=== PATIENT | female | born 1950 | race Caucasian/White ===

== ENCOUNTER 2021-03-16 01:05 | Emergency (ER) | payer MEDICARE, MEDICAID, SELFPAY ==
[2021-03-16 01:15] VITALS: BP 141/51; BP 148/48; PULSE 60; RESP 16; TEMP 36.7; O2SAT 96; O2SAT 97; BMI 38.2
--- NOTE | 2021-03-16 01:20 | PC.NURSE ---
PT TO ROOM VIA AMBULANCE FROM [facility] WITH EKG CHG, UNSURE WHAT CHANGES EXACTLY HAPPENED. PT ARRIVES ALERT, RESPIRATIONS N/L. SKIN W/D. PT DENIES ANY CP OR SOB AT THIS TIME. PT ON MONITOR WITH HR 60. WILL CONTINUE TO MONITOR PT.
--- NOTE | 2021-03-16 02:02 | ED.GENADULT ---
HPI - General Adult General Chief complaint: General Medical Stated complaint: ABN LABS,EKG CHANGES PER [facility] Time Seen by Provider: 03/16/21 02:02 Source: patient Mode of arrival: EMS History of Present Illness HPI narrative: 70-year-old female brought in via EMS from [facility] for concerns regarding potassium levels and reported EKG changes. Patient states she is unclear why she was brought in as she has no complaints. She currently denies any dizziness, shortness of breath, chest pain/palpitations, nausea/vomiting/abdominal pain, and denies any urinary pain/burning/frequency. Related Data Previous Rx's Medication Instructions Recorded sodium polystyrene sulf-sorbtl 60 ml PO DAILY PRN #473 ml 03/16/21 Allergies Allergy/AdvReac Type Severity Reaction Status Date / Time codeine [CODEINE] Allergy Unknown UNKNOWN Unverified 05/17/20 19:17 morphine [MORPHINE] Allergy Unknown UNKNOWN, Unverified 05/17/20 19:17 anaphylaxis Review of Systems Review of Systems: Pertinent positives and negatives as stated in HPI 10 point review of systems is otherwise negative. PMFSH Past Medical History Source: nursing notes reviewed Social History Social History Advance Directives: No Advance Directives Information Provided: No Physical Exam Vital Signs: Vital Signs: Last Vital Signs Temp 98.1 F 03/16/21 01:15 Pulse 62 03/16/21 06:00 Resp 16 03/16/21 06:00 BP 163/61 H 03/16/21 06:00 Pulse Ox 97 03/16/21 06:00 Body Mass Index 38.2 VITAL SIGNS: Reviewed. GENERAL: Well developed, well nourished, in no acute distress. HEAD: Normocephalic/atraumatic EYES: PERRLA, EOMI OROPHARYNX: no oral lesions noted, posterior pharynx clear LUNGS: Normal breath sounds. No adventitious sounds or accessory muscle use. SpO2<97> CARDIOVASCULAR: Regular rate and rhythm without noted murmurs, no JVD or lower extremity edema. ABDOMEN: Obese, Soft, non-tender, non-distended with bowel sounds. 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 NEUROLOGIC: Alert and oriented x 4. Strength and sensation to light touch were grossly intact x 4. Course Course Course Narrative: 70-year-old female with history and clinical presentation reported as EKG changes and elevated potassium levels, however patient is completely asymptomatic. On review of all investigations anemia is chronically stable, there is a mild hypochloremic states suggestive of poor p.o. intake with corresponding mild PEG and mildly elevated potassium. LFTs consistent with likely fatty liver as patient has no history or clinical findings suggestive of hepatobiliary etiology. Patient was provided with Kayexalate and will be discharged back to the [facility] with recommendations to repeat chemistry panel after patient has a bowel movement. No evidence at this time to suggest more aggressive intervention with calcium gluconate/insulin/D50. Medical Decision Making Lab Data Result diagrams: 03/16/21 02:11 03/16/21 02:11 Labs: Lab Results 03/16/21 03/16/21 03/16/21 Range/Units 02:11 02:11 02:11 WBC 5.6 (4.8-10.8) X10*3/uL RBC 2.96 L (4.20-5.50) X10*6/uL Hgb 9.0 L (12.0-16.0) g/dl Hct 27.5 L (37-47) % MCV 92.9 (80-98) fL MCH 30.4 (27.0-33.0) pg MCHC 32.7 (31.0-35.0) g/dl RDW 12.4 (11.0-16.0) % Plt Count 208 (160-400) X10*3/uL MPV 10.5 (9.4-12.3) fL Immature Gran % (Auto) 0.2 (0.0-0.4) % Neut % (Auto) 59.1 (45-73) % Lymph % (Auto) 30.6 (20-40) % [place] % (Auto) 6.9 (2-11) % Eos % (Auto) 2.8 (0-4) % Baso % (Auto) 0.4 (0-2) % Lymph # (Auto) 1.7 (1.2-4.9) X10*3/uL [place] # (Auto) 0.4 (0.1-1.2) X10*3/uL Eos # (Auto) 0.2 (0.0-0.4) X10*3/uL Baso # (Auto) 0.0 (0.0-0.2) X10*3/uL Abs Immat Gran (auto) 0.01 (0.00-0.03) X10*3/uL Absolute Neuts (auto) 3.3 (2.0-8.3) X10*3/uL Absolute Nucleated RBC 0.000 (0.0-0.012) X10*3/uL Nucleated RBC % (auto) 0.0 (0.0-0.2) /100WBC Sodium 132 L (135-145) mmol/L Potassium 5.9 H (3.3-5.1) mmol/L Chloride 106 (96-108) mmol/L Carbon Dioxide 20 L (22-29) mmol/L Anion Gap 12 (12-20) BUN 39 H (9-16) mg/dL Creatinine 2.88 H (0.5-1.4) mg/dL Estim Creat Clear Calc 20.8 Estimated GFR 16 Random Glucose 209 H (60-115) mg/dL Calcium 7.2 L (8.4-10.2) mg/dL Total Bilirubin 0.5 (0.0-1.0) mg/dL AST 44 H (5-31) U/L ALT 59 H (0-31) U/L Alkaline Phosphatase 540 H (39-117) U/L Troponin I High Sens 6.5 (<3.5-17.0) ng/L Total Protein 6.2 L (6.5-8.0) g/dL Albumin 2.7 L (3.5-5.0) g/dL Discharge Plan Discharge Clinical Impression: Hyperkalemia Patient Disposition: Xfer [facility] Instructions: Hyperkalemia (ED) Additional Instructions: 1. Recommend modifying any medications that would cause a rise in potassium such as ACEIs/ARBs. 2. Follow-up with primary care provider in the next 1-2 days for re-evaluation. 3. Repeat BMP after patient has bowel movement from receiving Kayexalate. Return to the ER for acute worsening of symptoms. Prescriptions: New sodium polystyrene sulf-sorbtl 15-20 gram/60 mL suspension 60 ml PO DAILY PRN (Reason: hyperkalemia) Qty: 473 RF: 0 Referrals: Physician,Unknown [Primary Care Provider] - 2 days
--- NOTE | 2021-03-16 02:03 | ECG_ITS ---
Test Reason : EKG changes Blood Pressure : / mmHG Vent. Rate : 060 BPM Atrial Rate : 060 BPM P-R Int : 228 ms QRS Dur : 122 ms QT Int : 468 ms P-R-T Axes : 074 -49 -22 degrees QTc Int : 468 ms Sinus rhythm with 1st degree A-V block Left anterior fascicular block Left ventricular hypertrophy with QRS widening Abnormal ECG When compared with ECG of 24-MAY-2019 12:36, Questionable change in QRS duration Referred By: Ree Manrique Electronically Signed By:Shawn Snyder
[2021-03-16 02:19] LABS: MANUAL DIFF FLAG NO
--- NOTE | 2021-03-16 02:30 | PC.NURSE ---
PT RESTING IN STRETCHER. PT DENIES ANY CP OR DENIES ANY COMPLAINTS AT THIS TIME. EKG OBTAINED TO MD. LABS DRAWN TO LAB. WILL CONTINUE TO MONITOR PT.
[2021-03-16 02:38] LABS: Basophils Percent Auto 0.4 % (0-2); Eosinophils Absolute Auto 0.2 X10*3/uL (0.0-0.4); Eosinophils Percent Auto 2.8 % (0-4); Hematocrit 27.5 % (37-47); Imm Gran Abs Auto 0.01 X10*3/uL (0.00-0.03); Imm Gran Pct Auto 0.2 % (0.0-0.4); Lymphocytes Absolute Auto 1.7 X10*3/uL (1.2-4.9); Lymphocytes Percent Auto 30.6 % (20-40); Mean Corpuscular HGB Conc 32.7 g/dl (31.0-35.0); Mean Corpuscular Hemoglobin 30.4 pg (27.0-33.0); Mean Corpuscular Volume 92.9 fL (80-98); Mean Platelet Volume 10.5 fL (9.4-12.3); Monocytes Absolute Auto 0.4 X10*3/uL (0.1-1.2); Monocytes Percent Auto 6.9 % (2-11); Neutrophils Absolute Auto 3.3 X10*3/uL (2.0-8.3); Neutrophils Percent Auto 59.1 % (45-73); Platelet Count 208 X10*3/uL (160-400); Red Blood Count 2.96 X10*6/uL (4.20-5.50); Red Cell Distribution Width 12.4 % (11.0-16.0); White Blood Count 5.6 X10*3/uL (4.8-10.8)
[2021-03-16 03:06] LABS: Alanine Aminotransferase 59 U/L (0-31); Albumin Level 2.7 g/dL (3.5-5.0); Alkaline Phosphatase 540 U/L (39-117); Anion Gap 12 (12-20); Aspartate Amino Transferase 44 U/L (5-31); Bilirubin Total 0.5 mg/dL (0.0-1.0); Blood Urea Nitrogen 39 mg/dL (9-16); Calcium 7.2 mg/dL (8.4-10.2); Carbon Dioxide 20 mmol/L (22-29); Chloride 106 mmol/L (96-108); Creatinine Clr Calc Pharmacy 20.8; Estimated Glomerular Filt Rate 16; Glucose Random 209 mg/dL (60-115); Potassium 5.9 mmol/L (3.3-5.1); Sodium 132 mmol/L (135-145); Total Protein 6.2 g/dL (6.5-8.0)
[2021-03-16 03:21] LABS: Troponin-I High Sensitivity 6.5 ng/L (<3.5-17.0)
[2021-03-16 04:00] VITALS: BP 169/58; PULSE 62; O2SAT 97
--- NOTE | 2021-03-16 04:10 | PC.NURSE ---
PT REQUESTING WATER TO DRINK AND CONCERNED WHEN PT CAN GO BACK TO [facility]. PT REMAINS ALERT, RESPIRATIONS EASY, N/L. SKIN W/D. PT AWAITING FOR DISPO. WILL CONTINUE TO MONITOR PT.
[2021-03-16 06:00] VITALS: BP 163/61; PULSE 62; RESP 16; O2SAT 97
[2021-03-16] MEDS: Sodium Polystyrene Sulfon/Sorb 15 GM/60 ML ORAL.SUSP 30 GM PO (06:08)
--- NOTE | 2021-03-16 06:10 | PC.NURSE ---
PT MEDICATED PER [facility]. PT AWAITING FOR DISPO.
[2021-03-16 08:57] VITALS: BP 168/61; PULSE 62; RESP 15; O2SAT 98
--- NOTE | 2021-03-16 09:18 | PC.NURSE ---
Pt returning to [facility] via ems. Multiple attempts made to give report, however no answer on unit. Yamile the legal receptionist states she will let the unit know she is returning to the facility.
== END 2021-03-16 09:21 | disposition skilled nursing facility (03) ==
PROVIDERS: Emergency Provider Student in an Organized Health Care Education/Training Program
DX: E87.5 Hyperkalemia (principal); D64.9 Anemia, unspecified
CPT/HCPCS: 36415; 80053; 84484; 85025; 93005; 99284

== ENCOUNTER 2021-09-07 18:27 | Emergency (ER) | payer MEDICARE, MEDICAID, SELFPAY ==
--- NOTE | ~2021-09-07 | CT_ITS ---
EXAMINATION: CT HEAD WITHOUT CONTRAST CLINICAL INFORMATION: Mental status change COMPARISON: Portions of a previous study 05/24/19 TECHNIQUE: Multidetector CT examination of the head is performed without contrast. This CT examination was performed using dose optimization techniques as appropriate, variously including the following: *Automated exposure control *Adjustment of mA and/or kV according to patient size (this includes techniques or standardized protocols for targeted exams where dose is matched to indication/reason for exam; i.e. extremities or head) *Use of iterative reconstruction technique DLP: 634 mGy-cm FINDINGS: There is no evidence of a recent intracranial hemorrhage or extra-axial collection. The midline structures are nondisplaced. The ventricles, cisterns, and sulci are within normal limits. There is no evidence of an intra-axial mass. There are no suspicious focal areas of abnormal brain attenuation. The camacho-white interface is within normal limits. There is no evidence of acute territorial infarct. There is moderately extensive nonspecific white matter low attenuation similar to the previous study. This can be seen with microangiopathy. The paranasal sinuses and mastoids are within normal limits. CT/CT head/brain wo IV con IMPRESSION: 1. There is no evidence of a recent intracranial hemorrhage. 2. No acute infarct. 3. Nonspecific white matter disease possibly microangiopathy. This appears similar to the previous study
--- NOTE | ~2021-09-07 | XR_ITS ---
EXAMINATION: XR chest 1V CLINICAL INFORMATION: Reason for Exam Mental status change COMPARISON: Chest radiograph 05/24/2019 TECHNIQUE: One view of the chest XR/XR chest 1V FINDINGS/IMPRESSION: Clear lungs. No pneumothorax. No pleural effusion. Borderline enlarged cardiac silhouette.
[2021-09-07 18:41] VITALS: BP 130/68; PULSE 64; O2SAT 98
[2021-09-07 18:42] VITALS: BP 184/70; PULSE 68; RESP 19; TEMP 37.1; O2SAT 96; BMI 51.3
--- NOTE | 2021-09-07 18:56 | ECG_ITS ---
Test Reason : [employer] Blood Pressure : / mmHG Vent. Rate : 064 BPM Atrial Rate : 064 BPM P-R Int : 202 ms QRS Dur : 110 ms QT Int : 438 ms P-R-T Axes : 079 -49 -20 degrees QTc Int : 451 ms Normal sinus rhythm Left anterior fascicular block Moderate voltage criteria for LVH, may be normal variant ( R in aVL , [place] product ) Nonspecific ST abnormality Abnormal ECG When compared with ECG of 16-MAR-2021 02:32, Minimal criteria for Septal infarct are no longer Present Referred By: Aman Fisher Electronically Signed By:DEVAUGHN EDEN MD
--- NOTE | 2021-09-07 18:59 | ED.GENADULT ---
HPI - General Adult General Chief complaint: General Medical Stated complaint: ams Time Seen by Provider: 09/07/21 18:48 Source: patient and EMS Mode of arrival: EMS Limitations: no limitations History of Present Illness HPI narrative: 70-year-old female came in by ambulance from [facility] for evaluation of mental status change. 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 Patient otherwise in the emergency department is awake and alert able to provide a valid history, declined any headache, blurry vision, neck pain, chest pain, shortness of breath, nausea, vomiting, diarrhea, or abdominal pain. Patient also declined any viral symptoms, no fever or chills. Patient is hungry and asking for food. Related Data Previous Rx's Medication Instructions Recorded sodium polystyrene sulfonate 15 60 ml PO DAILY PRN #473 ml 03/16/21 gram-sorbitol 20 gram/60 mL oral susp cefuroxime axetil 500 mg tablet 500 mg PO BID #14 tab 09/07/21 Allergies Allergy/AdvReac Type Severity Reaction Status Date / Time codeine [CODEINE] Allergy Unknown UNKNOWN Unverified 05/17/20 19:17 morphine [MORPHINE] Allergy Unknown UNKNOWN, Unverified 05/17/20 19:17 anaphylaxis Review of Systems Review of Systems: All other systems are reviewed and are negative Constitutional: Reports as per HPI and Reports no additional constitutional complaints Eyes: Reports as per HPI and Reports no additional eye complaints Reports system reviewed and no additional complaints, except as documented Cardiovascular: Reports as per HPI and Reports no additional cardiovascular complaints Respiratory: Reports as per HPI and Reports no additional respiratory complaints Gastrointestinal: Reports as per HPI and Reports no additional gastrointestinal complaints Genitourinary: Reports no additional female genitourinary complaints Musculoskeletal: Reports no additional musculoskeletal complaints Skin/Breast: Reports system reviewed and no additional complaints, except as docu Psychiatric: Reports no additional psychiatric complaints Endocrine: Reports no additional endocrine complaints Hematologic/Lymphatic: Reports no additional hematologic/lymphatic complaints Allergic/Immunologic: Reports no additional allergic/immunologic complaints Reports system reviewed and no additional complaints, except as documented and Reports Abnormal speech present [facility] Past Medical History Medical History Acute kidney failure Acute respiratory failure with hypoxia Diabetes Dysphagia Failure to thrive in adult GERD (gastroesophageal reflux disease) Hypothyroidism PVD (peripheral vascular disease) TIA (transient ischemic attack) Social History Social History Advance Directives: No Advance Directives Information Provided: No Physical Exam Vital Signs: Vital Signs: Last Vital Signs Temp 98.8 F 09/07/21 18:42 Pulse 68 09/07/21 18:42 Resp 19 09/07/21 18:42 BP 184/70 H 09/07/21 18:42 Pulse Ox 96 09/07/21 18:42 BMI result Body Mass Index 51.3 Vital signs have been reviewed as appeared to be correct. Blood pressure normal. Heart rate normal. Respiration rate normal. Temperature normal. Oxygen saturation normal. Appearance: Alert. Oriented X3. No acute distress. Head: Normal external exam. Normocephalic. Atraumatic. No Diaz signs noted. No raccoon eyes noted Eyes: PERRLA. EOMI. Conjunctiva and sclera normal. Eyelids normal. ENT: TM's Normal. Pharynx normal. Uvula midline. Moist mucous membranes. No trismus noted. No drooling noted. No muffled voice noted. Neck: Normal inspection. Neck supple. FROM. No adenopathy. Thyroid Normal. No meningeal signs. No neck mass noted. CVS: Normal heart rate and rhythm. Heart sound normal. No murmurs noted. Pulses normal throughout. Respiratory: No respiratory distress. Painless inspiration. Breath sounds normal. No wheezes/rales/rhonchi noted. Chest nontender. No accessory muscle usage noted or decreased air movement noted. Abdomen: Soft and nontender. Bowel sounds normal in all 4 quadrants. No distention noted. No organomegaly noted. No visible injury noted. Back: No CVA tenderness. Full range of motion noted. Skin: Skin warm and dry. Normal skin color. Normal skin turgor. No rashes/lesions/lacerations noted. Extremities: Status post left BKA Neuro: Oriented X 3. Cranial nerve exam: II-XII are grossly intact No motor deficit. No sensory deficit. Reflexes normal. Course Course Course Narrative: Assessment and plan. 70-year-old female came in from jail for evaluation of change mental status, patient is showing no change in the mental status, patient was in the emergency department for 5 hours patient remained awake and alert, patient keeping a decent conversation with staff, stable vital signs, unremarkable workup for change mental status including head CT. Labs are at baseline for the patient with chronic renal insufficiency and chronic LFTs elevation, and chronic anemia. COVID-19 is negative. mild UTI that will be treated with cefuroxime orally. Will send the patient back to the jail. Medical Decision Making Lab Data Lab results reviewed: Yes I reviewed the patient's lab results. Result diagrams: 09/07/21 21:48 09/07/21 21:48 Labs: Lab Results 09/07/21 09/07/21 09/07/21 Range/Units 19:55 19:55 21:48 WBC 9.7 (4.8-10.8) X10*3/uL RBC 3.33 L (4.20-5.50) X10*6/uL Hgb 10.2 L (12.0-16.0) g/dl Hct 30.2 L (37.0-47.0) % MCV 90.7 (80.0-98.0) fL MCH 30.6 (27.0-33.0) pg MCHC 33.8 (31.0-35.0) g/dl RDW 13.2 (11.0-16.0) % Plt Count 229 (160-400) X10*3/uL MPV 10.3 (9.4-12.3) fL Immature Gran % (Auto) 0.3 (0.0-0.4) % Neut % (Auto) 67.2 (45-73) % Lymph % (Auto) 23.6 (20-40) % [place] % (Auto) 7.0 (2-11) % Eos % (Auto) 1.6 (0-4) % Baso % (Auto) 0.3 (0-2) % Lymph # (Auto) 2.3 (1.2-4.9) X10*3/uL [place] # (Auto) 0.7 (0.1-1.2) X10*3/uL Eos # (Auto) 0.2 (0.0-0.4) X10*3/uL Baso # (Auto) 0.0 (0.0-0.2) X10*3/uL Abs Immat Gran (auto) 0.03 (0.00-0.03) X10*3/uL Absolute Neuts (auto) 6.5 (2.0-8.3) x10*3/uL Absolute Nucleated RBC 0.000 (0.0-0.012) X10*3/uL Nucleated RBC % (auto) 0.0 (0.0-0.2) /100WBC Sodium (135-145) mmol/L Potassium (3.3-5.1) mmol/L Chloride (96-108) mmol/L Carbon Dioxide (22-29) mmol/L Anion Gap (12-20) BUN (9-16) mg/dL Creatinine (0.5-1.4) mg/dL Estim Creat Clear Calc Estimated GFR Random Glucose (60-115) mg/dL Lactic Acid (0.5-2.0) mmol/L Calcium (8.4-10.2) mg/dL Total Bilirubin (0.0-1.0) mg/dL Direct Bilirubin (0.0-0.5) mg/dL AST (5-31) U/L ALT (0-31) U/L Alkaline Phosphatase (39-117) U/L Troponin I High Sens (<3.5-17.0) ng/L B-Natriuretic Peptide (<100) pg/mL Total Protein (6.5-8.0) g/dL Albumin (3.5-5.0) g/dL Lipase (8-78) U/L Urine Color YELLOW Urine Appearance CLOUDY Urine pH 5.5 (5.0-8.0) Ur Specific [place] 1.025 (1.005-1.025) Urine Protein 2+ H (NEG-TRACE) MG/DL Urine Glucose (UA) NEG (NEG) MG/DL Urine Ketones NEG (NEG) MG/DL Urine Blood 1+ H (NEG) Urine Nitrite NEG (NEG) Ur Leukocyte Esterase 2+ H (NEG) Urine RBC 1-4 (0) /HPF Urine WBC 15-29 H (0-4) /HPF Ur Squamous Epith Cells 3+ /LPF Urine Bacteria 4+ /LPF COVID-19 (LUCIO) Negative (Negative) COVID-19 Clin Com See Note 09/07/21 09/07/21 09/07/21 Range/Units 21:48 21:48 21:48 WBC (4.8-10.8) X10*3/uL RBC (4.20-5.50) X10*6/uL Hgb (12.0-16.0) g/dl Hct (37.0-47.0) % MCV (80.0-98.0) fL MCH (27.0-33.0) pg MCHC (31.0-35.0) g/dl RDW (11.0-16.0) % Plt Count (160-400) X10*3/uL MPV (9.4-12.3) fL Immature Gran % (Auto) (0.0-0.4) % Neut % (Auto) (45-73) % Lymph % (Auto) (20-40) % [place] % (Auto) (2-11) % Eos % (Auto) (0-4) % Baso % (Auto) (0-2) % Lymph # (Auto) (1.2-4.9) X10*3/uL [place] # (Auto) (0.1-1.2) X10*3/uL Eos # (Auto) (0.0-0.4) X10*3/uL Baso # (Auto) (0.0-0.2) X10*3/uL Abs Immat Gran (auto) (0.00-0.03) X10*3/uL Absolute Neuts (auto) (2.0-8.3) x10*3/uL Absolute Nucleated RBC (0.0-0.012) X10*3/uL Nucleated RBC % (auto) (0.0-0.2) /100WBC Sodium 138 (135-145) mmol/L Potassium 4.9 (3.3-5.1) mmol/L Chloride 112 H (96-108) mmol/L Carbon Dioxide 20 L (22-29) mmol/L Anion Gap 11 L (12-20) BUN 45 H (9-16) mg/dL Creatinine 2.42 H (0.5-1.4) mg/dL Estim Creat Clear Calc 29.5 Estimated GFR 20 Random Glucose 132 H (60-115) mg/dL Lactic Acid 0.8 (0.5-2.0) mmol/L Calcium 8.1 L D (8.4-10.2) mg/dL Total Bilirubin 0.3 (0.0-1.0) mg/dL Direct Bilirubin 0.2 (0.0-0.5) mg/dL AST 47 H (5-31) U/L ALT 64 H (0-31) U/L Alkaline Phosphatase 273 H D (39-117) U/L Troponin I High Sens 9.1 (<3.5-17.0) ng/L B-Natriuretic Peptide (<100) pg/mL Total Protein 6.9 (6.5-8.0) g/dL Albumin 2.7 L (3.5-5.0) g/dL Lipase 12 (8-78) U/L Urine Color Urine Appearance Urine pH (5.0-8.0) Ur Specific [place] (1.005-1.025) Urine Protein (NEG-TRACE) MG/DL Urine Glucose (UA) (NEG) MG/DL Urine Ketones (NEG) MG/DL Urine Blood (NEG) Urine Nitrite (NEG) Ur Leukocyte Esterase (NEG) Urine RBC (0) /HPF Urine WBC (0-4) /HPF Ur Squamous Epith Cells /LPF Urine Bacteria /LPF COVID-19 (LUCIO) (Negative) COVID-19 Clin Com 09/07/21 Range/Units 21:48 WBC (4.8-10.8) X10*3/uL RBC (4.20-5.50) X10*6/uL Hgb (12.0-16.0) g/dl Hct (37.0-47.0) % MCV (80.0-98.0) fL MCH (27.0-33.0) pg MCHC (31.0-35.0) g/dl RDW (11.0-16.0) % Plt Count (160-400) X10*3/uL MPV (9.4-12.3) fL Immature Gran % (Auto) (0.0-0.4) % Neut % (Auto) (45-73) % Lymph % (Auto) (20-40) % [place] % (Auto) (2-11) % Eos % (Auto) (0-4) % Baso % (Auto) (0-2) % Lymph # (Auto) (1.2-4.9) X10*3/uL [place] # (Auto) (0.1-1.2) X10*3/uL Eos # (Auto) (0.0-0.4) X10*3/uL Baso # (Auto) (0.0-0.2) X10*3/uL Abs Immat Gran (auto) (0.00-0.03) X10*3/uL Absolute Neuts (auto) (2.0-8.3) x10*3/uL Absolute Nucleated RBC (0.0-0.012) X10*3/uL Nucleated RBC % (auto) (0.0-0.2) /100WBC Sodium (135-145) mmol/L Potassium (3.3-5.1) mmol/L Chloride (96-108) mmol/L Carbon Dioxide (22-29) mmol/L Anion Gap (12-20) BUN (9-16) mg/dL Creatinine (0.5-1.4) mg/dL Estim Creat Clear Calc Estimated GFR Random Glucose (60-115) mg/dL Lactic Acid (0.5-2.0) mmol/L Calcium (8.4-10.2) mg/dL Total Bilirubin (0.0-1.0) mg/dL Direct Bilirubin (0.0-0.5) mg/dL AST (5-31) U/L ALT (0-31) U/L Alkaline Phosphatase (39-117) U/L Troponin I High Sens (<3.5-17.0) ng/L B-Natriuretic Peptide 186 H (<100) pg/mL Total Protein (6.5-8.0) g/dL Albumin (3.5-5.0) g/dL Lipase (8-78) U/L Urine Color Urine Appearance Urine pH (5.0-8.0) Ur Specific [place] (1.005-1.025) Urine Protein (NEG-TRACE) MG/DL Urine Glucose (UA) (NEG) MG/DL Urine Ketones (NEG) MG/DL Urine Blood (NEG) Urine Nitrite (NEG) Ur Leukocyte Esterase (NEG) Urine RBC (0) /HPF Urine WBC (0-4) /HPF Ur Squamous Epith Cells /LPF Urine Bacteria /LPF COVID-19 (LUCIO) (Negative) COVID-19 Clin Com Imaging Data CT scan - head: Attestation: I personally reviewed and interpreted this imaging study as follows: Radiologist's impression: 1. There is no evidence of a recent intracranial hemorrhage. ?2. No acute infarct. ?3. Nonspecific white matter disease possibly microangiopathy. This appears similar to the previous study Chest x-ray: Attestation: I personally reviewed and interpreted this imaging study as follows: Radiologist's impression: Clear lungs. ?No pneumothorax. No pleural effusion. ?Borderline enlarged cardiac silhouette. ? ? ECG Data Attestation: I personally reviewed and interpreted this ECG as follows: Interpretation: Normal sinus rhythm at 64 beats per minutes, prolongation of the LA, QRS and QT intervals, nonspecific T-wave changes. Discharge Plan Discharge Clinical Impression: Urinary tract infection Patient Disposition: [facility] Instructions: Urinary Tract Infection in Older Adults (ED) Prescriptions: New cefuroxime axetil 500 mg tablet 500 mg PO BID Qty: 14 RF: 0 No Action sodium polystyrene sulf-sorbtl 15-20 gram/60 mL suspension 60 ml PO DAILY PRN (Reason: hyperkalemia) Qty: 473 RF: 0 Referrals: Annette Joya MD [Primary Care Provider] - 2 days
--- NOTE | 2021-09-07 19:49 | PC.NURSE ---
ASKED TO ATTEMPT IV LINE FOR PRIMARY RN. PATIENT IS REFUSING IV ACCESS . PULLING ARM AWAY STATING NO NO NO NO . PROVIDER MADE AWARE.
[2021-09-07 20:06] LABS: Appearance Urine CLOUDY; Color Urine YELLOW; Glucose Urine UA NEG (NEG); Leukocyte Esterase Urine 2+ (NEG); Nitrite Urine NEG (NEG); PH 5.5 (5.0-8.0); Specific Gravity - Urine 1.025 (1.005-1.025); UACC Culture Trigger YES; Urine Blood 1+ (NEG); Urine Ketones NEG (NEG); Urine Protein 2+ MG/DL (NEG-TRACE)
[2021-09-07 20:18] LABS: Bacteria Urine 4+ /LPF; Squamous Epithelial Cell Urine 3+ /LPF
[2021-09-07 20:37] LABS: COVID-19 Test Negative (Negative)
--- NOTE | 2021-09-07 21:25 | PC.NURSE ---
This RN and Dr. Fisher will attempt to obtain IV access using US visualization. Multiple RNs have attempted to obtain IV access and draw blood with no success.
[2021-09-07 21:56] LABS: MANUAL DIFF FLAG NO
[2021-09-07 21:59] LABS: Basophils Percent Auto 0.3 % (0-2); Eosinophils Absolute Auto 0.2 X10*3/uL (0.0-0.4); Eosinophils Percent Auto 1.6 % (0-4); Hematocrit 30.2 % (37.0-47.0); Hemoglobin 10.2 g/dl (12.0-16.0); Imm Gran Abs Auto 0.03 X10*3/uL (0.00-0.03); Imm Gran Pct Auto 0.3 % (0.0-0.4); Lymphocytes Absolute Auto 2.3 X10*3/uL (1.2-4.9); Lymphocytes Percent Auto 23.6 % (20-40); Mean Corpuscular HGB Conc 33.8 g/dl (31.0-35.0); Mean Corpuscular Hemoglobin 30.6 pg (27.0-33.0); Mean Corpuscular Volume 90.7 fL (80.0-98.0); Mean Platelet Volume 10.3 fL (9.4-12.3); Monocytes Absolute Auto 0.7 X10*3/uL (0.1-1.2); Neutrophils Absolute Auto 6.5 x10*3/uL (2.0-8.3); Neutrophils Percent Auto 67.2 % (45-73); Platelet Count 229 X10*3/uL (160-400); Red Blood Count 3.33 X10*6/uL (4.20-5.50); Red Cell Distribution Width 13.2 % (11.0-16.0); White Blood Count 9.7 X10*3/uL (4.8-10.8)
[2021-09-07 22:09] LABS: Lactic Acid 0.8 mmol/L (0.5-2.0)
[2021-09-07 22:18] LABS: Alanine Aminotransferase 64 U/L (0-31); Albumin Level 2.7 g/dL (3.5-5.0); Alkaline Phosphatase 273 U/L (39-117); Anion Gap 11 (12-20); Aspartate Amino Transferase 47 U/L (5-31); Bilirubin Direct 0.2 mg/dL (0.0-0.5); Bilirubin Total 0.3 mg/dL (0.0-1.0); Blood Urea Nitrogen 45 mg/dL (9-16); Calcium 8.1 mg/dL (8.4-10.2); Carbon Dioxide 20 mmol/L (22-29); Chloride 112 mmol/L (96-108); Creatinine Clr Calc Pharmacy 29.5; Estimated Glomerular Filt Rate 20; Glucose Random 132 mg/dL (60-115); Lipase 12 U/L (8-78); Potassium 4.9 mmol/L (3.3-5.1); Sodium 138 mmol/L (135-145); Total Protein 6.9 g/dL (6.5-8.0)
[2021-09-07 22:19] LABS: B Type Natriuretic Peptide 186 pg/mL (<100)
[2021-09-07 22:20] LABS: Troponin-I High Sensitivity 9.1 ng/L (<3.5-17.0)
[2021-09-07 23:23] VITALS: BP 161/61; PULSE 69; RESP 17; TEMP 36.6; O2SAT 96
[2021-09-08] VITALS: BP 153/60; PULSE 69; RESP 16; TEMP 36.7; O2SAT 97
== END 2021-09-08 01:00 | disposition skilled nursing facility (03) ==
PROVIDERS: Emergency Provider Emergency Medicine; PCP Internal Medicine
DX: N39.0 Urinary tract infection, site not specified (principal); Z20.822 Contact with and (suspected) exposure to COVID-19; E11.9 Type 2 diabetes mellitus without complications; Z89.512 Acquired absence of left leg below knee
CPT/HCPCS: 36415; 51701; 70450; 71045; 80048; 80076; 81001; 83605; 83690; 83880; 84484; 85025; 87040; 87086; 87635; 93005; 99283; 99284

== ENCOUNTER 2022-02-24 11:42 | Inpatient (IN) | payer MEDICARE, MEDICAID, SELFPAY ==
--- NOTE | ~2022-02-24 | US_ITS ---
EXAMINATION: US RETROPERITONEAL LIMITED (RENAL ONLY) CLINICAL INFORMATION: Hypertension uncontrolled. COMPARISON: None TECHNIQUE: Real-time imaging of the kidneys. FINDINGS: RIGHT KIDNEY: 10.2 x 5.1 x 6.1 cm (SAG x AP x TRV). The kidney is normal in size, contour, and echogenicity. There is mild cortical thinning. No calculi or focal parenchymal lesions. No hydronephrosis. LEFT KIDNEY: 10.3 x 4.5 x 5.4 cm (SAG x AP x TRV). The kidney is normal in size, contour, and echogenicity. There is very mild cortical thinning. No renal calculi or hydronephrosis. At the lower pole, a 1.2 cm in maximal diameter anechoic, simple cyst is seen. US/US renal BI IMPRESSION: 1. A simple left renal cyst is seen. 2. There is mild right and very mild left renal cortical thinning.
--- NOTE | ~2022-02-24 | XR_ITS ---
EXAMINATION: XR CHEST CLINICAL INFORMATION: Acute on chronic renal failure COMPARISON: 09/07/2021 chest radiograph TECHNIQUE: Frontal view of the chest was obtained. FINDINGS: The lungs are hypoinflated. Otherwise, no significant abnormality is noted involving the heart, lungs, mediastinum, bony thorax or soft tissues. XR/XR chest 1V IMPRESSION: Hypoinflated lungs. No acute intrathoracic disease.
--- NOTE | ~2022-02-24 | US_ITS ---
EXAMINATION: Bilateral LOWER EXTREMITY DUPLEX CLINICAL INFORMATION: Leg pain. The patient has a history of a left [id number]-[id number] amputation. COMPARISON: None TECHNIQUE: Real-time ultrasound and Doppler techniques (integrating B-mode 2-D vascular images, Doppler spectral analysis and color flow Doppler imaging) were utilized to interrogate the lower extremities. FINDINGS: Proximal aorta measures 2.4 x 2.1 cm. Peak systolic velocity is 53.2 cm/s. Mid aorta measures 2 x 2.8 cm Distal aorta is not well visualized secondary to bowel gas. There is limited visualization of the iliac arteries and dimensions cannot be measured. Peak systolic velocity within the right common iliac is 66.6 cm/s and flow is monophasic. No Doppler signal of the left iliac identified. RIGHT LEG: Common femoral artery: 53.4 cm/s, monophasic Profunda femoris artery: 53.2 cm/s, monophasic Superficial femoral artery (proximal): Occluded Superficial femoral artery (mid): Occluded Superficial femoral artery (distal): 22.9 cm/s, monophasic Popliteal artery: 261 cm/s, monophasic Anterior tibial artery: Not visualized Peroneal artery: Not visualized Posterior tibial artery: 29.8 cm/s, monophasic LEFT LEG: Common femoral artery: Proximally peak systolic velocity is 171 cm/s, more distally the vessel appears occluded Profunda femoris artery: Occluded Superficial femoral artery (proximal): Occluded Superficial femoral artery (mid): 29.5 cm/s, monophasic Superficial femoral artery (distal): 33.8 cm/s, monophasic US/US arterial duplex LE BI IMPRESSION: On the right there is monophasic flow throughout suggesting more proximal inflow disease. There is occlusion of the proximal to mid superficial femoral artery with reformation of the distal aspect of the vessel. There is elevated velocity of the popliteal artery suggesting disease at this level and there is poor visualization of the runoff vessels other than the posterior tibial artery. On the left the distal aspect of the common femoral artery, the proximal superficial femoral artery, the profunda femoris appear occluded. Further evaluation with cross-sectional imaging could be helpful.
--- NOTE | ~2022-02-24 | US_ITS ---
EXAMINATION: US VENOUS ULTRASOUND WITH DOPPLER LOWER EXTREMITY, RIGHT CLINICAL INFORMATION: Right leg pain and swelling COMPARISON: None TECHNIQUE: Ultrasound of the deep veins is performed from the hip to the calf with compression sonography and color and pulse Doppler assessment. Spectral analysis with color-flow imaging is performed. FINDINGS: There is normal venous compression and respiratory variation and augmented flow. The visualized common femoral vein, superficial femoral vein, profunda femoral vein, popliteal vein, and the trifurcation region shows no evidence of deep venous thrombosis. The contralateral left common femoral vein appears normal. There is no significant popliteal fossa cyst. If the patient's symptoms persist, followup ultrasound in 5 days 7 days might be of value to exclude proximal propagation from a non-visualized calf vein. US/US venous duplex LE RT IMPRESSION: No DVT demonstrated in the right lower extremity.
[2022-02-24 12:01] VITALS: BP 130/70; BP 167/60; PULSE 60; PULSE 73; RESP 16; TEMP 36.7; O2SAT 94; O2SAT 97; BMI 38.5
--- NOTE | 2022-02-24 12:16 | ED.GENADULT ---
HPI - General Adult General Chief complaint: Extremity Injury, Lower Stated complaint: RIGHT LEG PAIN X 1 WEEK Time Seen by Provider: 02/24/22 12:14 Source: patient Mode of arrival: ambulatory Limitations: no limitations History of Present Illness HPI narrative: 71-year-old female came in from [facility] for evaluation of her right lower extremity swelling and pain. 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 Patient declined chest pain or difficulty breathing, patient has history of asthma and been having nonproductive cough and wheezing. Patient declined any recent fall or trauma to the right lower extremities. Related Data Previous Rx's Medication Instructions Recorded sodium polystyrene sulfonate 15 60 ml PO DAILY PRN hyperkalemia 03/16/21 gram-sorbitol 20 gram/60 mL oral #473 mL susp cefuroxime axetil 500 mg tablet 500 mg PO BID #14 tabs 09/07/21 Allergies Allergy/AdvReac Type Severity Reaction Status Date / Time codeine [CODEINE] Allergy Unknown UNKNOWN Unverified 05/17/20 19:17 morphine [MORPHINE] Allergy Unknown UNKNOWN, Unverified 05/17/20 19:17 anaphylaxis adhesive tape Allergy Unknown Verified 02/24/22 12:18 clarithromycin Allergy Unknown Verified 02/24/22 12:18 clonidine [From Catapres] Allergy Unknown Verified 02/24/22 12:18 lactose Allergy Unknown Verified 02/24/22 12:10 latex Allergy Unknown Verified 02/24/22 12:18 Review of Systems Review of Systems: All other systems are reviewed and are negative Constitutional: Reports as per HPI and Reports no additional constitutional complaints Eyes: Reports as per HPI and Reports no additional eye complaints Reports system reviewed and no additional complaints, except as documented Cardiovascular: Reports as per HPI and Reports no additional cardiovascular complaints Respiratory: Reports as per HPI and Reports no additional respiratory complaints Gastrointestinal: Reports as per HPI and Reports no additional gastrointestinal complaints Genitourinary: Reports no additional female genitourinary complaints Musculoskeletal: Reports no additional musculoskeletal complaints Skin/Breast: Reports system reviewed and no additional complaints, except as docu Psychiatric: Reports no additional psychiatric complaints Endocrine: Reports no additional endocrine complaints Hematologic/Lymphatic: Reports no additional hematologic/lymphatic complaints Allergic/Immunologic: Reports no additional allergic/immunologic complaints Reports system reviewed and no additional complaints, except as documented and Reports Abnormal speech present [facility] Past Medical History Medical History Acute kidney failure Acute respiratory failure with hypoxia Diabetes Dysphagia Failure to thrive in adult GERD (gastroesophageal reflux disease) Hypothyroidism PVD (peripheral vascular disease) TIA (transient ischemic attack) Social History Social History Alcohol intake: never Patient Tobacco Use Status: Never used Tobacco Use of substances other than those prescribed or required for medical reasons: No Advance Directives: No Advance Directives Information Provided: Yes Physical Exam ED Vital Signs: Vital Signs - 24 hr 02/24/22 12:01 02/24/22 12:30 02/24/22 14:29 Temperature 98.1 F 98.0 F Pulse Rate 60 63 62 Respiratory Rate 16 18 17 Blood Pressure 167/60 H 165/60 H Pulse Oximetry 94 93 Oxygen Delivery Method Room Air Room Air 02/24/22 14:56 Temperature Pulse Rate 61 Respiratory Rate Blood Pressure 163/58 H Pulse Oximetry 95 Oxygen Delivery Method BMI result Body Mass Index 38.5 Vital signs have been reviewed as appeared to be correct. Blood pressure normal. Heart rate normal. Respiration rate normal. Temperature normal. Oxygen saturation normal. Appearance: Alert. Oriented X3. No acute distress. Head: Normal external exam. Normocephalic. Atraumatic. No Diaz signs noted. No raccoon eyes noted Eyes: PERRLA. EOMI. Conjunctiva and sclera normal. Eyelids normal. ENT: TM's Normal. Pharynx normal. Uvula midline. Moist mucous membranes. No trismus noted. No drooling noted. No muffled voice noted. Neck: Normal inspection. Neck supple. FROM. No adenopathy. Thyroid Normal. No meningeal signs. No neck mass noted. CVS: Normal heart rate and rhythm. Heart sound normal. No murmurs noted. Pulses normal throughout. Respiratory: No respiratory distress. Painless inspiration. Breath sounds normal. Bilateral expiratory diffuse mild wheezing, prolonged expiration.. Chest nontender. No accessory muscle usage noted or decreased air movement noted. Abdomen: Soft and nontender. Bowel sounds normal in all 4 quadrants. No distention noted. No organomegaly noted. No visible injury noted. Back: No CVA tenderness. Full range of motion noted. Skin: Skin warm and dry. Normal skin color. Normal skin turgor. No rashes/lesions/lacerations noted. Extremities: Left BKA, right lower extremity swelling and tense with tender to touch, no redness, no hotness. Neuro: Oriented X 3. Cranial nerve exam: II-XII are grossly intact No motor deficit. No sensory deficit. Reflexes normal. Course Course Course Narrative: 71-year-old female from correction came in for evaluation of chronic right lower extremities pain, patient had negative venous ultrasound for DVT, random labs showed worsening of chronic renal failure with hyperkalemia with no EKG changes, patient was given calcium/insulin with D5W/Kayexalate, the case also discussed with Dr. Somers from Nephrology who will consult on the patient. Patient's exam is not showing volume overload at this point. Will admit for further evaluation. Medical Decision Making Medical Records Medical records reviewed: Yes I reviewed the patient's medical records. Lab Data Lab results reviewed: Yes I reviewed the patient's lab results. Result diagrams: 02/24/22 12:41 02/24/22 12:41 Labs: Lab Results 02/24/22 02/24/22 02/24/22 Range/Units 12:41 12:41 14:26 WBC 7.0 (4.8-10.8) X10*3/uL RBC 2.64 L D (4.20-5.50) X10*6/uL Hgb 8.5 L (12.0-16.0) g/dl Hct 25.6 L (37.0-47.0) % MCV 97.0 (80.0-98.0) fL MCH 32.2 (27.0-33.0) pg MCHC 33.2 (31.0-35.0) g/dl RDW 13.6 (11.0-16.0) % Plt Count 186 (160-400) X10*3/uL MPV 11.2 (9.4-12.3) fL Immature Gran % (Auto) 0.3 (0.0-0.4) % Neut % (Auto) 56.1 (45-73) % Lymph % (Auto) 32.6 (20-40) % [place] % (Auto) 6.7 (2-11) % Eos % (Auto) 3.7 (0-4) % Baso % (Auto) 0.6 (0-2) % Lymph # (Auto) 2.3 (1.2-4.9) X10*3/uL [place] # (Auto) 0.5 (0.1-1.2) X10*3/uL Eos # (Auto) 0.3 (0.0-0.4) X10*3/uL Baso # (Auto) 0.0 (0.0-0.2) X10*3/uL Abs Immat Gran (auto) 0.02 (0.00-0.03) X10*3/uL Absolute Neuts (auto) 3.9 (2.0-8.3) x10*3/uL Absolute Nucleated RBC 0.000 (0.0-0.012) X10*3/uL Nucleated RBC % (auto) 0.0 (0.0-0.2) /100WBC Sodium 134 L (135-145) mmol/L Potassium 6.4 H* D (3.3-5.1) mmol/L Chloride 107 (96-108) mmol/L Carbon Dioxide 21 L (22-29) mmol/L Anion Gap 12 (12-20) BUN 57 H (9-16) mg/dL Creatinine 3.04 H (0.5-1.4) mg/dL Estim Creat Clear Calc 19.7 Estimated GFR 15 POC Glucose 156 H (60-115) mg/dL Random Glucose 175 H (60-115) mg/dL Calcium 7.4 L D (8.4-10.2) mg/dL Total Bilirubin 0.3 (0.0-1.0) mg/dL Direct Bilirubin < 0.2 (0.0-0.5) mg/dL AST 138 H (5-31) U/L ALT 182 H (0-31) U/L Alkaline Phosphatase 363 H D (39-117) U/L Total Creatine Kinase 40 (26-140) U/L Total Protein 6.6 (6.5-8.0) g/dL Albumin 2.6 L (3.5-5.0) g/dL Lipase 30 (8-78) U/L Imaging Data Right lower extremity is a venous ultrasound: Attestation: I personally reviewed and interpreted this imaging study as follows: Radiologist's impression: No DVT. Chest x-ray: Attestation: I personally reviewed and interpreted this imaging study as follows: Radiologist's impression: No acute pathology ECG Data Attestation: I personally reviewed and interpreted this ECG as follows: Interpretation: Normal sinus rhythm at 61 beats per minute, left axis deviation, LVH, nonspecific ST-T changes. Critical Care Time Critical Care Time Critical Care Time: Yes Total Critical Care Time: 60 Attestation: I spent 60 minutes providing critical care service to the patient, this including time spent at the bedside to evaluate the patient, reassess the patient, monitoring vital signs, review labs, and radiographic studies, counseling the patient/family, discussing the case with consultants, disposition the patient. Discharge Plan Discharge Clinical Impression: Acute on chronic kidney failure, Acute hyperkalemia Patient Disposition: Admitted As Inpatient Prescriptions: No Action sodium polystyrene sulf-sorbtl 15-20 gram/60 mL suspension 60 ml PO DAILY PRN (Reason: hyperkalemia) Qty: 473 0RF cefuroxime axetil 500 mg tablet 500 mg PO BID Qty: 14 0RF
[2022-02-24] MEDS: Albuterol/Iprat 2.5/0.5MG 3 ML AMPUL.NEB INHALE (12:28)
[2022-02-24] MEDS: Albuterol Sulfate (0.083%) 2.5 MG/3 ML VIAL.NEB INHALE (12:28)
[2022-02-24 12:30] VITALS: PULSE 63; RESP 18; O2SAT 98
[2022-02-24 12:46] LABS: MANUAL DIFF FLAG NO
[2022-02-24 12:54] LABS: Basophils Percent Auto 0.6 % (0-2); Eosinophils Absolute Auto 0.3 X10*3/uL (0.0-0.4); Eosinophils Percent Auto 3.7 % (0-4); Hematocrit 25.6 % (37.0-47.0); Hemoglobin 8.5 g/dl (12.0-16.0); Imm Gran Abs Auto 0.02 X10*3/uL (0.00-0.03); Imm Gran Pct Auto 0.3 % (0.0-0.4); Lymphocytes Absolute Auto 2.3 X10*3/uL (1.2-4.9); Lymphocytes Percent Auto 32.6 % (20-40); Mean Corpuscular HGB Conc 33.2 g/dl (31.0-35.0); Mean Corpuscular Hemoglobin 32.2 pg (27.0-33.0); Mean Platelet Volume 11.2 fL (9.4-12.3); Monocytes Absolute Auto 0.5 X10*3/uL (0.1-1.2); Monocytes Percent Auto 6.7 % (2-11); Neutrophils Absolute Auto 3.9 x10*3/uL (2.0-8.3); Neutrophils Percent Auto 56.1 % (45-73); Platelet Count 186 X10*3/uL (160-400); Red Blood Count 2.64 X10*6/uL (4.20-5.50); Red Cell Distribution Width 13.6 % (11.0-16.0)
[2022-02-24 13:17] LABS: Alanine Aminotransferase 182 U/L (0-31); Albumin Level 2.6 g/dL (3.5-5.0); Alkaline Phosphatase 363 U/L (39-117); Anion Gap 12 (12-20); Aspartate Amino Transferase 138 U/L (5-31); Bilirubin Direct < 0.2 mg/dL (0.0-0.5); Bilirubin Total 0.3 mg/dL (0.0-1.0); Blood Urea Nitrogen 57 mg/dL (9-16); Calcium 7.4 mg/dL (8.4-10.2); Carbon Dioxide 21 mmol/L (22-29); Chloride 107 mmol/L (96-108); Creatinine Clr Calc Pharmacy 19.7; Estimated Glomerular Filt Rate 15; Glucose Random 175 mg/dL (60-115); Lipase 30 U/L (8-78); Potassium 6.4 mmol/L (3.3-5.1); Sodium 134 mmol/L (135-145); Total Protein 6.6 g/dL (6.5-8.0)
--- NOTE | 2022-02-24 13:23 | ECG_ITS ---
Test Reason : abn labs Blood Pressure : / mmHG Vent. Rate : 061 BPM Atrial Rate : 061 BPM P-R Int : 232 ms QRS Dur : 124 ms QT Int : 458 ms P-R-T Axes : 067 -46 -11 degrees QTc Int : 461 ms Sinus rhythm with 1st degree A-V block Left anterior fascicular block Left ventricular hypertrophy with QRS widening ( R in aVL , Farhat product ) Abnormal ECG When compared with ECG of 07-SEP-2021 19:32, CA interval has increased Referred By: Aman Fisher Electronically Signed By:VARSHA RANGEL
--- NOTE | 2022-02-24 13:28 | PC.NURSE ---
CRITICAL POTASSIUM 6.4 PRIMARY NURSE AWARE.
--- NOTE | 2022-02-24 13:30 | PC.NURSE ---
pt alert and oriented, skin pwd, respirations even and unlabored, but does have a intermittent junky cough but denies feeling sob, sating well. pt is having right leg pain that has been going on for about a couple of weeks, the entire leg appears to be very tender/taught almost like leather like/warm to touch/swollen. pt does have a left leg amputation below her knee. pt is bed bound. ns on the monitor, denies chest pain
[2022-02-24] MEDS: Sodium Polystyrene Sulfon/Sorb 15 GM/60 ML ORAL.SUSP 30 GM PO (13:32)
[2022-02-24] MEDS: Insulin Regular, Human 100 UNIT/ML 3 ML VIAL IVPUSH (13:33)
[2022-02-24] MEDS: Dextrose 5 % 1,000 ML 125 ML IVCONT (13:34)
[2022-02-24 14:29] VITALS: BP 165/60; PULSE 62; RESP 17; TEMP 36.7; O2SAT 93
[2022-02-24 14:35] LABS: Glucose, Whole Blood 156 mg/dL (60-115)
[2022-02-24] MEDS: Calcium Gluconate/NaCl,Iso-Osm 2 GM/100 ML PLAST..BAG IV (14:54)
[2022-02-24 14:56] VITALS: BP 163/58; PULSE 61; O2SAT 95
--- NOTE | 2022-02-24 15:59 | PM.IMHP ---
History of Present Illness Date of Service: 02/24/22 Chief Complaint: Left leg pain 71 year female with complicated past medical history including CKD, diabetes, GERD, hypothyroidism s/p left BKA and other problems as below. She has chronic pain in the left leg and send to the ED by SNF to be evaluated for swelling in the leg and more pain. She tells me she has had that pain for years but seem to be worsening. She's noted to have HypErkalemia K of 6.4, Creatinine of 3.04, has elevated LFTs that seem chronic. US of the leg show no DVT and is being admitted d/t hyperkalemia.. which has been treated with calcium gluconate, insulin, and Kayexalate Past medical History Review of Systems Review of Systems: Gen: no fever Resp: no sob, no cough CV: no chest, no MOYA, no leg edema GI: No n/v, no abd pain Neuro: No confusion Yes all other systems are reviewed and are negative [facility] Medical History (Updated 02/24/22 @ 17:05 by Guillermo Sierra MD) Acute kidney failure Acute respiratory failure with hypoxia Below-knee amputation of left lower extremity Diabetes Dysphagia Failure to thrive in adult GERD (gastroesophageal reflux disease) History of left below knee amputation Hypothyroidism PVD (peripheral vascular disease) TIA (transient ischemic attack) Social History Alcohol intake: never Patient Tobacco Use Status: Never used Tobacco Use of substances other than those prescribed or required for medical reasons: No Advance Directives: No Advance Directives Information Provided: Yes Meds Allergies Allergy/AdvReac Type Severity Reaction Status Date / Time codeine [CODEINE] Allergy Unknown UNKNOWN Unverified 05/17/20 19:17 morphine [MORPHINE] Allergy Unknown UNKNOWN, Unverified 05/17/20 19:17 anaphylaxis adhesive tape Allergy Unknown Verified 02/24/22 12:18 clarithromycin Allergy Unknown Verified 02/24/22 12:18 clonidine [From Catapres] Allergy Unknown Verified 02/24/22 12:18 lactose Allergy Unknown Verified 02/24/22 12:10 latex Allergy Unknown Verified 02/24/22 12:18 Active Medications: Current Medications Dextrose (D5w) 1,000 mls @ 125 mls/hr IVCONT .Q8H ONE Stop: 02/24/22 21:25 Last Admin: 02/24/22 13:34 Dose: 125 mls/hr Calcium Gluconate (Calcium Gluconate) 2 gm in 100 mls @ 50 mls/hr IV ONCE ONE Stop: 02/24/22 16:37 Last Admin: 02/24/22 14:54 Dose: 50 mls/hr Pharmacy Consult (Consult Rx Perform Med Rec) 1 each MISCELLANE ONCE PRN PRN Reason: Consult order Home Medications Medication Instructions Recorded Confirmed Last Taken Type Lactobac no.2-Bifidobac no.1-S. 1 cap PO DAILY 02/24/22 02/24/22 Unknown History thermo 112.5 billion cell capsule amitriptyline 25 mg tablet 1 tab PO BEDTIME 02/24/22 02/24/22 Unknown History amlodipine 10 mg tablet 1 tab PO DAILY 02/24/22 02/24/22 Unknown History apixaban 2.5 mg tablet (Eliquis) 1 tab PO BID 02/24/22 02/24/22 Unknown History aspirin 81 mg tablet,delayed 81 mg PO DAILY 02/24/22 02/24/22 Unknown History release atorvastatin 80 mg tablet 1 tab PO DAILY 02/24/22 02/24/22 Unknown History baclofen 10 mg tablet tab PO 02/24/22 Unknown History pyhwkvrfdn-gdohwnuwkwrrg-klwvdpdr 1 cap PO Q8H PRN Headache 02/24/22 Unknown History 50 mg-300 mg-40 mg capsule (Fioricet) calcium carbonate 600 mg calcium 600 mg PO BID 02/24/22 02/24/22 Unknown History (1,500 mg) tablet (Calcium) escitalopram oxalate 10 mg tablet 1 tab PO DAILY 02/24/22 02/24/22 Unknown History furosemide 40 mg tablet 1 tab PO DAILY 02/24/22 02/24/22 Unknown History hydralazine 25 mg tablet 1 tab PO DAILY PRN Blood Pressure 02/24/22 Unknown History insulin aspart U-100 100 unit/mL ml subcut 02/24/22 Unknown History subcutaneous solution (Novolog U-100 Insulin aspart) insulin degludec 100 unit/mL (3 ea subcut 02/24/22 Unknown History mL) subcutaneous pen (Tresiba FlexTouch U-100 insulin) lactase 3,000 unit tablet (Lactaid) 3,000 unit PO TIDWM 02/24/22 02/24/22 Unknown History levothyroxine 200 mcg tablet 1 tab PO DAILY 02/24/22 02/24/22 Unknown History losartan 25 mg tablet tab PO 02/24/22 Unknown History magnesium oxide 400 mg (241.3 mg 400 mg PO DAILY 02/24/22 02/24/22 Unknown History magnesium) tablet metoprolol tartrate 100 mg tablet 1 tab PO BID 02/24/22 02/24/22 Unknown History ondansetron HCl 4 mg tablet 1 tab PO Q8H PRN Nausea 02/24/22 Unknown History oxycodone 5 mg tablet 1 tab PO BEDTIME 02/24/22 02/24/22 Unknown History oxycodone 5 mg tablet tab PO 02/24/22 Unknown History pantoprazole 40 mg tablet,delayed 1 tab PO BID 02/24/22 02/24/22 Unknown History release polyvinyl alcohol 1.4 % eye drops 1 drp ophthalmic (eye) BID 02/24/22 02/24/22 Unknown History (Artificial Tears (polyvinyl alcohol)) Physical Exam Vital Signs and Narrative: Vital Signs: Last Vital Signs Temp 98.0 F 02/24/22 14:29 Pulse 61 02/24/22 14:56 Resp 17 02/24/22 14:29 BP 163/58 H 02/24/22 14:56 Pulse Ox 95 02/24/22 14:56 O2 Del Method 02/24/22 14:29 BMI result Body Mass Index 38.5 Const: Other: Constitutional: Alert, in no distress, overweight. Mental Status: Oriented to person, place and time. Eyes: Pupils are equal, round and reactive to light. Ear, Nose and Throat: Oropharynx clear, mucous membranes moist. Ears and nose without eformities. Trachea midline. Respiratory: Clear to auscultation. No wheezing, rales or rhonchi. Cardiovascular: S1 S2 regular. No murmurs, rubs or gallops. Gastrointestinal: Abdomen soft, non-tender, non-distended. Normal bowel sounds.? Neurologic: Cranial nerves II-XII grossly intact. No focal neurological deficits. Moves all extremities spontaneously.? Skin: No rashes or lesions.? Musculoskeletal: No cyanosis or clubbing. Psychiatric: Normal mood and affect? Results Labs CBC and Chem 7: 02/24/22 12:41 02/24/22 12:41 Labs: Laboratory Results - last 24 hr 02/24/22 02/24/22 02/24/22 12:41 12:41 14:26 MCV 97.0 MCH 32.2 MCHC 33.2 RDW 13.6 Plt Count 186 MPV 11.2 Immature Gran % (Auto) 0.3 Neut % (Auto) 56.1 Lymph % (Auto) 32.6 [place] % (Auto) 6.7 Eos % (Auto) 3.7 Baso % (Auto) 0.6 Lymph # (Auto) 2.3 [place] # (Auto) 0.5 Eos # (Auto) 0.3 Baso # (Auto) 0.0 Abs Immat Gran (auto) 0.02 Absolute Neuts (auto) 3.9 Absolute Nucleated RBC 0.000 Nucleated RBC % (auto) 0.0 Anion Gap 12 Estim Creat Clear Calc 19.7 Estimated GFR 15 POC Glucose 156 H Random Glucose 175 H Calcium 7.4 L D Total Bilirubin 0.3 Direct Bilirubin < 0.2 AST 138 H ALT 182 H Alkaline Phosphatase 363 H D Total Creatine Kinase 40 Total Protein 6.6 Albumin 2.6 L Lipase 30 Imaging Radiologist's Impressions: Impressions Venous Duplex 02/24/22 13:27 IMPRESSION: No DVT demonstrated in the right lower extremity. Assessment and Plan (1) Acute on chronic kidney failure: Status: Acute (2) Acute hyperkalemia: Status: Acute Plan 71 female with multiple chronic medical issues here with left leg pain and hyperkalemia Left leg pain, no DVT--appearance of the limb is that of chronic arterial insuficiency and her pain is likely from claudication -Pain control and Vascular consult PEG on CKD 3--Hydration and repeat in the morning Acute Hyperkalemia--treated with insulin, calcium gluconate, Kayexlate, no ecg change, repeat later Anemia of chronic disease--monitor Transaminitis--dates back years, Diabetes--Insulin Hypothyroidsim--levothyroxine, DVT prophylaxis; heparin admission to span 2 midnights for treatment of HypErKalemia DVT: Heparin Admission to span at least 2 midnights for management of PEG complicated by HypErkalemia Quality Stroke Does the patient have a stroke diagnosis?: No VTE Prior VTE?: No VTE Risk Level:: Medical - moderate - high VTE Device Contraindication: Treatment Not Indicated VTE Drug Contraindication: N/A - Med Ordered
--- NOTE | 2022-02-24 16:44 | PHA.MEDREC ---
Pharmacy Consult ? Medication Reconciliation Pharmacy has completed the medication reconciliation. PT FROM [facility]
[2022-02-24 17:25] LABS: Influenza A PCR NEGATIVE (Negative); Influenza B PCR NEGATIVE (Negative); Resp Syncy Virus RNA Qual PCR NEGATIVE (Negative); SARS COV2 PCR INHOUSE NEGATIVE (Negative)
[2022-02-24] MEDS: 0.9 % Sodium Chloride 1,000 ML 100 ML IVCONT (17:35)
[2022-02-24 17:52] LABS: Appearance Urine HAZY; Color Urine YELLOW; Glucose Urine UA 100 MG/DL (NEG); Leukocyte Esterase Urine NEG (NEG); Nitrite Urine NEG (NEG); PH 6.5 (5.0-8.0); Specific Gravity - Urine 1.015 (1.005-1.025); UACC Culture Trigger NO; Urine Blood 2+ (NEG); Urine Ketones NEG (NEG); Urine Protein 2+ MG/DL (NEG-TRACE)
[2022-02-24 18:43] LABS: Bacteria Urine 1+ /LPF; Squamous Epithelial Cell Urine 4+ /LPF
[2022-02-24 21:12] LABS: Glucose, Whole Blood 215 mg/dL (60-115)
[2022-02-24] MEDS: oxyCODONE HCl Immed Release 5 MG TABLET PO (21:23)
[2022-02-24] MEDS: Insulin Glargine,Hum.rec.anlog 100 UNIT/ML 10 ML VIAL 7 UNIT SUBCUT (21:23)
[2022-02-24] MEDS: Baclofen 10 MG TABLET 5 MG PO (21:23)
[2022-02-24] MEDS: Apixaban 2.5 MG TABLET PO (21:24)
[2022-02-24] MEDS: Amitriptyline HCl 25 MG TABLET PO (21:24)
[2022-02-24] MEDS: Metoprolol Tartrate 100 MG TABLET PO (21:24)
[2022-02-24] MEDS: Insulin Lispro 100 UNIT/ML 3 ML VIAL SUBCUT (21:25)
[2022-02-24 22:46] LABS: Anion Gap 14 (12-20); Blood Urea Nitrogen 54 mg/dL (9-16); Calcium 7.5 mg/dL (8.4-10.2); Carbon Dioxide 18 mmol/L (22-29); Chloride 108 mmol/L (96-108); Estimated Glomerular Filt Rate 15; Glucose Random 223 mg/dL (60-115); Potassium 5.7 mmol/L (3.3-5.1); Sodium 134 mmol/L (135-145)
[2022-02-25] VITALS (7 sets, daily range): BP systolic 157–185; BP diastolic 56–72; PULSE 56–62; RESP 10–16; TEMP 36.4–36.8; O2SAT 94–97
--- NOTE | 2022-02-25 06:39 | PC.NURSE ---
I assumed nursing care of Zari at 1900. Zari is admitted for hyperkalemia and kidney failure. The plan is for her to likely obtain HD during this hospital visit. She vebalizes an udnerstanding of this. I spoke to staff from her long term and informed them of this as well. Zari has had no complaints. No chest pain. Respirations non-labored.
[2022-02-25] MEDS: 0.9 % Sodium Chloride 1,000 ML 100 ML IVCONT ×2 (07:01→23:30)
[2022-02-25 07:51] LABS: Glucose, Whole Blood 75 mg/dL (60-115)
[2022-02-25 07:57] LABS: Anion Gap 13 (12-20); Blood Urea Nitrogen 52 mg/dL (9-16); Calcium 7.5 mg/dL (8.4-10.2); Carbon Dioxide 22 mmol/L (22-29); Chloride 108 mmol/L (96-108); Creatinine Clr Calc Pharmacy 20.7; Estimated Glomerular Filt Rate 16; Glucose Random 87 mg/dL (60-115); Potassium 5.6 mmol/L (3.3-5.1); Sodium 137 mmol/L (135-145)
--- NOTE | 2022-02-25 08:45 | PC.NURSE ---
dr. rodriguez at bedside pt aware of plan of care.
[2022-02-25] MEDS: Omeprazole 20 MG CAPSULE.DR PO ×2 (08:51→17:48)
[2022-02-25] MEDS: Magnesium Oxide 400 MG TABLET PO (09:14)
[2022-02-25] MEDS: Escitalopram Oxalate 10 MG TABLET PO (09:14)
[2022-02-25] MEDS: amLODIPine Besylate 10 MG TABLET PO (09:14)
[2022-02-25] MEDS: Apixaban 2.5 MG TABLET PO ×2 (09:14→22:17)
[2022-02-25] MEDS: Metoprolol Tartrate 100 MG TABLET PO ×2 (09:14→22:17)
[2022-02-25] MEDS: Atorvastatin Calcium 80 MG TABLET PO (09:14)
[2022-02-25] MEDS: Aspirin Enteric Coated 81 MG TABLET.DR PO (09:14)
[2022-02-25] MEDS: Levothyroxine Sodium 200 MCG TABLET PO (09:15)
[2022-02-25] MEDS: Artificial Tears 15 ML DROPS 1 DROP EYE-BOTH (09:15)
[2022-02-25] MEDS: 0.9 % Sodium Chloride Flush 3 ML SYRINGE IVFLUSH (09:15)
[2022-02-25] MEDS: Lactase TABLET 1 TAB PO ×2 (09:15→14:01)
--- NOTE | 2022-02-25 09:34 | PC.NURSE ---
pt is a/o x 3 no sob/timothy noted skin pink warm dry speaks in full sentences. r lower swollen warm and tender to touch. pillow to r leg. pt is aware of plan of care.
--- NOTE | 2022-02-25 09:36 | PC.NURSE ---
pt has a non-prod cough, lungs - cta, abd soft/nt and heart sounds regular.
--- NOTE | 2022-02-25 10:13 | PM.CNGS ---
History of Present Illness Consult details Consult date: 02/25/22 Narrative: Very pleasant 71-year-old female presents for evaluation regarding her right lower extremity. She complains of pain and swelling that brought her into the emergency room. Of note she has a prior left-sided amputation which was done at [facility] nearly 9-10 years ago. Unclear what the reason was for that. Of note she does have a longstanding history of diabetes. Also of note she has diminished renal function. She now presents to us for vascular evaluation. Of note she is nonambulatory and uses a wheelchair for the most part. She does use the right leg to pivot and stand Review of Systems Review of Systems: Yes all other systems are reviewed and are negative Constitutional: Constitutional: Reports no additional constitutional complaints ENT: Reports Normal hearing present Cardiovascular: Cardiovascular: Denies chest pain, Denies chest pain at rest, Denies chest pain with activity and Denies pedal edema Respiratory: Respiratory: Denies cough Gastrointestinal: Gastrointestinal: Denies abdominal pain Musculoskeletal: Musculoskeletal: Denies abnormal gait, Denies muscle cramps and Denies radiating pain into limb Integumentary/Breasts: Skin/Breast: Denies skin ulcer and Denies wounds Neurologic: Reports Normal hearing present and Denies abnormal gait Psychiatric: Psychiatric: Reports no additional psychiatric complaints PMF Past Medical History Medical History (Updated 02/25/22 @ 10:15 by Pieter Kaur MD) Acute kidney failure Acute respiratory failure with hypoxia Below-knee amputation of left lower extremity Diabetes Dysphagia Failure to thrive in adult GERD (gastroesophageal reflux disease) History of left below knee amputation Hypothyroidism PVD (peripheral vascular disease) TIA (transient ischemic attack) Social History Social History Alcohol intake: never Patient Tobacco Use Status: Never used Tobacco Use of substances other than those prescribed or required for medical reasons: No Advance Directives: Yes Advance Directives on File: Yes Advance Directives Date on File: 02/25/22 Meds Allergies Allergy/AdvReac Type Severity Reaction Status Date / Time codeine [CODEINE] Allergy Unknown UNKNOWN Unverified 05/17/20 19:17 morphine [MORPHINE] Allergy Unknown UNKNOWN, Unverified 05/17/20 19:17 anaphylaxis adhesive tape Allergy Unknown Verified 02/24/22 12:18 clarithromycin Allergy Unknown Verified 02/24/22 12:18 clonidine [From Catapres] Allergy Unknown Verified 02/24/22 12:18 lactose Allergy Unknown Verified 02/24/22 12:10 latex Allergy Unknown Verified 02/24/22 12:18 Active Medications: Current Medications Acetaminophen (Acetaminophen 325 Mg Tablet) 650 mg PO Q6H PRN PRN Reason: Pain, Mild (Pain Scale 1-3) Acetaminophen/Butalbital/Caffeine (Butalb/Acetamin/Caff 50/325/40 Tablet) 1 tab PO Q8H PRN PRN Reason: Headache Amitriptyline HCl (Amitriptyline Hcl 25 Mg Tablet) 25 mg PO BEDTIME [facility] Last Admin: 02/24/22 21:24 Dose: 25 mg Amlodipine Besylate (Amlodipine Besylate 10 Mg Tablet) 10 mg PO DAILY [facility]; Protocol Last Admin: 02/25/22 09:14 Dose: 10 mg Apixaban (Apixaban 2.5 Mg Tablet) 2.5 mg PO BID [facility] Last Admin: 02/25/22 09:14 Dose: 2.5 mg Artificial Tears (Artificial Tears 15 Ml Drops) 1 drop EYE-BOTH BID [facility] Last Admin: 02/25/22 09:15 Dose: 1 drop Aspirin (Aspirin Enteric Coated 81 Mg Tablet.Dr) 81 mg PO DAILY [facility] Last Admin: 02/25/22 09:14 Dose: 81 mg Atorvastatin Calcium (Atorvastatin Calcium 80 Mg Tablet) 80 mg PO DAILY [facility] Last Admin: 02/25/22 09:14 Dose: 80 mg Baclofen (Baclofen 10 Mg Tablet) 5 mg PO BEDTIME [facility] Last Admin: 02/24/22 21:23 Dose: 5 mg Calcium Carbonate (Calcium Carbonate 500 Mg Tablet) 500 mg PO BID [facility] Last Admin: 02/25/22 09:15 Dose: 500 mg Escitalopram Oxalate (Escitalopram Oxalate 10 Mg Tablet) 10 mg PO DAILY [facility] Last Admin: 02/25/22 09:14 Dose: 10 mg Hydralazine HCl (Hydralazine Hcl 50 Mg Tablet) 50 mg PO DAILY [facility]; Protocol Sodium Chloride (Ns) 1,000 mls @ 100 mls/hr IVCONT .Q10H [facility] Last Admin: 02/25/22 07:01 Dose: 100 mls/hr Insulin Glargine (Insulin Glargine,Hum.Rec.Anlog 100 Unit/Ml 10 Ml Vial) 7 unit SUBCUT BEDTIME [facility] Last Admin: 02/24/22 21:23 Dose: 7 unit Insulin Human Lispro (Insulin Lispro 100 Unit/Ml 3 Ml Vial) 0 unit SUBCUT QIDACHS [facility]; Protocol Last Admin: 02/25/22 08:50 Dose: Not Given Lactase (Lactase Tablet) 1 tab PO TIDWM [facility] Last Admin: 02/25/22 09:15 Dose: 1 tab Levothyroxine Sodium (Levothyroxine Sodium 200 Mcg Tablet) 200 mcg PO DAILY@0600 [facility] Last Admin: 02/25/22 09:15 Dose: 200 mcg Magnesium Oxide (Magnesium Oxide 400 Mg Tablet) 400 mg PO DAILY [facility] Last Admin: 02/25/22 09:14 Dose: 400 mg Metoprolol Tartrate (Metoprolol Tartrate 100 Mg Tablet) 100 mg PO BID [facility]; Protocol Last Admin: 02/25/22 09:14 Dose: 100 mg Omeprazole (Omeprazole 20 Mg Capsule.Dr) 20 mg PO BID@0630,1630 [facility] Last Admin: 02/25/22 08:51 Dose: 20 mg Ondansetron HCl (Ondansetron Odt 4 Mg Tab.Rapdis) 4 mg TRANSLINGU Q8H PRN PRN Reason: Nausea Oxycodone HCl (Oxycodone Hcl Immed Release 5 Mg Tablet) 5 mg PO BEDTIME [facility] Last Admin: 02/24/22 21:23 Dose: 5 mg Pharmacy Consult (Consult Rx Perform Med Rec) 1 each MISCELLANE ONCE PRN PRN Reason: Consult order Sodium Chloride (0.9 % Sodium Chloride Flush 3 Ml Syringe) 3 ml IVFLUSH QSHIFT [facility] Last Admin: 02/25/22 09:15 Dose: 3 ml Home Medications Medication Instructions Recorded Confirmed Last Taken Type Lactobac no.2-Bifidobac no.1-S. 1 cap PO DAILY 02/24/22 02/24/22 Unknown History thermo 112.5 billion cell capsule amitriptyline 25 mg tablet 1 tab PO BEDTIME 02/24/22 02/24/22 Unknown History amlodipine 10 mg tablet 1 tab PO DAILY 02/24/22 02/24/22 Unknown History apixaban 2.5 mg tablet (Eliquis) 1 tab PO BID 02/24/22 02/24/22 Unknown History aspirin 81 mg tablet,delayed 81 mg PO DAILY 02/24/22 02/24/22 Unknown History release atorvastatin 80 mg tablet 1 tab PO DAILY 02/24/22 02/24/22 Unknown History baclofen 10 mg tablet 5 mg PO BEDTIME 02/24/22 02/24/22 Unknown History rllnsouhqa-nkidryrbpbqaz-eeiphnip 1 cap PO Q8H PRN Headache 02/24/22 02/24/22 Unknown History 50 mg-300 mg-40 mg capsule (Fioricet) calcium carbonate 600 mg calcium 600 mg PO BID 02/24/22 02/24/22 Unknown History (1,500 mg) tablet (Calcium) escitalopram oxalate 10 mg tablet 1 tab PO DAILY 02/24/22 02/24/22 Unknown History furosemide 40 mg tablet 1 tab PO DAILY 02/24/22 02/24/22 Unknown History hydralazine 25 mg tablet 1 tab PO DAILY 02/24/22 02/24/22 Unknown History insulin aspart U-100 100 unit/mL See Rx Instructions .Route .COMPLEX 02/24/22 02/24/22 Unknown History subcutaneous solution (Novolog U-100 Insulin aspart) insulin degludec 100 unit/mL (3 10 unit subcut BEDTIME 02/24/22 02/24/22 Unknown History mL) subcutaneous pen (Tresiba FlexTouch U-100 insulin) lactase 3,000 unit tablet (Lactaid) 3,000 unit PO TIDWM 02/24/22 02/24/22 Unknown History levothyroxine 200 mcg tablet 1 tab PO DAILY 02/24/22 02/24/22 Unknown History losartan 25 mg tablet 3 tab PO DAILY 02/24/22 02/24/22 Unknown History magnesium oxide 400 mg (241.3 mg 400 mg PO DAILY 02/24/22 02/24/22 Unknown History magnesium) tablet metoprolol tartrate 100 mg tablet 1 tab PO BID 02/24/22 02/24/22 Unknown History ondansetron HCl 4 mg tablet 1 tab PO Q8H PRN Nausea 02/24/22 02/24/22 Unknown History oxycodone 5 mg tablet 1 tab PO BEDTIME 02/24/22 02/24/22 Unknown History oxycodone 5 mg tablet 1 tab PO TID PRN Pain 02/24/22 02/24/22 Unknown History pantoprazole 40 mg tablet,delayed 1 tab PO BID 02/24/22 02/24/22 Unknown History release polyvinyl alcohol 1.4 % eye drops 1 drp ophthalmic (eye) BID 02/24/22 02/24/22 Unknown History (Artificial Tears (polyvinyl alcohol)) Physical Exam Vital Signs: Vital Signs: Last Vital Signs Temp 98.2 F 02/25/22 09:34 Pulse 62 02/25/22 09:34 Resp 14 02/25/22 09:34 BP 176/62 H 02/25/22 09:34 Pulse Ox 95 02/25/22 09:34 O2 Del Method 02/25/22 09:34 BMI result Body Mass Index 38.5 Const: General: cooperative, healthy appearing and comfortable Orientation/consciousness: oriented to person, oriented to place and oriented to time HEENT: Head: Yes normal to inspection Neck: Neck: Yes normal visual inspection Carotids: no bruits Chest: Chest palpation & inspection: normal inspection of the chest Resp: Effort & Inspection: normal respiratory effort and able to speak in complete sentences Auscultation: clear to auscultation bilaterally, no crackles, no rales, no rhonchi and no wheezes Cardio: Rate: regular rate Rhythm: regular rhythm Heart sounds: S1 normal heart sound present and S2 normal heart sound present Bruits: no carotid bruits Peripheral pulses: Peripheral pulses 2+ throughout GI: Inspection: Yes normal to inspection Skin: Other: Right side +1-2 2 edema. Motor and sensation intact. Wounds: amputation site (Left well-healed) Hair: normal Neuro: General: oriented to person, oriented to place and oriented to time Cranial nerves: Yes CN's II-XII intact bilaterally and Yes Normal hearing present Cognition (Neuro): normal cognition Motor exam (neuro): 5/5 motor strength present throughout Extrem: Other: venous exam: No significant superficial varicosities or spider telangiectasias General: No clubbing, No cyanosis and Yes edema Psych: Appearance: grossly normal Mental Status: mental status grossly normal Speech and movement: Normal speech and movement present Results Labs Result diagrams: 02/24/22 12:41 02/25/22 07:29 Labs: Abnormal lab results 02/24/22 02/24/22 02/24/22 Range/Units 12:41 12:41 14:26 RBC 2.64 L D (4.20-5.50) X10*6/uL Hgb 8.5 L (12.0-16.0) g/dl Hct 25.6 L (37.0-47.0) % Sodium 134 L (135-145) mmol/L Potassium 6.4 H* D (3.3-5.1) mmol/L Carbon Dioxide 21 L (22-29) mmol/L BUN 57 H (9-16) mg/dL Creatinine 3.04 H (0.5-1.4) mg/dL POC Glucose 156 H (60-115) mg/dL Random Glucose 175 H (60-115) mg/dL Calcium 7.4 L D (8.4-10.2) mg/dL AST 138 H (5-31) U/L ALT 182 H (0-31) U/L Alkaline Phosphatase 363 H D (39-117) U/L Albumin 2.6 L (3.5-5.0) g/dL Urine Protein (NEG-TRACE) MG/DL Urine Glucose (UA) (NEG) MG/DL Urine Blood (NEG) Urine RBC (0) /HPF 02/24/22 02/24/22 02/24/22 Range/Units 17:37 21:09 22:17 RBC (4.20-5.50) X10*6/uL Hgb (12.0-16.0) g/dl Hct (37.0-47.0) % Sodium 134 L (135-145) mmol/L Potassium 5.7 H (3.3-5.1) mmol/L Carbon Dioxide 18 L (22-29) mmol/L BUN 54 H (9-16) mg/dL Creatinine 3.17 H (0.5-1.4) mg/dL POC Glucose 215 H (60-115) mg/dL Random Glucose 223 H (60-115) mg/dL Calcium 7.5 L (8.4-10.2) mg/dL AST (5-31) U/L ALT (0-31) U/L Alkaline Phosphatase (39-117) U/L Albumin (3.5-5.0) g/dL Urine Protein 2+ H (NEG-TRACE) MG/DL Urine Glucose (UA) 100 H (NEG) MG/DL Urine Blood 2+ H (NEG) Urine RBC 5-9 H (0) /HPF 02/25/22 Range/Units 07:29 RBC (4.20-5.50) X10*6/uL Hgb (12.0-16.0) g/dl Hct (37.0-47.0) % Sodium (135-145) mmol/L Potassium 5.6 H (3.3-5.1) mmol/L Carbon Dioxide (22-29) mmol/L BUN 52 H (9-16) mg/dL Creatinine 2.91 H (0.5-1.4) mg/dL POC Glucose (60-115) mg/dL Random Glucose (60-115) mg/dL Calcium 7.5 L (8.4-10.2) mg/dL AST (5-31) U/L ALT (0-31) U/L Alkaline Phosphatase (39-117) U/L Albumin (3.5-5.0) g/dL Urine Protein (NEG-TRACE) MG/DL Urine Glucose (UA) (NEG) MG/DL Urine Blood (NEG) Urine RBC (0) /HPF Short CBC 02/24/22 Range/Units 12:41 WBC 7.0 (4.8-10.8) X10*3/uL Hgb 8.5 L (12.0-16.0) g/dl Hct 25.6 L (37.0-47.0) % Plt Count 186 (160-400) X10*3/uL BMP 02/24/22 02/24/22 02/25/22 12:41 22:17 07:29 Sodium 134 L 134 L 137 Potassium 6.4 H* D 5.7 H 5.6 H Chloride 107 108 108 Carbon Dioxide 21 L 18 L 22 BUN 57 H 54 H 52 H Creatinine 3.04 H 3.17 H 2.91 H Calcium 7.4 L D 7.5 L 7.5 L Cardiac Enzymes 02/24/22 Range/Units 12:41 Total Creatine Kinase 40 (26-140) U/L Liver Function 02/24/22 Range/Units 12:41 Total Bilirubin 0.3 (0.0-1.0) mg/dL Direct Bilirubin < 0.2 (0.0-0.5) mg/dL AST 138 H (5-31) U/L ALT 182 H (0-31) U/L Alkaline Phosphatase 363 H D (39-117) U/L Albumin 2.6 L (3.5-5.0) g/dL Urine 02/24/22 Range/Units 17:37 Urine Color YELLOW Urine Appearance HAZY Urine pH 6.5 (5.0-8.0) Ur Specific [place] 1.015 (1.005-1.025) Urine Protein 2+ H (NEG-TRACE) MG/DL Urine Glucose (UA) 100 H (NEG) MG/DL All other labs normal. Assessment and Plan (1) PAD (peripheral artery disease): Status: Acute Plan In short patient has pain of the right lower extremity. I was unable to appreciate palpable pulses. I have taken the liberty of ordering noninvasive arterial testing. In addition the concern here is her renal function. She will require nephrology evaluation prior to any intervention. I would like her to stabilize from a renal standpoint prior to intervening on the right leg. The current time would recommend continued observation and pain control. We will follow with you. Thank you for allowing us to assist in her care. If there are any questions or concerns please do not hesitate to contact us. Procedures Date of Service Date of Service: 02/25/22
--- NOTE | 2022-02-25 10:42 | MHC.CM.PN ---
PT REPORTS SHE IS A LTC RESIDENT OF [facility] SHE REPORTS SHE IS BED BOUND AT [facility] PT REPORTS SHE DID NOT GET THE COVID-19 VACCINES AND DOES NOT WANT THEM PT SAYS HER PCP AT THE SNF IS BRUNO MAYO PT HAS A HCP ON FILE BUT ASKS THAT HE NOT BE CONTACTED THEY ARE NOT SPEAKING PT IS ALERT AND FULLY ORIENTED IMM DELIVERED, COPY SENT TO [facility] CURRENT DC PLAN IS RETURN TO [facility] VIA S
--- NOTE | 2022-02-25 11:20 | PC.NURSE ---
whitley jeffers from [employer] ) called [facility] [place] was updated on pt status.
[2022-02-25 11:47] LABS: Glucose, Whole Blood 177 mg/dL (60-115)
[2022-02-25] MEDS: Insulin Lispro 100 UNIT/ML 3 ML VIAL SUBCUT ×3 (13:59→22:20)
--- NOTE | 2022-02-25 15:47 | P.PNIM_ITS ---
Subjective Subjective Date of Service: 02/26/22 Interval History: peg,hyperkalemia Review of Systems seems some what better Physical Exam Vital Signs: Vital Signs: Last Vital Signs Temp 97.7 F 02/25/22 14:03 Pulse 59 02/25/22 14:03 Resp 16 02/25/22 14:03 BP 166/62 H 02/25/22 14:03 Pulse Ox 97 02/25/22 14:03 O2 Del Method 02/25/22 14:03 BMI result Body Mass Index 38.5 Appearance: Alert.? Oriented X3.? not in distress. cvs: rrr, [id number] . res: clear to auscultation ,no rhonchii or wheezing abd: no rebound or guarding ,nt, bs present. ext : similar as yesterday. neuro: axo3 , nonfocal. Objective Data Active Medications Acetaminophen (Acetaminophen 325 Mg Tablet) 650 mg PO Q6H PRN PRN Reason: Pain, Mild (Pain Scale 1-3) Acetaminophen/Butalbital/Caffeine (Butalb/Acetamin/Caff 50/325/40 Tablet) 1 tab PO Q8H PRN PRN Reason: Headache Amitriptyline HCl (Amitriptyline Hcl 25 Mg Tablet) 25 mg PO BEDTIME [facility] Last Admin: 02/24/22 21:24 Dose: 25 mg Documented By: ARIADNA Amlodipine Besylate (Amlodipine Besylate 10 Mg Tablet) 10 mg PO DAILY [facility]; Protocol Last Admin: 02/25/22 09:14 Dose: 10 mg Documented By: MIGDALIA Apixaban (Apixaban 2.5 Mg Tablet) 2.5 mg PO BID [facility] Last Admin: 02/25/22 09:14 Dose: 2.5 mg Documented By: MIGDALIA Artificial Tears (Artificial Tears 15 Ml Drops) 1 drop EYE-BOTH BID [facility] Last Admin: 02/25/22 09:15 Dose: 1 drop Documented By: MIGDALIA Aspirin (Aspirin Enteric Coated 81 Mg Tablet.) 81 mg PO DAILY [facility] Last Admin: 02/25/22 09:14 Dose: 81 mg Documented By: MIGDALIA Atorvastatin Calcium (Atorvastatin Calcium 80 Mg Tablet) 80 mg PO DAILY [facility] Last Admin: 02/25/22 09:14 Dose: 80 mg Documented By: MIGDALIA Baclofen (Baclofen 10 Mg Tablet) 5 mg PO BEDTIME [facility] Last Admin: 02/24/22 21:23 Dose: 5 mg Documented By: ARIADNA Calcium Carbonate (Calcium Carbonate 500 Mg Tablet) 500 mg PO BID [facility] Last Admin: 02/25/22 09:15 Dose: 500 mg Documented By: MIGDALIA Escitalopram Oxalate (Escitalopram Oxalate 10 Mg Tablet) 10 mg PO DAILY [facility] Last Admin: 02/25/22 09:14 Dose: 10 mg Documented By: MIGDALIA Hydralazine HCl (Hydralazine Hcl 50 Mg Tablet) 50 mg PO DAILY [facility]; Protocol Sodium Chloride (Ns) 1,000 mls @ 100 mls/hr IVCONT .Q10H [facility] Last Admin: 02/25/22 07:01 Dose: 100 mls/hr Documented By: ARIADNA Insulin Glargine (Insulin Glargine,Hum.Rec.Anlog 100 Unit/Ml 10 Ml Vial) 7 unit SUBCUT BEDTIME [facility] Last Admin: 02/24/22 21:23 Dose: 7 unit Documented By: ARIADNA Insulin Human Lispro (Insulin Lispro 100 Unit/Ml 3 Ml Vial) 0 unit SUBCUT QIDACHS [facility]; Protocol Last Admin: 02/25/22 13:59 Dose: 2 unit Documented By: FRANKIE Lactase (Lactase Tablet) 1 tab PO TIDWM [facility] Last Admin: 02/25/22 14:01 Dose: 1 tab Documented By: FRANKIE Levothyroxine Sodium (Levothyroxine Sodium 200 Mcg Tablet) 200 mcg PO DAILY@0600 [facility] Last Admin: 02/25/22 09:15 Dose: 200 mcg Documented By: MIGDALIA Magnesium Oxide (Magnesium Oxide 400 Mg Tablet) 400 mg PO DAILY [facility] Last Admin: 02/25/22 09:14 Dose: 400 mg Documented By: MIGDALIA Meclizine HCl (Meclizine Hcl 12.5 Mg Tablet) 12.5 mg PO Q6H PRN PRN Reason: dizziness/nausea Metoprolol Tartrate (Metoprolol Tartrate 100 Mg Tablet) 100 mg PO BID [facility]; Protocol Last Admin: 02/25/22 09:14 Dose: 100 mg Documented By: MIGDALIA Omeprazole (Omeprazole 20 Mg Capsule.) 20 mg PO BID@0630,1630 [facility] Last Admin: 02/25/22 08:51 Dose: 20 mg Documented By: MIGDALIA Ondansetron HCl (Ondansetron Odt 4 Mg Tab.Rapdis) 4 mg TRANSLINGU Q8H PRN PRN Reason: Nausea Oxycodone HCl (Oxycodone Hcl Immed Release 5 Mg Tablet) 5 mg PO BEDTIME [facility] Last Admin: 02/24/22 21:23 Dose: 5 mg Documented By: ARIADNA Pharmacy Consult (Consult Rx Perform Med Rec) 1 each MISCELLANE ONCE PRN PRN Reason: Consult order Sodium Chloride (0.9 % Sodium Chloride Flush 3 Ml Syringe) 3 ml IVFLUSH QSHIFT [facility] Last Admin: 02/25/22 09:15 Dose: 3 ml Documented By: MIGDALIA Labs CBC & Chem 7: 02/24/22 12:41 02/25/22 07:29 Labs: Laboratory Results - last 24 hr 02/24/22 02/24/22 02/24/22 16:40 17:37 21:09 Anion Gap Estim Creat Clear Calc Estimated GFR POC Glucose 215 H Random Glucose Calcium Urine Color YELLOW Urine Appearance HAZY Urine pH 6.5 Ur Specific [place] 1.015 Urine Protein 2+ H Urine Glucose (UA) 100 H Urine Ketones NEG Urine Blood 2+ H Urine Nitrite NEG Ur Leukocyte Esterase NEG Urine RBC 5-9 H Urine WBC 1-4 Ur Squamous Epith Cells 4+ Urine Bacteria 1+ Influenza Type A (PCR) NEGATIVE Influenza Type B (PCR) NEGATIVE RSV RNA Qual (PCR) NEGATIVE SARS-CoV-2 RNA (RT-PCR) NEGATIVE 02/24/22 02/25/22 02/25/22 22:17 07:29 07:47 Anion Gap 14 13 Estim Creat Clear Calc 19.0 20.7 Estimated GFR 15 16 POC Glucose 75 Random Glucose 223 H 87 Calcium 7.5 L 7.5 L Urine Color Urine Appearance Urine pH Ur Specific [place] Urine Protein Urine Glucose (UA) Urine Ketones Urine Blood Urine Nitrite Ur Leukocyte Esterase Urine RBC Urine WBC Ur Squamous Epith Cells Urine Bacteria Influenza Type A (PCR) Influenza Type B (PCR) RSV RNA Qual (PCR) SARS-CoV-2 RNA (RT-PCR) 02/25/22 11:44 Anion Gap Estim Creat Clear Calc Estimated GFR POC Glucose 177 H Random Glucose Calcium Urine Color Urine Appearance Urine pH Ur Specific [place] Urine Protein Urine Glucose (UA) Urine Ketones Urine Blood Urine Nitrite Ur Leukocyte Esterase Urine RBC Urine WBC Ur Squamous Epith Cells Urine Bacteria Influenza Type A (PCR) Influenza Type B (PCR) RSV RNA Qual (PCR) SARS-CoV-2 RNA (RT-PCR) Assessment and Plan (1) PAD (peripheral artery disease): Status: Acute (2) Acute hyperkalemia: Status: Acute (3) Acute on chronic kidney failure: Status: Acute Plan 71 female with multiple chronic medical issues here with left leg pain and hyperkalemia Left leg pain, no DVT--appearance of the limb is that of chronic arterial insuficiency and her pain is likely from claudication -Pain control and Vascular consult PEG on CKD 3--Hydration and repeat in the morning Acute Hyperkalemia--treated with insulin, calcium gluconate, Kayexlate, no ecg change, repeat later Anemia of chronic disease--monitor Transaminitis--dates back years, Diabetes--Insulin Hypothyroidsim--levothyroxine, DVT prophylaxis; heparin leg pain: dvt studies neg, arterial dupplex added ,vascular consult DVT: Heparin inpatient need: management of PEG complicated by HypErkalemia Quality Stroke Does the patient have a stroke diagnosis?: No VTE Prior VTE?: No VTE Risk Level:: Medical - moderate - high VTE Device Contraindication: Treatment Not Indicated VTE Drug Contraindication: N/A - Med Ordered
[2022-02-25 18:33] LABS: Glucose, Whole Blood 216 mg/dL (60-115)
--- NOTE | 2022-02-25 18:46 | PM.PNNEP ---
Subjective Subjective Date of Service: 02/27/22 Interval history: peg, hyperkalemia Physical Exam Vital Signs: Vital Signs: Last Vital Signs Temp 97.7 F 02/25/22 14:03 Pulse 59 02/25/22 14:03 Resp 16 02/25/22 14:03 BP 166/62 H 02/25/22 14:03 Pulse Ox 97 02/25/22 14:03 O2 Del Method 02/25/22 14:03 BMI result Body Mass Index 38.5 Const: General: no acute distress HEENT: Head: Yes normocephalic Neck: Neck: Yes no JVD Resp: Auscultation: clear to auscultation bilaterally Cardio: Jugular venous distension: no JVD Rate: regular rate Rhythm: regular rhythm GI: Auscultation: normal bowel sounds Skin: Rashes: no rashes Neuro: General: moves all extremities Extrem: General: Yes no clubbing, cyanosis or edema Objective Data Labs CBC & Chem 7: 02/27/22 08:34 02/27/22 08:34 Labs: Laboratory Results - last 24 hr 02/24/22 02/24/22 02/25/22 21:09 22:17 07:29 Sodium 134 L 137 Potassium 5.7 H 5.6 H Chloride 108 108 Carbon Dioxide 18 L 22 Anion Gap 14 13 BUN 54 H 52 H Creatinine 3.17 H 2.91 H Estim Creat Clear Calc 19.0 20.7 Estimated GFR 15 16 POC Glucose 215 H Random Glucose 223 H 87 Calcium 7.5 L 7.5 L 02/25/22 02/25/22 02/25/22 07:47 11:44 18:29 Sodium Potassium Chloride Carbon Dioxide Anion Gap BUN Creatinine Estim Creat Clear Calc Estimated GFR POC Glucose 75 177 H 216 H Random Glucose Calcium Procedures Date of Service Date of Service: 02/27/22 Assessment & Plan Assessment and plan (1) Acute hyperkalemia: Status: Acute (2) Acute on chronic kidney failure: Status: Acute Plan 71 year female with past medical history? of CKD (BL ~ 1.5 mg/dL), T2DM, GERD, hypothyroidism s/p left BKA who was sent to ED from SNF to be evaluated for swelling in the leg and more pain. Imaging studies were negative for DVT. Initial labs showed hyperkalemia with K of 6.4, Creatinine of 3.04, has elevated LFTs that seem chronic. She was treated with with calcium gluconate, insulin, and Kayexalate Problem List: Hypertension hyperkalemia PEG CKD #) PEG on CKD: Monitor I/O's avoidance of nsaids, IV contrast, renal dosing abx. renal panel daily. Cr back to BL range. HTN control as below #) Hyperkalemia Low K diet (< 2G/day) Schedule 10 Gm lokelma daily Hold acei/arb,aldosterone antagonists #) HTN: Up-titration of hydralazine to 50 mg hydralazine to tid ARR added for am along with TSH, cortisol #) CKD-Anemia/MBD: iron panel noted. RIOS added. Time Spent With Patient Time: Total time spent is greater than 50% in coordination of care (as documented) at patient's floor/unit and/or counseling patient: Progress Note: Quality Stroke Does the patient have a stroke diagnosis?: No
[2022-02-25] MEDS: Acetaminophen 325 MG TABLET 650 MG PO (19:49)
[2022-02-25 21:15] LABS: Glucose, Whole Blood 274 mg/dL (60-115)
[2022-02-25] MEDS: oxyCODONE HCl Immed Release 5 MG TABLET PO (22:16)
[2022-02-25] MEDS: Baclofen 10 MG TABLET 5 MG PO (22:18)
[2022-02-25] MEDS: Amitriptyline HCl 25 MG TABLET PO (22:19)
[2022-02-25] MEDS: Insulin Glargine,Hum.rec.anlog 100 UNIT/ML 10 ML VIAL 7 UNIT SUBCUT (22:20)
--- NOTE | 2022-02-25 22:24 | PC.NURSE ---
pt a&ox3, vss, medicated per provider order, medications crushed and given in apple sauce. pt declined artificial tears. pt reports reduction in pain in buttocks after repositioning. izquierdo catheter patent and draining. pt transported to ED overflow, report given to RN.
--- NOTE | 2022-02-25 22:52 | PC.NURSE ---
Addendum entered by Wendy Rogers 02/26/22 07:14: Report given to TOVA Matt Original Note: report received from TOVA Vasquez. pt alert and oriented. resting in bed. no signs of acute distress notice
[2022-02-26] MEDS: Omeprazole 20 MG CAPSULE.DR PO ×2 (06:34→16:42)
[2022-02-26 06:36] VITALS: BP 187/98; PULSE 62; RESP 16; O2SAT 97
[2022-02-26 07:52] LABS: Glucose, Whole Blood 107 mg/dL (60-115)
[2022-02-26] MEDS: Levothyroxine Sodium 200 MCG TABLET PO (09:17)
[2022-02-26] MEDS: Escitalopram Oxalate 10 MG TABLET PO (09:19)
[2022-02-26] MEDS: amLODIPine Besylate 10 MG TABLET PO (09:20)
[2022-02-26] MEDS: Apixaban 2.5 MG TABLET PO ×2 (09:20→21:30)
[2022-02-26] MEDS: hydrALAZINE HCl 50 MG TABLET PO ×2 (09:20→21:31)
[2022-02-26] MEDS: Metoprolol Tartrate 100 MG TABLET PO ×2 (09:20→21:30)
[2022-02-26] MEDS: Artificial Tears 15 ML DROPS 1 DROP EYE-BOTH (09:21)
[2022-02-26] MEDS: 0.9 % Sodium Chloride Flush 3 ML SYRINGE IVFLUSH (09:22)
[2022-02-26] MEDS: Aspirin Enteric Coated 81 MG TABLET.DR PO (09:23)
[2022-02-26] MEDS: Atorvastatin Calcium 80 MG TABLET PO (09:23)
[2022-02-26] MEDS: Lactase TABLET 1 TAB PO ×3 (09:23→16:42)
[2022-02-26] MEDS: Magnesium Oxide 400 MG TABLET PO (09:23)
[2022-02-26] MEDS: 0.9 % Sodium Chloride 1,000 ML 100 ML IVCONT (09:29)
--- NOTE | 2022-02-26 09:55 | HO.PM.IMPN ---
Subjective Subjective Date of Service: 02/26/22 Interval History: peg , leg pain, hyperkalemia, uncontrolled hypertension. Review of Systems PEG and hyperkalemia slowly improving, Denies any chest pain or shortness of breath or abdominal pain Physical Exam Vital Signs: Vital Signs: Last Vital Signs Temp 97.5 F 02/25/22 23:43 Pulse 62 02/26/22 06:36 Resp 16 02/26/22 06:36 BP 187/98 H 02/26/22 06:36 Pulse Ox 97 02/26/22 06:36 O2 Del Method 02/26/22 06:36 BMI result Body Mass Index 38.5 ?Appearance: Alert.? Oriented X3.? not in distress. cvs: rrr, [id number] . res: clear to auscultation ,no rhonchii or wheezing abd: no rebound or guarding ,nt, bs present. ext : similar ,could wiggle somewhat . neuro: axo3 , nonfocal. Objective Data Active Medications Acetaminophen (Acetaminophen 325 Mg Tablet) 650 mg PO Q6H PRN PRN Reason: Pain, Mild (Pain Scale 1-3) Last Admin: 02/25/22 19:49 Dose: 650 mg Documented By: VIKTORIYA Acetaminophen/Butalbital/Caffeine (Butalb/Acetamin/Caff 50/325/40 Tablet) 1 tab PO Q8H PRN PRN Reason: Headache Amitriptyline HCl (Amitriptyline Hcl 25 Mg Tablet) 25 mg PO BEDTIME [facility] Last Admin: 02/25/22 22:19 Dose: 25 mg Documented By: VIKTORIYA Amlodipine Besylate (Amlodipine Besylate 10 Mg Tablet) 10 mg PO DAILY [facility]; Protocol Last Admin: 02/26/22 09:20 Dose: 10 mg Documented By: SUMMER Apixaban (Apixaban 2.5 Mg Tablet) 2.5 mg PO BID [facility] Last Admin: 02/26/22 09:20 Dose: 2.5 mg Documented By: SUMMER Artificial Tears (Artificial Tears 15 Ml Drops) 1 drop EYE-BOTH BID [facility] Last Admin: 02/26/22 09:21 Dose: 1 drop Documented By: SUMMER Aspirin (Aspirin Enteric Coated 81 Mg Tablet.) 81 mg PO DAILY [facility] Last Admin: 02/26/22 09:23 Dose: 81 mg Documented By: SUMMER Atorvastatin Calcium (Atorvastatin Calcium 80 Mg Tablet) 80 mg PO DAILY [facility] Last Admin: 02/26/22 09:23 Dose: 80 mg Documented By: SUMMER Baclofen (Baclofen 10 Mg Tablet) 5 mg PO BEDTIME [facility] Last Admin: 02/25/22 22:18 Dose: 5 mg Documented By: VIKTORIYA Calcium Carbonate (Calcium Carbonate 500 Mg Tablet) 500 mg PO BID [facility] Last Admin: 02/26/22 09:20 Dose: 500 mg Documented By: SUMMER Escitalopram Oxalate (Escitalopram Oxalate 10 Mg Tablet) 10 mg PO DAILY [facility] Last Admin: 02/26/22 09:19 Dose: 10 mg Documented By: SUMMER Hydralazine HCl (Hydralazine Hcl 50 Mg Tablet) 50 mg PO DAILY [facility]; Protocol Last Admin: 02/26/22 09:20 Dose: 50 mg Documented By: SUMMER Sodium Chloride (Ns) 1,000 mls @ 100 mls/hr IVCONT .Q10H [facility] Last Admin: 02/26/22 09:29 Dose: 100 mls/hr Documented By: SUMMER Insulin Glargine (Insulin Glargine,Hum.Rec.Anlog 100 Unit/Ml 10 Ml Vial) 7 unit SUBCUT BEDTIME [facility] Last Admin: 02/25/22 22:20 Dose: 7 unit Documented By: VIKTORIYA Insulin Human Lispro (Insulin Lispro 100 Unit/Ml 3 Ml Vial) 0 unit SUBCUT QIDACHS [facility]; Protocol Last Admin: 02/26/22 09:22 Dose: Not Given Documented By: SUMMER Non-Admin Reason: See Note Comments: per protocol Lactase (Lactase Tablet) 1 tab PO TIDWM [facility] Last Admin: 02/26/22 09:23 Dose: 1 tab Documented By: SUMMER Levothyroxine Sodium (Levothyroxine Sodium 200 Mcg Tablet) 200 mcg PO DAILY@0600 [facility] Last Admin: 02/26/22 09:17 Dose: 200 mcg Documented By: SUMMER Comments: Medication delayed due to delay from pharmacy Magnesium Oxide (Magnesium Oxide 400 Mg Tablet) 400 mg PO DAILY [facility] Last Admin: 02/26/22 09:23 Dose: 400 mg Documented By: SUMMER Meclizine HCl (Meclizine Hcl 12.5 Mg Tablet) 12.5 mg PO Q6H PRN PRN Reason: dizziness/nausea Metoprolol Tartrate (Metoprolol Tartrate 100 Mg Tablet) 100 mg PO BID [facility]; Protocol Last Admin: 02/26/22 09:20 Dose: 100 mg Documented By: SUMMER Omeprazole (Omeprazole 20 Mg Capsule.Dr) 20 mg PO BID@0630,1630 [facility] Last Admin: 02/26/22 06:34 Dose: 20 mg Documented By: N-ANICL Ondansetron HCl (Ondansetron Odt 4 Mg Tab.Rapdis) 4 mg TRANSLINGU Q8H PRN PRN Reason: Nausea Oxycodone HCl (Oxycodone Hcl Immed Release 5 Mg Tablet) 5 mg PO BEDTIME [facility] Last Admin: 02/25/22 22:16 Dose: 5 mg Documented By: VIKTORIYA Pharmacy Consult (Consult Rx Perform Med Rec) 1 each MISCELLANE ONCE PRN PRN Reason: Consult order Sodium Chloride (0.9 % Sodium Chloride Flush 3 Ml Syringe) 3 ml IVFLUSH QSHIFT [facility] Last Admin: 02/26/22 09:22 Dose: 3 ml Documented By: SUMMER Sodium Zirconium Cyclosilicate (Sodium Zirconium Cyclosilicate 10 Gm Powd.Pack) 10 gm PO ONCE ONE Stop: 02/26/22 19:01 Labs CBC & Chem 7: 02/24/22 12:41 02/26/22 10:32 Labs: Laboratory Results - last 24 hr 02/25/22 02/25/22 02/25/22 11:44 18:29 21:10 POC Glucose 177 H 216 H 274 H Total Creatine Kinase 02/26/22 02/26/22 06:14 07:48 POC Glucose 107 Total Creatine Kinase 56 D Assessment and Plan (1) PAD (peripheral artery disease): Status: Acute (2) Acute hyperkalemia: Status: Acute (3) Acute on chronic kidney failure: Status: Acute (4) Uncontrolled hypertension: Status: Acute Plan 71 female with multiple chronic medical issues here with left leg pain and hyperkalemia Left leg pain, no DVT--appearance of the limb is that of chronic arterial insuficiency and her pain is likely from claudication -Pain control and Vascular consult PEG on CKD 3--Hydration and repeat in the morning Nephro evaluation noted-labs added and renal ultrasound also added. Acute Hyperkalemia--treated with insulin, calcium gluconate, Kayexlate, no ecg change, repeat later Anemia of chronic disease--monitor Transaminitis--dates back years, Diabetes--Insulin Hypothyroidsim--levothyroxine, uncontrolled htn: continue amlodipine, hydralazine adjusted to 50 t.i.d. continue metoprolol. DVT prophylaxis; heparin leg pain: dvt studies neg, arterial dupplex- peripheral vascular disease.,vascular consult noted-need renal optimisation before vascular intervention. DVT: Heparin inpatient need: management of PEG complicated by HypErkalemia, uncontrolled htn , pad. Quality Stroke Does the patient have a stroke diagnosis?: No VTE Prior VTE?: No VTE Risk Level:: Medical - moderate - high VTE Device Contraindication: Treatment Not Indicated VTE Drug Contraindication: N/A - Med Ordered
--- NOTE | 2022-02-26 10:50 | P.PNVS_ITS ---
Subjective Subjective Date of Service: 02/26/22 Patient reports: no new complaints and feels better Interval history: complex 71-year-old female with a longstanding history of diabetes presents for follow-up evaluation regarding peripheral vascular disease. She has had a prior left-sided amputation. Right side continues to be a source of pain and discomfort for her. She is unable to move it significantly. She now presents for routine follow-up of note she has had noninvasive testing. Physical Exam Vital Signs: Vital Signs: Last Vital Signs Temp 97.5 F 02/25/22 23:43 Pulse 62 02/26/22 06:36 Resp 16 02/26/22 06:36 BP 187/98 H 02/26/22 06:36 Pulse Ox 97 02/26/22 06:36 O2 Del Method 02/26/22 06:36 BMI result Body Mass Index 38.5 Const: General: cooperative, healthy appearing and no acute distress Orientation/consciousness: oriented to person, oriented to place and oriented to time HEENT: Head: Yes normal to inspection Neck: Carotids: no bruits Chest: Chest palpation & inspection: normal inspection of the chest Resp: Effort & Inspection: normal respiratory effort and able to speak in complete sentences Auscultation: clear to auscultation bilaterally Cardio: Rate: regular rate Heart sounds: S1 normal heart sound present and S2 normal heart sound present GI: Inspection: Yes normal to inspection Skin: General skin exam: no rashes or lesions noted Wounds: amputation site ( Well-healed) Neuro: General: oriented to person, oriented to place, oriented to time and CN's II-XI intact bilaterally Extrem: Other: right leg diminished motor which has been chronic General: Yes normal to inspection, Yes full ROM and Yes no clubbing, cyanosis or edema Psych: Appearance: grossly normal and well kempt Speech and movement: Normal speech and movement present Affect: normal affect Progress Note: A&P Assessment and plan (1) PAD (peripheral artery disease): Status: Acute Assessment and Plan: in short patient has peripheral vascular disease. Noninvasive testing was reviewed and does demonstrate inflow disease along with SFA disease. She will need a peripheral angiogram. Of concern is her acute on chronic renal insufficiency. She has not been seen by Nephrology as of yet. I have pe rsonally put in the consult myself. She will need to be optimized prior to endovascular intervention as contrast will be used. Thank you for allowing us to assist in this patients care. If there are any questions or Time Spent With Patient Time: Total time spent is greater than 50% in coordination of care (as documented) at patient's floor/unit and/or counseling patient: Procedures Date of Service Date of Service: 02/26/22 Quality Stroke Does the patient have a stroke diagnosis?: No VTE Prior VTE?: No VTE Risk Level:: Medical - moderate - high VTE Device Contraindication: Treatment Not Indicated VTE Drug Contraindication: N/A - Med Ordered
[2022-02-26 11:15] LABS: Anion Gap 13 (12-20); Blood Urea Nitrogen 48 mg/dL (9-16); Calcium 7.1 mg/dL (8.4-10.2); Carbon Dioxide 20 mmol/L (22-29); Chloride 110 mmol/L (96-108); Creatinine Clr Calc Pharmacy 21.8; Estimated Glomerular Filt Rate 17; Glucose Random 169 mg/dL (60-115); Potassium 5.6 mmol/L (3.3-5.1); Sodium 137 mmol/L (135-145)
[2022-02-26 12:27] LABS: Glucose, Whole Blood 147 mg/dL (60-115)
--- NOTE | 2022-02-26 14:03 | PC.NURSE ---
Mane not in ED overflow pyxis. Pharmacy notified, awaiting them to being it.
[2022-02-26] MEDS: Sodium Zirconium Cyclosilicate 10 GM POWD.PACK PO (14:16)
--- NOTE | 2022-02-26 14:16 | PC.NURSE ---
AUDREY would not allow me to scan [facility] under 1346 dose. Spoke to pharmacy who instructed to give it now and chart unscheduled.
--- NOTE | 2022-02-26 14:20 | PM.CNNEP ---
History of Present Illness Reason for Consult Consult date: 02/26/22 Reason for consult: PEG, Hyperkalemia, HTN Chief Complaint Chief complaint: PEG, hyperkalemia History of Present Illness Narrative: 71 year female with past medical history of CKD (BL ~ 1.5 mg/dL), T2DM, GERD, hypothyroidism s/p left BKA who was sent to ED from SNF to be evaluated for swelling in the leg and more pain. Imaging studies were negative for DVT. Initial labs showed hyperkalemia with K of 6.4, Creatinine of 3.04, has elevated LFTs that seem chronic. She was treated with with calcium gluconate, insulin, and Kayexalate ROS otherwise negative. Review of Systems Constitutional: Reports as per [facility] Past Medical History Medical History (Updated 02/25/22 @ 10:15 by Pieter Kaur MD) Acute kidney failure Acute respiratory failure with hypoxia Below-knee amputation of left lower extremity Diabetes Dysphagia Failure to thrive in adult GERD (gastroesophageal reflux disease) History of left below knee amputation Hypothyroidism PVD (peripheral vascular disease) TIA (transient ischemic attack) Social History Social History Alcohol intake: never Patient Tobacco Use Status: Never used Tobacco Use of substances other than those prescribed or required for medical reasons: No Advance Directives: Yes Advance Directives on File: Yes Advance Directives Date on File: 02/25/22 service: No Current occupational status: disabled Meds Allergies Allergy/AdvReac Type Severity Reaction Status Date / Time codeine [CODEINE] Allergy Unknown UNKNOWN Verified 02/26/22 09:29 morphine [MORPHINE] Allergy Unknown UNKNOWN, Verified 02/26/22 09:29 anaphylaxis adhesive tape Allergy Unknown Verified 02/24/22 12:18 clarithromycin Allergy Unknown Verified 02/24/22 12:18 clonidine [From Catapres] Allergy Unknown Verified 02/24/22 12:18 lactose Allergy Unknown Verified 02/24/22 12:10 latex Allergy Unknown Verified 02/24/22 12:18 Active Medications: Current Medications Acetaminophen (Acetaminophen 325 Mg Tablet) 650 mg PO Q6H PRN PRN Reason: Pain, Mild (Pain Scale 1-3) Last Admin: 02/25/22 19:49 Dose: 650 mg Acetaminophen/Butalbital/Caffeine (Butalb/Acetamin/Caff 50/325/40 Tablet) 1 tab PO Q8H PRN PRN Reason: Headache Amitriptyline HCl (Amitriptyline Hcl 25 Mg Tablet) 25 mg PO BEDTIME [facility] Last Admin: 02/25/22 22:19 Dose: 25 mg Amlodipine Besylate (Amlodipine Besylate 10 Mg Tablet) 10 mg PO DAILY [facility]; Protocol Last Admin: 02/26/22 09:20 Dose: 10 mg Apixaban (Apixaban 2.5 Mg Tablet) 2.5 mg PO BID [facility] Last Admin: 02/26/22 09:20 Dose: 2.5 mg Artificial Tears (Artificial Tears 15 Ml Drops) 1 drop EYE-BOTH BID [facility] Last Admin: 02/26/22 09:21 Dose: 1 drop Aspirin (Aspirin Enteric Coated 81 Mg Tablet.Dr) 81 mg PO DAILY [facility] Last Admin: 02/26/22 09:23 Dose: 81 mg Atorvastatin Calcium (Atorvastatin Calcium 80 Mg Tablet) 80 mg PO DAILY [facility] Last Admin: 02/26/22 09:23 Dose: 80 mg Baclofen (Baclofen 10 Mg Tablet) 5 mg PO BEDTIME [facility] Last Admin: 02/25/22 22:18 Dose: 5 mg Calcium Carbonate (Calcium Carbonate 500 Mg Tablet) 500 mg PO BID [facility] Last Admin: 02/26/22 09:20 Dose: 500 mg Escitalopram Oxalate (Escitalopram Oxalate 10 Mg Tablet) 10 mg PO DAILY [facility] Last Admin: 02/26/22 09:19 Dose: 10 mg Hydralazine HCl (Hydralazine Hcl 50 Mg Tablet) 50 mg PO DAILY [facility]; Protocol Last Admin: 02/26/22 09:20 Dose: 50 mg Sodium Chloride (Ns) 1,000 mls @ 100 mls/hr IVCONT .Q10H [facility] Last Admin: 02/26/22 09:29 Dose: 100 mls/hr Insulin Glargine (Insulin Glargine,Hum.Rec.Anlog 100 Unit/Ml 10 Ml Vial) 7 unit SUBCUT BEDTIME [facility] Last Admin: 02/25/22 22:20 Dose: 7 unit Insulin Human Lispro (Insulin Lispro 100 Unit/Ml 3 Ml Vial) 0 unit SUBCUT QIDACHS [facility]; Protocol Last Admin: 02/26/22 12:30 Dose: Not Given Lactase (Lactase Tablet) 1 tab PO TIDWM [facility] Last Admin: 02/26/22 12:34 Dose: 1 tab Levothyroxine Sodium (Levothyroxine Sodium 200 Mcg Tablet) 200 mcg PO DAILY@0600 [facility] Last Admin: 02/26/22 09:17 Dose: 200 mcg Magnesium Oxide (Magnesium Oxide 400 Mg Tablet) 400 mg PO DAILY [facility] Last Admin: 02/26/22 09:23 Dose: 400 mg Meclizine HCl (Meclizine Hcl 12.5 Mg Tablet) 12.5 mg PO Q6H PRN PRN Reason: dizziness/nausea Metoprolol Tartrate (Metoprolol Tartrate 100 Mg Tablet) 100 mg PO BID [facility]; Protocol Last Admin: 02/26/22 09:20 Dose: 100 mg Omeprazole (Omeprazole 20 Mg Capsule.Dr) 20 mg PO BID@0630,1630 [facility] Last Admin: 02/26/22 06:34 Dose: 20 mg Ondansetron HCl (Ondansetron Odt 4 Mg Tab.Rapdis) 4 mg TRANSLINGU Q8H PRN PRN Reason: Nausea Oxycodone HCl (Oxycodone Hcl Immed Release 5 Mg Tablet) 5 mg PO BEDTIME [facility] Last Admin: 02/25/22 22:16 Dose: 5 mg Pharmacy Consult (Consult Rx Perform Med Rec) 1 each MISCELLANE ONCE PRN PRN Reason: Consult order Sodium Chloride (0.9 % Sodium Chloride Flush 3 Ml Syringe) 3 ml IVFLUSH QSHIFT [facility] Last Admin: 02/26/22 09:22 Dose: 3 ml Sodium Zirconium Cyclosilicate (Sodium Zirconium Cyclosilicate 10 Gm Powd.Pack) 10 gm PO ONCE ONE Stop: 02/26/22 19:01 Last Admin: 02/26/22 14:16 Dose: 10 gm Home Medications Medication Instructions Recorded Confirmed Last Taken Type Lactobac no.2-Bifidobac no.1-S. 1 cap PO DAILY 02/24/22 02/24/22 Unknown History thermo 112.5 billion cell capsule amitriptyline 25 mg tablet 1 tab PO BEDTIME 02/24/22 02/24/22 Unknown History amlodipine 10 mg tablet 1 tab PO DAILY 02/24/22 02/24/22 Unknown History apixaban 2.5 mg tablet (Eliquis) 1 tab PO BID 02/24/22 02/24/22 Unknown History aspirin 81 mg tablet,delayed 81 mg PO DAILY 02/24/22 02/24/22 Unknown History release atorvastatin 80 mg tablet 1 tab PO DAILY 02/24/22 02/24/22 Unknown History baclofen 10 mg tablet 5 mg PO BEDTIME 02/24/22 02/24/22 Unknown History glguewgheb-prrpxversavsa-owrpfsqq 1 cap PO Q8H PRN Headache 02/24/22 02/24/22 Unknown History 50 mg-300 mg-40 mg capsule (Fioricet) calcium carbonate 600 mg calcium 600 mg PO BID 02/24/22 02/24/22 Unknown History (1,500 mg) tablet (Calcium) escitalopram oxalate 10 mg tablet 1 tab PO DAILY 02/24/22 02/24/22 Unknown History furosemide 40 mg tablet 1 tab PO DAILY 02/24/22 02/24/22 Unknown History hydralazine 25 mg tablet 1 tab PO DAILY 02/24/22 02/24/22 Unknown History insulin aspart U-100 100 unit/mL See Rx Instructions .Route .COMPLEX 02/24/22 02/24/22 Unknown History subcutaneous solution (Novolog U-100 Insulin aspart) insulin degludec 100 unit/mL (3 10 unit subcut BEDTIME 02/24/22 02/24/22 Unknown History mL) subcutaneous pen (Tresiba FlexTouch U-100 insulin) lactase 3,000 unit tablet (Lactaid) 3,000 unit PO TIDWM 02/24/22 02/24/22 Unknown History levothyroxine 200 mcg tablet 1 tab PO DAILY 02/24/22 02/24/22 Unknown History losartan 25 mg tablet 3 tab PO DAILY 02/24/22 02/24/22 Unknown History magnesium oxide 400 mg (241.3 mg 400 mg PO DAILY 02/24/22 02/24/22 Unknown History magnesium) tablet metoprolol tartrate 100 mg tablet 1 tab PO BID 02/24/22 02/24/22 Unknown History ondansetron HCl 4 mg tablet 1 tab PO Q8H PRN Nausea 02/24/22 02/24/22 Unknown History oxycodone 5 mg tablet 1 tab PO BEDTIME 02/24/22 02/24/22 Unknown History oxycodone 5 mg tablet 1 tab PO TID PRN Pain 02/24/22 02/24/22 Unknown History pantoprazole 40 mg tablet,delayed 1 tab PO BID 02/24/22 02/24/22 Unknown History release polyvinyl alcohol 1.4 % eye drops 1 drp ophthalmic (eye) BID 02/24/22 02/24/22 Unknown History (Artificial Tears (polyvinyl alcohol)) Physical Exam Vital Signs: Last Vital Signs Temp 97.5 F 02/25/22 23:43 Pulse 62 02/26/22 06:36 Resp 16 02/26/22 06:36 BP 187/98 H 02/26/22 06:36 Pulse Ox 97 02/26/22 06:36 O2 Del Method 02/26/22 06:36 BMI result Body Mass Index 38.5 Const General: comfortable and no acute distress HEENT Head: Yes normocephalic and Yes atraumatic Neck Neck: Yes no JVD Resp Auscultation: clear to auscultation bilaterally Cardio Jugular venous distension: no JVD Rate: regular rate Rhythm: regular rhythm Heart sounds: S1 normal heart sound present and S2 normal heart sound present GI Auscultation: normal bowel sounds Neuro General: no focal motor deficits Extrem General: Yes no clubbing, cyanosis or edema Results Lab Results Result Diagrams: 02/24/22 12:41 02/26/22 10:32 Lab results: Chemistry 02/24/22 02/24/22 02/25/22 12:41 22:17 07:29 Sodium 134 L 134 L 137 Potassium 6.4 H* D 5.7 H 5.6 H Carbon Dioxide 21 L 18 L 22 BUN 57 H 54 H 52 H Creatinine 3.04 H 3.17 H 2.91 H Calcium 7.4 L D 7.5 L 7.5 L 02/26/22 10:32 Sodium 137 Potassium 5.6 H Carbon Dioxide 20 L BUN 48 H Creatinine 2.75 H Calcium 7.1 L Hematology 02/24/22 12:41 WBC 7.0 Hgb 8.5 L Plt Count 186 Urinalysis 02/24/22 17:37 Urine Color YELLOW Urine Appearance HAZY Urine pH 6.5 Ur Specific [place] 1.015 Urine Protein 2+ H Urine Glucose (UA) 100 H Urine Ketones NEG Urine Blood 2+ H Urine Nitrite NEG Ur Leukocyte Esterase NEG Urine RBC 5-9 H Urine WBC 1-4 Ur Squamous Epith Cells 4+ Assessment and Plan (1) Acute on chronic kidney failure: Status: Acute 71 year female with past medical history of CKD (BL ~ 1.5 mg/dL), T2DM, GERD, hypothyroidism s/p left BKA who was sent to ED from SNF to be evaluated for swelling in the leg and more pain. Imaging studies were negative for DVT. Initial labs showed hyperkalemia with K of 6.4, Creatinine of 3.04, has elevated LFTs that seem chronic. She was treated with with calcium gluconate, insulin, and Kayexalate Problem List: Hypertension hyperkalemia PEG CKD #)PEG on CKD: Monitor I/O's avoidance of nsaids, IV contrast, renal dosing abx. renal panel daily. HTN control as below please order renal US with adrenals #)Hyperkalemia Low K diet (< 2G/day) Schedule 10 Gm lokelma daily Hold acei/arb,aldosterone antagonists #)HTN: Incresase 50 mg hydralazine to tid ARR added for am along with TSH, cortisol #)CKD-Anemia/MBD: Iron panel for am. Add iron panel, phos, vitD for am. (2) Acute hyperkalemia: Status: Acute Procedures Date of Service Date of Service: 02/26/22
--- NOTE | 2022-02-26 14:51 | PC.NURSE ---
Patient repositioned to side for comfort.
[2022-02-26] MEDS: 0.9 % Sodium Chloride 1,000 ML 80 ML IVCONT (17:05)
[2022-02-26 18:23] LABS: Glucose, Whole Blood 197 mg/dL (60-115)
[2022-02-26] MEDS: Insulin Lispro 100 UNIT/ML 3 ML VIAL SUBCUT ×2 (18:30→21:32)
[2022-02-26 19:36] VITALS: BP 170/58; PULSE 68; RESP 14; TEMP 36.7; O2SAT 92
[2022-02-26 21:05] LABS: Glucose, Whole Blood 191 mg/dL (60-115)
[2022-02-26 21:29] VITALS: BP 153/66; PULSE 73; RESP 18; O2SAT 95
[2022-02-26] MEDS: Amitriptyline HCl 25 MG TABLET PO (21:30)
[2022-02-26] MEDS: Baclofen 10 MG TABLET 5 MG PO (21:30)
[2022-02-26] MEDS: oxyCODONE HCl Immed Release 5 MG TABLET PO (21:32)
[2022-02-26] MEDS: Insulin Glargine,Hum.rec.anlog 100 UNIT/ML 10 ML VIAL 7 UNIT SUBCUT (21:33)
[2022-02-27] VITALS (8 sets, daily range): BP systolic 141–180; BP diastolic 55–87; PULSE 60–84; RESP 12–18; TEMP 36.4–37.3; O2SAT 94–98
--- NOTE | 2022-02-27 00:41 | PC.NURSE ---
SMALL TRASH BAG AND TISSUE GIVEN TO PATIENT .
--- NOTE | 2022-02-27 04:18 | PC.NURSE ---
patient awake watching television ,vitals sign taken ,give patient kimmie care ,fresh bed pad given and reposition patient on side with pillows under heel and back .
[2022-02-27] MEDS: Levothyroxine Sodium 200 MCG TABLET PO (05:43)
[2022-02-27] MEDS: Omeprazole 20 MG CAPSULE.DR PO ×2 (05:43→16:52)
[2022-02-27 07:20] LABS: Glucose, Whole Blood 113 mg/dL (60-115)
[2022-02-27 09:03] LABS: Hematocrit 24.6 % (37.0-47.0); Hemoglobin 8.1 g/dl (12.0-16.0)
[2022-02-27] MEDS: Apixaban 2.5 MG TABLET PO ×2 (09:05→20:03)
[2022-02-27] MEDS: Escitalopram Oxalate 10 MG TABLET PO (09:05)
[2022-02-27] MEDS: Magnesium Oxide 400 MG TABLET PO (09:05)
[2022-02-27] MEDS: Atorvastatin Calcium 80 MG TABLET PO (09:05)
[2022-02-27] MEDS: Lactase TABLET 1 TAB PO ×3 (09:05→16:52)
[2022-02-27] MEDS: Metoprolol Tartrate 100 MG TABLET PO ×2 (09:05→20:03)
[2022-02-27] MEDS: Aspirin Enteric Coated 81 MG TABLET.DR PO (09:06)
[2022-02-27] MEDS: 0.9 % Sodium Chloride Flush 3 ML SYRINGE IVFLUSH ×3 (09:06→20:06)
[2022-02-27] MEDS: amLODIPine Besylate 10 MG TABLET PO (09:06)
[2022-02-27] MEDS: Artificial Tears 15 ML DROPS 1 DROP EYE-BOTH ×2 (09:07→20:11)
[2022-02-27 09:19] LABS: Anion Gap 10 (12-20); Blood Urea Nitrogen 46 mg/dL (9-16); Carbon Dioxide 21 mmol/L (22-29); Chloride 110 mmol/L (96-108); Estimated Glomerular Filt Rate 17; Glucose Random 128 mg/dL (60-115); Iron 54 mcg/dL (30-160); Percent Iron Saturation 45 % (15-50); Phosphorus 5.1 mg/dL (2.7-4.5); Sodium 136 mmol/L (135-145); Total Iron Binding Capacity 121 mcg/dL (228-428); Unsaturated Iron Binding 67 ug/dL
[2022-02-27] MEDS: hydrALAZINE HCl 50 MG TABLET PO ×3 (09:27→16:53)
[2022-02-27 09:39] LABS: TSH reflex Free T4 5.22 uIU/mL (0.32-4.0)
[2022-02-27 10:24] LABS: Free T4 (Free Thyroxine) 1.19 ng/dL (0.71-1.85)
[2022-02-27 11:12] LABS: Cortisol Random 8.4 ug/dL
--- NOTE | 2022-02-27 11:15 | MHC.CDI.CONC ---
CDI Concurrent Query Documentation Clarification: PHYSICIAN'S DOCUMENTATION REQUEST Date of Query: 02/27/22 1116 Patient Name: Zari Rg Admit Date: 02/24/22 Dear Doctor, A review of the medical record indicates additional documentation may be needed. Please review below and update the documentation accordingly. Clinical Indicators: Risk Factors/Clinical Indicators/Treatments Diabetes mellitus Poc glucose 02/25 - 274 H Insulin Please clarify the following regarding Diabetes Mellitus (DM): Complications of DM Hypoglycemia Hyperglycemia Uncontrolled, poorly controlled No complications of DM Other complication ? please specify Unable to determine Use of terms such as suspected, likely, concern for, or probable (associated with a specific diagnosis that is being evaluated, monitored, or treated as if it exists) are acceptable and can be coded in the inpatient setting, when documented at the time of discharge. Thank you, Shanique Bee [facility], CDIS Extension: [phone] Please use your independent medical judgment in providing your response. THIS QUERY IS PART OF THE PERMANENT MEDICAL RECORD Provider Response: Other Other Diagnosis: dm -mostly controlled
[2022-02-27 12:47] LABS: Glucose, Whole Blood 153 mg/dL (60-115)
--- NOTE | 2022-02-27 13:18 | HO.PM.IMPN ---
Subjective Subjective Date of Service: 02/27/22 Interval History: peg , leg pain, hyperkalemia, uncontrolled hypertension. Review of Systems patient says leg pain somewhat improivng peg -near baseline Denies any chest pain or shortness of breath or abdominal pain or fever chills. Physical Exam Vital Signs: Vital Signs: Last Vital Signs Temp 99.2 F 02/27/22 11:21 Pulse 62 02/27/22 11:21 Resp 12 02/27/22 11:21 BP 174/76 H 02/27/22 11:21 Pulse Ox 97 02/27/22 11:21 O2 Del Method 02/27/22 11:21 BMI result Body Mass Index 38.5 ?Appearance: Alert.? Oriented X3.? not in distress. cvs: rrr, o7s4titmr . res: clear to auscultation ,no rhonchii or wheezing abd: no rebound or guarding ,nt, bs present. ext : similar ,could wiggle somewhat . neuro: axo3 , nonfocal. Objective Data Active Medications Acetaminophen (Acetaminophen 325 Mg Tablet) 650 mg PO Q6H PRN PRN Reason: Pain, Mild (Pain Scale 1-3) Last Admin: 02/25/22 19:49 Dose: 650 mg Documented By: VIKTORIYA Acetaminophen/Butalbital/Caffeine (Butalb/Acetamin/Caff 50/325/40 Tablet) 1 tab PO Q8H PRN PRN Reason: Headache Amitriptyline HCl (Amitriptyline Hcl 25 Mg Tablet) 25 mg PO BEDTIME [facility] Last Admin: 02/26/22 21:30 Dose: 25 mg Documented By: DONNY Amlodipine Besylate (Amlodipine Besylate 10 Mg Tablet) 10 mg PO DAILY [facility]; Protocol Last Admin: 02/27/22 09:06 Dose: 10 mg Documented By: KATIE Apixaban (Apixaban 2.5 Mg Tablet) 2.5 mg PO BID [facility] Last Admin: 02/27/22 09:05 Dose: 2.5 mg Documented By: KATIE Artificial Tears (Artificial Tears 15 Ml Drops) 1 drop EYE-BOTH BID [facility] Last Admin: 02/27/22 09:07 Dose: 1 drop Documented By: KATIE Aspirin (Aspirin Enteric Coated 81 Mg Tablet.) 81 mg PO DAILY [facility] Last Admin: 02/27/22 09:06 Dose: 81 mg Documented By: KATIE Atorvastatin Calcium (Atorvastatin Calcium 80 Mg Tablet) 80 mg PO DAILY [facility] Last Admin: 02/27/22 09:05 Dose: 80 mg Documented By: KATIE Baclofen (Baclofen 10 Mg Tablet) 5 mg PO BEDTIME [facility] Last Admin: 02/26/22 21:30 Dose: 5 mg Documented By: DONNY Calcium Carbonate (Calcium Carbonate 500 Mg Tablet) 500 mg PO BID [facility] Last Admin: 02/27/22 09:05 Dose: 500 mg Documented By: KATIE Escitalopram Oxalate (Escitalopram Oxalate 10 Mg Tablet) 10 mg PO DAILY [facility] Last Admin: 02/27/22 09:05 Dose: 10 mg Documented By: KATIE Hydralazine HCl (Hydralazine Hcl 50 Mg Tablet) 50 mg PO TID [facility]; Protocol Last Admin: 02/27/22 09:27 Dose: 50 mg Documented By: KATIE Insulin Glargine (Insulin Glargine,Hum.Rec.Anlog 100 Unit/Ml 10 Ml Vial) 7 unit SUBCUT BEDTIME [facility] Last Admin: 02/26/22 21:33 Dose: 7 unit Documented By: DONNY Insulin Human Lispro (Insulin Lispro 100 Unit/Ml 3 Ml Vial) 0 unit SUBCUT QIDACHS [facility]; Protocol Last Admin: 02/27/22 13:04 Dose: Not Given Documented By: KATIE Non-Admin Reason: No Insulin Coverage Lactase (Lactase Tablet) 1 tab PO TIDWM [facility] Last Admin: 02/27/22 09:05 Dose: 1 tab Documented By: KATIE Levothyroxine Sodium (Levothyroxine Sodium 200 Mcg Tablet) 200 mcg PO DAILY@0600 [facility] Last Admin: 02/27/22 05:43 Dose: 200 mcg Documented By: SEGUNDO Magnesium Oxide (Magnesium Oxide 400 Mg Tablet) 400 mg PO DAILY [facility] Last Admin: 02/27/22 09:05 Dose: 400 mg Documented By: KATIE Meclizine HCl (Meclizine Hcl 12.5 Mg Tablet) 12.5 mg PO Q6H PRN PRN Reason: dizziness/nausea Metoprolol Tartrate (Metoprolol Tartrate 100 Mg Tablet) 100 mg PO BID [facility]; Protocol Last Admin: 02/27/22 09:05 Dose: 100 mg Documented By: KATIE Omeprazole (Omeprazole 20 Mg Capsule.) 20 mg PO BID@0630,1630 [facility] Last Admin: 02/27/22 05:43 Dose: 20 mg Documented By: SEGUNDO Ondansetron HCl (Ondansetron Odt 4 Mg Tab.Rapdis) 4 mg TRANSLINGU Q8H PRN PRN Reason: Nausea Oxycodone HCl (Oxycodone Hcl Immed Release 5 Mg Tablet) 5 mg PO BEDTIME [facility] Last Admin: 02/26/22 21:32 Dose: 5 mg Documented By: DONNY Pharmacy Consult (Consult Rx Perform Med Rec) 1 each MISCELLANE ONCE PRN PRN Reason: Consult order Sodium Chloride (0.9 % Sodium Chloride Flush 3 Ml Syringe) 3 ml IVFLUSH QSHIFT [facility] Last Admin: 02/27/22 09:06 Dose: 3 ml Documented By: KATIE Labs CBC & Chem 7: 02/27/22 08:34 02/27/22 08:34 Labs: Laboratory Results - last 24 hr 02/26/22 02/26/22 02/27/22 18:17 20:58 07:15 Anion Gap Estim Creat Clear Calc Estimated GFR POC Glucose 197 H 191 H 113 Random Glucose Calcium Phosphorus Iron TIBC % Saturation Unsat Iron Binding TSH Free T4 Random Cortisol 02/27/22 02/27/22 02/27/22 08:34 08:34 12:43 Anion Gap 10 L Estim Creat Clear Calc 22.0 Estimated GFR 17 POC Glucose 153 H Random Glucose 128 H Calcium 7.0 L Phosphorus 5.1 H Iron 54 TIBC 121 L % Saturation 45 Unsat Iron Binding 67 TSH 5.22 H Free T4 1.19 Random Cortisol 8.4 Assessment and Plan (1) PAD (peripheral artery disease): Status: Acute (2) Acute hyperkalemia: Status: Acute (3) Acute on chronic kidney failure: Status: Acute (4) Uncontrolled hypertension: Status: Acute Plan 71 female with multiple chronic medical issues here with left leg pain and hyperkalemia Left leg pain, no DVT--appearance of the limb is that of chronic arterial insuficiency and her pain is likely from claudication -Pain control and Vascular consult PEG on CKD 3--Hydration and repeat in the morning Nephro evaluation noted-labs added and renal ultrasound also added. Acute Hyperkalemia--treated with insulin, calcium gluconate, Kayexlate, no ecg change, repeat later Anemia of chronic disease--monitor Transaminitis--dates back years, will recheck Diabetes--Insulin Hypothyroidsim--levothyroxine, uncontrolled htn: continue amlodipine, hydralazine adjusted to 50 t.i.d. continue metoprolol. DVT prophylaxis; heparin leg pain: dvt studies neg, arterial dupplex- peripheral vascular disease.,vascular consult noted-need renal optimisation before vascular intervention.spoke to nephro/vascular -they will follow up and make further plan. DVT: Heparin inpatient need: management of PEG complicated by HypErkalemia, uncontrolled htn , pad. Quality Stroke Does the patient have a stroke diagnosis?: No VTE Prior VTE?: No VTE Risk Level:: Medical - moderate - high VTE Device Contraindication: Treatment Not Indicated VTE Drug Contraindication: N/A - Med Ordered
--- NOTE | 2022-02-27 14:51 | PC.NURSE ---
pt chaned and repositioned x2, tolerating po. needs being met waiting on vascular consult.
[2022-02-27 15:31] LABS: Alanine Aminotransferase 113 U/L (0-31); Albumin Level 2.4 g/dL (3.5-5.0); Alkaline Phosphatase 395 U/L (39-117); Aspartate Amino Transferase 80 U/L (5-31); Bilirubin Direct < 0.2 mg/dL (0.0-0.5); Bilirubin Total 0.3 mg/dL (0.0-1.0); Total Protein 5.9 g/dL (6.5-8.0)
--- NOTE | 2022-02-27 16:16 | HO.VASCPN ---
Subjective Subjective Date of Service: 02/27/22 Patient reports: no new complaints and feels better Interval history: Patient seen and examined. No significant events. Leg still uncomfortable for her. She continues to be held in emergency room overflow. She has been seen by Nephrology. Physical Exam Vital Signs: Vital Signs: Last Vital Signs Temp 99.2 F 02/27/22 11:21 Pulse 62 02/27/22 11:21 Resp 12 02/27/22 11:21 BP 174/76 H 02/27/22 11:21 Pulse Ox 97 02/27/22 11:21 O2 Del Method 02/27/22 11:21 BMI result Body Mass Index 38.5 Const: General: cooperative, healthy appearing and no acute distress Orientation/consciousness: oriented to person, oriented to place and oriented to time HEENT: Head: Yes normal to inspection Neck: Carotids: no bruits Chest: Chest palpation & inspection: normal inspection of the chest Resp: Effort & Inspection: normal respiratory effort and able to speak in complete sentences Auscultation: clear to auscultation bilaterally Cardio: Rate: regular rate Heart sounds: S1 normal heart sound present and S2 normal heart sound present Peripheral pulses: dorsalis pedis present (Right side DP signal) GI: Inspection: Yes normal to inspection Skin: General skin exam: no rashes or lesions noted Wounds: amputation site (Left amp well-healed) Neuro: General: oriented to person, oriented to place, oriented to time and CN's II-XI intact bilaterally Extrem: General: Yes normal to inspection, Yes full ROM and Yes no clubbing, cyanosis or edema Psych: Appearance: grossly normal and well kempt Speech and movement: Normal speech and movement present Affect: normal affect Progress Note: A&P Assessment and plan (1) PAD (peripheral artery disease): Status: Acute Assessment and Plan: In short patient has PA D. She is in need endovascular intervention at some point. She appears to be improving in terms of her renal function as her potassium is down and GFR is up to 17. Would like that optimized as much as possible. In addition she appears to be anemic now on top of everything else. We will await clearance from Nephrology prior to any intervention. Thank you for allowing us to assist in her care. Time Spent With Patient Time: Total time spent is greater than 50% in coordination of care (as documented) at patient's floor/unit and/or counseling patient: Procedures Date of Service Date of Service: 02/27/22 Quality Stroke Does the patient have a stroke diagnosis?: No VTE Prior VTE?: No VTE Risk Level:: Medical - moderate - high VTE Device Contraindication: Treatment Not Indicated VTE Drug Contraindication: N/A - Med Ordered
[2022-02-27] MEDS: Acetaminophen 325 MG TABLET 650 MG PO (16:59)
[2022-02-27 17:15] LABS: Folate 14.1 ng/mL (> or = 4.0); Vitamin B12 524 pg/mL (200-900)
--- NOTE | 2022-02-27 17:40 | PC.NURSE ---
Patient alert and oriented x 3. Patient repositioned and pulled up in bed. Patient c/o 02/07 pain medicated with tylenol. Patient assigned a room called report to [facility]. Will transport shortly.
[2022-02-27 17:47] LABS: Glucose, Whole Blood 165 mg/dL (60-115)
--- NOTE | 2022-02-27 19:08 | PM.PNNEP ---
Subjective Subjective Date of Service: 02/27/22 Interval history: peg, hyperkalemia Physical Exam Vital Signs: Vital Signs: Last Vital Signs Temp 98.4 F 02/27/22 18:09 Pulse 64 02/27/22 18:09 Resp 18 02/27/22 18:09 BP 180/77 H 02/27/22 18:09 Pulse Ox 95 02/27/22 18:09 O2 Del Method 02/27/22 18:09 BMI result Body Mass Index 38.5 HEENT: Head: Yes normocephalic Neck: Neck: Yes no JVD Resp: Auscultation: clear to auscultation bilaterally Cardio: Jugular venous distension: no JVD Rate: regular rate Rhythm: regular rhythm Heart sounds: S1 normal heart sound present and S2 normal heart sound present GI: Auscultation: normal bowel sounds Extrem: General: Yes no clubbing, cyanosis or edema Objective Data Labs CBC & Chem 7: 02/27/22 08:34 02/27/22 08:34 Labs: Laboratory Results - last 24 hr 02/26/22 02/27/22 02/27/22 20:58 07:15 08:34 Hgb Hct Sodium Potassium Chloride Carbon Dioxide Anion Gap BUN Creatinine Estim Creat Clear Calc Estimated GFR POC Glucose 191 H 113 Random Glucose Calcium Phosphorus Iron TIBC % Saturation Unsat Iron Binding Total Bilirubin Direct Bilirubin AST ALT Alkaline Phosphatase Total Protein Albumin Vitamin B12 Folate TSH Free T4 Random Cortisol 8.4 02/27/22 02/27/22 02/27/22 08:34 08:34 08:34 Hgb 8.1 L Hct 24.6 L Sodium 136 Potassium 5.0 Chloride 110 H Carbon Dioxide 21 L Anion Gap 10 L BUN 46 H Creatinine 2.73 H Estim Creat Clear Calc 22.0 Estimated GFR 17 POC Glucose Random Glucose 128 H Calcium 7.0 L Phosphorus 5.1 H Iron 54 TIBC 121 L % Saturation 45 Unsat Iron Binding 67 Total Bilirubin 0.3 Direct Bilirubin < 0.2 AST 80 H ALT 113 H Alkaline Phosphatase 395 H Total Protein 5.9 L Albumin 2.4 L Vitamin B12 524 Folate 14.1 TSH 5.22 H Free T4 1.19 Random Cortisol 02/27/22 02/27/22 12:43 17:44 Hgb Hct Sodium Potassium Chloride Carbon Dioxide Anion Gap BUN Creatinine Estim Creat Clear Calc Estimated GFR POC Glucose 153 H 165 H Random Glucose Calcium Phosphorus Iron TIBC % Saturation Unsat Iron Binding Total Bilirubin Direct Bilirubin AST ALT Alkaline Phosphatase Total Protein Albumin Vitamin B12 Folate TSH Free T4 Random Cortisol Procedures Date of Service Date of Service: 02/27/22 Assessment & Plan Assessment and plan (1) Acute hyperkalemia: Status: Acute (2) Acute on chronic kidney failure: Status: Acute Assessment and Plan: 71 year female with past medical history of CKD (BL ~ 2.4 - 2.5 mg/dL), T2DM, GERD, hypothyroidism s/p left BKA who was sent to ED from SNF to be evaluated for swelling in the leg and more pain. Imaging studies were negative for DVT. Initial labs showed hyperkalemia with K of 6.4, Creatinine of 3.04, has elevated LFTs that seem chronic. She was treated with with calcium gluconate, insulin, and Kayexalate Problem List: Hypertension hyperkalemia PEG CKD #)PEG on CKD: Monitor I/O's avoidance of nsaids, IV contrast, renal dosing abx. renal panel daily. HTN control as below Patient is being medically optimized however given CKD at BL is at elevated risk for PEG if exposed to IV contrast. Risk of contrast induced nephropathy = 26.1% Risk of need for dialysis = 1.09% If iv contrast necessary, consider gentle hypotonic IVF?s at 125 ml/hr x 4 hours prior to procedure to minimize risk of injury. #)Hyperkalemia Low K diet (< 2G/day) Schedule 10 Gm lokelma daily Hold acei/arb,aldosterone antagonists #)HTN: Incresase 50 mg hydralazine to tid ARR added for am along with TSH, cortisol #)CKD-Anemia/MBD: Iron panel for am. Add iron panel, phos, vitD for am. Time Spent With Patient Time: Total time spent is greater than 50% in coordination of care (as documented) at patient's floor/unit and/or counseling patient: Progress Note: Quality Stroke Does the patient have a stroke diagnosis?: No
[2022-02-27] MEDS: oxyCODONE HCl Immed Release 5 MG TABLET PO (20:02)
[2022-02-27] MEDS: Baclofen 10 MG TABLET 5 MG PO (20:03)
[2022-02-27] MEDS: Amitriptyline HCl 25 MG TABLET PO (20:03)
[2022-02-27] MEDS: Lactated Ringers 1,000 ML 80 ML IVCONT (20:12)
[2022-02-27 20:15] LABS: Glucose, Whole Blood 177 mg/dL (60-115)
[2022-02-27] MEDS: Insulin Glargine,Hum.rec.anlog 100 UNIT/ML 10 ML VIAL 7 UNIT SUBCUT (20:22)
[2022-02-27] MEDS: Insulin Lispro 100 UNIT/ML 3 ML VIAL SUBCUT (20:22)
[2022-02-28] VITALS (7 sets, daily range): BP systolic 131–189; BP diastolic 57–79; PULSE 55–65; RESP 17–20; TEMP 36.2–36.7; O2SAT 94–97
[2022-02-28] MEDS: Levothyroxine Sodium 200 MCG TABLET PO (05:52)
[2022-02-28] MEDS: Omeprazole 20 MG CAPSULE.DR PO ×2 (05:53→16:36)
[2022-02-28 06:18] LABS: Hematocrit 24.1 % (37.0-47.0); Hemoglobin 7.8 g/dl (12.0-16.0)
[2022-02-28 06:48] LABS: Anion Gap 9 (12-20); Blood Urea Nitrogen 44 mg/dL (9-16); Calcium 7.1 mg/dL (8.4-10.2); Carbon Dioxide 21 mmol/L (22-29); Chloride 110 mmol/L (96-108); Creatinine Clr Calc Pharmacy 22.6; Estimated Glomerular Filt Rate 18; Glucose Random 144 mg/dL (60-115); Potassium 5.1 mmol/L (3.3-5.1); Sodium 135 mmol/L (135-145)
[2022-02-28 07:54] LABS: Glucose, Whole Blood 109 mg/dL (60-115)
[2022-02-28] MEDS: Artificial Tears 15 ML DROPS 1 DROP EYE-BOTH ×2 (08:52→21:15)
[2022-02-28] MEDS: Apixaban 2.5 MG TABLET PO ×2 (08:52→21:13)
[2022-02-28] MEDS: Magnesium Oxide 400 MG TABLET PO (08:52)
[2022-02-28] MEDS: Atorvastatin Calcium 80 MG TABLET PO (08:52)
[2022-02-28] MEDS: amLODIPine Besylate 10 MG TABLET PO (08:52)
[2022-02-28] MEDS: Metoprolol Tartrate 100 MG TABLET PO ×2 (08:52→21:14)
[2022-02-28] MEDS: Escitalopram Oxalate 10 MG TABLET PO (08:52)
[2022-02-28] MEDS: hydrALAZINE HCl 50 MG TABLET PO ×3 (08:52→21:14)
[2022-02-28] MEDS: Lactase TABLET 1 TAB PO ×3 (08:52→16:36)
[2022-02-28 08:55] LABS: Hemoglobin 8.4 g/dl (12.0-16.0)
--- NOTE | 2022-02-28 10:33 | P.PNNP_ITS ---
Subjective Subjective Date of Service: 02/28/22 Interval history: Pt anxious to be discharged Feeling ok Physical Exam Vital Signs: Vital Signs: Last Vital Signs Temp 97.3 F 02/28/22 07:40 Pulse 65 02/28/22 07:40 Resp 17 02/28/22 07:40 BP 189/79 H 02/28/22 07:40 Pulse Ox 97 02/28/22 07:40 O2 Del Method 02/28/22 07:40 BMI result Body Mass Index 38.5 Const: Other: Obese, in no distress General: cooperative, healthy appearing, comfortable and no acute distress Orientation/consciousness: oriented to person, oriented to place and oriented to time HEENT: Head: Yes normal to inspection, Yes normocephalic and Yes atraumatic Neck: Neck: Yes normal visual inspection and Yes no JVD Carotids: no bruits Chest: Chest palpation & inspection: normal inspection of the chest Resp: Effort & Inspection: normal respiratory effort and able to speak in complete sentences Auscultation: clear to auscultation bilaterally, no crackles, no rales, no rhonchi and no wheezes Cardio: Jugular venous distension: no JVD Rate: regular rate Rhythm: regular rhythm Heart sounds: S1 normal heart sound present and S2 normal heart sound present Bruits: no carotid bruits Peripheral pulses: Peripheral pulses 2+ throughout and dorsalis pedis present (Right side DP signal) GI: Inspection: Yes normal to inspection Auscultation: normal bowel sounds Skin: General skin exam: no rashes or lesions noted Rashes: no rashes Wounds: amputation site (Left amp well-healed) Hair: normal Neuro: General: oriented to person, oriented to place, oriented to time, moves all extremities, no focal motor deficits and CN's II-XI intact bilaterally C ranial nerves: Yes CN's II-XII intact bilaterally and Yes Normal hearing present Cognition (Neuro): normal cognition Motor exam (neuro): 5/5 motor strength present throughout Extrem: Other: Unilateral lefft BKA General: Yes normal to inspection, Yes full ROM, Yes no clubbing, cyanosis or edema, No clubbing, No cyanosis and Yes edema Psych: Appearance: grossly normal and well kempt Mental Status: mental status grossly normal Speech and movement: Normal speech and movement present Affect: normal affect Objective Data Labs CBC & Chem 7: 02/28/22 08:39 02/28/22 05:26 Labs: Laboratory Results - last 24 hr 02/27/22 02/27/22 02/27/22 08:34 08:34 08:34 Hgb Hct Sodium Potassium Chloride Carbon Dioxide Anion Gap BUN Creatinine Estim Creat Clear Calc Estimated GFR POC Glucose Random Glucose Calcium Total Bilirubin 0.3 Direct Bilirubin < 0.2 AST 80 H ALT 113 H Alkaline Phosphatase 395 H Total Protein 5.9 L Albumin 2.4 L Vitamin B12 524 Folate 14.1 Random Cortisol 8.4 Blood Type Antibody Screen 02/27/22 02/27/22 02/27/22 12:43 17:44 20:10 Hgb Hct Sodium Potassium Chloride Carbon Dioxide Anion Gap BUN Creatinine Estim Creat Clear Calc Estimated GFR POC Glucose 153 H 165 H 177 H Random Glucose Calcium Total Bilirubin Direct Bilirubin AST ALT Alkaline Phosphatase Total Protein Albumin Vitamin B12 Folate Random Cortisol Blood Type Antibody Screen 02/28/22 02/28/22 02/28/22 05:26 05:26 07:49 Hgb 7.8 L Hct 24.1 L Sodium 135 Potassium 5.1 Chloride 110 H Carbon Dioxide 21 L Anion Gap 9 L BUN 44 H Creatinine 2.65 H Estim Creat Clear Calc 22.6 Estimated GFR 18 POC Glucose 109 Random Glucose 144 H Calcium 7.1 L Total Bilirubin Direct Bilirubin AST ALT Alkaline Phosphatase Total Protein Albumin Vitamin B12 Folate Random Cortisol Blood Type Antibody Screen 02/28/22 02/28/22 08:39 08:39 Hgb 8.4 L Hct 25.0 L Sodium Potassium Chloride Carbon Dioxide Anion Gap BUN Creatinine Estim Creat Clear Calc Estimated GFR POC Glucose Random Glucose Calcium Total Bilirubin Direct Bilirubin AST ALT Alkaline Phosphatase Total Protein Albumin Vitamin B12 Folate Random Cortisol Blood Type A Positive Antibody Screen NEGATIVE Procedures Date of Service Date of Service: 02/28/22 Assessment & Plan Assessment and plan (1) Acute on chronic kidney failure: Status: Acute Assessment and Plan: 71 year female with past medical history of CKD (BL ~ 2.4 - 2.5 mg/dL), T2DM, GERD, hypothyroidism s/p left BKA who was sent to ED from SNF to be evaluated for swelling in the leg and more pain. Imaging studies were negative for DVT. Initial labs showed hyperkalemia with K of 6.4, Creatinine of 3.04, has elevated LFTs that seem chronic. She was treated with with calcium gluconate, insulin, and Kayexalate Potassium has normalized now. BP elevated PEG has resolved CKD is due to DKD and goals will be control of BP and resumption of RAAS blockade (2) Uncontrolled hypertension: Status: Acute Assessment and Plan: Compelling indication for RAAS blockade but will need regular dosing of K binder with it (3) Anemia in CKD (chronic kidney disease): Status: Acute Assessment and Plan: Check iron and b12 and folate; if iron replete, would benefit from initiation of Retacrit/Procrit Plan Start back on Losartan 50 mg daily Add chlorthalidone 50 mg daily MOnitor K on above and use kayexalate three times weekly if rises Iron, TIBC, ferritin, B12, folate -if replete start procrit when BP better Time Spent With Patient Time: Total time spent is greater than 50% in coordination of care (as documented) at patient's floor/unit and/or counseling patient: Progress Note: Quality Stroke Does the patient have a stroke diagnosis?: No
--- NOTE | 2022-02-28 10:38 | HO.VASCPN ---
Subjective Subjective Date of Service: 02/28/22 Patient reports: no new complaints and feels better Interval history: Patient seen and examined. No significant events overnight. Reports that she is doing significantly better in terms of her right leg. The pain and numbness seem to have improved. In general she appears to be doing much better. Physical Exam Vital Signs: Vital Signs: Last Vital Signs Temp 97.3 F 02/28/22 07:40 Pulse 65 02/28/22 07:40 Resp 17 02/28/22 07:40 BP 189/79 H 02/28/22 07:40 Pulse Ox 97 02/28/22 07:40 O2 Del Method 02/28/22 07:40 BMI result Body Mass Index 38.5 Const: General: cooperative, healthy appearing and no acute distress Orientation/consciousness: oriented to person, oriented to place and oriented to time HEENT: Head: Yes normal to inspection Neck: Carotids: no bruits Chest: Chest palpation & inspection: normal inspection of the chest Resp: Effort & Inspection: normal respiratory effort and able to speak in complete sentences Auscultation: clear to auscultation bilaterally Cardio: Rate: regular rate Heart sounds: S1 normal heart sound present and S2 normal heart sound present Peripheral pulses: dorsalis pedis present (Right leg DP signal, motor and sensation intact) GI: Inspection: Yes normal to inspection Skin: General skin exam: no rashes or lesions noted Wounds: amputation site (Left heel well) Neuro: General: oriented to person, oriented to place, oriented to time and CN's II-XI intact bilaterally Extrem: General: Yes normal to inspection, Yes full ROM and Yes no clubbing, cyanosis or edema Psych: Appearance: grossly normal and well kempt Speech and movement: Normal speech and movement present Affect: normal affect Progress Note: A&P Assessment and plan (1) PAD (peripheral artery disease): Status: Acute Assessment and Plan: In short patient is doing well with her right leg. At the current time would like to manage this conservatively as her kidney function continues to improve. Would be fearful injecting her with dye due to her overall renal function. In addition her anemia seems to be improving somewhat. Would plan for discharge she can see me as an outpatient. We can schedule her more electively. Thank you for allowing us to assist in her care. If there are questions or concerns please do not hesitate to contact us.. Time Spent With Patient Time: Total time spent is greater than 50% in coordination of care (as documented) at patient's floor/unit and/or counseling patient: Procedures Date of Service Date of Service: 02/28/22 Quality Stroke Does the patient have a stroke diagnosis?: No VTE Prior VTE?: No VTE Risk Level:: Medical - moderate - high VTE Device Contraindication: Treatment Not Indicated VTE Drug Contraindication: N/A - Med Ordered
[2022-02-28 11:33] LABS: Glucose, Whole Blood 162 mg/dL (60-115)
[2022-02-28] MEDS: Insulin Lispro 100 UNIT/ML 3 ML VIAL SUBCUT ×3 (11:44→21:20)
--- NOTE | 2022-02-28 13:56 | HO.PM.IMPN ---
Subjective Subjective Date of Service: 02/28/22 Interval History: htn uncontrolled , hyperkalemia,pad Review of Systems Patient denies any chest pain or shortness of breath or abdominal pain or fever chills or cough or phlegm. Physical Exam Vital Signs: Vital Signs: Last Vital Signs Temp 97.5 F 02/28/22 11:41 Pulse 64 02/28/22 11:41 Resp 18 02/28/22 11:41 BP 171/72 H 02/28/22 11:41 Pulse Ox 95 02/28/22 11:41 O2 Del Method 02/28/22 11:41 BMI result Body Mass Index 38.5 Appearance: Alert.? Oriented X3.? not in distress. cvs: rrr, [id number] . res: clear to auscultation ,no rhonchii or wheezing abd: no rebound or guarding ,nt, bs present. ext : similar ,could wiggle somewhat she says it is better than before . neuro: axo3 , nonfocal. Objective Data Active Medications Acetaminophen (Acetaminophen 325 Mg Tablet) 650 mg PO Q6H PRN PRN Reason: Pain, Mild (Pain Scale 1-3) Last Admin: 02/27/22 16:59 Dose: 650 mg Documented By: PAULA Acetaminophen/Butalbital/Caffeine (Butalb/Acetamin/Caff 50/325/40 Tablet) 1 tab PO Q8H PRN PRN Reason: Headache Amitriptyline HCl (Amitriptyline Hcl 25 Mg Tablet) 25 mg PO BEDTIME [facility] Last Admin: 02/27/22 20:03 Dose: 25 mg Documented By: TOBY Amlodipine Besylate (Amlodipine Besylate 10 Mg Tablet) 10 mg PO DAILY [facility]; Protocol Last Admin: 02/28/22 08:52 Dose: 10 mg Documented By: SAUNDRA Apixaban (Apixaban 2.5 Mg Tablet) 2.5 mg PO BID [facility] Last Admin: 02/28/22 08:52 Dose: 2.5 mg Documented By: SAUNDRA Artificial Tears (Artificial Tears 15 Ml Drops) 1 drop EYE-BOTH BID [facility] Last Admin: 02/28/22 08:52 Dose: 1 drop Documented By: SAUNDRA Aspirin (Aspirin Enteric Coated 81 Mg Tablet.) 81 mg PO DAILY [facility] Last Admin: 02/27/22 09:06 Dose: 81 mg Documented By: KATIE Atorvastatin Calcium (Atorvastatin Calcium 80 Mg Tablet) 80 mg PO DAILY [facility] Last Admin: 02/28/22 08:52 Dose: 80 mg Documented By: SAUNDRA Baclofen (Baclofen 10 Mg Tablet) 5 mg PO BEDTIME [facility] Last Admin: 02/27/22 20:03 Dose: 5 mg Documented By: TOBY Calcium Carbonate (Calcium Carbonate 500 Mg Tablet) 500 mg PO BID [facility] Last Admin: 02/28/22 08:52 Dose: 500 mg Documented By: SAUNDRA Escitalopram Oxalate (Escitalopram Oxalate 10 Mg Tablet) 10 mg PO DAILY [facility] Last Admin: 02/28/22 08:52 Dose: 10 mg Documented By: SAUNDRA Hydralazine HCl (Hydralazine Hcl 50 Mg Tablet) 50 mg PO TID [facility]; Protocol Last Admin: 02/28/22 08:52 Dose: 50 mg Documented By: SAUNDRA Hydrochlorothiazide (Hydrochlorothiazide 25 Mg Tablet) 25 mg PO DAILY [facility] Insulin Glargine (Insulin Glargine,Hum.Rec.Anlog 100 Unit/Ml 10 Ml Vial) 7 unit SUBCUT BEDTIME [facility] Last Admin: 02/27/22 20:22 Dose: 7 unit Documented By: TOBY Insulin Human Lispro (Insulin Lispro 100 Unit/Ml 3 Ml Vial) 0 unit SUBCUT QIDACHS [facility]; Protocol Last Admin: 02/28/22 11:44 Dose: 2 unit Documented By: SAUNDRA Lactase (Lactase Tablet) 1 tab PO TIDWM [facility] Last Admin: 02/28/22 11:44 Dose: 1 tab Documented By: SAUNDRA Levothyroxine Sodium (Levothyroxine Sodium 200 Mcg Tablet) 200 mcg PO DAILY@0600 [facility] Last Admin: 02/28/22 05:52 Dose: 200 mcg Documented By: TOBY Magnesium Oxide (Magnesium Oxide 400 Mg Tablet) 400 mg PO DAILY [facility] Last Admin: 02/28/22 08:52 Dose: 400 mg Documented By: SAUNDRA Meclizine HCl (Meclizine Hcl 12.5 Mg Tablet) 12.5 mg PO Q6H PRN PRN Reason: dizziness/nausea Metoprolol Tartrate (Metoprolol Tartrate 100 Mg Tablet) 100 mg PO BID [facility]; Protocol Last Admin: 02/28/22 08:52 Dose: 100 mg Documented By: SAUNDRA Omeprazole (Omeprazole 20 Mg Capsule.Dr) 20 mg PO BID@0630,1630 [facility] Last Admin: 02/28/22 05:53 Dose: 20 mg Documented By: TOBY Ondansetron HCl (Ondansetron Odt 4 Mg Tab.Rapdis) 4 mg TRANSLINGU Q8H PRN PRN Reason: Nausea Oxycodone HCl (Oxycodone Hcl Immed Release 5 Mg Tablet) 5 mg PO BEDTIME [facility] Last Admin: 02/27/22 20:02 Dose: 5 mg Documented By: TOBY Pharmacy Consult (Consult Rx Perform Med Rec) 1 each MISCELLANE ONCE PRN PRN Reason: Consult order Sodium Chloride (0.9 % Sodium Chloride Flush 3 Ml Syringe) 3 ml IVFLUSH QSHIFT [facility] Last Admin: 02/28/22 07:44 Dose: Not Given Documented By: SAUNDRA Non-Admin Reason: IV Running Labs CBC & Chem 7: 02/28/22 08:39 02/28/22 05:26 Labs: Laboratory Results - last 24 hr 02/27/22 02/27/22 02/27/22 08:34 08:34 17:44 Anion Gap Estim Creat Clear Calc Estimated GFR POC Glucose 165 H Random Glucose Calcium Total Bilirubin 0.3 Direct Bilirubin < 0.2 AST 80 H ALT 113 H Alkaline Phosphatase 395 H Total Protein 5.9 L Albumin 2.4 L Vitamin B12 524 Folate 14.1 Blood Type Antibody Screen 02/27/22 02/28/22 02/28/22 20:10 05:26 07:49 Anion Gap 9 L Estim Creat Clear Calc 22.6 Estimated GFR 18 POC Glucose 177 H 109 Random Glucose 144 H Calcium 7.1 L Total Bilirubin Direct Bilirubin AST ALT Alkaline Phosphatase Total Protein Albumin Vitamin B12 Folate Blood Type Antibody Screen 02/28/22 02/28/22 08:39 11:25 Anion Gap Estim Creat Clear Calc Estimated GFR POC Glucose 162 H Random Glucose Calcium Total Bilirubin Direct Bilirubin AST ALT Alkaline Phosphatase Total Protein Albumin Vitamin B12 Folate Blood Type A Positive Antibody Screen NEGATIVE Assessment and Plan (1) Acute on chronic kidney failure: Status: Acute (2) Uncontrolled hypertension: Status: Acute (3) Anemia in CKD (chronic kidney disease): Status: Acute Plan 71 female with multiple chronic medical issues here with left leg pain and hyperkalemia. Left leg pain, no DVT--appearance of the limb is that of chronic arterial insuficiency and her pain is likely from claudication arterial dupplex reviewed by vascular. Currently defer vascular procedure for PAD, need outpatient management. -Pain control and Vascular consult noted PEG on CKD 3--Hydration and repeat in the morning Nephro evaluation noted-labs added and renal ultrasound also added. Acute Hyperkalemia--treated with insulin, calcium gluconate, Kayexlate, no ecg change, repeat later Anemia of chronic disease--h/h slightly trending down -likely hemodilution sec to fluids iron panel folate and b12 seems fine monitor added procrit. Transaminitis--dates back years, improving Diabetes--Insulin Hypothyroidsim--levothyroxine. uncontrolled htn: continue amlodipine, hydralazine adjusted to 50 t.i.d. continue metoprolol. added losartan/hctz as per nephro- recomended to moniter a day for hyperkalemia DVT prophylaxis; heparin leg pain: dvt studies neg, arterial dupplex- peripheral vascular disease.,vascular consult noted-need renal optimisation before vascular intervention.spoke to nephro/vascular -they will follow up and make further plan. DVT: Heparin inpatient need: management uncontrolled htn , pad. Quality Stroke Does the patient have a stroke diagnosis?: No VTE Prior VTE?: No VTE Risk Level:: Medical - moderate - high VTE Device Contraindication: Treatment Not Indicated VTE Drug Contraindication: N/A - Med Ordered
[2022-02-28] MEDS: Losartan Potassium 50 MG TABLET PO (14:58)
[2022-02-28] MEDS: hydroCHLOROthiazide 25 MG TABLET PO (14:58)
[2022-02-28] MEDS: Ondansetron ODT 4 MG TAB.RAPDIS TRANSLINGU (15:01)
[2022-02-28] MEDS: 0.9 % Sodium Chloride Flush 3 ML SYRINGE IVFLUSH ×2 (15:05→21:20)
[2022-02-28 16:06] LABS: Glucose, Whole Blood 177 mg/dL (60-115)
[2022-02-28 20:29] LABS: Glucose, Whole Blood 175 mg/dL (60-115)
[2022-02-28] MEDS: Baclofen 10 MG TABLET 5 MG PO (21:13)
[2022-02-28] MEDS: Amitriptyline HCl 25 MG TABLET PO (21:13)
[2022-02-28] MEDS: oxyCODONE HCl Immed Release 5 MG TABLET PO (21:14)
[2022-02-28] MEDS: Insulin Glargine,Hum.rec.anlog 100 UNIT/ML 10 ML VIAL 7 UNIT SUBCUT (21:15)
[2022-03-01 03:50] VITALS: BP 140/53; PULSE 58; RESP 17; TEMP 36.4; O2SAT 95
[2022-03-01] MEDS: Omeprazole 20 MG CAPSULE.DR PO ×2 (06:16→16:31)
[2022-03-01] MEDS: Levothyroxine Sodium 200 MCG TABLET PO (06:16)
[2022-03-01 07:03] LABS: Anion Gap 10 (12-20); Blood Urea Nitrogen 43 mg/dL (9-16); Calcium 7.1 mg/dL (8.4-10.2); Carbon Dioxide 20 mmol/L (22-29); Chloride 108 mmol/L (96-108); Creatinine Clr Calc Pharmacy 23.4; Estimated Glomerular Filt Rate 18; Glucose Random 94 mg/dL (60-115); Potassium 5.2 mmol/L (3.3-5.1); Sodium 133 mmol/L (135-145)
[2022-03-01 07:30] LABS: Glucose, Whole Blood 85 mg/dL (60-115)
[2022-03-01 08:00] VITALS: BP 162/72; PULSE 56; RESP 18; TEMP 36.5; O2SAT 92
[2022-03-01] MEDS: Sodium Zirconium Cyclosilicate 10 GM POWD.PACK PO ×2 (08:21→20:47)
[2022-03-01] MEDS: hydrALAZINE HCl 50 MG TABLET PO ×3 (08:21→20:42)
[2022-03-01] MEDS: Escitalopram Oxalate 10 MG TABLET PO (08:22)
[2022-03-01] MEDS: Atorvastatin Calcium 80 MG TABLET PO (08:22)
[2022-03-01] MEDS: Magnesium Oxide 400 MG TABLET PO (08:22)
[2022-03-01] MEDS: hydroCHLOROthiazide 25 MG TABLET PO (08:22)
[2022-03-01] MEDS: Lactase TABLET 1 TAB PO ×3 (08:22→16:31)
[2022-03-01] MEDS: Apixaban 2.5 MG TABLET PO ×2 (08:22→20:42)
[2022-03-01] MEDS: Aspirin Enteric Coated 81 MG TABLET.DR PO (08:22)
[2022-03-01] MEDS: amLODIPine Besylate 10 MG TABLET PO (08:22)
[2022-03-01] MEDS: Artificial Tears 15 ML DROPS 1 DROP EYE-BOTH ×2 (08:35→20:48)
[2022-03-01] MEDS: 0.9 % Sodium Chloride Flush 3 ML SYRINGE IVFLUSH ×3 (08:35→20:49)
[2022-03-01 11:10] LABS: Glucose, Whole Blood 130 mg/dL (60-115)
[2022-03-01 11:38] VITALS: BP 170/72; RESP 18; TEMP 36.4; O2SAT 95
[2022-03-01] MEDS: Metoprolol Tartrate 100 MG TABLET PO ×2 (11:44→20:42)
[2022-03-01] MEDS: Losartan Potassium 25 MG TABLET PO (14:37)
--- NOTE | 2022-03-01 14:54 | PM.DS ---
DS: Providers Provider Date of Service: 03/02/22 Date of admission: 02/24/22 17:24 Primary care physician: Annette Joya MD Consults: 02/24/22 17:28 Consult to Vascular Surgery Routine Consulting Provider: Pieter Kaur Reason for consultation: severe claudication Has provider been notified: No 02/25/22 09:15 Consult to Nephrology Routine Consulting Provider: Cj Campbell Reason for consultation: jesica on ckd /hyperkalemia Has provider been notified: No 02/26/22 10:49 Consult to Nephrology Routine Consulting Provider: Francis Gaytan Reason for consultation: CRI - hyperkalemia Has provider been notified: No DS: Diagnosis Discharge Diagnosis (1) Acute on chronic kidney failure: Status: Acute (2) Uncontrolled hypertension: Status: Acute (3) Anemia in CKD (chronic kidney disease): Status: Acute DS: Summary Hospital Course Hospital Course: dateod service and diacharge: 03/02/22 71 year female with complicated past medical history including CKD, diabetes, GERD, hypothyroidism s/p left BKA and other problems as below. She has chronic pain in the left leg and send to the ED by SNF to be evaluated for swelling in the leg and more pain. She tells me she has had that pain for years but seem to be worsening. She's noted to have HypErkalemia K of 6.4, Creatinine of 3.04, has elevated LFTs that seem chronic. US of the leg show no DVT and is being admitted d/t hyperkalemia.. which has been treated with calcium gluconate, insulin, and Kayexalate. Hopsital course: 71 female with multiple chronic medical issues here with left leg pain and hyperkalemia-came to the hospital because of left leg pain-workup including venous dupplex -negative, arterial doppler reviewed has PAD(please see arterial duplex results in the imaging section for detailed information): d/w vascular recomended to continue eliquis and asa , plan for outpatient vascular intervention. anemia workup(seems anemia of chronic disease ), received procrit as per nephro. Monitor CBC. hyperkalemia sec to jesica on ckd , will hold off losartan until seen by nephrology outpatient. follow up cbc and bmp outpatiently in 1 week. further management outpatient with pcp and vascular. plan: Monitor BMP in 2 days for hyperkalemia, adjust Lokelma as per hyperkalemia, will hold losartan since patient still fluctuating hyperkalemia [place], further use of losartan outpatient as per Nephro. Monitor CBC closely for anemia of chronic disease and patient might need Procrit out patiently with Nephrology. CORINNA Owens(please see arterial duplex results in the imaging section for detailed information): Patient need outpatient vascular workup and intervention. Follow-up with vascular outpatient . Above management discussed with the patient in detail length she understand and in agreement with the above plan, time spent 50 minutes and 50% time spent on counseling. Significant findings: As above. Procedures performed: None. Treatment and response: As above. Complications: None. Time Spent with Patient Time attestation: Total time spent providing and/or coordinating discharge services: Discharge coordination time: Greater than 30 minutes Quality: Safe Use of Opioids Does Pt have an Active Cancer Diagnosis on the Problem List?: No Quality: Stroke Does the patient have a stroke diagnosis?: No Physical Exam Vital Signs: Vital Signs: Last Vital Signs Temp 97.5 F 03/01/22 11:38 Pulse 56 03/01/22 08:00 Resp 18 03/01/22 11:38 BP 170/72 H 03/01/22 11:38 Pulse Ox 95 03/01/22 11:38 O2 Del Method 03/01/22 11:38 BMI result Body Mass Index 38.5 ? Appearance: Alert.? Oriented X3.? not in distress. cvs: rrr, [id number] . res: clear to auscultation ,no rhonchii or wheezing abd: no rebound or guarding ,nt, bs present. ext : similar ,could wiggle somewhat she says it is better than before . neuro: axo3 , nonfocal. DS: Data Data Completed and Pending Labs on day of discharge: Laboratory Results - last 24 hr 02/28/22 02/28/22 03/01/22 15:30 19:35 06:28 Sodium 133 L Potassium 5.2 H Chloride 108 Carbon Dioxide 20 L Anion Gap 10 L BUN 43 H Creatinine 2.57 H Estim Creat Clear Calc 23.4 Estimated GFR 18 POC Glucose 177 H 175 H Random Glucose 94 Calcium 7.1 L 03/01/22 03/01/22 07:10 11:02 Sodium Potassium Chloride Carbon Dioxide Anion Gap BUN Creatinine Estim Creat Clear Calc Estimated GFR POC Glucose 85 130 H Random Glucose Calcium Additional Comments Additional comments: US/US arterial duplex LE BI IMPRESSION: On the right there is monophasic flow throughout suggesting more proximal inflow disease. There is occlusion of the proximal to mid superficial femoral artery with reformation of the distal aspect of the vessel. There is elevated velocity of the popliteal artery suggesting disease at this level and there is poor visualization of the runoff vessels other than the posterior tibial artery. ? On the left the distal aspect of the common femoral artery, the proximal superficial femoral artery, the profunda femoris appear occluded. ? Further evaluation with cross-sectional imaging could be helpful. Discharge Plan Discharge Patient Disposition: er SNF Discharge Diagnosis: htn,jesica. Referrals: Annette Joya MD [Primary Care Provider] - 1 Week Pieter Kaur MD [Physician] - 1 Week (follow up outpatiently.) Discharge Medications: New hydrochlorothiazide 25 mg Tablet 25 mg PO DAILY Qty: 30 0RF Lokelma 10 gram powder in packet 10 g PO Q OTHER DAY Qty: 11 0RF hydralazine 25 mg Tablet 75 mg PO TID Qty: 90 0RF Protocol: Hold for SBP< HOLD for SBP < : 90 Continued atorvastatin 80 mg tablet 1 tab PO DAILY metoprolol tartrate 100 mg tablet 1 tab PO BID ondansetron HCl 4 mg tablet 1 tab PO Q8H PRN (Reason: Nausea) amitriptyline 25 mg tablet 1 tab PO BEDTIME baclofen 10 mg tablet 5 mg PO BEDTIME amlodipine 10 mg tablet 1 tab PO DAILY Rx Instructions: HOLD SBP <100 insulin aspart U-100 [Novolog U-100 Insulin aspart] 100 unit/mL solution See Rx Instructions .ROUTE .COMPLEX Rx Instructions: INJECT TID WM PER SLIDING SCALE: 150-199: 9U 200-249:12 U 250-299: 15U 300-349:18U 350-399:21U CALL MD/SAMPLING EXPERT >400 pantoprazole 40 mg tablet,delayed release (DR/EC) 1 tab PO BID levothyroxine 200 mcg tablet 1 tab PO DAILY oxycodone 5 mg tablet 1 tab PO TID PRN (Reason: Pain) escitalopram oxalate 10 mg tablet 1 tab PO DAILY [id number] [Fioricet] 50-300-40 mg capsule 1 cap PO Q8H PRN (Reason: Headache) Eliquis 2.5 mg tablet 1 tab PO BID Tresiba FlexTouch U-100 100 unit/mL (3 mL) insulin pen 10 unit subcut BEDTIME polyvinyl alcohol [Artificial Tears (polyvin alc)] 1.4 % Drops 1 drp OPHTHALMIC (EYE) BID aspirin 81 mg Tablet,Delayed Release (Dr/Ec) 81 mg PO DAILY calcium carbonate [Calcium 600] 600 mg calcium (1,500 mg) Tablet 600 mg PO BID magnesium oxide 400 mg (241.3 mg magnesium) Tablet 400 mg PO DAILY lactase [Lactaid] 3,000 unit Tablet 3,000 unit PO TIDWM Rx Instructions: administer with meals and/or snacks oxycodone 5 mg tablet 1 tab PO BEDTIME Lactobac 2-Bifido 1-S. therm 112.5 billion cell Capsule 1 cap PO DAILY Held furosemide 40 mg tablet 1 tab PO DAILY Hold Instructions: Resume on 03/10/22. hold until seen by nephrology losartan 25 mg tablet 3 tab PO DAILY Hold Instructions: Resume on 03/17/22. hold until seen by nephro( patient has hyperkalemia) Discontinued hydralazine 25 mg tablet 1 tab PO DAILY Discharge Orders: Discharge Order (Routine); Ordered 03/02/22 Ordered By: Yomi Flanagan Diet: Advance to usual diet Activity on Discharge: As tolerated Stand Alone Forms: Patient Portal Discharge page Other Ambulatory Orders: Basic Metabolic Panel (Routine) Timeframe: 2 Days Facility: [facility] - Location: Laboratory Ordered By: Yomi Flanagan Complete Blood Count no Diff (Routine) Timeframe: 2 Days Facility: [facility] - Location: Laboratory Ordered By: Yomi Flanagan Care Plan Goals: 71 female with multiple chronic medical issues here with left leg pain and hyperkalemia-came to the hospital because of left leg pain-workup including venous dupplex -negative, arterial doppler reviewed has PAD : d/w vascular recomended to continue eliquis and asa , plan for outpatient vascular intervention. anemia workup(christal kirk ), received procrit as per nephro. hyperkalemia sec to jesica on ckd , will hold off losartan until seen by nephrology outpatient. follow up cbc and bmp outpatiently in 1 week. further management outpatient with pcp and vascular. Health Concerns: as above. Plan of Treatment: as above. Assessment: as above.
--- NOTE | 2022-03-01 15:09 | P.PNIM_ITS ---
Subjective Subjective Date of Service: 03/01/22 Interval History: htn uncontrolled , hyperkalemia,pad Review of Systems Patient denies any chest pain or shortness of breath or abdominal pain or fever chills or cough or phlegm. Physical Exam Vital Signs: Vital Signs: Last Vital Signs Temp 97.5 F 03/01/22 11:38 Pulse 56 03/01/22 08:00 Resp 18 03/01/22 11:38 BP 170/72 H 03/01/22 11:38 Pulse Ox 95 03/01/22 11:38 O2 Del Method 03/01/22 11:38 BMI result Body Mass Index 38.5 Appearance: Alert.? Oriented X3.? not in distress. cvs: rrr, [id number] . res: clear to auscultation ,no rhonchii or wheezing abd: no rebound or guarding ,nt, bs present. ext : similar ,could wiggle somewhat she says it is better than before . neuro: axo3 , nonfocal. Objective Data Active Medications Acetaminophen (Acetaminophen 325 Mg Tablet) 650 mg PO Q6H PRN PRN Reason: Pain, Mild (Pain Scale 1-3) Last Admin: 02/27/22 16:59 Dose: 650 mg Documented By: PAULA Acetaminophen/Butalbital/Caffeine (Butalb/Acetamin/Caff 50/325/40 Tablet) 1 tab PO Q8H PRN PRN Reason: Headache Amitriptyline HCl (Amitriptyline Hcl 25 Mg Tablet) 25 mg PO BEDTIME [facility] Last Admin: 02/28/22 21:13 Dose: 25 mg Documented By: ABILIO Amlodipine Besylate (Amlodipine Besylate 10 Mg Tablet) 10 mg PO DAILY [facility]; Protocol Last Admin: 03/01/22 08:22 Dose: 10 mg Documented By: SAUNDRA Apixaban (Apixaban 2.5 Mg Tablet) 2.5 mg PO BID [facility] Last Admin: 03/01/22 08:22 Dose: 2.5 mg Documented By: SAUNDRA Artificial Tears (Artificial Tears 15 Ml Drops) 1 drop EYE-BOTH BID [facility] Last Admin: 03/01/22 08:35 Dose: 1 drop Documented By: SAUNDRA Aspirin (Aspirin Enteric Coated 81 Mg Tablet.) 81 mg PO DAILY [facility] Last Admin: 03/01/22 08:22 Dose: 81 mg Documented By: SAUNDRA Atorvastatin Calcium (Atorvastatin Calcium 80 Mg Tablet) 80 mg PO DAILY [facility] Last Admin: 03/01/22 08:22 Dose: 80 mg Documented By: SAUNDRA Baclofen (Baclofen 10 Mg Tablet) 5 mg PO BEDTIME [facility] Last Admin: 02/28/22 21:13 Dose: 5 mg Documented By: ABILIO Calcium Carbonate (Calcium Carbonate 500 Mg Tablet) 500 mg PO BID [facility] Last Admin: 03/01/22 08:22 Dose: 500 mg Documented By: SAUNDRA Escitalopram Oxalate (Escitalopram Oxalate 10 Mg Tablet) 10 mg PO DAILY [facility] Last Admin: 03/01/22 08:22 Dose: 10 mg Documented By: SAUNDRA Hydralazine HCl (Hydralazine Hcl 50 Mg Tablet) 50 mg PO TID [facility]; Protocol Last Admin: 03/01/22 14:37 Dose: 50 mg Documented By: SAUNDRA Hydrochlorothiazide (Hydrochlorothiazide 25 Mg Tablet) 25 mg PO DAILY [facility] Last Admin: 03/01/22 08:22 Dose: 25 mg Documented By: SAUNDRA Insulin Glargine (Insulin Glargine,Hum.Rec.Anlog 100 Unit/Ml 10 Ml Vial) 7 unit SUBCUT BEDTIME [facility] Last Admin: 02/28/22 21:15 Dose: 7 unit Documented By: ABILIO Insulin Human Lispro (Insulin Lispro 100 Unit/Ml 3 Ml Vial) 0 unit SUBCUT QIDACHS [facility]; Protocol Last Admin: 03/01/22 11:15 Dose: Not Given Documented By: SAUNDRA Non-Admin Reason: No Insulin Coverage Lactase (Lactase Tablet) 1 tab PO TIDWM [facility] Last Admin: 03/01/22 11:45 Dose: 1 tab Documented By: SAUNDRA Levothyroxine Sodium (Levothyroxine Sodium 200 Mcg Tablet) 200 mcg PO DAILY@0600 [facility] Last Admin: 03/01/22 06:16 Dose: 200 mcg Documented By: NASRIN Magnesium Oxide (Magnesium Oxide 400 Mg Tablet) 400 mg PO DAILY [facility] Last Admin: 03/01/22 08:22 Dose: 400 mg Documented By: SAUNDRA Meclizine HCl (Meclizine Hcl 12.5 Mg Tablet) 12.5 mg PO Q6H PRN PRN Reason: dizziness/nausea Metoprolol Tartrate (Metoprolol Tartrate 100 Mg Tablet) 100 mg PO BID [facility]; Protocol Last Admin: 03/01/22 11:44 Dose: 100 mg Documented By: SAUNDRA Omeprazole (Omeprazole 20 Mg Capsule.Dr) 20 mg PO BID@0630,1630 [facility] Last Admin: 03/01/22 06:16 Dose: 20 mg Documented By: NASRIN Ondansetron HCl (Ondansetron Odt 4 Mg Tab.Rapdis) 4 mg TRANSLINGU Q8H PRN PRN Reason: Nausea Last Admin: 02/28/22 15:01 Dose: 4 mg Documented By: SAUNDRA Oxycodone HCl (Oxycodone Hcl Immed Release 5 Mg Tablet) 5 mg PO BEDTIME [facility] Last Admin: 02/28/22 21:14 Dose: 5 mg Documented By: ABILIO Pharmacy Consult (Consult Rx Perform Med Rec) 1 each MISCELLANE ONCE PRN PRN Reason: Consult order Sodium Chloride (0.9 % Sodium Chloride Flush 3 Ml Syringe) 3 ml IVFLUSH QSHIFT [facility] Last Admin: 03/01/22 08:35 Dose: 3 ml Documented By: SAUNDRA Labs CBC & Chem 7: 02/28/22 08:39 03/01/22 06:28 Labs: Laboratory Results - last 24 hr 02/28/22 02/28/22 03/01/22 15:30 19:35 06:28 Anion Gap 10 L Estim Creat Clear Calc 23.4 Estimated GFR 18 POC Glucose 177 H 175 H Random Glucose 94 Calcium 7.1 L 03/01/22 03/01/22 07:10 11:02 Anion Gap Estim Creat Clear Calc Estimated GFR POC Glucose 85 130 H Random Glucose Calcium Assessment and Plan (1) Acute on chronic kidney failure: Status: Acute (2) Anemia in CKD (chronic kidney disease): Status: Acute Plan 71 female with multiple chronic medical issues here with left leg pain and hyperkalemia. Left leg pain, no DVT--appearance of the limb is that of chronic arterial insuficiency and her pain is likely from claudication arterial dupplex reviewed by vascular. Currently defer vascular procedure for PAD, need outpatient management. -Pain control and Vascular consult noted PEG on CKD 3--Hydration and repeat in the morning Nephro evaluation noted-labs added and renal ultrasound also added. Acute Hyperkalemia--treated with insulin, calcium gluconate, Kayexlate, no ecg change, repeat later Anemia of chronic disease--h/h slightly trending down -likely hemodilution sec to fluids iron panel folate and b12 seems fine monitor added procrit. Transaminitis--dates back years, improving Diabetes--Insulin Hypothyroidsim--levothyroxine. uncontrolled htn: continue amlodipine, hydralazine adjusted to 50 t.i.d. continue metoprolol. added losartan/hctz as per nephro- recomended to moniter a day for hyperkalemia DVT prophylaxis; heparin leg pain: dvt studies neg, arterial dupplex- peripheral vascular disease.,vascular consult noted-need renal optimisation before vascular interven tion.spoke to nephro/vascular -they will follow up and make further plan. DVT: Heparin inpatient need: management? uncontrolled htn , pad. Quality Stroke Does the patient have a stroke diagnosis?: No VTE Prior VTE?: No VTE Risk Level:: Medical - moderate - high VTE Device Contraindication: Treatment Not Indicated VTE Drug Contraindication: N/A - Med Ordered
[2022-03-01 15:13] LABS: COVID-19 Test Negative (Negative); IDNOW Serial# 16C4AD1C
--- NOTE | 2022-03-01 15:16 | MHC.CM.PN ---
IMM 03/01/22, PT TO BE CLEARED PENDING STAT POTASSIUM LEVEL, ANTIC'D PT WOULD D/C BACK TO [facility] IF K DECREASED HOWEVER CM UNABLE TO OBTAIN AMBULANCE PRIOR TO 10PM TONIGHT IF THEY ARE RUNNING ON TIME, CM DISCUSSED W/HOSPITALIST AND PT WILL BE HELD UNTIL TOMORROW 03/02 AT 11AM, TRANSPORT VERIFIED FOR 11AM 03/02/22.
[2022-03-01 15:47] LABS: Potassium 5.4 mmol/L (3.3-5.1)
[2022-03-01 15:47] LABS: Glucose, Whole Blood 164 mg/dL (60-115)
[2022-03-01] MEDS: Insulin Lispro 100 UNIT/ML 3 ML VIAL SUBCUT (16:34)
[2022-03-01 20:03] VITALS: BP 160/69; PULSE 70; RESP 16; TEMP 36.5; O2SAT 96
[2022-03-01 20:33] LABS: Glucose, Whole Blood 87 mg/dL (60-115)
[2022-03-01] MEDS: Amitriptyline HCl 25 MG TABLET PO (20:42)
[2022-03-01] MEDS: Baclofen 10 MG TABLET 5 MG PO (20:42)
[2022-03-01] MEDS: oxyCODONE HCl Immed Release 5 MG TABLET PO (20:42)
[2022-03-02] VITALS: BP 162/70; PULSE 60; RESP 18; TEMP 36.1; O2SAT 94
[2022-03-02 04:00] VITALS: BP 170/71; PULSE 61; RESP 18; TEMP 36.4; O2SAT 94
[2022-03-02 05:00] LABS: Glucose, Whole Blood 122 mg/dL (60-115)
[2022-03-02] MEDS: Omeprazole 20 MG CAPSULE.DR PO (06:37)
[2022-03-02] MEDS: Levothyroxine Sodium 200 MCG TABLET PO (06:37)
[2022-03-02 07:29] LABS: Glucose, Whole Blood 110 mg/dL (60-115)
[2022-03-02 07:32] LABS: Anion Gap 11 (12-20); Blood Urea Nitrogen 43 mg/dL (9-16); Calcium 7.3 mg/dL (8.4-10.2); Carbon Dioxide 21 mmol/L (22-29); Chloride 108 mmol/L (96-108); Creatinine Clr Calc Pharmacy 22.8; Estimated Glomerular Filt Rate 18; Glucose Random 131 mg/dL (60-115); Potassium 5.3 mmol/L (3.3-5.1); Sodium 135 mmol/L (135-145)
[2022-03-02 07:56] VITALS: BP 168/58; PULSE 65; RESP 18; TEMP 36.3; O2SAT 97
[2022-03-02] MEDS: Metoprolol Tartrate 100 MG TABLET PO (08:06)
[2022-03-02] MEDS: hydroCHLOROthiazide 25 MG TABLET PO (08:06)
[2022-03-02] MEDS: hydrALAZINE HCl 25 MG TABLET 75 MG PO (08:06)
[2022-03-02] MEDS: Apixaban 2.5 MG TABLET PO (08:06)
[2022-03-02] MEDS: amLODIPine Besylate 10 MG TABLET PO (08:06)
[2022-03-02] MEDS: Lactase TABLET 1 TAB PO (08:06)
[2022-03-02] MEDS: Escitalopram Oxalate 10 MG TABLET PO (08:06)
[2022-03-02] MEDS: Aspirin Enteric Coated 81 MG TABLET.DR PO (08:06)
[2022-03-02] MEDS: Atorvastatin Calcium 80 MG TABLET PO (08:06)
[2022-03-02] MEDS: Magnesium Oxide 400 MG TABLET PO (08:06)
[2022-03-02] MEDS: Artificial Tears 15 ML DROPS 1 DROP EYE-BOTH (08:07)
[2022-03-02] MEDS: Sodium Zirconium Cyclosilicate 10 GM POWD.PACK PO (09:51)
--- NOTE | 2022-03-02 09:52 | MHC.CM.PN ---
PT DISCHARGING BACK TO [facility] TRANSPORT.
[2022-03-02 11:29] LABS: Glucose, Whole Blood 263 mg/dL (60-115)
[2022-03-04 12:46] LABS: Renin 0.69 ng/mL/h (0.25-5.82)
[2022-03-05 20:57] LABS: VITAMIN D (1,25 OH) D3 13 pg/mL; Vit D (1,25-Dihydroxy) Total 13 pg/mL (18-72); Vitamin D (1,25 OH) D2 <8 pg/mL
== END 2022-03-02 12:48 | disposition skilled nursing facility (03) | DRG 300 ==
LOC: HO.ED 15:44 → HO.EDOVER 17:30 → HO.S3 02-26 14:58 → HO.EDOVER 02-26 16:36 → HO.S3 02-27 17:16
PROVIDERS: Internal Medicine Nephrology; Admitting Provider Internal Medicine; Emergency Provider Emergency Medicine; PCP Internal Medicine; Responsible Provider Internal Medicine; Visit Provider Internal Medicine
DX: E11.51 Type 2 diabetes mellitus with diabetic peripheral angiopathy without gangrene (principal); N17.9 Acute kidney failure, unspecified; I87.322 Chronic venous hypertension (idiopathic) with inflammation of left lower extremity; I12.9 Hypertensive chronic kidney disease with stage 1 through stage 4 chronic kidney disease, or unspecified chronic kidney disease; E03.9 Hypothyroidism, unspecified; N25.0 Renal osteodystrophy; D63.1 Anemia in chronic kidney disease; K21.9 Gastro-esophageal reflux disease without esophagitis; E87.5 Hyperkalemia; N18.30 Chronic kidney disease, stage 3 unspecified; E11.22 Type 2 diabetes mellitus with diabetic chronic kidney disease; Z20.822 Contact with and (suspected) exposure to COVID-19; Z89.512 Acquired absence of left leg below knee; Z86.73 Personal history of transient ischemic attack (TIA), and cerebral infarction without residual deficits; Z91.040 Latex allergy status; Z88.5 Allergy status to narcotic agent; Z88.8 Allergy status to other drugs, medicaments and biological substances; Z79.4 Long term (current) use of insulin; Z79.890 Hormone replacement therapy; Z79.899 Other long term (current) drug therapy
CPT/HCPCS: 0241U; 36415; 71045; 76775; 80048; 80076; 81001; 82088; 82533; 82550; 82607; 82652; 82746; 82947; 83540; 83690; 84100; 84132; 84244; 84439; 84443; 85014; 85018; 85025; 86850; 86900; 86901; 87635; 93005; 93925; 93971; 94640; 96365; 96366; 96375; 99285; C1758; J0610; J0885

== ENCOUNTER → 2022-04-01 13:40 | Outpatient (BNVA) | payer MEDICARE, MEDICAID, SELFPAY | PROVIDERS: PCP Internal Medicine; Visit Provider Surgery Vascular Surgery | DX: I73.9 Peripheral vascular disease, unspecified (principal); I12.9 Hypertensive chronic kidney disease with stage 1 through stage 4 chronic kidney disease, or unspecified chronic kidney disease; N18.9 Chronic kidney disease, unspecified; Z89.512 Acquired absence of left leg below knee | CPT/HCPCS: 99212 ==

== ENCOUNTER 2022-04-10 09:27 | Inpatient (IN) | payer MEDICARE, MEDICAID, SELFPAY ==
[2022-04-10] VITALS (9 sets, daily range): BP systolic 113–164; BP diastolic 48–74; PULSE 69–83; RESP 12–18; TEMP 36.5–37.1; O2SAT 93–99; BMI 42.9
--- NOTE | ~2022-04-10 | FL_ITS ---
EXAMINATION: XR FLUOROSCOPY WITH IMAGES CLINICAL INFORMATION: ERCP. COMPARISON: MRI 04/14/2022 TECHNIQUE: Fluoroscopy performed by Dr. Warren Chambers Fluoroscopy time: 10.3 minutes Cumulative Dose: 319 mGy DAP: 87 Gy-cm2 Images: 7 FINDINGS: Intraoperative C-arm imaging of ERCP performed. There is noted be a filling defect within the common bile duct at the junction of the hepatic duct and cystic duct. Imaging demonstrates extraction of the calculus with no definite common bile duct filling defect seen on the last image. FL/FL guidance in OR IMPRESSION: Fluoroscopic imaging for intraoperative ERCP.
--- NOTE | ~2022-04-10 | MR_ITS ---
MRI OF THE BRAIN WITHOUT IV CONTRAST INDICATION: Question infarct. COMPARISON: Head CT 04/10/2022. TECHNIQUE: Multiplanar multisequence MR imaging of the brain was obtained without IV contrast. FINDINGS: There is no hydrocephalus, extra-axial surface collection, or herniation. No axial FLAIR imaging was obtained. There is global cerebral volume loss with a temporal lobe predominance and there is probable advanced chronic microangiopathy as well as chronic lacunar infarcts within the deep [place] nuclei and cierra. The major flow voids at the skull base are preserved. There is no acute infarct on diffusion-weighted imaging. There is no intracranial hemorrhage on the gradient recalled echo acquisition. The midline structures are normal. The cerebellar tonsils are normally positioned. The cerebellum and brainstem are normal. The craniocervical junction is normal. Osseous marrow signal intensity is homogenous. The visualized soft tissues are unremarkable. MR/MR head/brain wo con IMPRESSION: Incomplete study. No axial FLAIR imaging was obtained. The acquired series are motion degraded. There are no acute infarcts. There is global cerebral volume loss with a temporal lobe predominance and there is probable advanced chronic microangiopathy as well as chronic lacunar infarcts within the deep [place] nuclei and cierra.
--- NOTE | ~2022-04-10 | MR_ITS ---
EXAMINATION: MR ABDOMEN WITHOUT CONTRAST CLINICAL INFORMATION: Elevated liver function tests. COMPARISON: Previous CT of the abdomen and pelvis 04/10/2022 and renal ultrasound January 2022 TECHNIQUE: MR abdomen is performed without gadolinium contrast. MRCP sequences were also performed. Exam is limited due to respiratory motion artifact. FINDINGS: LUNG BASES: The visualized lung bases are unremarkable. LIVER, GALLBLADDER, AND BILIARY TREE: The liver is normal in size, shape and signal. No focal liver lesion is seen. There is low signal in the gallbladder. It is uncertain whether this represents gallbladder wall calcification or large gallstone. There is no intrahepatic biliary duct dilatation. The common bile duct is minimally dilated measuring 1 cm. There is a 4 x 7 mm common bile duct stone. PANCREAS: Unremarkable. SPLEEN: Unremarkable. ADRENAL GLANDS: There are bilateral adrenal lesions. Right adrenal lesion measures 2.6 x 3.3 cm. This is heterogeneous in signal but demonstrates predominant fatty component suggestive of a myelolipoma. There is a 1.8 x 2 cm homogeneous in signal left adrenal lesion. This demonstrates decreased signal on out of phase sequences suggestive of a benign adenoma. KIDNEYS AND URETERS: There are bilateral renal simple cysts. There is a 1.6 cm lesion in the upper pole of the left kidney. This is high signal on T1-weighted sequences, low signal on T2-weighted sequences. When compared with previous CT this probably represents a hemorrhagic cyst. The kidneys are otherwise unremarkable. GASTROINTESTINAL TRACT: Mild diverticulosis of the colon. No bowel obstruction. No ascites or fluid collection. ABDOMINAL WALL: No significant hernia is appreciated. There may be subcutaneous edema. LYMPH NODES: No lymphadenopathy. VASCULAR: Unremarkable. OSSEOUS STRUCTURES: Marrow signal normal. There is multilevel degenerative disc disease. MR/MR MRCP IMPRESSION: Limited exam due to motion artifact. Mild common bile duct dilatation and 4 x 7 mm common bile duct stone. Low signal in the gallbladder. It is uncertain whether this represents gallbladder wall calcification versus large gallstone. Bilateral renal simple cysts and 1.6 cm probable hemorrhagic cyst in the upper pole of the left kidney. Bilateral benign adrenal lesions, probable myelolipoma on the right and lipid rich adenoma on the left.
--- NOTE | ~2022-04-10 | CT_ITS ---
EXAMINATION: CT ABDOMEN AND PELVIS WITHOUT CONTRAST CLINICAL INFORMATION: Acute kidney injury. Evaluate for kidney stone. COMPARISON: Renal ultrasound from 02/26/2022 TECHNIQUE: Multidetector volumetric imaging was performed from the superior aspect of the liver through the pubic symphysis. Sagittal and coronal reformatted images were obtained on the technologist's workstation. This CT examination was performed using dose optimization techniques as appropriate, variously including the following: *Automated exposure control *Adjustment of mA and/or kV according to patient size (this includes techniques or standardized protocols for targeted exams where dose is matched to indication/reason for exam; i.e. extremities or head) *Use of iterative reconstruction technique DLP: 1001 mGy-cm FINDINGS: LUNG BASES: The visualized lung bases have mosaic attenuation. This could reflect presence of air trapping phenomenon from small airways inflammation. No focal consolidation or pleural effusion. Linear opacity of mild subsegmental atelectasis in the lateral left lower lobe. Atherosclerotic calcifications of coronary arteries and descending thoracic aorta. Mitral valve annulus is calcified. HEPATOBILIARY: Liver has normal size and contour. 1.5 cm focus of clustered calcification is present in hepatic segment 7. This is of no appreciable clinical significance. No overt liver mass. A focus of curvilinear capsular calcification projects over the lateral surface of the right hepatic lobe. Gallbladder is underdistended and has partial wall calcification. This could represent mild porcelain gallbladder, although there might also be some calcifications from peripherally calcified gallstones. No evidence of edema of the gallbladder wall or pericholecystic fluid. Interestingly, there is a punctate focus of gas along the gallbladder wall or adjacent to the wall at its interface with the liver. No pneumobilia within the liver. A calcified stone measuring up to 0.7 cm present in the distal CBD. The CBD measures 0.7 cm diameter. PANCREAS: Mild diffuse atrophy. No pancreatic edema or peripancreatic fluid. SPLEEN: Normal. ADRENAL GLANDS: A mass of the right adrenal gland of predominantly fat attenuation, consistent with myelolipoma, measures up to 3.3 cm in maximum dimension. A homogeneous, smoothly marginated mass of the left adrenal gland has attenuation of approximately - 40 HU, consistent with lipid rich adenoma. No adrenal imaging follow-up is recommended for this finding. KIDNEYS AND URETERS: The renal arteries are calcified. Again noted is mild renal cortical atrophy without focal renal lesion. No nephrolithiasis or hydronephrosis. The ureters are unremarkable. BLADDER: Normal. No calculi or wall thickening. BOWEL AND PERITONEUM: No dilated bowel loops. The appendix is normal. No evidence of inflammatory change or obstruction along the gastrointestinal tract. No abdominal free fluid or free air. ABDOMINAL WALL: Obese body habitus. Edema of subcutaneous tissues of the flanks, back and thighs. There appears to be a lipoma in subcutaneous tissues of the left lateral flank (image 36, series 2). VASCULATURE: The atherosclerotic abdominal aorta is normal in size. There is extensive calcification of the visualized iliac and femoral arteries. Celiac artery and branches, SMA and renal arteries are extensively calcified. LYMPH NODES: No pathologic sized lymph nodes in the abdomen or pelvis. No inguinal lymphadenopathy. PELVIC VISCERA: The uterus is unremarkable. A 3.1 cm cyst of the medial left ovary has a simple appearance. This is almost certainly benign. If deemed clinically appropriate, this could be followed with pelvic ultrasound (if visible on either transabdominal or transvaginal ultrasound) to ensure long-term stability. No pelvic free fluid. SKELETAL: Bones are diffusely osteopenic. Multilevel degenerative arthropathy of the visualized thoracic and lumbar spine. Severe degenerative disc space loss at the L5-S1 level. CT/CT abdomen pelvis wo IV con IMPRESSION: * No acute findings along the urinary tracts. No nephrolithiasis or hydronephrosis. * Gallbladder is suboptimally evaluated. 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 Also noted is choledocholithiasis and a punctate focus of gas within the gallbladder or along its wall at its interface with the liver. * Severe atherosclerotic disease of aorta and branch vessels. * Myelolipoma of the right adrenal gland and lipid rich adenoma of the left adrenal gland.
--- NOTE | ~2022-04-10 | CT_ITS ---
EXAMINATION: CT HEAD WITHOUT CONTRAST CLINICAL INFORMATION: Involuntary movements, question mass, question blood COMPARISON: 09/07/2021 TECHNIQUE: Contiguous axial imaging was performed from the skull base to vertex without intravenous administration of contrast. This CT examination was performed using dose optimization techniques as appropriate, variously including the following: *Automated exposure control *Adjustment of mA and/or kV according to patient size (this includes techniques or standardized protocols for targeted exams where dose is matched to indication/reason for exam; i.e. extremities or head) *Use of iterative reconstruction technique DLP: 580 mGy-cm FINDINGS: There is no midline shift. There is no mass effect. There is no hemorrhage. The basilar cisterns appear patent. The posterior fossa risk grossly within normal limits. There is no extra-axial collection. There are scattered areas of white matter ischemic change. There is also an area of decreased attenuation in the midbrain at the level of the cerebral peduncles. Could be artifactual but infarct or other abnormality would be a consideration here. There is no mass effect associated with this. Review of the bone windows demonstrates grossly clear sinuses. CT/CT head/brain wo IV con IMPRESSION: There is no acute midline shift mass effect or hemorrhage. There is evidence of white matter ischemic change here and as described decreased attenuation in the central brain at the level of cerebral peduncles of uncertain etiology. This could represent an infarct. Underlying lesion cannot be excluded. Recommend MR for full evaluation.
--- NOTE | 2022-04-10 10:09 | ED.NEUROSD ---
HPI - Neuro Symptoms/Deficit General Chief Complaint: Neuro Symptoms/Deficit Stated Complaint: POSSIBLE DYSTONIA Time Seen by Provider: 04/10/22 09:53 Source: patient Mode of arrival: ambulatory Limitations: no limitations History of Present Illness HPI Narrative: 71-year-old female with past medical history of diabetes, CKD, peripheral artery disease, below-knee amputation, and presently with shingles presents to the ED for episodes of involuntary movement of upper extremities that last for couple seconds. As per patient, EMS, nursing staff patient never lost consciousness during episodes. As per nursing staff from facility patient is at her baseline mentally. Negative for any neuro deficits. Patient baseline is alert oriented x3. Presently patient complained of left back pain when she has the shingles. Related Data Home Medications Medication Instructions Recorded Confirmed amitriptyline 25 mg tablet 1 tab PO BEDTIME 02/24/22 04/10/22 amlodipine 10 mg tablet 1 tab PO DAILY 02/24/22 04/10/22 apixaban 2.5 mg tablet (Eliquis) 1 tab PO BID 02/24/22 04/10/22 aspirin 81 mg tablet,delayed 81 mg PO DAILY 02/24/22 04/10/22 release atorvastatin 80 mg tablet 1 tab PO DAILY 02/24/22 04/10/22 [id number] 1 cap PO Q8H PRN Headache 02/24/22 04/10/22 50 mg-300 mg-40 mg capsule (Fioricet) calcium carbonate 600 mg calcium 600 mg PO BID 02/24/22 04/10/22 (1,500 mg) tablet (Calcium) escitalopram oxalate 10 mg tablet 1 tab PO DAILY 02/24/22 04/10/22 furosemide 40 mg tablet 1 tab PO BID 02/24/22 04/10/22 insulin aspart U-100 100 unit/mL See Rx Instructions .Route .COMPLEX 02/24/22 04/10/22 subcutaneous solution (Novolog U-100 Insulin aspart) insulin degludec 100 unit/mL (3 10 unit subcut BEDTIME 02/24/22 04/10/22 mL) subcutaneous pen (Tresiba FlexTouch U-100 insulin) lactase 3,000 unit tablet (Lactaid) 3,000 unit PO TIDWM 02/24/22 04/10/22 levothyroxine 200 mcg tablet 1 tab PO BEDTIME 02/24/22 04/10/22 losartan 25 mg tablet 3 tab PO DAILY 02/24/22 04/10/22 metoprolol tartrate 100 mg tablet 1 tab PO BID 02/24/22 04/10/22 ondansetron HCl 4 mg tablet 1 tab PO Q8H PRN Nausea 02/24/22 04/10/22 oxycodone 5 mg tablet 1 tab PO BEDTIME 02/24/22 04/10/22 oxycodone 5 mg tablet 2 tab PO Q6H PRN Pain 02/24/22 04/10/22 pantoprazole 40 mg tablet,delayed 1 tab PO BID 02/24/22 04/10/22 release polyvinyl alcohol 1.4 % eye drops 1 drp ophthalmic (eye) BID 02/24/22 04/10/22 (Artificial Tears (polyvinyl alcohol)) acetaminophen 325 mg tablet 650 mg PO Q8H PRN Pain 04/10/22 04/10/22 (Tylenol) baclofen 5 mg tablet 5 mg PO BEDTIME 04/10/22 04/10/22 docusate sodium 100 mg tablet 100 mg PO BEDTIME PRN Constipation 04/10/22 04/10/22 hydralazine 25 mg tablet 75 mg PO TID 04/10/22 04/10/22 valacyclovir 500 mg tablet 1 tab PO DAILY 04/10/22 04/10/22 Previous Rx's Medication Instructions Recorded hydrochlorothiazide 25 mg tablet 25 mg PO DAILY #30 tabs 03/01/22 sodium zirconium cyclosilicate 10 10 g PO Q OTHER DAY #11 ea 03/01/22 gram oral powder packet (Lokelma) Allergies Allergy/AdvReac Type Severity Reaction Status Date / Time codeine [CODEINE] Allergy Unknown UNKNOWN Verified 04/10/22 09:48 morphine [MORPHINE] Allergy Unknown UNKNOWN, Verified 04/10/22 09:48 anaphylaxis adhesive tape Allergy Unknown Verified 04/10/22 09:48 clarithromycin Allergy Unknown Verified 04/10/22 09:48 clonidine [From Catapres] Allergy Unknown Verified 04/10/22 09:48 lactose Allergy Unknown Verified 04/10/22 09:48 latex Allergy Unknown Verified 04/10/22 09:48 Review of Systems Review of Systems: dystonia, extrapyrmidial symptoms presenting as upper extremities shaking for couple seconds. Yes all other systems are reviewed and are negative PMFSH Past Medical History Medical History (Updated 04/10/22 @ 16:32 by CORINNA Cota) Acute kidney failure Acute respiratory failure with hypoxia Atherosclerosis Basal cell carcinoma of right upper arm Below-knee amputation of left lower extremity Diabetes Diabetic retinopathy Dysphagia Failure to thrive in adult GERD (gastroesophageal reflux disease) History of venous thromboembolism Hypothyroidism PVD (peripheral vascular disease) Squamous cell carcinoma of left upper extremity TIA (transient ischemic attack) Surgical History (Updated 04/10/22 @ 14:38 by CORINNA Keyes) S/P below knee amputation Social History Social History Household Members: Other Housing: Group Home Do you presently have visiting nurse or other home services: No Alcohol intake: never Patient Tobacco Use Status: Never used Tobacco Advance Directives: Yes Advance Directives on File: Yes Advance Directives Date on File: 02/25/22 service: No Current occupational status: disabled Physical Exam Vital Signs: Vital Signs: Last Vital Signs Temp 98.2 F 04/10/22 16:09 Pulse 74 04/10/22 16:09 Resp 15 04/10/22 16:09 BP 153/63 H 04/10/22 16:09 Pulse Ox 97 04/10/22 16:09 O2 Del Method 04/10/22 16:09 BMI result Body Mass Index 42.9 Const: General: cooperative, healthy appearing, comfortable, no acute distress, well developed, alert, awake and Physically active Orientation/consciousness: oriented to time HEENT: Head: Yes normal to inspection, Yes No palpable skull fracture present, Yes normocephalic, Yes atraumatic and No abrasion Eyes: General: appearance normal, both eyes and all related structures Neck: Neck: Yes normal visual inspection, Yes full ROM, Yes no lymphadenopathy, Yes no meningeal signs, Yes trachea midline, Yes supple, No anterior neck swelling and No tender Chest: Chest palpation & inspection: normal inspection of the chest and normal palpation of entire chest wall Resp: Effort & Inspection: normal respiratory effort and able to speak in complete sentences Auscultation: clear to auscultation bilaterally Cardio: Jugular venous distension: no JVD Heart sounds: S1 normal heart sound present and S2 normal heart sound present GI: Inspection: Yes normal to inspection and No abdominal wall ecchymosis Palpation (GI): Soft to palpation, not firm, nontender, no guarding and not rigid : General: No CVA tenderness and Yes no CVA tenderness Back/Spine/Pelvis: Back: no CVA tenderness, No CVA tenderness and No back tenderness Back/spine/pelvis image: 1. Positive for shingles Skin: Other: Left back shingles Neuro: Other: I witnessed patient have and episode of random movement of upper extremities while alert A0x3. NO neuro deficitis. General: oriented to time, no meningeal signs, no focal motor deficits and CN's II-XI intact bilaterally Extrem: Other: LEft BKA: healthy Psych: Appearance: grossly normal, well kempt and not disheveled Course Course Course Narrative: I reviewed patient meds which shows patient is on amitriptyline which cause of symptoms per will give cogentin. Labs ordered. Head CT scan ordered. UA ordered including magnesium. Vital signs stable Reevaluation(s) Reevaluation #1: Patient H&H came back at baseline. Patient chemistry shows hyperkalemia with acute on chronic kidney disease. Spoke to patient's nurse at facility and patient has not had chemistry check since August. In August of this year BUN was 30 and creatinine 2.04. Hyperkalemia protocol started such as calcium gluconate, Lasix, Lokelma, albuterol inhaler, insulin, and D50. Patient is a DNI DNR no dialysis no artificial nutrition. This was confirmed at nursing facility. Spoke with brother Brian vickers is the the health proxy and health proxy is inacted as per nurse at [facility]. Brother states if sister the patient required dialysis by industrial eng she may have it. Case discussed with Dr. Valle supervising attending who agreed with plan. She also agrees patient presently is not having aseptic meningitis. Time: 11:20 Reevaluation #2: Still not able to reach Nephrology, CORINNA Kay of Internal Medicine/hospitalist informed me Attendant tendon contacted Nephrology. CT scan showed infarct upon a etiology patient sent for MRI by hospitalist. Abdominal CT scan does not show any kidney stones but shows choledolethiasis. Patient admitted Time: 14:40 MDM - Neuro Symptoms/Deficit MDM Narrative Medical decision making narrative: Hyperkalemia. Acute on chronic kidney diasease Medical Records Medical records narrative: Hyperkalemia. Acute on chronic kidney disease Lab Data Result diagrams: 04/10/22 10:53 04/10/22 10:53 Labs: Lab Results 04/10/22 04/10/22 04/10/22 Range/Units 10:48 10:53 10:53 WBC 4.0 L (4.8-10.8) X10*3/uL RBC 2.64 L (4.20-5.50) X10*6/uL Hgb 8.2 L (12.0-16.0) g/dl Hct 25.7 L (37.0-47.0) % MCV 97.3 (80.0-98.0) fL MCH 31.1 (27.0-33.0) pg MCHC 31.9 (31.0-35.0) g/dl RDW 13.3 (11.0-16.0) % Plt Count 162 (160-400) X10*3/uL MPV 10.7 (9.4-12.3) fL Immature Gran % (Auto) 0.3 (0.0-0.4) % Neut % (Auto) 69.5 (45-73) % Lymph % (Auto) 21.2 (20-40) % Mcdonough % (Auto) 6.5 (2-11) % Eos % (Auto) 1.5 (0-4) % Baso % (Auto) 1.0 (0-2) % Lymph # (Auto) 0.8 L (1.2-4.9) X10*3/uL Mcdonough # (Auto) 0.3 (0.1-1.2) X10*3/uL Eos # (Auto) 0.1 (0.0-0.4) X10*3/uL Baso # (Auto) 0.0 (0.0-0.2) X10*3/uL Abs Immat Gran (auto) 0.01 (0.00-0.03) X10*3/uL Absolute Neuts (auto) 2.8 (2.0-8.3) x10*3/uL Absolute Nucleated RBC 0.000 (0.0-0.012) X10*3/uL Nucleated RBC % (auto) 0.0 (0.0-0.2) /100WBC PT (10.0-13.1) SEC INR (0.9-1.1) APTT (26.0-36.4) SEC Sodium 132 L (135-145) mmol/L Potassium 6.4 H* D (3.3-5.1) mmol/L Chloride 102 (96-108) mmol/L Carbon Dioxide 19 L (22-29) mmol/L Anion Gap 17 (12-20) BUN 70 H D (9-16) mg/dL Creatinine 4.53 H* (0.5-1.4) mg/dL Estim Creat Clear Calc 14.5 Estimated GFR 10 Random Glucose 183 H (60-115) mg/dL Calcium 8.2 L D (8.4-10.2) mg/dL Magnesium 1.9 (1.6-2.6) mg/dL Total Bilirubin 0.4 (0.0-1.0) mg/dL AST 90 H (5-31) U/L ALT 92 H (0-31) U/L Alkaline Phosphatase 449 H (39-117) U/L Total Protein 7.3 D (6.5-8.0) g/dL Albumin 3.0 L D (3.5-5.0) g/dL COVID-19 (LUCIO) Negative (Negative) COVID-19 Clin Com See Note 04/10/22 Range/Units 10:53 WBC (4.8-10.8) X10*3/uL RBC (4.20-5.50) X10*6/uL Hgb (12.0-16.0) g/dl Hct (37.0-47.0) % MCV (80.0-98.0) fL MCH (27.0-33.0) pg MCHC (31.0-35.0) g/dl RDW (11.0-16.0) % Plt Count (160-400) X10*3/uL MPV (9.4-12.3) fL Immature Gran % (Auto) (0.0-0.4) % Neut % (Auto) (45-73) % Lymph % (Auto) (20-40) % Mcdonough % (Auto) (2-11) % Eos % (Auto) (0-4) % Baso % (Auto) (0-2) % Lymph # (Auto) (1.2-4.9) X10*3/uL Mcdonough # (Auto) (0.1-1.2) X10*3/uL Eos # (Auto) (0.0-0.4) X10*3/uL Baso # (Auto) (0.0-0.2) X10*3/uL Abs Immat Gran (auto) (0.00-0.03) X10*3/uL Absolute Neuts (auto) (2.0-8.3) x10*3/uL Absolute Nucleated RBC (0.0-0.012) X10*3/uL Nucleated RBC % (auto) (0.0-0.2) /100WBC PT 15.9 H (10.0-13.1) SEC INR 1.4 H (0.9-1.1) APTT 40.1 H (26.0-36.4) SEC Sodium (135-145) mmol/L Potassium (3.3-5.1) mmol/L Chloride (96-108) mmol/L Carbon Dioxide (22-29) mmol/L Anion Gap (12-20) BUN (9-16) mg/dL Creatinine (0.5-1.4) mg/dL Estim Creat Clear Calc Estimated GFR Random Glucose (60-115) mg/dL Calcium (8.4-10.2) mg/dL Magnesium (1.6-2.6) mg/dL Total Bilirubin (0.0-1.0) mg/dL AST (5-31) U/L ALT (0-31) U/L Alkaline Phosphatase (39-117) U/L Total Protein (6.5-8.0) g/dL Albumin (3.5-5.0) g/dL COVID-19 (LUCIO) (Negative) COVID-19 Clin Com ECG Data Interpretation: Normal sinus rhythm. Ventricular rate 71. Pr interval 192. QTC 475. QRS 118. Negative STEMI Discharge Plan Discharge Clinical Impression: Acute on chronic kidney failure, Acute hyperkalemia Patient Disposition: Admitted As Inpatient
[2022-04-10 11:04] LABS: MANUAL DIFF FLAG NO
[2022-04-10 11:07] LABS: Eosinophils Absolute Auto 0.1 X10*3/uL (0.0-0.4); Eosinophils Percent Auto 1.5 % (0-4); Hematocrit 25.7 % (37.0-47.0); Hemoglobin 8.2 g/dl (12.0-16.0); Imm Gran Abs Auto 0.01 X10*3/uL (0.00-0.03); Imm Gran Pct Auto 0.3 % (0.0-0.4); Lymphocytes Absolute Auto 0.8 X10*3/uL (1.2-4.9); Lymphocytes Percent Auto 21.2 % (20-40); Mean Corpuscular HGB Conc 31.9 g/dl (31.0-35.0); Mean Corpuscular Hemoglobin 31.1 pg (27.0-33.0); Mean Corpuscular Volume 97.3 fL (80.0-98.0); Mean Platelet Volume 10.7 fL (9.4-12.3); Monocytes Absolute Auto 0.3 X10*3/uL (0.1-1.2); Monocytes Percent Auto 6.5 % (2-11); Neutrophils Absolute Auto 2.8 x10*3/uL (2.0-8.3); Neutrophils Percent Auto 69.5 % (45-73); Platelet Count 162 X10*3/uL (160-400); Red Blood Count 2.64 X10*6/uL (4.20-5.50); Red Cell Distribution Width 13.3 % (11.0-16.0)
[2022-04-10] MEDS: Benztropine Mesylate 2 MG/2 ML VIAL 1 MG IM (11:12)
[2022-04-10] MEDS: 0.9 % Sodium Chloride 1,000 ML 999 ML IV (11:12)
[2022-04-10 11:15] LABS: INTERNATIONAL NORM RATIO 1.4 (0.9-1.1); Prothrombin Time 15.9 SEC (10.0-13.1)
[2022-04-10 11:18] LABS: Partial Thromboplastin Time 40.1 SEC (26.0-36.4)
[2022-04-10 11:29] LABS: Anion Gap 17 (12-20); Aspartate Amino Transferase 90 U/L (5-31); Bilirubin Total 0.4 mg/dL (0.0-1.0); Blood Urea Nitrogen 70 mg/dL (9-16); Calcium 8.2 mg/dL (8.4-10.2); Carbon Dioxide 19 mmol/L (22-29); Chloride 102 mmol/L (96-108); Creatinine Clr Calc Pharmacy 14.5; Estimated Glomerular Filt Rate 10; Glucose Random 183 mg/dL (60-115); Magnesium 1.9 mg/dL (1.6-2.6); Potassium 6.4 mmol/L (3.3-5.1); Sodium 132 mmol/L (135-145)
[2022-04-10 11:30] LABS: COVID-19 Test Negative (Negative)
[2022-04-10 11:30] LABS: Alanine Aminotransferase 92 U/L (0-31); Alkaline Phosphatase 449 U/L (39-117); Total Protein 7.3 g/dL (6.5-8.0)
--- NOTE | 2022-04-10 11:34 | ECG_ITS ---
Test Reason : HYPERCALEMIA Blood Pressure : / mmHG Vent. Rate : 071 BPM Atrial Rate : 071 BPM P-R Int : 192 ms QRS Dur : 118 ms QT Int : 438 ms P-R-T Axes : 022 -58 059 degrees QTc Int : 475 ms Normal sinus rhythm Incomplete right bundle branch block Left anterior fascicular block Minimal voltage criteria for LVH, may be normal variant ( Farhat product ) Abnormal ECG When compared with ECG of 24-FEB-2022 14:43, OR interval has decreased Incomplete right bundle branch block is now Present Referred By: Dominick Hernandez Electronically Signed By:VARSHA RANGEL
--- NOTE | 2022-04-10 12:05 | PC.NURSE ---
EKG ordered for Hyperkalemia & PEG. Ordered by RADHA Hernandez
[2022-04-10] MEDS: Albuterol/Iprat 2.5/0.5MG 3 ML AMPUL.NEB INHALE (12:20)
[2022-04-10] MEDS: Dextrose 50 % 25 GM/50 ML SYRINGE IVPUSH (13:18)
[2022-04-10] MEDS: Insulin Regular, Human 100 UNIT/ML 3 ML VIAL IVPUSH (13:21)
[2022-04-10] MEDS: Calcium Gluconate/NaCl,Iso-Osm 2 GM/100 ML PLAST..BAG IV (13:22)
[2022-04-10] MEDS: Sodium Zirconium Cyclosilicate 10 GM POWD.PACK PO (13:22)
--- NOTE | 2022-04-10 13:27 | PC.NURSE ---
Pt has been increasingly difficuly to arouse and has sluggish responses and slow speech. just now with medical interventions, po meds, iv, bed change, she is closer to the mentation she arrived with. c/o pain in back.
--- NOTE | 2022-04-10 14:02 | PM.IMHP ---
History of Present Illness Date of Service: 04/10/22 Attending physician on admission: Mario Amaya Chief Complaint: Hyperkalemia/PEG 71 year old female with past history significant for CKD stage 3, insulin dependent type 2 diabetes s/p left BKA, GERD, hypothyroidism, history TIA, and history VTE brought to ED this morning by ambulance from [facility] in [place] after exhibiting dystonic spasms in the bilateral upper extremities. Unable to obtain much history from patient as she is quite obtunded and baseline mental status is somewhat unclear. Per ED provider, patient was a&o x3 on arrival but slow to respond to questions. Initially dystonic movements thought to be secondary to amitriptyline use, which pt has been taking for some time, so dose of cogentin was given which could be cause of patient's lethargy. Chemistries show PEG with creatinine 4.53 (baseline 2.63 from 7/3) and BUN 70 (baseline 43 from 7/3). K was 6.4, NA 132, glucose 183. In ED, patient treated for hyperkalemia with calcium gluconate, lokelma, insuling, D5, and NS. LFTs slightly above baseline with AST 90, ALT, 92, Alk phos 449. EKG with mildly peaked t waves in avl and V4, no other ST-T wave abnormalities. Head CT with no acute midline shift or hemorrhage but with evidence of white matter ischemic change and with decreased attenuation in central brain at the level of cerebral peduncles of uncertain etiology, but could be claim representative of infarct. Patient is obtunded but complaining of pain all over while awake. She is also currently being treated with valtrex for shingles on the left low back. Review of Systems Review of Systems: General: +pain all over Skin: +rash Yes Unobtainable due to mental status [facility] Medical History (Updated 04/10/22 @ 15:09 by CORINNA Keyes) Acute kidney failure Acute respiratory failure with hypoxia Atherosclerosis Basal cell carcinoma of right upper arm Below-knee amputation of left lower extremity Diabetes Diabetic retinopathy Dysphagia Failure to thrive in adult GERD (gastroesophageal reflux disease) History of venous thromboembolism Hypothyroidism PVD (peripheral vascular disease) Squamous cell carcinoma of left upper extremity TIA (transient ischemic attack) Surgical History (Updated 04/10/22 @ 14:38 by CORINNA Keyes) S/P below knee amputation Social History Household Members: Other Housing: Senior Living Do you presently have visiting nurse or other home services: No Alcohol intake: never Patient Tobacco Use Status: Never used Tobacco Advance Directives: Yes Advance Directives on File: Yes Advance Directives Date on File: 02/25/22 service: No Current occupational status: disabled Meds Allergies Allergy/AdvReac Type Severity Reaction Status Date / Time codeine [CODEINE] Allergy Unknown UNKNOWN Verified 04/10/22 09:48 morphine [MORPHINE] Allergy Unknown UNKNOWN, Verified 04/10/22 09:48 anaphylaxis adhesive tape Allergy Unknown Verified 04/10/22 09:48 clarithromycin Allergy Unknown Verified 04/10/22 09:48 clonidine [From Catapres] Allergy Unknown Verified 04/10/22 09:48 lactose Allergy Unknown Verified 04/10/22 09:48 latex Allergy Unknown Verified 04/10/22 09:48 Active Medications: Current Medications Lactated Ringer's (Lr) 1,000 mls @ 125 mls/hr IVCONT .Q8H [facility], [facility]–1983 Piperacillin Sod/Tazobactam (Sod 2.25 gm/ Sodium Chloride) 50 mls @ 100 mls/hr IV Q8H [facility], [facility]1983 Pharmacy Consult (Consult Rx Perform Med Rec) 1 each MISCELLANE ONCE PRN PRN Reason: Consult order Sodium Chloride (0.9 % Sodium Chloride Flush 3 Ml Syringe) 3 ml IVFLUSH QSHIFT [facility]1983 Home Medications Medication Instructions Recorded Confirmed Last Taken Type amitriptyline 25 mg tablet 1 tab PO BEDTIME 02/24/22 04/10/22 Unknown History amlodipine 10 mg tablet 1 tab PO DAILY 02/24/22 04/10/22 Unknown History apixaban 2.5 mg tablet (Eliquis) 1 tab PO BID 02/24/22 04/10/22 Unknown History aspirin 81 mg tablet,delayed 81 mg PO DAILY 02/24/22 04/10/22 Unknown History release atorvastatin 80 mg tablet 1 tab PO DAILY 02/24/22 04/10/22 Unknown History rwrtokscnm-nwvdvovwebdaj-kltxcmvg 1 cap PO Q8H PRN Headache 02/24/22 04/10/22 Unknown History 50 mg-300 mg-40 mg capsule (Fioricet) calcium carbonate 600 mg calcium 600 mg PO BID 02/24/22 04/10/22 Unknown History (1,500 mg) tablet (Calcium) escitalopram oxalate 10 mg tablet 1 tab PO DAILY 02/24/22 04/10/22 Unknown History furosemide 40 mg tablet 1 tab PO BID 02/24/22 04/10/22 Unknown History insulin aspart U-100 100 unit/mL See Rx Instructions .Route .COMPLEX 02/24/22 04/10/22 Unknown History subcutaneous solution (Novolog U-100 Insulin aspart) insulin degludec 100 unit/mL (3 10 unit subcut BEDTIME 02/24/22 04/10/22 Unknown History mL) subcutaneous pen (Tresiba FlexTouch U-100 insulin) lactase 3,000 unit tablet (Lactaid) 3,000 unit PO TIDWM 02/24/22 04/10/22 Unknown History levothyroxine 200 mcg tablet 1 tab PO BEDTIME 02/24/22 04/10/22 Unknown History losartan 25 mg tablet 3 tab PO DAILY 02/24/22 04/10/22 Unknown History metoprolol tartrate 100 mg tablet 1 tab PO BID 02/24/22 04/10/22 Unknown History ondansetron HCl 4 mg tablet 1 tab PO Q8H PRN Nausea 02/24/22 04/10/22 Unknown History oxycodone 5 mg tablet 1 tab PO BEDTIME 02/24/22 04/10/22 Unknown History oxycodone 5 mg tablet 2 tab PO Q6H PRN Pain 02/24/22 04/10/22 Unknown History pantoprazole 40 mg tablet,delayed 1 tab PO BID 02/24/22 04/10/22 Unknown History release polyvinyl alcohol 1.4 % eye drops 1 drp ophthalmic (eye) BID 02/24/22 04/10/22 Unknown History (Artificial Tears (polyvinyl alcohol)) acetaminophen 325 mg tablet 650 mg PO Q8H PRN Pain 04/10/22 04/10/22 Unknown History (Tylenol) baclofen 5 mg tablet 5 mg PO BEDTIME 04/10/22 04/10/22 Unknown History docusate sodium 100 mg tablet 100 mg PO BEDTIME PRN Constipation 04/10/22 04/10/22 Unknown History hydralazine 25 mg tablet 75 mg PO TID 04/10/22 04/10/22 Unknown History valacyclovir 500 mg tablet 1 tab PO DAILY 04/10/22 04/10/22 04/10/22 History Physical Exam Vital Signs and Narrative: Vital Signs: Last Vital Signs Temp 98.2 F 04/10/22 09:53 Pulse 81 04/10/22 13:23 Resp 18 04/10/22 13:23 BP 144/63 H 04/10/22 13:23 Pulse Ox 96 04/10/22 13:23 O2 Del Method 04/10/22 13:23 BMI result Body Mass Index 42.9 Constitutional - Obtunded and rarely responsive to questions and in mild distress from pain Eyes - PERRLA, EOMI Mouth- lips/tongue dry Cardiovascular - S1S2, RRR, No edema Respiratory - Scatted crackles bilaterally, Normal lung expansion, Normal respiratory effort, No respiratory distress Gastrointestinal - Mildly distended with diffuse ttp and voluntary guarding. +BS - No CVA tenderness Extremities - no calf tenderness, no swelling. Musculoskeletal - Normal inspection, normal ROM . Left BKA Skin - Warm/Dry. Grouped vesicular lesion on erythematous base along left T12/L1 dermatome Neurological - Obtunded but oriented to self and place, CN II-XII in tact, 5/5 strength BUE and BLE Results Labs CBC and Chem 7: 04/10/22 10:53 04/10/22 10:53 Labs: Laboratory Results - last 24 hr 04/10/22 04/10/22 04/10/22 10:48 10:53 10:53 MCV 97.3 MCH 31.1 MCHC 31.9 RDW 13.3 Plt Count 162 MPV 10.7 Immature Gran % (Auto) 0.3 Neut % (Auto) 69.5 Lymph % (Auto) 21.2 [place] % (Auto) 6.5 Eos % (Auto) 1.5 Baso % (Auto) 1.0 Lymph # (Auto) 0.8 L [place] # (Auto) 0.3 Eos # (Auto) 0.1 Baso # (Auto) 0.0 Abs Immat Gran (auto) 0.01 Absolute Neuts (auto) 2.8 Absolute Nucleated RBC 0.000 Nucleated RBC % (auto) 0.0 PT INR APTT Anion Gap 17 Estim Creat Clear Calc 14.5 Estimated GFR 10 Random Glucose 183 H Calcium 8.2 L D Magnesium 1.9 Total Bilirubin 0.4 AST 90 H ALT 92 H Alkaline Phosphatase 449 H Total Protein 7.3 D Albumin 3.0 L D COVID-19 (LUCIO) Negative COVID-19 Clin Com See Note 04/10/22 10:53 MCV MCH MCHC RDW Plt Count MPV Immature Gran % (Auto) Neut % (Auto) Lymph % (Auto) [place] % (Auto) Eos % (Auto) Baso % (Auto) Lymph # (Auto) [place] # (Auto) Eos # (Auto) Baso # (Auto) Abs Immat Gran (auto) Absolute Neuts (auto) Absolute Nucleated RBC Nucleated RBC % (auto) PT 15.9 H INR 1.4 H APTT 40.1 H Anion Gap Estim Creat Clear Calc Estimated GFR Random Glucose Calcium Magnesium Total Bilirubin AST ALT Alkaline Phosphatase Total Protein Albumin COVID-19 (LUCIO) COVID-19 Clin Com ECG Attestation: I personally reviewed and interpreted this ECG as follows: ECG interpretation date: 04/10/22 ECG interpretation time: 14:53 Interpretation: Normal sinus rhythm, rate 71. Mildly peaked T waves avl and V4 Imaging Radiologist's Impressions: Impressions Head CT 04/10/22 10:27 IMPRESSION: There is no acute midline shift mass effect or hemorrhage. There is evidence of white matter ischemic change here and as described decreased attenuation in the central brain at the level of cerebral peduncles of uncertain etiology. This could represent an infarct. Underlying lesion cannot be excluded. Recommend MR for full evaluation. Abdomen/Pelvis CT 04/10/22 12:42 IMPRESSION: * No acute findings along the urinary tracts. No nephrolithiasis or hydronephrosis. * Gallbladder is suboptimally evaluated. 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 Also noted is choledocholithiasis and a punctate focus of gas within the gallbladder or along its wall at its interface with the liver. * Severe atherosclerotic disease of aorta and branch vessels. * Myelolipoma of the right adrenal gland and lipid rich adenoma of the left adrenal gland. Assessment and Plan (1) Acute hyperkalemia: Status: Acute (2) Acute on chronic kidney failure: Status: Acute (3) Metabolic encephalopathy: Status: Acute (4) Choledocholithiasis: Status: Acute Plan 71 year old female with past history significant for CKD stage 3, insulin dependent type 2 diabetes s/p left BKA, GERD, hypothyroidism, history TIA, and history VTE brought to ED this morning by ambulance from [facility] in [place] after exhibiting dystonic spasms in the bilateral upper extremities. Unable to obtain much history from patient as she is quite obtunded and baseline mental status is somewhat unclear. 1- PEG/acute hyperkalemia -Baseline CKD stage 3 with recent admission for PEG. Unclear if patient followed with nephrology outpatient as advised -Patient is dry appearing and is on multiple diuretics. Possibly pre-renal azotemia progressed to ATN. Renal consult placed -Hydration with LR @125ml/hr -Ct abd/pelvis did not show any obstruction -Thakkar catheter placed. Urien frothy yellow. UA with culture ordered. Empiric zosyn ordered to cover UTI. Urine Microalbumin/Creat and sodium ordered -Patient treated for hyperkalemia in ED. EKG witih mildly peaked T-waves in ED. Continue cardiac monitoring -Repeat BMP in several hours -NPO diet -Pt is DNR/DNI but patient's brother (healthcare proxy) states dialysis ok if indicated 2-Encephalopathy -Most likely metabolic from PEG. However, urine also frothy and abdomen distended and tender, possibly secondary to infection. CT abd/pelvis ordered. UC and BC x2 ordered. Empiric therapy with zosyn started 3- Choledocolithiasis -Noted on CT with punctate focus of gas within the gallbladder or along its wall at interface with liver. Mild abdominal distension and ttp on exam -AST/ALT and alk phos minimally elevated above baseline. Elevation from baseline probably secondary to valtrex use -General surgery and GI consults placed 4- Abnormal head CT- decreased attenuation in central brain at the level of cerebral peduncles of uncertain etiology, but could be claim representative of infarct - Patient obtunded without any other focal neuro deficits on exam. Mri brain ordered 5- Herpes zoster -Hold valtrex at this time 6-Insulin dependent type 2 diabetes -POC glucose -Hold insulin for now as patient is NPO 7-Hypertension- stable -Hold BP meds at this time 8-Anemia of chronic disease- stable -secondary to CKD DVT prophylaxis- heparin DNR/DNI- per healthcare proxy, dialysis ok if needed Patient will require inpatient stay of at least 2 midnights as she has hyperkalemia with peg requiring IV hydration and close monitoring of electrolytes levels and renal function. Patient also with suspected metabolic encephalopathy requiring further investigation inpatient as to cause of acute change in mental status. Quality Stroke Does the patient have a stroke diagnosis?: No VTE Prior VTE?: Yes VTE Risk Level:: Medical - moderate - high VTE Device Contraindication: Treatment Not Indicated VTE Drug Contraindication: N/A - Med Ordered
--- NOTE | 2022-04-10 14:09 | PM.GICN ---
History of Present Illness Data of Consult Service Date: 04/10/22 Requesting physician: Eliza Guzman Primary Care Provider: Annette Joya MD [facility] Reason for consult: choledocolithiasis, porcelin gallbladder 71 YF with diabetes, CKD, peripheral artery disease, below-knee amputation, and presently with shingles presents to the ED for episodes of involuntary movement of upper extremities that last for couple seconds.? As per patient, EMS, nursing staff patient never lost consciousness during episodes.? As per nursing staff from facility patient is at her baseline mentally.? Negative for any neuro deficits.? Presently patient complained of left back pain when she has the shingles. Pt is lethargic, arousable and responds appropriately to questions and goes back to sleep. Difficult to obtain a meaningful history from the patient. She denied abdominal pain. Labs showed PEG with creatinine 4.53 (baseline 2.63 from 7/3) and BUN 70 (baseline 43 from 7/3). K was 6.4, NA 132, glucose 183. In the ED, patient treated for hyperkalemia with calcium gluconate, lokelma, insuling, D5, and NS. LFTs showed AST 90, ALT, 92, Alk phos 449. EKG with mildly peaked t waves in avl and V4, no other ST-T wave abnormalities. Head CT with no acute midline shift or hemorrhage but with evidence of white matter ischemic change and with decreased attenuation in central brain at the level of cerebral peduncles of uncertain etiology, but could be tour sales representative of infarct. ABD CT SCAN SHOWED: *? No acute findings along the urinary tracts. No nephrolithiasis or hydronephrosis. *? Gallbladder is suboptimally evaluated. 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 Also noted is choledocholithiasis and a punctate focus of gas within the gallbladder or along its wall at its interface with the liver. *? Severe atherosclerotic disease of aorta and branch vessels. *? Myelolipoma of the right adrenal gland and lipid rich adenoma of the left adrenal gland. ? [facility] Past Medical History Medical History (Updated 04/10/22 @ 16:32 by CORINNA Cota) Acute kidney failure Acute respiratory failure with hypoxia Atherosclerosis Basal cell carcinoma of right upper arm Below-knee amputation of left lower extremity Diabetes Diabetic retinopathy Dysphagia Failure to thrive in adult GERD (gastroesophageal reflux disease) History of venous thromboembolism Hypothyroidism PVD (peripheral vascular disease) Squamous cell carcinoma of left upper extremity TIA (transient ischemic attack) Surgical History Surgical History (Updated 04/10/22 @ 14:38 by CORINNA Keyes) S/P below knee amputation Social History Social History Household Members: Other Housing: Alf Do you presently have visiting nurse or other home services: No Alcohol intake: never Patient Tobacco Use Status: Never used Tobacco Advance Directives: Yes Advance Directives on File: Yes Advance Directives Date on File: 02/25/22 service: No Current occupational status: disabled Meds Allergies Allergy/AdvReac Type Severity Reaction Status Date / Time codeine [CODEINE] Allergy Unknown UNKNOWN Verified 04/10/22 09:48 morphine [MORPHINE] Allergy Unknown UNKNOWN, Verified 04/10/22 09:48 anaphylaxis adhesive tape Allergy Unknown Verified 04/10/22 09:48 clarithromycin Allergy Unknown Verified 04/10/22 09:48 clonidine [From Catapres] Allergy Unknown Verified 04/10/22 09:48 lactose Allergy Unknown Verified 04/10/22 09:48 latex Allergy Unknown Verified 04/10/22 09:48 Active Medications: Current Medications Lactated Ringer's (Lr) 1,000 mls @ 125 mls/hr IVCONT .Q8H [facility] Piperacillin Sod/Tazobactam (Sod 2.25 gm/ Sodium Chloride) 50 mls @ 100 mls/hr IV Q8H [facility] Pharmacy Consult (Consult Rx Perform Med Rec) 1 each MISCELLANE ONCE PRN PRN Reason: Consult order Sodium Chloride (0.9 % Sodium Chloride Flush 3 Ml Syringe) 3 ml IVFLUSH QSHIFT [facility] Home Medications Medication Instructions Recorded Confirmed Last Taken Type amitriptyline 25 mg tablet 1 tab PO BEDTIME 02/24/22 04/10/22 Unknown History amlodipine 10 mg tablet 1 tab PO DAILY 02/24/22 04/10/22 Unknown History apixaban 2.5 mg tablet (Eliquis) 1 tab PO BID 02/24/22 04/10/22 Unknown History aspirin 81 mg tablet,delayed 81 mg PO DAILY 02/24/22 04/10/22 Unknown History release atorvastatin 80 mg tablet 1 tab PO DAILY 02/24/22 04/10/22 Unknown History huqfstnjcd-xdlfbcdflrpwj-jbsqbwnm 1 cap PO Q8H PRN Headache 02/24/22 04/10/22 Unknown History 50 mg-300 mg-40 mg capsule (Fioricet) calcium carbonate 600 mg calcium 600 mg PO BID 02/24/22 04/10/22 Unknown History (1,500 mg) tablet (Calcium) escitalopram oxalate 10 mg tablet 1 tab PO DAILY 02/24/22 04/10/22 Unknown History furosemide 40 mg tablet 1 tab PO BID 02/24/22 04/10/22 Unknown History insulin aspart U-100 100 unit/mL See Rx Instructions .Route .COMPLEX 02/24/22 04/10/22 Unknown History subcutaneous solution (Novolog U-100 Insulin aspart) insulin degludec 100 unit/mL (3 10 unit subcut BEDTIME 02/24/22 04/10/22 Unknown History mL) subcutaneous pen (Tresiba FlexTouch U-100 insulin) lactase 3,000 unit tablet (Lactaid) 3,000 unit PO TIDWM 02/24/22 04/10/22 Unknown History levothyroxine 200 mcg tablet 1 tab PO BEDTIME 02/24/22 04/10/22 Unknown History losartan 25 mg tablet 3 tab PO DAILY 02/24/22 04/10/22 Unknown History metoprolol tartrate 100 mg tablet 1 tab PO BID 02/24/22 04/10/22 Unknown History ondansetron HCl 4 mg tablet 1 tab PO Q8H PRN Nausea 02/24/22 04/10/22 Unknown History oxycodone 5 mg tablet 1 tab PO BEDTIME 02/24/22 04/10/22 Unknown History oxycodone 5 mg tablet 2 tab PO Q6H PRN Pain 02/24/22 04/10/22 Unknown History pantoprazole 40 mg tablet,delayed 1 tab PO BID 02/24/22 04/10/22 Unknown History release polyvinyl alcohol 1.4 % eye drops 1 drp ophthalmic (eye) BID 02/24/22 04/10/22 Unknown History (Artificial Tears (polyvinyl alcohol)) acetaminophen 325 mg tablet 650 mg PO Q8H PRN Pain 04/10/22 04/10/22 Unknown History (Tylenol) baclofen 5 mg tablet 5 mg PO BEDTIME 04/10/22 04/10/22 Unknown History docusate sodium 100 mg tablet 100 mg PO BEDTIME PRN Constipation 04/10/22 04/10/22 Unknown History hydralazine 25 mg tablet 75 mg PO TID 04/10/22 04/10/22 Unknown History valacyclovir 500 mg tablet 1 tab PO DAILY 04/10/22 04/10/22 04/10/22 History Physical Exam Vital Signs: Vital Signs: Last Vital Signs Temp 97.7 F 04/10/22 13:52 Pulse 83 04/10/22 13:52 Resp 14 04/10/22 13:52 BP 113/63 04/10/22 13:52 Pulse Ox 97 04/10/22 13:52 O2 Del Method 04/10/22 13:52 BMI result Body Mass Index 42.9 Const: General: no acute distress, lethargic and other (arousable) Nutritional Appearance: obese (morbidly obese) Orientation/consciousness: lethargic Limitations: no limitations and physical limitations HEENT: Head: Yes normal to inspection Ears: hearing grossly normal bilaterally Eyes: Sclerae: sclerae normal Pupils: Equal, round and reactive pupils present Neck: Neck: Yes normal visual inspection Chest: Chest palpation & inspection: normal inspection of the chest Resp: Effort & Inspection: normal respiratory effort Auscultation: clear to auscultation bilaterally Cardio: Palpation: normal PMI Rate: regular rate Rhythm: regular rhythm Heart sounds: S1 normal heart sound present, S2 normal heart sound present and no murmurs GI: Inspection: Yes obesity Palpation (GI): Soft to palpation, nontender and Other GI palpation findings present (difficult to palpate due to morbid obesity) Auscultation: normal bowel sounds Rectal Exam - Female: deferred Skin: General skin exam: no rashes or lesions noted Neuro: General: gait normal and moves all extremities Cranial nerves: Yes Equal, round and reactive pupils present Extrem: General: Yes amputation noted (Status post left BKA) and Yes other (Changes of stasis dermatitis in the right lower extremity) Psych: Appearance: grossly normal Mental Status: mental status grossly normal Results Labs CBC & Chem 7: 04/10/22 10:53 04/10/22 10:53 Labs: Short CBC 04/10/22 Range/Units 10:53 WBC 4.0 L (4.8-10.8) X10*3/uL Hgb 8.2 L (12.0-16.0) g/dl Hct 25.7 L (37.0-47.0) % Plt Count 162 (160-400) X10*3/uL BMP 04/10/22 10:53 Sodium 132 L Potassium 6.4 H* D Chloride 102 Carbon Dioxide 19 L BUN 70 H D Creatinine 4.53 H* Calcium 8.2 L D Liver Function 04/10/22 Range/Units 10:53 Total Bilirubin 0.4 (0.0-1.0) mg/dL AST 90 H (5-31) U/L ALT 92 H (0-31) U/L Alkaline Phosphatase 449 H (39-117) U/L Albumin 3.0 L D (3.5-5.0) g/dL Assessment and Plan (1) Choledocholithiasis: Status: Acute Plan 71 YF with diabetes, CKD, peripheral artery disease, below-knee amputation, and presently with shingles presents to the ED for episodes of involuntary movement of upper extremities that last for couple seconds.? Pt is on Eliquis ? for PVD and a hx of TIA which has been held since arrival to the ED Pt is lethargic, arousable and responds appropriately to questions and goes back to sleep. Difficult to obtain a meaningful history from the patient. She denied abdominal pain. Labs showed PEG with creatinine 4.53 (baseline 2.63 from 7/3) and BUN 70 (baseline 43 from 7/3). K was 6.4, NA 132, glucose 183. In the ED, patient treated for hyperkalemia with calcium gluconate, lokelma, insuling, D5, and NS. LFTs showed AST 90, ALT, 92, Alk phos 449. Head CT with no acute midline shift or hemorrhage but with evidence of white matter ischemic change and with decreased attenuation in central brain at the level of cerebral peduncles of uncertain etiology, but could be tour sales representative of infarct. ABD CT SCAN SHOWED: Gallbladder is suboptimally evaluated. 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 Choledocholithiasis and a punctate focus of gas within the gallbladder or along its wall at its interface with the liver. RECOMMENDATIONS: 1. Agree with IVF and Iv antibiotics. 2. Hold Eliquis 3. Repeat LFTs in the am, if LFTs remain elevated, she will need an ERCP to clear her bile duct. 4. Lap Janet once pt is medically stable to have surgery Procedures Date of Service Date of Service: 04/10/22
[2022-04-10] MEDS: Lactated Ringers 1,000 ML 125 ML IVCONT ×2 (15:02→21:39)
[2022-04-10] MEDS: Piperacillin Sodium/Tazobactam 2.25 GM in 0.9 % Sodium Chloride 50 ML IV ×2 (15:03→23:00)
[2022-04-10 15:39] LABS: Appearance Urine CLOUDY; Color Urine YELLOW; Glucose Urine UA NEG (NEG); Nitrite Urine NEG (NEG); Specific Gravity - Urine 1.025 (1.005-1.025); Urine Blood TRACE (NEG); Urine Ketones NEG (NEG); Urine Protein 2+ MG/DL (NEG-TRACE)
[2022-04-10 15:46] LABS: Leukocyte Esterase Urine 3+ (NEG); UACC Culture Trigger YES
[2022-04-10 15:48] LABS: Bacteria Urine 3+ /LPF; Squamous Epithelial Cell Urine 1+ /LPF; WBC Urine TNTC /HPF (0-4)
--- NOTE | 2022-04-10 16:06 | PM.NEUROCN ---
History of Present Illness Data of Consult Service Date: 04/10/22 Primary Care Provider: Annette Joya MD [facility] Reason for consult: Abnormal head CT 71 years old woman with underlying renal failure who came to hospital with change in mental status and abnormal posturing. She was noted to have dystonic or abnormal posturing of upper extremities. Initially she was not responsive to interview. A head CT was done and then this consultation was requested because of abnormal findings. Review of Systems Review of Systems: Could not be done with [facility] Past Medical History Medical History (Updated 04/10/22 @ 16:09 by Sandra Vital MD) Acute kidney failure Acute respiratory failure with hypoxia Atherosclerosis Basal cell carcinoma of right upper arm Below-knee amputation of left lower extremity Diabetes Diabetic retinopathy Dysphagia Failure to thrive in adult GERD (gastroesophageal reflux disease) History of venous thromboembolism Hypothyroidism PVD (peripheral vascular disease) Squamous cell carcinoma of left upper extremity TIA (transient ischemic attack) Surgical History Surgical History (Updated 04/10/22 @ 14:38 by CORINNA Keyes) S/P below knee amputation Social History Social History Household Members: Other Housing: Shelter Do you presently have visiting nurse or other home services: No Alcohol intake: never Patient Tobacco Use Status: Never used Tobacco Advance Directives: Yes Advance Directives on File: Yes Advance Directives Date on File: 02/25/22 service: No Current occupational status: disabled Meds Allergies Allergy/AdvReac Type Severity Reaction Status Date / Time codeine [CODEINE] Allergy Unknown UNKNOWN Verified 04/10/22 09:48 morphine [MORPHINE] Allergy Unknown UNKNOWN, Verified 04/10/22 09:48 anaphylaxis adhesive tape Allergy Unknown Verified 04/10/22 09:48 clarithromycin Allergy Unknown Verified 04/10/22 09:48 clonidine [From Catapres] Allergy Unknown Verified 04/10/22 09:48 lactose Allergy Unknown Verified 04/10/22 09:48 latex Allergy Unknown Verified 04/10/22 09:48 Active Medications: Current Medications Heparin Sodium (Porcine) (Heparin Sodium,Porcine 5,000 Unit/Ml Vial) 5,000 unit SUBCUT Q12H [facility] Lactated Ringer's (Lr) 1,000 mls @ 125 mls/hr IVCONT .Q8H [facility] Last Admin: 04/10/22 15:02 Dose: 125 mls/hr Piperacillin Sod/Tazobactam (Sod 2.25 gm/ Sodium Chloride) 50 mls @ 100 mls/hr IV Q8H [facility] Last Admin: 04/10/22 15:03 Dose: 100 mls/hr Pharmacy Consult (Consult Rx Perform Med Rec) 1 each MISCELLANE ONCE PRN PRN Reason: Consult order Sodium Chloride (0.9 % Sodium Chloride Flush 3 Ml Syringe) 3 ml IVFLUSH QSHIFT [facility] Last Admin: 04/10/22 15:03 Dose: Not Given Home Medications Medication Instructions Recorded Confirmed Last Taken Type amitriptyline 25 mg tablet 1 tab PO BEDTIME 02/24/22 04/10/22 Unknown History amlodipine 10 mg tablet 1 tab PO DAILY 02/24/22 04/10/22 Unknown History apixaban 2.5 mg tablet (Eliquis) 1 tab PO BID 02/24/22 04/10/22 Unknown History aspirin 81 mg tablet,delayed 81 mg PO DAILY 02/24/22 04/10/22 Unknown History release atorvastatin 80 mg tablet 1 tab PO DAILY 02/24/22 04/10/22 Unknown History bibfmcznuf-putxkkwdhnhdx-wogdudzc 1 cap PO Q8H PRN Headache 02/24/22 04/10/22 Unknown History 50 mg-300 mg-40 mg capsule (Fioricet) calcium carbonate 600 mg calcium 600 mg PO BID 02/24/22 04/10/22 Unknown History (1,500 mg) tablet (Calcium) escitalopram oxalate 10 mg tablet 1 tab PO DAILY 02/24/22 04/10/22 Unknown History furosemide 40 mg tablet 1 tab PO BID 02/24/22 04/10/22 Unknown History insulin aspart U-100 100 unit/mL See Rx Instructions .Route .COMPLEX 02/24/22 04/10/22 Unknown History subcutaneous solution (Novolog U-100 Insulin aspart) insulin degludec 100 unit/mL (3 10 unit subcut BEDTIME 02/24/22 04/10/22 Unknown History mL) subcutaneous pen (Tresiba FlexTouch U-100 insulin) lactase 3,000 unit tablet (Lactaid) 3,000 unit PO TIDWM 02/24/22 04/10/22 Unknown History levothyroxine 200 mcg tablet 1 tab PO BEDTIME 02/24/22 04/10/22 Unknown History losartan 25 mg tablet 3 tab PO DAILY 02/24/22 04/10/22 Unknown History metoprolol tartrate 100 mg tablet 1 tab PO BID 02/24/22 04/10/22 Unknown History ondansetron HCl 4 mg tablet 1 tab PO Q8H PRN Nausea 02/24/22 04/10/22 Unknown History oxycodone 5 mg tablet 1 tab PO BEDTIME 02/24/22 04/10/22 Unknown History oxycodone 5 mg tablet 2 tab PO Q6H PRN Pain 02/24/22 04/10/22 Unknown History pantoprazole 40 mg tablet,delayed 1 tab PO BID 02/24/22 04/10/22 Unknown History release polyvinyl alcohol 1.4 % eye drops 1 drp ophthalmic (eye) BID 02/24/22 04/10/22 Unknown History (Artificial Tears (polyvinyl alcohol)) acetaminophen 325 mg tablet 650 mg PO Q8H PRN Pain 04/10/22 04/10/22 Unknown History (Tylenol) baclofen 5 mg tablet 5 mg PO BEDTIME 04/10/22 04/10/22 Unknown History docusate sodium 100 mg tablet 100 mg PO BEDTIME PRN Constipation 04/10/22 04/10/22 Unknown History hydralazine 25 mg tablet 75 mg PO TID 04/10/22 04/10/22 Unknown History valacyclovir 500 mg tablet 1 tab PO DAILY 04/10/22 04/10/22 04/10/22 History Physical Exam Vital Signs: Vital Signs: Last Vital Signs Temp 98.4 F 04/10/22 15:06 Pulse 75 04/10/22 15:06 Resp 18 04/10/22 15:06 BP 133/55 L 04/10/22 15:06 Pulse Ox 93 04/10/22 15:06 O2 Del Method 04/10/22 15:06 BMI result Body Mass Index 42.9 Neuro: Other: She was quite drowsy in mostly sleeping. I was able to wake her up. Intermittently she would open her eyes and sometime followed a command. She did not consistently followed a command. She denied that she was in pain. She could not tell me where she was. There was no eye jerking or deviation. There was no obvious facial asymmetry. I did not notice any abnormal movement or posturing of upper extremities. Significant a trophic changes were noted and hand muscles. Left leg was amputated and right foot and leg had limited movement deep tendon reflexes were absent. Results Labs CBC & Chem 7: 04/10/22 10:53 04/10/22 10:53 Labs: Short CBC 04/10/22 Range/Units 10:53 WBC 4.0 L (4.8-10.8) X10*3/uL Hgb 8.2 L (12.0-16.0) g/dl Hct 25.7 L (37.0-47.0) % Plt Count 162 (160-400) X10*3/uL BMP 04/10/22 10:53 Sodium 132 L Potassium 6.4 H* D Chloride 102 Carbon Dioxide 19 L BUN 70 H D Creatinine 4.53 H* Calcium 8.2 L D Liver Function 04/10/22 Range/Units 10:53 Total Bilirubin 0.4 (0.0-1.0) mg/dL AST 90 H (5-31) U/L ALT 92 H (0-31) U/L Alkaline Phosphatase 449 H (39-117) U/L Albumin 3.0 L D (3.5-5.0) g/dL Urine 04/10/22 Range/Units 15:12 Urine Color YELLOW Urine Appearance CLOUDY Urine pH 6.0 (5.0-8.0) Ur Specific [place] 1.025 (1.005-1.025) Urine Protein 2+ H (NEG-TRACE) MG/DL Urine Glucose (UA) NEG (NEG) MG/DL Head CT revealed moderate microvascular ischemic changes. Assessment and Plan (1) Metabolic encephalopathy: Status: Acute (2) Cerebral microvascular disease: Status: Acute Head CT findings are not significant and probably not acute. She probably suffering from metabolic toxic encephalopathy. I would recommend correction of electrolyte parameters. If that would not improve her mental status, 1 could consider further testing such as an MRI or EEG. Procedures Date of Service Date of Service: 04/10/22
--- NOTE | 2022-04-10 16:31 | PM.CNGS ---
History of Present Illness Consult details Consult date: 04/10/22 Narrative: 71-year-old female patient with multiple medical problems presenting from the SNF with dystonic spasms in the bilateral lower extremities. Initial evaluation revealed some tenderness in the abdomen with elevated liver function tests with an alkaline phosphatase of 449. 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 A punctate focus of gas was noted within the gallbladder or along its wall at its interface with the liver. Her past history is significant for chronic kidney disease stage 3, insulin-dependent diabetes type 2, status post left BKA, GERD, hypothyroidism, TIA, history of VTE, now with mental status changes. Patient is unable to answer any questions. Review of Systems Review of Systems: Yes Unobtainable due to mental status PMFSH Past Medical History Medical History (Updated 04/10/22 @ 16:32 by CORINNA Cota) Acute kidney failure Acute respiratory failure with hypoxia Atherosclerosis Basal cell carcinoma of right upper arm Below-knee amputation of left lower extremity Diabetes Diabetic retinopathy Dysphagia Failure to thrive in adult GERD (gastroesophageal reflux disease) History of venous thromboembolism Hypothyroidism PVD (peripheral vascular disease) Squamous cell carcinoma of left upper extremity TIA (transient ischemic attack) Surgical History Surgical History (Updated 04/10/22 @ 14:38 by CORINNA Keyes) S/P below knee amputation Social History Social History Household Members: Other Housing: Half-Way Do you presently have visiting nurse or other home services: No Alcohol intake: never Patient Tobacco Use Status: Never used Tobacco Advance Directives: Yes Advance Directives on File: Yes Advance Directives Date on File: 02/25/22 service: No Current occupational status: disabled Meds Allergies Allergy/AdvReac Type Severity Reaction Status Date / Time codeine [CODEINE] Allergy Unknown UNKNOWN Verified 04/10/22 09:48 morphine [MORPHINE] Allergy Unknown UNKNOWN, Verified 04/10/22 09:48 anaphylaxis adhesive tape Allergy Unknown Verified 04/10/22 09:48 clarithromycin Allergy Unknown Verified 04/10/22 09:48 clonidine [From Catapres] Allergy Unknown Verified 04/10/22 09:48 lactose Allergy Unknown Verified 04/10/22 09:48 latex Allergy Unknown Verified 04/10/22 09:48 Active Medications: Current Medications Heparin Sodium (Porcine) (Heparin Sodium,Porcine 5,000 Unit/Ml Vial) 5,000 unit SUBCUT Q12H [facility] Lactated Ringer's (Lr) 1,000 mls @ 125 mls/hr IVCONT .Q8H [facility] Last Admin: 04/10/22 15:02 Dose: 125 mls/hr Piperacillin Sod/Tazobactam (Sod 2.25 gm/ Sodium Chloride) 50 mls @ 100 mls/hr IV Q8H [facility] Last Admin: 04/10/22 15:03 Dose: 100 mls/hr Pharmacy Consult (Consult Rx Perform Med Rec) 1 each MISCELLANE ONCE PRN PRN Reason: Consult order Sodium Chloride (0.9 % Sodium Chloride Flush 3 Ml Syringe) 3 ml IVFLUSH QSHIFT [facility] Last Admin: 04/10/22 15:03 Dose: Not Given Home Medications Medication Instructions Recorded Confirmed Last Taken Type amitriptyline 25 mg tablet 1 tab PO BEDTIME 02/24/22 04/10/22 Unknown History amlodipine 10 mg tablet 1 tab PO DAILY 02/24/22 04/10/22 Unknown History apixaban 2.5 mg tablet (Eliquis) 1 tab PO BID 02/24/22 04/10/22 Unknown History aspirin 81 mg tablet,delayed 81 mg PO DAILY 02/24/22 04/10/22 Unknown History release atorvastatin 80 mg tablet 1 tab PO DAILY 02/24/22 04/10/22 Unknown History grgzeopouj-xcoyblqfemwtn-fgnwfksd 1 cap PO Q8H PRN Headache 02/24/22 04/10/22 Unknown History 50 mg-300 mg-40 mg capsule (Fioricet) calcium carbonate 600 mg calcium 600 mg PO BID 02/24/22 04/10/22 Unknown History (1,500 mg) tablet (Calcium) escitalopram oxalate 10 mg tablet 1 tab PO DAILY 02/24/22 04/10/22 Unknown History furosemide 40 mg tablet 1 tab PO BID 02/24/22 04/10/22 Unknown History insulin aspart U-100 100 unit/mL See Rx Instructions .Route .COMPLEX 02/24/22 04/10/22 Unknown History subcutaneous solution (Novolog U-100 Insulin aspart) insulin degludec 100 unit/mL (3 10 unit subcut BEDTIME 02/24/22 04/10/22 Unknown History mL) subcutaneous pen (Tresiba FlexTouch U-100 insulin) lactase 3,000 unit tablet (Lactaid) 3,000 unit PO TIDWM 02/24/22 04/10/22 Unknown History levothyroxine 200 mcg tablet 1 tab PO BEDTIME 02/24/22 04/10/22 Unknown History losartan 25 mg tablet 3 tab PO DAILY 02/24/22 04/10/22 Unknown History metoprolol tartrate 100 mg tablet 1 tab PO BID 02/24/22 04/10/22 Unknown History ondansetron HCl 4 mg tablet 1 tab PO Q8H PRN Nausea 02/24/22 04/10/22 Unknown History oxycodone 5 mg tablet 1 tab PO BEDTIME 02/24/22 04/10/22 Unknown History oxycodone 5 mg tablet 2 tab PO Q6H PRN Pain 02/24/22 04/10/22 Unknown History pantoprazole 40 mg tablet,delayed 1 tab PO BID 02/24/22 04/10/22 Unknown History release polyvinyl alcohol 1.4 % eye drops 1 drp ophthalmic (eye) BID 02/24/22 04/10/22 Unknown History (Artificial Tears (polyvinyl alcohol)) acetaminophen 325 mg tablet 650 mg PO Q8H PRN Pain 04/10/22 04/10/22 Unknown History (Tylenol) baclofen 5 mg tablet 5 mg PO BEDTIME 04/10/22 04/10/22 Unknown History docusate sodium 100 mg tablet 100 mg PO BEDTIME PRN Constipation 04/10/22 04/10/22 Unknown History hydralazine 25 mg tablet 75 mg PO TID 04/10/22 04/10/22 Unknown History valacyclovir 500 mg tablet 1 tab PO DAILY 04/10/22 04/10/22 04/10/22 History Physical Exam Vital Signs: Vital Signs: Last Vital Signs Temp 98.2 F 04/10/22 16:09 Pulse 74 04/10/22 16:09 Resp 15 04/10/22 16:09 BP 153/63 H 04/10/22 16:09 Pulse Ox 97 04/10/22 16:09 O2 Del Method 04/10/22 16:09 BMI result Body Mass Index 42.9 Const: General: patient obtunded Nutritional Appearance: obese Orientation/consciousness: patient obtunded Limitations: altered mental status HEENT: Head: Yes normocephalic and Yes atraumatic Resp: Effort & Inspection: normal respiratory effort, no audible wheezes, no cough and no respiratory distress Auscultation: clear to auscultation bilaterally GI: Inspection: Yes normal to inspection and Yes obesity Palpation (GI): Soft to palpation, nontender, no guarding, not rigid and hepatosplenomegaly present Percussion: Yes dullness to percussion Rectal Exam - Female: deferred Skin: Other: Warm, dry, no rash, no jaundice Neuro: General: patient obtunded Extrem: General: Yes normal to inspection Results Labs Result diagrams: 04/10/22 10:53 04/10/22 10:53 Labs: Abnormal lab results 04/10/22 04/10/22 04/10/22 Range/Units 10:53 10:53 10:53 WBC 4.0 L (4.8-10.8) X10*3/uL RBC 2.64 L (4.20-5.50) X10*6/uL Hgb 8.2 L (12.0-16.0) g/dl Hct 25.7 L (37.0-47.0) % Lymph # (Auto) 0.8 L (1.2-4.9) X10*3/uL PT 15.9 H (10.0-13.1) SEC INR 1.4 H (0.9-1.1) APTT 40.1 H (26.0-36.4) SEC Sodium 132 L (135-145) mmol/L Potassium 6.4 H* D (3.3-5.1) mmol/L Carbon Dioxide 19 L (22-29) mmol/L BUN 70 H D (9-16) mg/dL Creatinine 4.53 H* (0.5-1.4) mg/dL Random Glucose 183 H (60-115) mg/dL Calcium 8.2 L D (8.4-10.2) mg/dL AST 90 H (5-31) U/L ALT 92 H (0-31) U/L Alkaline Phosphatase 449 H (39-117) U/L Albumin 3.0 L D (3.5-5.0) g/dL Urine Protein (NEG-TRACE) MG/DL Ur Leukocyte Esterase (NEG) Urine RBC (0) /HPF Urine WBC (0-4) /HPF 04/10/22 Range/Units 15:12 WBC (4.8-10.8) X10*3/uL RBC (4.20-5.50) X10*6/uL Hgb (12.0-16.0) g/dl Hct (37.0-47.0) % Lymph # (Auto) (1.2-4.9) X10*3/uL PT (10.0-13.1) SEC INR (0.9-1.1) APTT (26.0-36.4) SEC Sodium (135-145) mmol/L Potassium (3.3-5.1) mmol/L Carbon Dioxide (22-29) mmol/L BUN (9-16) mg/dL Creatinine (0.5-1.4) mg/dL Random Glucose (60-115) mg/dL Calcium (8.4-10.2) mg/dL AST (5-31) U/L ALT (0-31) U/L Alkaline Phosphatase (39-117) U/L Albumin (3.5-5.0) g/dL Urine Protein 2+ H (NEG-TRACE) MG/DL Ur Leukocyte Esterase 3+ H (NEG) Urine RBC 5-9 H (0) /HPF Urine WBC TNTC H (0-4) /HPF Short CBC 04/10/22 Range/Units 10:53 WBC 4.0 L (4.8-10.8) X10*3/uL Hgb 8.2 L (12.0-16.0) g/dl Hct 25.7 L (37.0-47.0) % Plt Count 162 (160-400) X10*3/uL BMP 04/10/22 10:53 Sodium 132 L Potassium 6.4 H* D Chloride 102 Carbon Dioxide 19 L BUN 70 H D Creatinine 4.53 H* Calcium 8.2 L D Liver Function 04/10/22 Range/Units 10:53 Total Bilirubin 0.4 (0.0-1.0) mg/dL AST 90 H (5-31) U/L ALT 92 H (0-31) U/L Alkaline Phosphatase 449 H (39-117) U/L Albumin 3.0 L D (3.5-5.0) g/dL Urine 04/10/22 Range/Units 15:12 Urine Color YELLOW Urine Appearance CLOUDY Urine pH 6.0 (5.0-8.0) Ur Specific [place] 1.025 (1.005-1.025) Urine Protein 2+ H (NEG-TRACE) MG/DL Urine Glucose (UA) NEG (NEG) MG/DL All other labs normal. Assessment and Plan (1) Choledocholithiasis: Status: Acute Plan 71-year-old female patient with multiple medical problems including chronic kidney disease stage 3 and diabetes mellitus now with mental obtundation. Patient was found to have mildly elevated LFTs with an elevated alkaline phosphatase. 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 In addition a common duct stone is identified. Agree with GI consultation for evaluation for possible ERCP to remove the calcified common bile duct stone. Ideally patient would have cholecystectomy during this admission with medically stable for surgery. Patient previously on Eliquis which would need to be held prior to surgery. Will monitor her progress during this admission. Procedures Date of Service Date of Service: 04/10/22
[2022-04-10 17:00] LABS: Anion Gap 15 (12-20); Blood Urea Nitrogen 71 mg/dL (9-16); Calcium 8.1 mg/dL (8.4-10.2); Carbon Dioxide 19 mmol/L (22-29); Chloride 105 mmol/L (96-108); Creatinine Clr Calc Pharmacy 15.1; Estimated Glomerular Filt Rate 10; Glucose Random 160 mg/dL (60-115); Potassium 5.7 mmol/L (3.3-5.1); Sodium 133 mmol/L (135-145)
[2022-04-10] MEDS: Heparin Sodium,Porcine 5,000 UNIT/ML VIAL 5000 UNIT SUBCUT (18:12)
[2022-04-10] MEDS: HYDROmorphone HCl 0.5 MG/0.5 ML SYRINGE 0.25 MG IVPUSH (20:10)
[2022-04-10 21:22] LABS: Glucose, Whole Blood 136 mg/dL (60-115)
[2022-04-10 22:53] LABS: Appearance Urine CLOUDY; Color Urine YELLOW; Glucose Urine UA NEG (NEG); Leukocyte Esterase Urine 2+ (NEG); Nitrite Urine POS (NEG); UACC Culture Trigger YES; Urine Blood TRACE (NEG); Urine Ketones NEG (NEG); Urine Protein 2+ MG/DL (NEG-TRACE)
[2022-04-10 22:58] LABS: Creatinine Urine 54.73 mg/dL
[2022-04-10 23:01] LABS: Squamous Epithelial Cell Urine 1+ /LPF; UACC CULT YES; WBC Urine TNTC /HPF (0-4)
[2022-04-10 23:02] LABS: Bacteria Urine 3+ /LPF
[2022-04-11] VITALS (7 sets, daily range): BP systolic 146–184; BP diastolic 64–84; PULSE 85–110; RESP 13–19; TEMP 36.2–37.1; O2SAT 94–98
[2022-04-11] MEDS: oxyCODONE HCl Immed Release 5 MG TABLET PO (03:35)
[2022-04-11] MEDS: Lactated Ringers 1,000 ML 125 ML IVCONT ×2 (06:03→10:51)
[2022-04-11] MEDS: Piperacillin Sodium/Tazobactam 2.25 GM in 0.9 % Sodium Chloride 50 ML IV ×3 (06:03→23:25)
[2022-04-11] MEDS: Heparin Sodium,Porcine 5,000 UNIT/ML VIAL 5000 UNIT SUBCUT ×2 (06:05→17:47)
--- NOTE | 2022-04-11 06:40 | PHA.MEDREC ---
Pharmacy Consult ? Medication Reconciliation Pharmacy has completed the medication reconciliation.
[2022-04-11 06:49] LABS: MANUAL DIFF FLAG NO
[2022-04-11 07:03] LABS: Basophils Percent Auto 1.1 % (0-2); Eosinophils Absolute Auto 0.1 X10*3/uL (0.0-0.4); Eosinophils Percent Auto 2.1 % (0-4); Hematocrit 23.3 % (37.0-47.0); Hemoglobin 7.6 g/dl (12.0-16.0); Imm Gran Abs Auto 0.01 X10*3/uL (0.00-0.03); Imm Gran Pct Auto 0.3 % (0.0-0.4); Lymphocytes Absolute Auto 1.2 X10*3/uL (1.2-4.9); Lymphocytes Percent Auto 31.2 % (20-40); Mean Corpuscular HGB Conc 32.6 g/dl (31.0-35.0); Mean Corpuscular Hemoglobin 31.8 pg (27.0-33.0); Mean Corpuscular Volume 97.5 fL (80.0-98.0); Mean Platelet Volume 10.6 fL (9.4-12.3); Monocytes Absolute Auto 0.3 X10*3/uL (0.1-1.2); Monocytes Percent Auto 8.7 % (2-11); Neutrophils Absolute Auto 2.1 x10*3/uL (2.0-8.3); Neutrophils Percent Auto 56.6 % (45-73); Platelet Count 137 X10*3/uL (160-400); Red Blood Count 2.39 X10*6/uL (4.20-5.50); Red Cell Distribution Width 13.1 % (11.0-16.0); White Blood Count 3.8 X10*3/uL (4.8-10.8)
[2022-04-11 07:08] LABS: Glucose, Whole Blood 138 mg/dL (60-115)
[2022-04-11 07:35] LABS: Alanine Aminotransferase 71 U/L (0-31); Albumin Level 2.7 g/dL (3.5-5.0); Alkaline Phosphatase 368 U/L (39-117); Anion Gap 17 (12-20); Aspartate Amino Transferase 65 U/L (5-31); Bilirubin Total 0.3 mg/dL (0.0-1.0); Blood Urea Nitrogen 64 mg/dL (9-16); Calcium 7.6 mg/dL (8.4-10.2); Carbon Dioxide 15 mmol/L (22-29); Chloride 106 mmol/L (96-108); Creatinine Clr Calc Pharmacy 15.9; Estimated Glomerular Filt Rate 11; Glucose Random 154 mg/dL (60-115); Potassium 5.3 mmol/L (3.3-5.1); Sodium 133 mmol/L (135-145); Total Protein 6.7 g/dL (6.5-8.0)
--- NOTE | 2022-04-11 08:51 | HO.PM.IMPN ---
Subjective Subjective Date of Service: 04/11/22 Interval History: Patient seen for follow up on hyperkalemia/PEG. Patient is more awake today though still slightly obtunded. Able to localize pain to the back where her shingles is located. According to nursing notes she was in significant pain last night and received dose of dilaudid and oxycodone. Review of Systems General: No fevers, malaise, unintentional weight loss Cardiovascular: No chest pain, palpitations, or leg edema Respiratory: No shortness of breath, wheezing, cough GI: No abdominal pain, nausea, vomiting, diarrhea, constipation, melena, hematochezia MSK: +back pain Neuro: No headaches, weakness, paresthesias Skin: +rash Physical Exam Vital Signs: Vital Signs: Last Vital Signs Temp 98.8 F 04/11/22 03:37 Pulse 98 04/11/22 07:09 Resp 15 04/11/22 07:09 BP 146/64 H 04/11/22 07:09 Pulse Ox 96 04/11/22 07:09 O2 Del Method 04/11/22 07:09 BMI result Body Mass Index 42.9 Constitutional - Obtunded and rarely responsive to questions and in mild distress from pain Eyes - PERRLA, EOMI Mouth- lips/tongue dry Cardiovascular - S1S2, RRR, No edema Respiratory - Scatted crackles bilaterally, Normal lung expansion, Normal respiratory effort, No respiratory distress Gastrointestinal -+BS, nontender, nondistended, no guarding or rebound - No CVA tenderness Extremities - no calf tenderness, no swelling. Left BKA Skin - Warm/Dry. Grouped vesicular lesion on erythematous base along left T12/L1 dermatome Neurological - A&Ox3 Objective Data Active Medications Heparin Sodium (Porcine) (Heparin Sodium,Porcine 5,000 Unit/Ml Vial) 5,000 unit SUBCUT Q12H [facility] Last Admin: 04/11/22 06:05 Dose: 5,000 unit Documented By: LUISITO Lactated Ringer's (Lr) 1,000 mls @ 125 mls/hr IVCONT .Q8H [facility] Last Admin: 04/11/22 06:03 Dose: 125 mls/hr Documented By: LUISITO Piperacillin Sod/Tazobactam (Sod 2.25 gm/ Sodium Chloride) 50 mls @ 100 mls/hr IV Q8H [facility] Last Infusion: 04/11/22 08:00 Dose: 0 mls/hr Documented By: GABRIELLA Pharmacy Consult (Consult Rx Perform Med Rec) 1 each MISCELLANE ONCE PRN PRN Reason: Consult order Sodium Chloride (0.9 % Sodium Chloride Flush 3 Ml Syringe) 3 ml IVFLUSH QSHIFT [facility] Last Admin: 04/11/22 00:14 Dose: Not Given Documented By: LUISITO Non-Admin Reason: Previously Administered Labs CBC & Chem 7: 04/11/22 06:40 04/11/22 06:40 Labs: Laboratory Results - last 24 hr 04/10/22 04/10/22 04/10/22 10:48 10:53 10:53 MCV 97.3 MCH 31.1 MCHC 31.9 RDW 13.3 Plt Count 162 MPV 10.7 Immature Gran % (Auto) 0.3 Neut % (Auto) 69.5 Lymph % (Auto) 21.2 [place] % (Auto) 6.5 Eos % (Auto) 1.5 Baso % (Auto) 1.0 Lymph # (Auto) 0.8 L [place] # (Auto) 0.3 Eos # (Auto) 0.1 Baso # (Auto) 0.0 Abs Immat Gran (auto) 0.01 Absolute Neuts (auto) 2.8 Absolute Nucleated RBC 0.000 Nucleated RBC % (auto) 0.0 PT INR APTT Anion Gap 17 Estim Creat Clear Calc 14.5 Estimated GFR 10 POC Glucose Random Glucose 183 H Calcium 8.2 L D Magnesium 1.9 Total Bilirubin 0.4 AST 90 H ALT 92 H Alkaline Phosphatase 449 H Total Protein 7.3 D Albumin 3.0 L D Urine Color Urine Appearance Urine pH Ur Specific [place] Urine Protein Urine Glucose (UA) Urine Ketones Urine Blood Urine Nitrite Ur Leukocyte Esterase Urine RBC Urine WBC Ur Squamous Epith Cells Urine Bacteria Ur Random Sodium Urine Creatinine Urine Microalbumin Microalb/Creat Ratio COVID-19 (LUCIO) Negative COVID-19 Clin Com See Note 04/10/22 04/10/22 04/10/22 10:53 15:12 16:19 MCV MCH MCHC RDW Plt Count MPV Immature Gran % (Auto) Neut % (Auto) Lymph % (Auto) [place] % (Auto) Eos % (Auto) Baso % (Auto) Lymph # (Auto) [place] # (Auto) Eos # (Auto) Baso # (Auto) Abs Immat Gran (auto) Absolute Neuts (auto) Absolute Nucleated RBC Nucleated RBC % (auto) PT 15.9 H INR 1.4 H APTT 40.1 H Anion Gap 15 Estim Creat Clear Calc 15.1 Estimated GFR 10 POC Glucose Random Glucose 160 H Calcium 8.1 L Magnesium Total Bilirubin AST ALT Alkaline Phosphatase Total Protein Albumin Urine Color YELLOW Urine Appearance CLOUDY Urine pH 6.0 Ur Specific [place] 1.025 Urine Protein 2+ H Urine Glucose (UA) NEG Urine Ketones NEG Urine Blood TRACE Urine Nitrite NEG Ur Leukocyte Esterase 3+ H Urine RBC 5-9 H Urine WBC TNTC H Ur Squamous Epith Cells 1+ Urine Bacteria 3+ Ur Random Sodium Urine Creatinine Urine Microalbumin Microalb/Creat Ratio COVID-19 (LUCIO) COVID-19 [employer] 04/10/22 04/10/22 04/10/22 21:18 22:34 22:35 MCV MCH MCHC RDW Plt Count MPV Immature Gran % (Auto) Neut % (Auto) Lymph % (Auto) [place] % (Auto) Eos % (Auto) Baso % (Auto) Lymph # (Auto) [place] # (Auto) Eos # (Auto) Baso # (Auto) Abs Immat Gran (auto) Absolute Neuts (auto) Absolute Nucleated RBC Nucleated RBC % (auto) PT INR APTT Anion Gap Estim Creat Clear Calc Estimated GFR POC Glucose 136 H Random Glucose Calcium Magnesium Total Bilirubin AST ALT Alkaline Phosphatase Total Protein Albumin Urine Color YELLOW Urine Appearance CLOUDY Urine pH 6.0 Ur Specific [place] 1.020 Urine Protein 2+ H Urine Glucose (UA) NEG Urine Ketones NEG Urine Blood TRACE Urine Nitrite POS H Ur Leukocyte Esterase 2+ H Urine RBC 1-4 Urine WBC TNTC H Ur Squamous Epith Cells 1+ Urine Bacteria 3+ Ur Random Sodium 46.0 Urine Creatinine 54.73 Urine Microalbumin 775.0 Microalb/Creat Ratio 1416.0 COVID-19 (LUCIO) COVID-19 Clin Com 04/11/22 04/11/22 04/11/22 06:40 06:40 07:02 MCV 97.5 MCH 31.8 MCHC 32.6 RDW 13.1 Plt Count 137 L MPV 10.6 Immature Gran % (Auto) 0.3 Neut % (Auto) 56.6 Lymph % (Auto) 31.2 [place] % (Auto) 8.7 Eos % (Auto) 2.1 Baso % (Auto) 1.1 Lymph # (Auto) 1.2 [place] # (Auto) 0.3 Eos # (Auto) 0.1 Baso # (Auto) 0.0 Abs Immat Gran (auto) 0.01 Absolute Neuts (auto) 2.1 Absolute Nucleated RBC 0.000 Nucleated RBC % (auto) 0.0 PT INR APTT Anion Gap 17 Estim Creat Clear Calc 15.9 Estimated GFR 11 POC Glucose 138 H Random Glucose 154 H Calcium 7.6 L D Magnesium Total Bilirubin 0.3 AST 65 H ALT 71 H Alkaline Phosphatase 368 H Total Protein 6.7 Albumin 2.7 L Urine Color Urine Appearance Urine pH Ur Specific [place] Urine Protein Urine Glucose (UA) Urine Ketones Urine Blood Urine Nitrite Ur Leukocyte Esterase Urine RBC Urine WBC Ur Squamous Epith Cells Urine Bacteria Ur Random Sodium Urine Creatinine Urine Microalbumin Microalb/Creat Ratio COVID-19 (LUCIO) COVID-19 Clin Com Assessment and Plan (1) Acute on chronic kidney failure: Status: Acute (2) Anemia in CKD (chronic kidney disease): Status: Acute Plan 71 year old female with past history significant for CKD stage 3, 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 1- PEG/acute hyperkalemia -Seen by renal. Change LR to 1/2NS with 2 amp NaHCO3 at 100cc/hr -Potassium improved to 5.3. Slight improvement in renal function with Cr 4.11 and BUN 64. Repeat chemistries tomorrow -No obstruction on CT. Continue izquierdo catheter -Urine culture pending. Continue zosyn -Advance to clear liquids -Pt is DNR/DNI but patient's brother (healthcare proxy) states dialysis ok if indicated 2-Blviplvrpofqfg-[id number] -Most likely metabolic from PEG. However, urine also frothy and abdomen distended and tender, possibly secondary to infection. UC and BC x2 pending. Empiric therapy with zosyn started 3- Choledocolithiasis -Seen by GI and gen surg. Will undergo ERCP and cholecystectomy once medically stable -No abdominal pain -Improvement in AST/ALT and alk phos. Repeat liver enzymes tomorrow 4- Abnormal head CT- decreased attenuation in central brain at the level of cerebral peduncles of uncertain etiology, but could be direct sales representative of infarct - Patient mental status improved. Mri brain pending 5- Herpes zoster -Valtrex renal dose resume -Contact precautions 6-Insulin dependent type 2 diabetes- stable -POC glucose -Initiate SSI 7-Hypertension- stable -Hold BP meds at this time 8-Anemia of chronic disease- stable -secondary to CKD -H/H slight decrease- likely dilutional. Repeat cbc tomorrow DVT prophylaxis- heparin DNR/DNI Pt requires ongoing inpatient stay for aggressive IV hydration and management of PEG and hyperkalemia. Quality Stroke Does the patient have a stroke diagnosis?: No VTE Prior VTE?: Yes VTE Risk Level:: Medical - moderate - high VTE Device Contraindication: Treatment Not Indicated VTE Drug Contraindication: N/A - Med Ordered
--- NOTE | 2022-04-11 09:17 | MHC.CM.PN ---
pt from [facility] where brother hcp agrees she will return to when dcd pt is vax
[2022-04-11] MEDS: HYDROmorphone HCl 0.5 MG/0.5 ML SYRINGE 0.25 MG IVPUSH ×3 (10:54→23:25)
[2022-04-11 11:32] LABS: Glucose, Whole Blood 138 mg/dL (60-115)
--- NOTE | 2022-04-11 12:40 | PM.CNNEP ---
History of Present Illness Reason for Consult Consult date: 04/11/22 Chief Complaint Chief complaint: Hyperkalemia/PEG [facility] Past Medical History Medical History (Updated 04/10/22 @ 16:32 by CORINNA Cota) Acute kidney failure Acute respiratory failure with hypoxia Atherosclerosis Basal cell carcinoma of right upper arm Below-knee amputation of left lower extremity Diabetes Diabetic retinopathy Dysphagia Failure to thrive in adult GERD (gastroesophageal reflux disease) History of venous thromboembolism Hypothyroidism PVD (peripheral vascular disease) Squamous cell carcinoma of left upper extremity TIA (transient ischemic attack) Surgical History Surgical History (Updated 04/10/22 @ 14:38 by CORINNA Keyes) S/P below knee amputation Social History Social History Household Members: Other Housing: Prison Do you presently have visiting nurse or other home services: No Alcohol intake: never Patient Tobacco Use Status: Never used Tobacco Advance Directives Date on File: 02/25/22 service: No Current occupational status: disabled Meds Allergies Allergy/AdvReac Type Severity Reaction Status Date / Time codeine [CODEINE] Allergy Unknown UNKNOWN Verified 04/10/22 09:48 morphine [MORPHINE] Allergy Unknown UNKNOWN, Verified 04/10/22 09:48 anaphylaxis adhesive tape Allergy Unknown Verified 04/10/22 09:48 clarithromycin Allergy Unknown Verified 04/10/22 09:48 clonidine [From Catapres] Allergy Unknown Verified 04/10/22 09:48 lactose Allergy Unknown Verified 04/10/22 09:48 latex Allergy Unknown Verified 04/10/22 09:48 Active Medications: Current Medications Heparin Sodium (Porcine) (Heparin Sodium,Porcine 5,000 Unit/Ml Vial) 5,000 unit SUBCUT Q12H [facility] Last Admin: 04/11/22 06:05 Dose: 5,000 unit Hydromorphone HCl (Hydromorphone Hcl 0.5 Mg/0.5 Ml Syringe) 0.25 mg IVPUSH Q4H PRN; Protocol PRN Reason: Pain, Severe (Pain Scale 7-10) Last Admin: 04/11/22 10:54 Dose: 0.25 mg Lactated Ringer's (Lr) 1,000 mls @ 125 mls/hr IVCONT .Q8H [facility] Last Admin: 04/11/22 10:51 Dose: 125 mls/hr Piperacillin Sod/Tazobactam (Sod 2.25 gm/ Sodium Chloride) 50 mls @ 100 mls/hr IV Q8H [facility] Last Infusion: 04/11/22 08:00 Dose: Infused Pharmacy Consult (Consult Rx Perform Med Rec) 1 each MISCELLANE ONCE PRN PRN Reason: Consult order Sodium Chloride (0.9 % Sodium Chloride Flush 3 Ml Syringe) 3 ml IVFLUSH QSHIFT [facility] Last Admin: 04/11/22 10:18 Dose: Not Given Home Medications Medication Instructions Recorded Confirmed Last Taken Type amitriptyline 25 mg tablet 1 tab PO BEDTIME 02/24/22 04/10/22 Unknown History amlodipine 10 mg tablet 1 tab PO DAILY 02/24/22 04/10/22 Unknown History apixaban 2.5 mg tablet (Eliquis) 1 tab PO BID 02/24/22 04/10/22 Unknown History aspirin 81 mg tablet,delayed 81 mg PO DAILY 02/24/22 04/10/22 Unknown History release atorvastatin 80 mg tablet 1 tab PO DAILY 02/24/22 04/10/22 Unknown History yizvidyvkq-ospoykoklocuy-cgchoxyt 1 cap PO Q8H PRN Headache 02/24/22 04/10/22 Unknown History 50 mg-300 mg-40 mg capsule (Fioricet) calcium carbonate 600 mg calcium 600 mg PO BID 02/24/22 04/10/22 Unknown History (1,500 mg) tablet (Calcium) escitalopram oxalate 10 mg tablet 1 tab PO DAILY 02/24/22 04/10/22 Unknown History furosemide 40 mg tablet 1 tab PO BID 02/24/22 04/10/22 Unknown History insulin aspart U-100 100 unit/mL See Rx Instructions .Route .COMPLEX 02/24/22 04/10/22 Unknown History subcutaneous solution (Novolog U-100 Insulin aspart) insulin degludec 100 unit/mL (3 10 unit subcut BEDTIME 02/24/22 04/10/22 Unknown History mL) subcutaneous pen (Tresiba FlexTouch U-100 insulin) lactase 3,000 unit tablet (Lactaid) 3,000 unit PO TIDWM 02/24/22 04/10/22 Unknown History levothyroxine 200 mcg tablet 1 tab PO BEDTIME 02/24/22 04/10/22 Unknown History losartan 25 mg tablet 3 tab PO DAILY 02/24/22 04/10/22 Unknown History metoprolol tartrate 100 mg tablet 1 tab PO BID 02/24/22 04/10/22 Unknown History ondansetron HCl 4 mg tablet 1 tab PO Q8H PRN Nausea 02/24/22 04/10/22 Unknown History oxycodone 5 mg tablet 1 tab PO BEDTIME 02/24/22 04/10/22 Unknown History oxycodone 5 mg tablet 2 tab PO Q6H PRN Pain 02/24/22 04/10/22 Unknown History pantoprazole 40 mg tablet,delayed 1 tab PO BID 02/24/22 04/10/22 Unknown History release polyvinyl alcohol 1.4 % eye drops 1 drp ophthalmic (eye) BID 02/24/22 04/10/22 Unknown History (Artificial Tears (polyvinyl alcohol)) acetaminophen 325 mg tablet 650 mg PO Q8H PRN Pain 04/10/22 04/10/22 Unknown History (Tylenol) baclofen 5 mg tablet 5 mg PO BEDTIME 04/10/22 04/10/22 Unknown History docusate sodium 100 mg tablet 100 mg PO BEDTIME PRN Constipation 04/10/22 04/10/22 Unknown History hydralazine 25 mg tablet 75 mg PO TID 04/10/22 04/10/22 Unknown History valacyclovir 500 mg tablet 1 tab PO DAILY 04/10/22 04/10/22 04/10/22 History Physical Exam Vital Signs: Last Vital Signs Temp 98.3 F 04/11/22 08:00 Pulse 91 04/11/22 08:00 Resp 19 04/11/22 08:00 BP 160/84 H 04/11/22 08:00 Pulse Ox 96 04/11/22 08:00 O2 Del Method 04/11/22 08:00 BMI result Body Mass Index 42.9 Results Lab Results Result Diagrams: 04/11/22 06:40 04/11/22 06:40 Lab results: Chemistry 04/10/22 04/10/22 04/11/22 10:53 16:19 06:40 Sodium 132 L 133 L 133 L Potassium 6.4 H* D 5.7 H 5.3 H Carbon Dioxide 19 L 19 L 15 L BUN 70 H D 71 H 64 H Creatinine 4.53 H* 4.33 H* 4.11 H* Calcium 8.2 L D 8.1 L 7.6 L D Hematology 04/10/22 04/11/22 10:53 06:40 WBC 4.0 L 3.8 L Hgb 8.2 L 7.6 L Plt Count 162 137 L Urinalysis 04/10/22 04/10/22 15:12 22:35 Urine Color YELLOW YELLOW Urine Appearance CLOUDY CLOUDY Urine pH 6.0 6.0 Ur Specific [place] 1.025 1.020 Urine Protein 2+ H 2+ H Urine Glucose (UA) NEG NEG Urine Ketones NEG NEG Urine Blood TRACE TRACE Urine Nitrite NEG POS H Ur Leukocyte Esterase 3+ H 2+ H Urine RBC 5-9 H 1-4 Urine WBC TNTC H TNTC H Ur Squamous Epith Cells 1+ 1+ Urine Studies 04/10/22 22:34 Urine Creatinine 54.73 Assessment and Plan (1) Acute on chronic kidney failure: Status: Acute Plan Pt seen and examined Change IVF from LR to 1/2 NS with 2 amp NaHCO3 at 100 cc/hr Agree with rest of the management Consult dictated Thanks Procedures Date of Service Date of Service: 04/11/22
[2022-04-11] MEDS: SODIUM BICARBONATE IVCONT (15:34)
[2022-04-11] MEDS: SODIUM CHLORIDE 0.45% IVCONT (15:34)
[2022-04-11 15:54] LABS: Glucose, Whole Blood 133 mg/dL (60-115)
[2022-04-11 16:16] LABS: Estimated Average Glucose 114 mg/dL; Hemoglobin A1c % 5.6 %
--- NOTE | 2022-04-11 16:57 | PC.NURSE ---
report taken from ED RN. pt arrived to unit, admission assessment completed. MRI scheduled for noon, was rescheduled to 1400, completed with no complications. PA at bedside assessing pt. pt placed on contact precautions due to shingles dx per clin sup. poc's obtained. pt c/o lower back pain and LUE pain, prn pain med administered w/ + effect and pt was repo'ed Q2. pt tolerating clear liq diet, requires freq encouragement to eat/drink. safety and fall precautions maintained. call perez within reach. 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
[2022-04-11 20:49] LABS: Glucose, Whole Blood 133 mg/dL (60-115)
[2022-04-11] MEDS: 0.9 % Sodium Chloride Flush 3 ML SYRINGE IVFLUSH (23:26)
[2022-04-12] VITALS (7 sets, daily range): BP systolic 138–187; BP diastolic 63–89; PULSE 77–97; RESP 16–20; TEMP 36.2–36.9; O2SAT 93–98
[2022-04-12 07:00] LABS: Alanine Aminotransferase 61 U/L (0-31); Albumin Level 2.7 g/dL (3.5-5.0); Alkaline Phosphatase 337 U/L (39-117); Anion Gap 18 (12-20); Aspartate Amino Transferase 55 U/L (5-31); Bilirubin Total 0.4 mg/dL (0.0-1.0); Blood Urea Nitrogen 55 mg/dL (9-16); Calcium 7.6 mg/dL (8.4-10.2); Carbon Dioxide 19 mmol/L (22-29); Chloride 107 mmol/L (96-108); Creatinine Clr Calc Pharmacy 17.7; Estimated Glomerular Filt Rate 12; Glucose Random 142 mg/dL (60-115); Sodium 139 mmol/L (135-145); Total Protein 6.6 g/dL (6.5-8.0)
[2022-04-12] MEDS: Heparin Sodium,Porcine 5,000 UNIT/ML VIAL 5000 UNIT SUBCUT ×2 (07:32→17:56)
[2022-04-12] MEDS: Piperacillin Sodium/Tazobactam 2.25 GM in 0.9 % Sodium Chloride 50 ML IV ×3 (07:32→22:13)
[2022-04-12] MEDS: HYDROmorphone HCl 0.5 MG/0.5 ML SYRINGE 0.25 MG IVPUSH ×3 (07:32→22:13)
[2022-04-12 07:59] LABS: Glucose, Whole Blood 139 mg/dL (60-115)
[2022-04-12] MEDS: 0.9 % Sodium Chloride Flush 3 ML SYRINGE IVFLUSH ×3 (08:39→22:14)
[2022-04-12 11:21] LABS: Glucose, Whole Blood 142 mg/dL (60-115)
[2022-04-12 11:40] LABS: Basophils Percent Auto 0.5 % (0-2); Eosinophils Absolute Auto 0.1 X10*3/uL (0.0-0.4); Eosinophils Percent Auto 3.3 % (0-4); Hematocrit 23.6 % (37.0-47.0); Hemoglobin 7.5 g/dl (12.0-16.0); Imm Gran Abs Auto 0.02 X10*3/uL (0.00-0.03); Imm Gran Pct Auto 0.5 % (0.0-0.4); Lymphocytes Absolute Auto 1.5 X10*3/uL (1.2-4.9); MANUAL DIFF FLAG SCAN; Mean Corpuscular HGB Conc 31.8 g/dl (31.0-35.0); Mean Corpuscular Hemoglobin 31.3 pg (27.0-33.0); Mean Corpuscular Volume 98.3 fL (80.0-98.0); Monocytes Absolute Auto 0.3 X10*3/uL (0.1-1.2); Monocytes Percent Auto 7.3 % (2-11); Neutrophils Percent Auto 49.4 % (45-73); Platelet Count 150 X10*3/uL (160-400); Red Cell Distribution Width 13.1 % (11.0-16.0); SCAN SMEAR FLAG 1
--- NOTE | 2022-04-12 11:48 | HO.PM.IMPN ---
Subjective Subjective Date of Service: 04/12/22 Interval History: the patient was seen and evaluated this morning Laying in bed, feels comfortable, complaining of back pain Kidney function improving Denies any fever, chills or shortness of breath No reported other overnight events. Systemic review: No fever, chills or weakness No chest pain, palpitation No shortness of breath or coughing No abdominal pain, nausea or vomiting No urinary symptoms Back rash and pain Physical Exam Vital Signs: Vital Signs: Last Vital Signs Temp 97.1 F 04/12/22 11:22 Pulse 93 04/12/22 11:22 Resp 20 04/12/22 11:22 BP 187/68 H 04/12/22 11:22 Pulse Ox 95 04/12/22 11:22 O2 Del Method 04/12/22 11:22 BMI result Body Mass Index 42.9 Const: Other: Constitutional : Alert, interactive, not in distress, morbidly obese Neck : Normal inspection, Supple Cardiovascular : RRR, no JVP, no lower extremity edema Respiratory : fair bilateral air entry, no crackles, wheezes or rhonchi Gastrointestinal: soft, lax, Normal bowel sounds, Non tender Musculoskeletal, left BKA Skin : Warm, Dry, rash in the back representing shingles along L1 dermatome left-sided Neurological : Alert & oriented to self but overall confused, CN 2-12 within normal Objective Data Active Medications Dextrose (Dextrose 50 % 25 Gm/50 Ml Syringe) 25 gm IVPUSH Q15M PRN; Protocol PRN Reason: per Hypoglycemia Standing Ord. Glucose (Glucose Gel 15 Gm Gel..Gram.) 15 gm PO Q15M PRN; Protocol PRN Reason: per Hypoglycemia Standing Ord. Heparin Sodium (Porcine) (Heparin Sodium,Porcine 5,000 Unit/Ml Vial) 5,000 unit SUBCUT Q12H [facility] Last Admin: 04/12/22 07:32 Dose: 5,000 unit Documented By: HEIDI Hydromorphone HCl (Hydromorphone Hcl 0.5 Mg/0.5 Ml Syringe) 0.25 mg IVPUSH Q4H PRN; Protocol PRN Reason: Pain, Severe (Pain Scale 7-10) Last Admin: 04/12/22 07:32 Dose: 0.25 mg Documented By: HEIDI Piperacillin Sod/Tazobactam (Sod 2.25 gm/ Sodium Chloride) 50 mls @ 100 mls/hr IV Q8H [facility] Last Infusion: 04/12/22 08:02 Dose: 0 mls/hr Documented By: SAUNDRA Insulin Human Lispro (Insulin Lispro 100 Unit/Ml 3 Ml Vial) 0 unit SUBCUT QIDACHS [facility]; Protocol Stop: 04/12/22 14:51 Last Admin: 04/12/22 08:04 Dose: Not Given Documented By: SAUNDRA Non-Admin Reason: No Insulin Coverage Pharmacy Consult (Consult Rx Perform Med Rec) 1 each MISCELLANE ONCE PRN PRN Reason: Consult order Sodium Chloride (0.9 % Sodium Chloride Flush 3 Ml Syringe) 3 ml IVFLUSH QSHIFT [facility] Last Admin: 04/12/22 08:39 Dose: 3 ml Documented By: SAUNDRA Labs CBC & Chem 7: 04/12/22 05:58 04/12/22 05:58 Labs: Laboratory Results - last 24 hr 04/11/22 04/11/22 04/11/22 15:48 15:53 20:45 MCV MCH MCHC RDW Plt Count MPV Anion Gap Estim Creat Clear Calc Estimated GFR POC Glucose 133 H 133 H Random Glucose Estimat Average Glucose 114 Hemoglobin A1c % 5.6 Calcium Total Bilirubin AST ALT Alkaline Phosphatase Total Protein Albumin 04/12/22 04/12/22 04/12/22 05:58 05:58 07:55 MCV 98.3 H MCH 31.3 MCHC 31.8 RDW 13.1 Plt Count 150 L MPV 12.0 Anion Gap 18 Estim Creat Clear Calc 17.7 Estimated GFR 12 POC Glucose 139 H Random Glucose 142 H Estimat Average Glucose Hemoglobin A1c % Calcium 7.6 L Total Bilirubin 0.4 AST 55 H ALT 61 H Alkaline Phosphatase 337 H Total Protein 6.6 Albumin 2.7 L 04/12/22 11:09 MCV MCH MCHC RDW Plt Count MPV Anion Gap Estim Creat Clear Calc Estimated GFR POC Glucose 142 H Random Glucose Estimat Average Glucose Hemoglobin A1c % Calcium Total Bilirubin AST ALT Alkaline Phosphatase Total Protein Albumin Microbiology Microbiology Results: Microbiology 04/10/22 14:19 Blood Culture - Preliminary Blood - Venous No growth after 24 hours. 04/10/22 14:19 Blood Culture - Preliminary Blood - Venous No growth after 24 hours. 08/11/22 Unknown Urine Culture - Preliminary Urine clean catch - Urine camacho top Culture in progress. 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 1- PEG/acute hyperkalemia No obstruction on CT Continue 1/2NS with 2 amp NaHCO3 at 100cc/hr Potassium improved to 5 improvement in renal function with Cr 3.7 Advanced diet Nephrology input appreciated 2-toxic metabolic Encephalopathy Improving Likely secondary to PEG. 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 Follow liver function 4- Abnormal head CT Reporting involuntary movements and tremors that started recently CT reported decreased attenuation in central brain at the level of cerebral peduncles of uncertain etiology, but could be inbound call center representative of infarct Patient mental status improved MRI done, incomplete study, no acute infarct seen but chronic lacunar infarcts noted Neurology input appreciated 5- Herpes zoster Valtrex renal dose resume Contact precautions 6-Insulin dependent type 2 diabetes- stable POC glucose SSI 7-Hypertension Elevated Restart her home medications 8-Anemia of chronic disease secondary to CKD Check iron stores Follow CBC Morbid obesity BMI of 42 Advised weight reduction DVT prophylaxis- heparin DNR/DNI Pt requires ongoing inpatient stay for aggressive IV hydration and management of PEG and encephalopathy to prevent possible decompensation Quality Stroke Does the patient have a stroke diagnosis?: No VTE Prior VTE?: Yes VTE Risk Level:: Medical - moderate - high VTE Device Contraindication: Treatment Not Indicated VTE Drug Contraindication: N/A - Med Ordered
[2022-04-12 12:03] LABS: SLIDE REVIEW VERIFIED
[2022-04-12 12:13] LABS: Iron 38 mcg/dL (30-160); Percent Iron Saturation 28 % (15-50); Total Iron Binding Capacity 134 mcg/dL (228-428); Unsaturated Iron Binding 96 ug/dL
--- NOTE | 2022-04-12 12:21 | PM.PNNEP ---
Subjective Subjective Date of Service: 04/13/22 Interval history: More awake Non oliguric Physical Exam Vital Signs: Vital Signs: Last Vital Signs Temp 97.1 F 04/12/22 11:22 Pulse 93 04/12/22 11:22 Resp 20 04/12/22 11:22 BP 187/68 H 04/12/22 11:22 Pulse Ox 95 04/12/22 11:22 O2 Del Method 04/12/22 11:22 BMI result Body Mass Index 42.9 Const: Other: Constitutional : Alert, interactive, not in distress, morbidly obese Neck : Normal inspection, Supple Cardiovascular : RRR, no JVP, no lower extremity edema Respiratory : fair bilateral air entry, no crackles, wheezes or rhonchi Gastrointestinal: soft, lax, Normal bowel sounds, Non tender Musculoskeletal, left BKA Skin : Warm, Dry, rash in the back representing shingles along L1 dermatome left-sided Neurological : Alert & oriented to self but overall confused, CN 2-12 within normal Objective Data Labs CBC & Chem 7: 04/13/22 06:06 04/13/22 06:06 Labs: Laboratory Results - last 24 hr 04/11/22 04/11/22 04/11/22 15:48 15:53 20:45 WBC RBC Hgb Hct MCV MCH MCHC RDW Plt Count MPV Immature Gran % (Auto) Neut % (Auto) Lymph % (Auto) Whitman % (Auto) Eos % (Auto) Baso % (Auto) Lymph # (Auto) Whitman # (Auto) Eos # (Auto) Baso # (Auto) Abs Immat Gran (auto) Absolute Neuts (auto) Absolute Nucleated RBC Nucleated RBC % (auto) Smear Tech's Comments Sodium Potassium Chloride Carbon Dioxide Anion Gap BUN Creatinine Estim Creat Clear Calc Estimated GFR POC Glucose 133 H 133 H Random Glucose Estimat Average Glucose 114 Hemoglobin A1c % 5.6 Calcium Iron TIBC % Saturation Unsat Iron Binding Total Bilirubin AST ALT Alkaline Phosphatase Total Protein Albumin 04/12/22 04/12/22 04/12/22 05:58 05:58 07:55 WBC 4.0 L RBC 2.40 L Hgb 7.5 L Hct 23.6 L MCV 98.3 H MCH 31.3 MCHC 31.8 RDW 13.1 Plt Count 150 L MPV 12.0 Immature Gran % (Auto) 0.5 H Neut % (Auto) 49.4 Lymph % (Auto) 39.0 Whitman % (Auto) 7.3 Eos % (Auto) 3.3 Baso % (Auto) 0.5 Lymph # (Auto) 1.5 Whitman # (Auto) 0.3 Eos # (Auto) 0.1 Baso # (Auto) 0.0 Abs Immat Gran (auto) 0.02 Absolute Neuts (auto) 2.0 Absolute Nucleated RBC 0.000 Nucleated RBC % (auto) 0.0 Smear Tech's Comments VERIFIED Sodium 139 Potassium 5.0 Chloride 107 Carbon Dioxide 19 L Anion Gap 18 BUN 55 H Creatinine 3.70 H Estim Creat Clear Calc 17.7 Estimated GFR 12 POC Glucose 139 H Random Glucose 142 H Estimat Average Glucose Hemoglobin A1c % Calcium 7.6 L Iron 38 TIBC 134 L % Saturation 28 Unsat Iron Binding 96 Total Bilirubin 0.4 AST 55 H ALT 61 H Alkaline Phosphatase 337 H Total Protein 6.6 Albumin 2.7 L 04/12/22 11:09 WBC RBC Hgb Hct MCV MCH MCHC RDW Plt Count MPV Immature Gran % (Auto) Neut % (Auto) Lymph % (Auto) Whitman % (Auto) Eos % (Auto) Baso % (Auto) Lymph # (Auto) Whitman # (Auto) Eos # (Auto) Baso # (Auto) Abs Immat Gran (auto) Absolute Neuts (auto) Absolute Nucleated RBC Nucleated RBC % (auto) Smear Tech's Comments Sodium Potassium Chloride Carbon Dioxide Anion Gap BUN Creatinine Estim Creat Clear Calc Estimated GFR POC Glucose 142 H Random Glucose Estimat Average Glucose Hemoglobin A1c % Calcium Iron TIBC % Saturation Unsat Iron Binding Total Bilirubin AST ALT Alkaline Phosphatase Total Protein Albumin Microbiology Microbiology Results: Microbiology 04/10/22 Unknown Urine clean catch - Urine camacho top Urine Culture - Preliminary Gram negative digna 04/10/22 14:19 Blood - Venous Blood Culture - Preliminary No growth after 24 hours. 04/10/22 14:19 Blood - Venous Blood Culture - Preliminary No growth after 24 hours. Procedures Date of Service Date of Service: 04/12/22 Assessment & Plan Assessment and plan (1) Choledocholithiasis: Status: Acute (2) Metabolic encephalopathy: Status: Acute (3) Acute on chronic kidney failure: Status: Acute (4) Uncontrolled hypertension: Status: Acute Plan PEG Met Acidosis Hyperkalemia Renal function is improving Keep I >O No indication for dialysis Watch K Time Spent With Patient Time: Total time spent is greater than 50% in coordination of care (as documented) at patient's floor/unit and/or counseling patient: Progress Note: Quality Stroke Does the patient have a stroke diagnosis?: No
[2022-04-12] MEDS: hydrALAZINE HCl 50 MG TABLET PO ×3 (12:40→22:12)
[2022-04-12] MEDS: amLODIPine Besylate 10 MG TABLET PO (12:40)
[2022-04-12] MEDS: SODIUM CHLORIDE 0.45% IVCONT (14:21)
[2022-04-12] MEDS: SODIUM BICARBONATE IVCONT (14:21)
[2022-04-12 15:55] LABS: Glucose, Whole Blood 148 mg/dL (60-115)
[2022-04-12 20:20] LABS: Glucose, Whole Blood 162 mg/dL (60-115)
[2022-04-12] MEDS: Metoprolol Tartrate 100 MG TABLET PO (22:12)
[2022-04-13] MEDS: HYDROmorphone HCl 0.5 MG/0.5 ML SYRINGE 0.25 MG IVPUSH ×3 (02:33→11:28)
[2022-04-13 03:11] VITALS: BP 165/70; PULSE 66; RESP 16; TEMP 36.5; O2SAT 95
[2022-04-13] MEDS: Piperacillin Sodium/Tazobactam 2.25 GM in 0.9 % Sodium Chloride 50 ML IV ×3 (06:26→23:05)
[2022-04-13] MEDS: Heparin Sodium,Porcine 5,000 UNIT/ML VIAL 5000 UNIT SUBCUT ×2 (06:28→17:39)
[2022-04-13 06:42] LABS: Hematocrit 24.9 % (37.0-47.0); Hemoglobin 8.1 g/dl (12.0-16.0); Mean Corpuscular HGB Conc 32.5 g/dl (31.0-35.0); Mean Corpuscular Volume 95.4 fL (80.0-98.0); Mean Platelet Volume 10.8 fL (9.4-12.3); Platelet Count 169 X10*3/uL (160-400); Red Blood Count 2.61 X10*6/uL (4.20-5.50); White Blood Count 4.7 X10*3/uL (4.8-10.8)
[2022-04-13 07:28] VITALS: BP 164/68; PULSE 79; RESP 20; O2SAT 97
[2022-04-13 07:29] LABS: Glucose, Whole Blood 150 mg/dL (60-115)
[2022-04-13 07:53] LABS: Alanine Aminotransferase 57 U/L (0-31); Albumin Level 2.8 g/dL (3.5-5.0); Alkaline Phosphatase 340 U/L (39-117); Aspartate Amino Transferase 54 U/L (5-31); Bilirubin Direct 0.2 mg/dL (0.0-0.5); Bilirubin Total 0.4 mg/dL (0.0-1.0); Total Protein 6.8 g/dL (6.5-8.0)
[2022-04-13 07:58] LABS: Anion Gap 17 (12-20); Blood Urea Nitrogen 47 mg/dL (9-16); Calcium 7.6 mg/dL (8.4-10.2); Carbon Dioxide 22 mmol/L (22-29); Chloride 107 mmol/L (96-108); Creatinine Clr Calc Pharmacy 19.7; Estimated Glomerular Filt Rate 14; Glucose Random 153 mg/dL (60-115); Potassium 4.7 mmol/L (3.3-5.1); Sodium 141 mmol/L (135-145)
[2022-04-13] MEDS: 0.9 % Sodium Chloride Flush 3 ML SYRINGE IVFLUSH ×3 (08:43→21:01)
[2022-04-13] MEDS: hydrALAZINE HCl 50 MG TABLET PO ×3 (08:45→20:58)
[2022-04-13] MEDS: Metoprolol Tartrate 100 MG TABLET PO ×2 (08:45→20:58)
[2022-04-13] MEDS: amLODIPine Besylate 10 MG TABLET PO (08:45)
[2022-04-13 11:51] VITALS: BP 161/59; PULSE 76; RESP 20; O2SAT 96
--- NOTE | 2022-04-13 12:39 | PM.PNNEP ---
Subjective Subjective Date of Service: 04/14/22 Interval history: More awake Non oliguric Physical Exam Vital Signs: Vital Signs: Last Vital Signs Temp 97.7 F 04/13/22 03:11 Pulse 76 04/13/22 11:51 Resp 20 04/13/22 11:51 BP 161/59 H 04/13/22 11:51 Pulse Ox 96 04/13/22 11:51 O2 Del Method 04/13/22 11:51 BMI result Body Mass Index 42.9 Const: Other: Constitutional : Alert, interactive, not in distress, morbidly obese Neck : Normal inspection, Supple Cardiovascular : RRR, no JVP, no lower extremity edema Respiratory : fair bilateral air entry, no crackles, wheezes or rhonchi Gastrointestinal: soft, lax, Normal bowel sounds, Non tender Musculoskeletal, left BKA Skin : Warm, Dry, rash in the back representing shingles along L1 dermatome left-sided Neurological : Alert & oriented to self but overall confused, CN 2-12 within normal Objective Data Labs CBC & Chem 7: 04/13/22 06:06 04/14/22 06:00 Labs: Laboratory Results - last 24 hr 04/12/22 04/12/22 04/13/22 15:46 20:13 06:06 WBC 4.7 L RBC 2.61 L Hgb 8.1 L Hct 24.9 L MCV 95.4 MCH 31.0 MCHC 32.5 RDW 13.0 Plt Count 169 MPV 10.8 Absolute Nucleated RBC 0.000 Nucleated RBC % (auto) 0.0 Sodium Potassium Chloride Carbon Dioxide Anion Gap BUN Creatinine Estim Creat Clear Calc Estimated GFR POC Glucose 148 H 162 H Random Glucose Calcium Total Bilirubin Direct Bilirubin AST ALT Alkaline Phosphatase Total Protein Albumin 04/13/22 04/13/22 04/13/22 06:06 06:06 07:19 WBC RBC Hgb Hct MCV MCH MCHC RDW Plt Count MPV Absolute Nucleated RBC Nucleated RBC % (auto) Sodium 141 Potassium 4.7 Chloride 107 Carbon Dioxide 22 Anion Gap 17 BUN 47 H Creatinine 3.32 H Estim Creat Clear Calc 19.7 Estimated GFR 14 POC Glucose 150 H Random Glucose 153 H Calcium 7.6 L Total Bilirubin 0.4 Direct Bilirubin 0.2 AST 54 H ALT 57 H Alkaline Phosphatase 340 H Total Protein 6.8 Albumin 2.8 L Microbiology Microbiology Results: Microbiology 04/10/22 Unknown Urine clean catch - Urine camacho top Urine Culture - Final Pseudomonas aeruginosa 04/10/22 14:19 Blood - Venous Blood Culture - Preliminary No growth after 48 hours. 04/10/22 14:19 Blood - Venous Blood Culture - Preliminary No growth after 48 hours. Procedures Date of Service Date of Service: 04/13/22 Assessment & Plan Assessment and plan (1) Choledocholithiasis: Status: Acute (2) Metabolic encephalopathy: Status: Acute (3) Acute on chronic kidney failure: Status: Acute (4) Uncontrolled hypertension: Status: Acute Plan PEG Met Acidosis Hyperkalemia Renal function is improving Acidosis is better- no need for Bicarb now K normalized Keep I >O No indication for dialysis Watch K Time Spent With Patient Time: Total time spent is greater than 50% in coordination of care (as documented) at patient's floor/unit and/or counseling patient: Progress Note: Quality Stroke Does the patient have a stroke diagnosis?: No
[2022-04-13 13:47] LABS: Glucose, Whole Blood 187 mg/dL (60-115)
--- NOTE | 2022-04-13 13:47 | HO.PM.IMPN ---
Subjective Subjective Date of Service: 04/13/22 Interval History: the patient was seen and evaluated this morning Laying in bed, complaining of constipation Kidney function improving , LFT stable Denies any fever, chills or shortness of breath No reported other overnight events. Systemic review: No fever, chills or weakness No chest pain, palpitation No shortness of breath or coughing No abdominal pain, nausea or vomiting No urinary symptoms Back rash and pain Physical Exam Vital Signs: Vital Signs: Last Vital Signs Temp 97.7 F 04/13/22 03:11 Pulse 76 04/13/22 11:51 Resp 20 04/13/22 11:51 BP 161/59 H 04/13/22 11:51 Pulse Ox 96 04/13/22 11:51 O2 Del Method 04/13/22 11:51 BMI result Body Mass Index 42.9 Const: Other: Constitutional : Alert, interactive, not in distress, morbidly obese Neck : Normal inspection, Supple Cardiovascular : RRR, no JVP, no lower extremity edema Respiratory : fair bilateral air entry, no crackles, wheezes or rhonchi Gastrointestinal: soft, lax, Normal bowel sounds, Non tender Musculoskeletal, left BKA Skin : Warm, Dry, rash in the back representing shingles along L1 dermatome left-sided Neurological : Alert & oriented to self but overall confused, CN 2-12 within normal Objective Data Active Medications Amlodipine Besylate (Amlodipine Besylate 10 Mg Tablet) 10 mg PO DAILY [facility]; Protocol Last Admin: 04/13/22 08:45 Dose: 10 mg Documented By: SAM Bisacodyl (Bisacodyl 10 Mg Supp.Rect) 10 mg AK ONCE ONE Stop: 04/13/22 13:47 Dextrose (Dextrose 50 % 25 Gm/50 Ml Syringe) 25 gm IVPUSH Q15M PRN; Protocol PRN Reason: per Hypoglycemia Standing Ord. Glucose (Glucose Gel 15 Gm Gel..Gram.) 15 gm PO Q15M PRN; Protocol PRN Reason: per Hypoglycemia Standing Ord. Heparin Sodium (Porcine) (Heparin Sodium,Porcine 5,000 Unit/Ml Vial) 5,000 unit SUBCUT Q12H [facility] Last Admin: 04/13/22 06:28 Dose: 5,000 unit Documented By: YOEL Hydralazine HCl (Hydralazine Hcl 50 Mg Tablet) 50 mg PO TID [facility]; Protocol Last Admin: 04/13/22 08:45 Dose: 50 mg Documented By: SAM Hydromorphone HCl (Hydromorphone Hcl 0.5 Mg/0.5 Ml Syringe) 0.25 mg IVPUSH Q4H PRN; Protocol PRN Reason: Pain, Severe (Pain Scale 7-10) Last Admin: 04/13/22 11:28 Dose: 0.25 mg Documented By: SAM Piperacillin Sod/Tazobactam (Sod 2.25 gm/ Sodium Chloride) 50 mls @ 100 mls/hr IV Q8H [facility] Last Infusion: 04/13/22 07:19 Dose: 100 mls/hr Documented By: YOEL Metoprolol Tartrate (Metoprolol Tartrate 100 Mg Tablet) 100 mg PO BID [facility]; Protocol Last Admin: 04/13/22 08:45 Dose: 100 mg Documented By: SAM Pharmacy Consult (Consult Rx Perform Med Rec) 1 each MISCELLANE ONCE PRN PRN Reason: Consult order Polyethylene Glycol (Polyethylene Glycol 3350 17 Gm Powd.Pack) 17 gm PO DAILY [facility] Sodium Chloride (0.9 % Sodium Chloride Flush 3 Ml Syringe) 3 ml IVFLUSH QSHIFT [facility] Last Admin: 04/13/22 08:43 Dose: 3 ml Documented By: SAM Labs CBC & Chem 7: 04/13/22 06:06 04/13/22 06:06 Labs: Laboratory Results - last 24 hr 04/12/22 04/12/22 04/13/22 15:46 20:13 06:06 MCV 95.4 MCH 31.0 MCHC 32.5 RDW 13.0 Plt Count 169 MPV 10.8 Absolute Nucleated RBC 0.000 Nucleated RBC % (auto) 0.0 Anion Gap Estim Creat Clear Calc Estimated GFR POC Glucose 148 H 162 H Random Glucose Calcium Total Bilirubin Direct Bilirubin AST ALT Alkaline Phosphatase Total Protein Albumin 04/13/22 04/13/22 04/13/22 06:06 06:06 07:19 MCV MCH MCHC RDW Plt Count MPV Absolute Nucleated RBC Nucleated RBC % (auto) Anion Gap 17 Estim Creat Clear Calc 19.7 Estimated GFR 14 POC Glucose 150 H Random Glucose 153 H Calcium 7.6 L Total Bilirubin 0.4 Direct Bilirubin 0.2 AST 54 H ALT 57 H Alkaline Phosphatase 340 H Total Protein 6.8 Albumin 2.8 L 04/13/22 12:01 MCV MCH MCHC RDW Plt Count MPV Absolute Nucleated RBC Nucleated RBC % (auto) Anion Gap Estim Creat Clear Calc Estimated GFR POC Glucose 187 H Random Glucose Calcium Total Bilirubin Direct Bilirubin AST ALT Alkaline Phosphatase Total Protein Albumin Microbiology Microbiology Results: Microbiology 04/10/22 Unknown Urine Culture - Final Urine clean catch - Urine camacho top Pseudomonas aeruginosa 04/10/22 14:19 Blood Culture - Preliminary Blood - Venous No growth after 48 hours. 04/10/22 14:19 Blood Culture - Preliminary Blood - Venous No growth after 48 hours. Assessment and Plan (1) Choledocholithiasis: Status: Acute (2) Metabolic encephalopathy: Status: Acute (3) Acute on chronic kidney failure: Status: Acute (4) UTI (urinary tract infection): Status: Acute Plan 71 year old female with past history significant for CKD stage 3, 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 1- PEG/acute hyperkalemia No obstruction on CT DC IVF Potassium improved improvement in renal function with Cr 3.3 Nephrology input appreciated 2-toxic metabolic Encephalopathy 2/2 UTI Improving Likely secondary to PEG. 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 Follow liver function 4- Abnormal head CT Reporting involuntary movements and tremors that started recently CT reported decreased attenuation in central brain at the level of cerebral peduncles of uncertain etiology, but could be passenger service representative of infarct Patient mental status improved MRI done, incomplete study, no acute infarct seen but chronic lacunar infarcts noted Neurology input appreciated 5- Herpes zoster Valtrex renal dose resume Contact precautions 6-Insulin dependent type 2 diabetes- stable POC glucose SSI 7-Hypertension Elevated Restart her home medications 8-Anemia of chronic disease secondary to CKD Check iron stores Follow CBC Morbid obesity BMI of 42 Advised weight reduction DVT prophylaxis- heparin DNR/DNI Pt requires ongoing inpatient stay for Pseudomonas UTI and management of PEG pending MRCP and to prevent possible decompensation to sepsis Quality Stroke Does the patient have a stroke diagnosis?: No VTE Prior VTE?: Yes VTE Risk Level:: Medical - moderate - high VTE Device Contraindication: Treatment Not Indicated VTE Drug Contraindication: N/A - Med Ordered
[2022-04-13] MEDS: polyethylene glycoL 3350 17 GM POWD.PACK PO (14:34)
[2022-04-13] MEDS: bisacodyL 10 MG SUPP.RECT PR (14:34)
[2022-04-13 16:00] VITALS: BP 138/86; PULSE 78; RESP 18; TEMP 36.6; O2SAT 98
[2022-04-13 16:23] LABS: Glucose, Whole Blood 213 mg/dL (60-115)
--- NOTE | 2022-04-13 17:18 | PM.GIPN ---
Subjective Subjective Date of Service: 04/13/22 Interval History: more alert c/o diarrhea minimal abdominal pain mild nausea no vomiting no fever Critical Care Time (minutes): 0 Physical Exam Vital Signs: Vital Signs: Last Vital Signs Temp 97.8 F 04/13/22 16:00 Pulse 78 04/13/22 16:00 Resp 18 04/13/22 16:00 BP 138/86 04/13/22 16:00 Pulse Ox 98 04/13/22 16:00 O2 Del Method 04/13/22 16:00 BMI result Body Mass Index 42.9 EXAM: GENERAL: The patient is obese, dishevelled VITAL SIGNS:see workflow HEENT: Nonicteric sclerae, PERRLA, EOMI. Oropharynx clear. Moist mucous membranes. Conjunctivae appear well perfused. No thyroid mass. CHEST: Chest wall is nontender. HEART: Regular rate and rhythm without murmurs. LUNGS: Clear to auscultation bilaterally. ABDOMEN: Soft, positive bowel sounds, tender RUQ with mild guarding, no organomegaly.no flank tenderness SKIN: No rash, no excessive bruising, petechiae, or purpura. NEUROLOGIC: Cranial nerves II-XII intact without motor/sensory deficit. Objective Data Labs CBC & Chem 7: 04/13/22 06:06 04/13/22 06:06 Labs: Laboratory Results - last 24 hr 04/12/22 04/13/22 04/13/22 20:13 06:06 06:06 WBC 4.7 L RBC 2.61 L Hgb 8.1 L Hct 24.9 L MCV 95.4 MCH 31.0 MCHC 32.5 RDW 13.0 Plt Count 169 MPV 10.8 Absolute Nucleated RBC 0.000 Nucleated RBC % (auto) 0.0 Sodium 141 Potassium 4.7 Chloride 107 Carbon Dioxide 22 Anion Gap 17 BUN 47 H Creatinine 3.32 H Estim Creat Clear Calc 19.7 Estimated GFR 14 POC Glucose 162 H Random Glucose 153 H Calcium 7.6 L Total Bilirubin Direct Bilirubin AST ALT Alkaline Phosphatase Total Protein Albumin 04/13/22 04/13/22 04/13/22 06:06 07:19 12:01 WBC RBC Hgb Hct MCV MCH MCHC RDW Plt Count MPV Absolute Nucleated RBC Nucleated RBC % (auto) Sodium Potassium Chloride Carbon Dioxide Anion Gap BUN Creatinine Estim Creat Clear Calc Estimated GFR POC Glucose 150 H 187 H Random Glucose Calcium Total Bilirubin 0.4 Direct Bilirubin 0.2 AST 54 H ALT 57 H Alkaline Phosphatase 340 H Total Protein 6.8 Albumin 2.8 L 04/13/22 16:13 WBC RBC Hgb Hct MCV MCH MCHC RDW Plt Count MPV Absolute Nucleated RBC Nucleated RBC % (auto) Sodium Potassium Chloride Carbon Dioxide Anion Gap BUN Creatinine Estim Creat Clear Calc Estimated GFR POC Glucose 213 H Random Glucose Calcium Total Bilirubin Direct Bilirubin AST ALT Alkaline Phosphatase Total Protein Albumin Microbiology Microbiology Results: Microbiology 04/10/22 Unknown Urine clean catch - Urine camacho top Urine Culture - Final Pseudomonas aeruginosa 04/10/22 14:19 Blood - Venous Blood Culture - Preliminary No growth after 48 hours. 04/10/22 14:19 Blood - Venous Blood Culture - Preliminary No growth after 48 hours. Procedures Date of Service Date of Service: 04/13/22 Progress Note: A&P Assessment and plan (1) Choledocholithiasis: Status: Acute (2) Anemia in chronic kidney disease: Status: Acute (3) Acute on chronic kidney failure: Status: Acute Plan 1/ 71 yr old f with AMS, noted to have gas in GB wall and possible stone in CBD. LFT have been improving but tender RUQ. 2/ Anemia, prob 2/2 acute on chronic kidney failure Plan; 1/ stool studies 2/ MRCP, if choledocholithiasis present then ERCP 3/ if any overt GI bleeding then will need further work up incl egd and colonoscopy, b12, folate, iron levels Time Spent With Patient Time: Total time spent is greater than 50% in coordination of care (as documented) at patient's floor/unit and/or counseling patient: Quality Stroke Does the patient have a stroke diagnosis?: No VTE Prior VTE?: Yes VTE Risk Level:: Medical - moderate - high VTE Device Contraindication: Treatment Not Indicated VTE Drug Contraindication: N/A - Med Ordered
[2022-04-13 19:19] VITALS: BP 166/69; PULSE 75; RESP 18; TEMP 37; O2SAT 98
[2022-04-13 20:46] LABS: Glucose, Whole Blood 199 mg/dL (60-115)
[2022-04-13] MEDS: Insulin Lispro 100 UNIT/ML 3 ML VIAL SUBCUT (21:01)
[2022-04-13 23:34] VITALS: BP 187/77; PULSE 70; RESP 20; TEMP 36.7; O2SAT 94
[2022-04-14] VITALS (7 sets, daily range): BP systolic 162–189; BP diastolic 69–78; PULSE 56–78; RESP 17–18; TEMP 36.3–37.1; O2SAT 95–98
[2022-04-14] MEDS: Heparin Sodium,Porcine 5,000 UNIT/ML VIAL 5000 UNIT SUBCUT ×2 (06:13→17:03)
[2022-04-14] MEDS: Piperacillin Sodium/Tazobactam 2.25 GM in 0.9 % Sodium Chloride 50 ML IV (06:15)
[2022-04-14 06:55] LABS: Anion Gap 13 (12-20); Blood Urea Nitrogen 41 mg/dL (9-16); Calcium 7.4 mg/dL (8.4-10.2); Carbon Dioxide 23 mmol/L (22-29); Chloride 108 mmol/L (96-108); Creatinine Clr Calc Pharmacy 21.6; Estimated Glomerular Filt Rate 15; Glucose Random 116 mg/dL (60-115); Potassium 3.8 mmol/L (3.3-5.1); Sodium 140 mmol/L (135-145)
[2022-04-14 07:40] LABS: Glucose, Whole Blood 108 mg/dL (60-115)
[2022-04-14] MEDS: hydrALAZINE HCl 50 MG TABLET PO ×3 (08:06→21:04)
[2022-04-14] MEDS: amLODIPine Besylate 10 MG TABLET PO (08:07)
[2022-04-14] MEDS: Metoprolol Tartrate 100 MG TABLET PO ×2 (08:07→21:04)
[2022-04-14] MEDS: 0.9 % Sodium Chloride Flush 3 ML SYRINGE IVFLUSH ×2 (08:08→17:02)
[2022-04-14 08:57] LABS: Alanine Aminotransferase 44 U/L (0-31); Albumin Level 2.5 g/dL (3.5-5.0); Alkaline Phosphatase 283 U/L (39-117); Aspartate Amino Transferase 41 U/L (5-31); Bilirubin Direct 0.2 mg/dL (0.0-0.5); Bilirubin Total 0.3 mg/dL (0.0-1.0); Total Protein 6.1 g/dL (6.5-8.0)
[2022-04-14] MEDS: cefEPime HCl 0.5 GM in 0.9 % Sodium Chloride 50 ML IV (10:43)
--- NOTE | 2022-04-14 11:10 | PM.PNNEP ---
Subjective Subjective Date of Service: 04/14/22 Interval history: Events noted Non oliguric Physical Exam Vital Signs: Vital Signs: Last Vital Signs Temp 97.8 F 04/14/22 07:44 Pulse 66 04/14/22 07:44 Resp 17 04/14/22 07:44 BP 183/78 H 04/14/22 07:44 Pulse Ox 95 04/14/22 07:44 O2 Del Method 04/14/22 07:44 BMI result Body Mass Index 42.9 Const: Other: Constitutional : Alert, interactive, not in distress, morbidly obese Neck : Normal inspection, Supple Cardiovascular : RRR, no JVP, no lower extremity edema Respiratory : fair bilateral air entry, no crackles, wheezes or rhonchi Gastrointestinal: soft, lax, Normal bowel sounds, Non tender Musculoskeletal, left BKA Skin : Warm, Dry, rash in the back representing shingles along L1 dermatome left-sided Neurological : Alert & oriented to self but overall confused, CN 2-12 within normal Objective Data Labs CBC & Chem 7: 04/13/22 06:06 04/14/22 06:00 Labs: Laboratory Results - last 24 hr 04/13/22 04/13/22 04/13/22 12:01 16:13 20:42 Sodium Potassium Chloride Carbon Dioxide Anion Gap BUN Creatinine Estim Creat Clear Calc Estimated GFR POC Glucose 187 H 213 H 199 H Random Glucose Calcium Total Bilirubin Direct Bilirubin AST ALT Alkaline Phosphatase Total Protein Albumin 04/14/22 04/14/22 06:00 07:24 Sodium 140 Potassium 3.8 Chloride 108 Carbon Dioxide 23 Anion Gap 13 BUN 41 H Creatinine 3.03 H Estim Creat Clear Calc 21.6 Estimated GFR 15 POC Glucose 108 Random Glucose 116 H Calcium 7.4 L Total Bilirubin 0.3 Direct Bilirubin 0.2 AST 41 H ALT 44 H Alkaline Phosphatase 283 H Total Protein 6.1 L Albumin 2.5 L Microbiology Microbiology Results: Microbiology 04/10/22 Unknown Urine clean catch - Urine camacho top Urine Culture - Final Pseudomonas aeruginosa 04/10/22 14:19 Blood - Venous Blood Culture - Preliminary No growth after 48 hours. 04/10/22 14:19 Blood - Venous Blood Culture - Preliminary No growth after 48 hours. Procedures Date of Service Date of Service: 04/14/22 Assessment & Plan Assessment and plan (1) Choledocholithiasis: Status: Acute (2) Metabolic encephalopathy: Status: Acute (3) Acute on chronic kidney failure: Status: Acute (4) Uncontrolled hypertension: Status: Acute Plan PEG Met Acidosis Hyperkalemia Renal function is improving Acidosis is better- no need for Bicarb now K normalized Keep I >O No indication for dialysis Watch K Monitor BP Can increase Hydralazine if needed Time Spent With Patient Time: Total time spent is greater than 50% in coordination of care (as documented) at patient's floor/unit and/or counseling patient: Progress Note: Quality Stroke Does the patient have a stroke diagnosis?: No
[2022-04-14 11:28] LABS: Glucose, Whole Blood 129 mg/dL (60-115)
--- NOTE | 2022-04-14 12:15 | CONS_ITS ---
DATE OF SERVICE: 04/11/2022 REASON FOR CONSULTATION: I was called to see this patient to assist in the management of acute kidney injury and hyperkalemia. HISTORY OF PRESENT ILLNESS: To summarize, Zari is well known to us. She is a 71-year-old woman with history of stage 3 chronic kidney disease. Baseline creatinine around 2.6 mg/dL and diabetes mellitus complicated by peripheral artery disease and BKA. She is a resident of a residential and was brought in because of acute kidney injury. The patient is a poor historian. All the information obtained from the chart. At the time of admission, she had severe hyperkalemia, potassium 6.4, and had acute kidney injury with a creatinine of 4.53. She was on losartan and chlorthalidone at the time of admission. Since admission, these have been discontinued and she received medical treatment for hyperkalemia. This consultation has been requested for management of the above abnormalities . 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 PAST SURGICAL HISTORY: Includes a below-knee amputation to the left. SOCIAL HISTORY: Resident of residential. No history of smoking, alcohol abuse. ALLERGIES: SHE IS ALLERGIC TO CODEINE, MORPHINE, , CLONIDINE, LACTOSE, . CURRENT MEDICATIONS: All the current medications were reviewed. She is receiving Ringer's lactate. She was on losartan 75 mg a day along with other medications. REVIEW OF SYSTEMS: Not obtained from the patient due to her mentation. All the information was obtained from the chart. PHYSICAL EXAMINATION: GENERAL: Zari is not in distress. NECK: Supple. No JVD. LUNGS: Bilateral scattered rhonchi. HEART: S1, S2 heard. No gallop. ABDOMEN: Soft, nontender. EXTREMITIES: With some edema. No rash. No clubbing. No myoclonus. Pain with movements. GENITOURINARY: She is nonoliguric. LABORATORY DATA: Sodium 130, potassium 5.2, CO2 of 15, BUN 64, creatinine 4.11, calcium 7.6. AST and ALT were elevated, but they are improving. Serum albumin 2.7. Hemoglobin 7.3, WBC 3.8, platelets 137. Urinalysis showed 2+ protein by dipstick with nitrites, leukocyte esterase, plenty of wbc's, only 1-4 rbc's. Urine sodium was 46. PROBLEMS: 1. Acute kidney injury superimposed on chronic kidney disease. Acute kidney injury is mostly due to hypoperfusion. indicate ischemic acute tubular necrosis. No evidence of obstructive uropathy at this time. 2. Hyponatremia due to the combination of decreased free water excretion in the setting of acute kidney injury and the use of selective serotonin reuptake inhibitors. 3. Hyperkalemia. This is due to the combination of acute kidney injury and continued use of ARBs in the setting of acute kidney injury. She probably has type 4 as well. 4. Hyperchloremic metabolic acidosis. 5. Hypocalcemia. RECOMMENDATIONS: Would include hold losartan and ARBs. Hold diuretics for now. I agreed with IV hydration. I would switch ringers lactate to half-normal saline with 2 amps of sodium bicarbonate at 100 cc/hour. Keep intake more than the output. Once we correct the acidosis, serum potassium should improve. I agree with Lokelma. Use Lokelma 10 g p.o. p.r.n. Use potassium more than 5.2 millimoles. Watch intake and output closely. There is no absolute indication for dialysis yet. We will follow her closely along with the team. Cj Campbell MD BPA/MODL / [id number]
--- NOTE | 2022-04-14 12:35 | P.PNIM_ITS ---
Subjective Subjective Date of Service: 04/14/22 Interval History: the patient was seen and evaluated this morning Kidney function improving , LFT stable Plan for MRCP Denies any fever, chills or shortness of breath No reported other overnight events. Systemic review: No fever, chills or weakness No chest pain, palpitation No shortness of breath or coughing No abdominal pain, nausea or vomiting No urinary symptoms Back rash and pain Physical Exam Vital Signs: Vital Signs: Last Vital Signs Temp 97.8 F 04/14/22 11:26 Pulse 56 04/14/22 11:26 Resp 18 04/14/22 11:26 BP 176/69 H 04/14/22 11:26 Pulse Ox 95 04/14/22 11:26 O2 Del Method 04/14/22 11:26 BMI result Body Mass Index 42.9 Const: Other: Constitutional : Alert, interactive, not in distress, morbidly obese Neck : Normal inspection, Supple Cardiovascular : RRR, no JVP, no lower extremity edema Respiratory : fair bilateral air entry, no crackles, wheezes or rhonchi Gastrointestinal: soft, lax, Normal bowel sounds, Non tender Musculoskeletal, left BKA Skin : Warm, Dry, rash in the back representing shingles along L1 dermatome left-sided Neurological : Alert & oriented to self but overall confused, CN 2-12 within normal Objective Data Active Medications Amlodipine Besylate (Amlodipine Besylate 10 Mg Tablet) 10 mg PO DAILY [facility]; Protocol Last Admin: 04/14/22 08:07 Dose: 10 mg Documented By: MERI Dextrose (Dextrose 50 % 25 Gm/50 Ml Syringe) 25 gm IVPUSH Q15M PRN; Protocol PRN Reason: per Hypoglycemia Standing Ord. Glucose (Glucose Gel 15 Gm Gel..Gram.) 15 gm PO Q15M PRN; Protocol PRN Reason: per Hypoglycemia Standing Ord. Heparin Sodium (Porcine) (Heparin Sodium,Porcine 5,000 Unit/Ml Vial) 5,000 unit SUBCUT Q12H [facility] Last Admin: 04/14/22 06:13 Dose: 5,000 unit Documented By: MICH Hydralazine HCl (Hydralazine Hcl 50 Mg Tablet) 50 mg PO TID [facility]; Protocol Last Admin: 04/14/22 08:06 Dose: 50 mg Documented By: MERI Hydromorphone HCl (Hydromorphone Hcl 0.5 Mg/0.5 Ml Syringe) 0.25 mg IVPUSH Q4H PRN; Protocol PRN Reason: Pain, Severe (Pain Scale 7-10) Last Admin: 04/13/22 11:28 Dose: 0.25 mg Documented By: SAM Cefepime HCl 0.5 gm/ Sodium (Chloride) 50 mls @ 100 mls/hr IV Q24H [facility] Last Infusion: 04/14/22 11:36 Dose: 0 mls/hr Documented By: CHRISSY Insulin Human Lispro (Insulin Lispro 100 Unit/Ml 3 Ml Vial) 0 unit SUBCUT QIDACHS [facility]; Protocol Last Admin: 04/14/22 11:35 Dose: Not Given Documented By: CHRISSY Non-Admin Reason: No Insulin Coverage Metoprolol Tartrate (Metoprolol Tartrate 100 Mg Tablet) 100 mg PO BID [facility]; Protocol Last Admin: 04/14/22 08:07 Dose: 100 mg Documented By: MERI Pharmacy Consult (Consult Rx Perform Med Rec) 1 each MISCELLANE ONCE PRN PRN Reason: Consult order Polyethylene Glycol (Polyethylene Glycol 3350 17 Gm Powd.Pack) 17 gm PO DAILY [facility] Last Admin: 04/14/22 08:09 Dose: Not Given Documented By: MERI Non-Admin Reason: NPO Sodium Chloride (0.9 % Sodium Chloride Flush 3 Ml Syringe) 3 ml IVFLUSH QSHIFT [facility] Last Admin: 04/14/22 08:08 Dose: 3 ml Documented By: MERI Labs CBC & Chem 7: 04/13/22 06:06 04/14/22 06:00 Labs: Laboratory Results - last 24 hr 04/13/22 04/13/22 04/13/22 12:01 16:13 20:42 Anion Gap Estim Creat Clear Calc Estimated GFR POC Glucose 187 H 213 H 199 H Random Glucose Calcium Total Bilirubin Direct Bilirubin AST ALT Alkaline Phosphatase Total Protein Albumin 04/14/22 04/14/22 04/14/22 06:00 07:24 11:24 Anion Gap 13 Estim Creat Clear Calc 21.6 Estimated GFR 15 POC Glucose 108 129 H Random Glucose 116 H Calcium 7.4 L Total Bilirubin 0.3 Direct Bilirubin 0.2 AST 41 H ALT 44 H Alkaline Phosphatase 283 H Total Protein 6.1 L Albumin 2.5 L Assessment and Plan (1) UTI (urinary tract infection): Status: Acute (2) Choledocholithiasis: Status: Acute (3) Metabolic encephalopathy: Status: Acute Plan 71 year old female with past history significant for CKD stage 3, 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 1- PEG on CKD stage 4 ,acute hyperkalemia No obstruction on CT DC IVF Potassium improved improvement in renal function with Cr 3 Nephrology input appreciated 2-toxic metabolic Encephalopathy 2/2 UTI Improving Likely secondary to PEG. 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 Follow liver function 4- Abnormal head CT Reporting involuntary movements and tremors that started recently CT reported decreased attenuation in central brain at the level of cerebral peduncles of uncertain etiology, but could be abrasives sales representative of infarct Patient mental status improved MRI done, incomplete study, no acute infarct seen but chronic lacunar infarcts noted Neurology input appreciated 5- Herpes zoster Valtrex renal dose resume Contact precautions 6-Insulin dependent type 2 diabetes- stable POC glucose SSI 7-Hypertension Elevated Restart her home medications 8-Anemia of chronic disease secondary to CKD Check iron stores Follow CBC Morbid obesity BMI of 42 Advised weight reduction DVT prophylaxis- heparin DNR/DNI Pt requires ongoing inpatient stay for Pseudomonas UTI and management of PEG pending MRCP and to prevent possible decompensation to sepsis Quality Stroke Does the patient have a stroke diagnosis?: No VTE Prior VTE?: Yes VTE Risk Level:: Medical - moderate - high VTE Device Contraindication: Treatment Not Indicated VTE Drug Contraindication: N/A - Med Ordered
--- NOTE | 2022-04-14 15:26 | MHC.CM.PN ---
per rounds pt to have an mrcp no dc date at this time
[2022-04-14 15:52] LABS: Glucose, Whole Blood 161 mg/dL (60-115)
[2022-04-14] MEDS: Insulin Lispro 100 UNIT/ML 3 ML VIAL SUBCUT (17:02)
[2022-04-14 20:10] LABS: Glucose, Whole Blood 136 mg/dL (60-115)
[2022-04-14] MEDS: Acetaminophen 325 MG TABLET 650 MG PO (21:43)
[2022-04-15] MEDS: 0.9 % Sodium Chloride Flush 3 ML SYRINGE IVFLUSH ×3 (01:17→17:20)
[2022-04-15] MEDS: HYDROmorphone HCl 0.5 MG/0.5 ML SYRINGE 0.25 MG IVPUSH (02:57)
[2022-04-15 03:04] VITALS: BP 159/69; PULSE 62; RESP 18; TEMP 36.7; O2SAT 95
[2022-04-15 06:37] LABS: Anion Gap 14 (12-20); Blood Urea Nitrogen 38 mg/dL (9-16); Calcium 7.4 mg/dL (8.4-10.2); Carbon Dioxide 22 mmol/L (22-29); Chloride 107 mmol/L (96-108); Creatinine Clr Calc Pharmacy 21.8; Estimated Glomerular Filt Rate 16; Glucose Random 115 mg/dL (60-115); Potassium 3.9 mmol/L (3.3-5.1); Sodium 139 mmol/L (135-145)
[2022-04-15 06:38] LABS: Alanine Aminotransferase 40 U/L (0-31); Albumin Level 2.6 g/dL (3.5-5.0); Alkaline Phosphatase 290 U/L (39-117); Aspartate Amino Transferase 41 U/L (5-31); Bilirubin Direct 0.2 mg/dL (0.0-0.5); Bilirubin Total 0.3 mg/dL (0.0-1.0); Total Protein 6.5 g/dL (6.5-8.0)
[2022-04-15] MEDS: Heparin Sodium,Porcine 5,000 UNIT/ML VIAL 5000 UNIT SUBCUT ×2 (06:38→18:50)
[2022-04-15 07:13] VITALS: BP 175/73; PULSE 67; RESP 17; TEMP 36.4; O2SAT 96
[2022-04-15 08:38] LABS: Glucose, Whole Blood 120 mg/dL (60-115)
--- NOTE | 2022-04-15 09:22 | PM.PNNEP ---
Subjective Subjective Date of Service: 04/15/22 Interval history: Eventsnoted More awake Non oliguric Physical Exam Vital Signs: Vital Signs: Last Vital Signs Temp 97.5 F 04/15/22 07:13 Pulse 67 04/15/22 07:13 Resp 17 04/15/22 07:13 BP 175/73 H 04/15/22 07:13 Pulse Ox 96 04/15/22 07:13 O2 Del Method 04/15/22 07:13 BMI result Body Mass Index 42.9 Const: Other: Constitutional : Alert, interactive, not in distress, morbidly obese Neck : Normal inspection, Supple Cardiovascular : RRR, no JVP, no lower extremity edema Respiratory : fair bilateral air entry, no crackles, wheezes or rhonchi Gastrointestinal: soft, lax, Normal bowel sounds, Non tender Musculoskeletal, left BKA Skin : Warm, Dry, rash in the back representing shingles along L1 dermatome left-sided Neurological : Alert & oriented to self but overall confused, CN 2-12 within normal Objective Data Labs CBC & Chem 7: 04/13/22 06:06 04/15/22 05:54 Labs: Laboratory Results - last 24 hr 04/14/22 04/14/22 04/14/22 11:24 15:47 19:45 Sodium Potassium Chloride Carbon Dioxide Anion Gap BUN Creatinine Estim Creat Clear Calc Estimated GFR POC Glucose 129 H 161 H 136 H Random Glucose Calcium Total Bilirubin Direct Bilirubin AST ALT Alkaline Phosphatase Total Protein Albumin 04/15/22 04/15/22 04/15/22 05:54 05:54 07:16 Sodium 139 Potassium 3.9 Chloride 107 Carbon Dioxide 22 Anion Gap 14 BUN 38 H Creatinine 2.99 H Estim Creat Clear Calc 21.8 Estimated GFR 16 POC Glucose 120 H Random Glucose 115 Calcium 7.4 L Total Bilirubin 0.3 Direct Bilirubin 0.2 AST 41 H ALT 40 H Alkaline Phosphatase 290 H Total Protein 6.5 Albumin 2.6 L Microbiology Microbiology Results: Microbiology 04/10/22 Unknown Urine clean catch - Urine camacho top Urine Culture - Final Pseudomonas aeruginosa 04/10/22 14:19 Blood - Venous Blood Culture - Preliminary No growth after 48 hours. 04/10/22 14:19 Blood - Venous Blood Culture - Preliminary No growth after 48 hours. Procedures Date of Service Date of Service: 04/15/22 Assessment & Plan Assessment and plan (1) Acute on chronic kidney failure: Status: Acute Plan PEG Met Acidosis Hyperkalemia Renal function is improving Acidosis is better- no need for Bicarb now K normalized Keep I >O No indication for dialysis Watch K Monitor BP Time Spent With Patient Time: Total time spent is greater than 50% in coordination of care (as documented) at patient's floor/unit and/or counseling patient: Progress Note: Quality Stroke Does the patient have a stroke diagnosis?: No
[2022-04-15] MEDS: hydrALAZINE HCl 50 MG TABLET PO ×3 (09:43→20:37)
[2022-04-15] MEDS: Metoprolol Tartrate 100 MG TABLET PO ×2 (09:43→20:37)
[2022-04-15] MEDS: cefEPime HCl 0.5 GM in 0.9 % Sodium Chloride 50 ML IV (09:43)
[2022-04-15] MEDS: amLODIPine Besylate 10 MG TABLET PO (09:43)
[2022-04-15 11:23] LABS: Glucose, Whole Blood 137 mg/dL (60-115)
[2022-04-15 12:00] VITALS: BP 175/70; PULSE 70; RESP 18; TEMP 37.1; O2SAT 96
--- NOTE | 2022-04-15 12:21 | P.PNIM_ITS ---
Subjective Subjective Date of Service: 04/15/22 Interval History: the patient was seen and evaluated this morning Feels better overall , LFT stable Plan for ERCP why tomorrow Denies any fever, chills or shortness of breath No reported other overnight events. Systemic review: No fever, chills or weakness No chest pain, palpitation No shortness of breath or coughing No abdominal pain, nausea or vomiting No urinary symptoms Back rash and pain improving Physical Exam Vital Signs: Vital Signs: Last Vital Signs Temp 98.7 F 04/15/22 12:00 Pulse 70 04/15/22 12:00 Resp 18 04/15/22 12:00 BP 175/70 H 04/15/22 12:00 Pulse Ox 96 04/15/22 12:00 O2 Del Method 04/15/22 12:00 BMI result Body Mass Index 42.9 Const: Other: Constitutional : Alert, interactive, not in distress, morbidly obese Neck : Normal inspection, Supple Cardiovascular : RRR, no JVP, no lower extremity edema Respiratory : fair bilateral air entry, no crackles, wheezes or rhonchi Gastrointestinal: soft, lax, Normal bowel sounds, Non tender Musculoskeletal, left BKA Skin : Warm, Dry, rash in the back representing shingles along L1 dermatome left -sided Neurological : Alert & oriented to self but overall confused, CN 2-12 within normal Objective Data Active Medications Amlodipine Besylate (Amlodipine Besylate 10 Mg Tablet) 10 mg PO DAILY [facility]; Protocol Last Admin: 04/15/22 09:43 Dose: 10 mg Documented By: CLEM Dextrose (Dextrose 50 % 25 Gm/50 Ml Syringe) 25 gm IVPUSH Q15M PRN; Protocol PRN Reason: per Hypoglycemia Standing Ord. Glucose (Glucose Gel 15 Gm Gel..Gram.) 15 gm PO Q15M PRN; Protocol PRN Reason: per Hypoglycemia Standing Ord. Heparin Sodium (Porcine) (Heparin Sodium,Porcine 5,000 Unit/Ml Vial) 5,000 unit SUBCUT Q12H [facility] Last Admin: 04/15/22 06:38 Dose: 5,000 unit Documented By: TALYA Hydralazine HCl (Hydralazine Hcl 50 Mg Tablet) 50 mg PO TID [facility]; Protocol Last Admin: 04/15/22 09:43 Dose: 50 mg Documented By: CLEM Hydromorphone HCl (Hydromorphone Hcl 0.5 Mg/0.5 Ml Syringe) 0.25 mg IVPUSH Q4H PRN; Protocol PRN Reason: Pain, Severe (Pain Scale 7-10) Last Admin: 04/15/22 02:57 Dose: 0.25 mg Documented By: TALYA Cefepime HCl 0.5 gm/ Sodium (Chloride) 50 mls @ 100 mls/hr IV Q24H [facility] Last Infusion: 04/15/22 10:32 Dose: 0 mls/hr Documented By: CLEM Insulin Human Lispro (Insulin Lispro 100 Unit/Ml 3 Ml Vial) 0 unit SUBCUT [facility]; Protocol Last Admin: 04/15/22 11:49 Dose: Not Given Documented By: CLEM Non-Admin Reason: No Insulin Coverage Metoprolol Tartrate (Metoprolol Tartrate 100 Mg Tablet) 100 mg PO BID [facility]; Protocol Last Admin: 04/15/22 09:43 Dose: 100 mg Documented By: CLEM Pharmacy Consult (Consult Rx Perform Med Rec) 1 each MISCELLANE ONCE PRN PRN Reason: Consult order Polyethylene Glycol (Polyethylene Glycol 3350 17 Gm Powd.Pack) 17 gm PO DAILY [facility] Last Admin: 04/15/22 10:13 Dose: Not Given Documented By: CLEM Non-Admin Reason: Patient Refused Sodium Chloride (0.9 % Sodium Chloride Flush 3 Ml Syringe) 3 ml IVFLUSH QSHIFT [facility] Last Admin: 04/15/22 09:42 Dose: 3 ml Documented By: CLEM Labs CBC & Chem 7: 04/13/22 06:06 04/15/22 05:54 Labs: Laboratory Results - last 24 hr 04/14/22 04/14/22 04/15/22 15:47 19:45 05:54 Anion Gap 14 Estim Creat Clear Calc 21.8 Estimated GFR 16 POC Glucose 161 H 136 H Random Glucose 115 Calcium 7.4 L Total Bilirubin Direct Bilirubin AST ALT Alkaline Phosphatase Total Protein Albumin 04/15/22 04/15/22 04/15/22 05:54 07:16 10:40 Anion Gap Estim Creat Clear Calc Estimated GFR POC Glucose 120 H 137 H Random Glucose Calcium Total Bilirubin 0.3 Direct Bilirubin 0.2 AST 41 H ALT 40 H Alkaline Phosphatase 290 H Total Protein 6.5 Albumin 2.6 L Assessment and Plan (1) UTI (urinary tract infection): Status: Acute (2) Choledocholithiasis: Status: Acute (3) Metabolic encephalopathy: Status: Acute Plan 71 year old female with past history significant for CKD stage 3, 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 MRCP showing small stone in CBD Plan for ERCP tomorrow Surgery recommended cholecystectomy once medically stable Follow liver function 4- Abnormal head CT Reporting involuntary movements and tremors that started recently CT reported decreased attenuation in central brain at the level of cerebral peduncles of uncertain etiology, but could be client service representative of infarct Patient mental status improved MRI done, incomplete study, no acute infarct seen but chronic lacunar infarcts noted Neurology input appreciated 5- Herpes zoster Valtrex renal dose resume Contact precautions 6-Insulin dependent type 2 diabetes- stable POC glucose SSI 7-Hypertension Elevated Restart her home medications 8-Anemia of chronic disease secondary to CKD Check iron stores Follow CBC Morbid obesity BMI of 42 Advised weight reduction DVT prophylaxis- heparin DNR/DNI Pt requires ongoing inpatient stay for Pseudomonas UTI and pending ERCP and to prevent possible decompensation to sepsis Quality Stroke Does the patient have a stroke diagnosis?: No VTE Prior VTE?: Yes VTE Risk Level:: Medical - moderate - high VTE Device Contraindication: Treatment Not Indicated VTE Drug Contraindication: N/A - Med Ordered
[2022-04-15 15:54] VITALS: BP 170/74; PULSE 66; RESP 17; TEMP 37.3; O2SAT 96
[2022-04-15 16:13] LABS: Glucose, Whole Blood 129 mg/dL (60-115)
[2022-04-15 19:51] VITALS: BP 166/74; PULSE 69; RESP 17; TEMP 36.9; O2SAT 96
[2022-04-15 20:08] LABS: Glucose, Whole Blood 143 mg/dL (60-115)
[2022-04-15 23:26] VITALS: BP 170/69; PULSE 64; RESP 18; TEMP 37.1; O2SAT 94
[2022-04-16] VITALS (12 sets, daily range): BP systolic 136–179; BP diastolic 52–78; PULSE 62–86; RESP 11–20; TEMP 35.8–37.1; O2SAT 94–100
[2022-04-16] MEDS: Acetaminophen 325 MG TABLET 650 MG PO (00:40)
[2022-04-16] MEDS: 0.9 % Sodium Chloride Flush 3 ML SYRINGE IVFLUSH ×4 (00:42→21:27)
[2022-04-16] MEDS: Heparin Sodium,Porcine 5,000 UNIT/ML VIAL 5000 UNIT SUBCUT ×2 (05:51→18:48)
[2022-04-16 05:56] LABS: Glucose, Whole Blood 120 mg/dL (60-115)
[2022-04-16 06:27] LABS: Anion Gap 16 (12-20); Blood Urea Nitrogen 38 mg/dL (9-16); Carbon Dioxide 19 mmol/L (22-29); Chloride 105 mmol/L (96-108); Creatinine Clr Calc Pharmacy 22.8; Estimated Glomerular Filt Rate 16; Glucose Random 132 mg/dL (60-115); Potassium 3.8 mmol/L (3.3-5.1); Sodium 136 mmol/L (135-145)
[2022-04-16 07:25] LABS: Glucose, Whole Blood 131 mg/dL (60-115)
[2022-04-16] MEDS: Metoprolol Tartrate 100 MG TABLET PO ×2 (09:28→21:26)
[2022-04-16] MEDS: hydrALAZINE HCl 50 MG TABLET PO ×2 (09:28→21:26)
[2022-04-16] MEDS: amLODIPine Besylate 10 MG TABLET PO (09:28)
[2022-04-16] MEDS: cefEPime HCl 0.5 GM in 0.9 % Sodium Chloride 50 ML IV (09:47)
--- NOTE | 2022-04-16 10:49 | HO.PM.IMPN ---
Subjective Subjective Date of Service: 04/16/22 Interval History: the patient was seen and evaluated this morning Feels better overall , LFT stable Plan for ERCP today Denies any fever, chills or shortness of breath No reported other overnight events. Systemic review: No fever, chills or weakness No chest pain, palpitation No shortness of breath or coughing No abdominal pain, nausea or vomiting No urinary symptoms Back rash and pain improving Physical Exam Vital Signs: Vital Signs: Last Vital Signs Temp 98.4 F 04/16/22 07:09 Pulse 69 04/16/22 07:09 Resp 18 04/16/22 07:09 BP 179/77 H 04/16/22 07:09 Pulse Ox 96 04/16/22 07:09 O2 Del Method 04/16/22 07:09 BMI result Body Mass Index 42.9 Const: Other: Constitutional : Alert, interactive, not in distress, morbidly obese Neck : Normal inspection, Supple Cardiovascular : RRR, no JVP, no lower extremity edema Respiratory : fair bilateral air entry, no crackles, wheezes or rhonchi Gastrointestinal: soft, lax, Normal bowel sounds, Non tender Musculoskeletal, left BKA Skin : Warm, Dry, rash in the back representing shingles along L1 dermatome left-sided Neurological : Alert & oriented to self but overall confused, CN 2-12 within normal Objective Data Active Medications Amlodipine Besylate (Amlodipine Besylate 10 Mg Tablet) 10 mg PO DAILY [facility]; Protocol Last Admin: 04/16/22 09:28 Dose: 10 mg Documented By: PHUC Dextrose (Dextrose 50 % 25 Gm/50 Ml Syringe) 25 gm IVPUSH Q15M PRN; Protocol PRN Reason: per Hypoglycemia Standing Ord. Glucose (Glucose Gel 15 Gm Gel..Gram.) 15 gm PO Q15M PRN; Protocol PRN Reason: per Hypoglycemia Standing Ord. Heparin Sodium (Porcine) (Heparin Sodium,Porcine 5,000 Unit/Ml Vial) 5,000 unit SUBCUT Q12H [facility] Last Admin: 04/16/22 05:51 Dose: 5,000 unit Documented By: JEAN PAUL Hydralazine HCl (Hydralazine Hcl 50 Mg Tablet) 50 mg PO TID [facility]; Protocol Last Admin: 04/16/22 09:28 Dose: 50 mg Documented By: PHUC Hydromorphone HCl (Hydromorphone Hcl 0.5 Mg/0.5 Ml Syringe) 0.25 mg IVPUSH Q4H PRN; Protocol PRN Reason: Pain, Severe (Pain Scale 7-10) Last Admin: 04/15/22 02:57 Dose: 0.25 mg Documented By: TALYA Cefepime HCl 0.5 gm/ Sodium (Chloride) 50 mls @ 100 mls/hr IV Q24H [facility] Last Admin: 04/16/22 09:47 Dose: 100 mls/hr Documented By: PHUC Insulin Human Lispro (Insulin Lispro 100 Unit/Ml 3 Ml Vial) 0 unit SUBCUT QIDACHS [facility]; Protocol Last Admin: 04/16/22 08:30 Dose: Not Given Documented By: PHUC Non-Admin Reason: No Insulin Coverage Metoprolol Tartrate (Metoprolol Tartrate 100 Mg Tablet) 100 mg PO BID [facility]; Protocol Last Admin: 04/16/22 09:28 Dose: 100 mg Documented By: PHUC Pharmacy Consult (Consult Rx Perform Med Rec) 1 each MISCELLANE ONCE PRN PRN Reason: Consult order Polyethylene Glycol (Polyethylene Glycol 3350 17 Gm Powd.Pack) 17 gm PO DAILY [facility] Last Admin: 04/16/22 09:29 Dose: Not Given Documented By: PHUC Non-Admin Reason: Patient Refused Sodium Chloride (0.9 % Sodium Chloride Flush 3 Ml Syringe) 3 ml IVFLUSH QSHIFT [facility] Last Admin: 04/16/22 09:29 Dose: 3 ml Documented By: PHUC Labs CBC & Chem 7: 04/13/22 06:06 04/16/22 05:37 Labs: Laboratory Results - last 24 hr 04/15/22 04/15/22 04/15/22 10:40 15:56 19:53 Anion Gap Estim Creat Clear Calc Estimated GFR POC Glucose 137 H 129 H 143 H Random Glucose Calcium 04/16/22 04/16/22 04/16/22 05:37 05:52 07:15 Anion Gap 16 Estim Creat Clear Calc 22.8 Estimated GFR 16 POC Glucose 120 H 131 H Random Glucose 132 H Calcium 7.0 L Microbiology Microbiology Results: Microbiology 04/10/22 14:19 Blood Culture - Final Blood - Venous No growth after 5 days. 04/10/22 14:19 Blood Culture - Final Blood - Venous No growth after 5 days. 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 MRCP showing small stone in CBD Plan for ERCP Surgery recommended cholecystectomy likely to be done as outpatient after recovering from current infection Follow liver function 4- Abnormal head CT Reporting involuntary movements and tremors that started recently CT reported decreased attenuation in central brain at the level of cerebral peduncles of uncertain etiology, but could be registration representative of infarct Patient mental status improved MRI done, incomplete study, no acute infarct seen but chronic lacunar infarcts noted Neurology input appreciated 5- Herpes zoster Valtrex renal dose resume Contact precautions 6-Insulin dependent type 2 diabetes- stable POC glucose SSI 7-Hypertension Elevated Restart her home medications 8-Anemia of chronic disease secondary to CKD Check iron stores Follow CBC Morbid obesity BMI of 42 Advised weight reduction DVT prophylaxis- heparin DNR/DNI Pt requires ongoing inpatient stay for Pseudomonas UTI and pending ERCP and to prevent possible decompensation to sepsis Quality Stroke Does the patient have a stroke diagnosis?: No VTE Prior VTE?: Yes VTE Risk Level:: Medical - moderate - high VTE Device Contraindication: Treatment Not Indicated VTE Drug Contraindication: N/A - Med Ordered
[2022-04-16 11:24] LABS: Glucose, Whole Blood 130 mg/dL (60-115)
--- NOTE | 2022-04-16 11:30 | PM.PNNEP ---
Subjective Subjective Date of Service: 04/17/22 Interval history: the patient was seen and evaluated this morning Feels better overall , LFT stable Plan for ERCP today Denies any fever, chills or shortness of breath No reported other overnight events. Systemic review: No fever, chills or weakness No chest pain, palpitation No shortness of breath or coughing No abdominal pain, nausea or vomiting No urinary symptoms Back rash and pain improving Physical Exam Vital Signs: Vital Signs: Last Vital Signs Temp 100.6 F H 04/16/22 11:07 Pulse 65 04/16/22 11:07 Resp 18 04/16/22 11:07 BP 175/78 H 04/16/22 11:07 Pulse Ox 97 04/16/22 11:07 O2 Del Method 04/16/22 11:07 BMI result Body Mass Index 42.9 Const: Other: Constitutional : Alert, interactive, not in distress, morbidly obese Neck : Normal inspection, Supple Cardiovascular : RRR, no JVP, no lower extremity edema Respiratory : fair bilateral air entry, no crackles, wheezes or rhonchi Gastrointestinal: soft, lax, Normal bowel sounds, Non tender Musculoskeletal, left BKA Skin : Warm, Dry, rash in the back representing shingles along L1 dermatome left-sided Neurological : Alert & oriented to self but overall confused, CN 2-12 within normal Objective Data Labs CBC & Chem 7: 04/13/22 06:06 04/17/22 06:14 Labs: Laboratory Results - last 24 hr 04/15/22 04/15/22 04/16/22 15:56 19:53 05:37 Sodium 136 Potassium 3.8 Chloride 105 Carbon Dioxide 19 L Anion Gap 16 BUN 38 H Creatinine 2.87 H Estim Creat Clear Calc 22.8 Estimated GFR 16 POC Glucose 129 H 143 H Random Glucose 132 H Calcium 7.0 L 04/16/22 04/16/22 04/16/22 05:52 07:15 11:10 Sodium Potassium Chloride Carbon Dioxide Anion Gap BUN Creatinine Estim Creat Clear Calc Estimated GFR POC Glucose 120 H 131 H 130 H Random Glucose Calcium Microbiology Microbiology Results: Microbiology 04/10/22 14:19 Blood - Venous Blood Culture - Final No growth after 5 days. 04/10/22 14:19 Blood - Venous Blood Culture - Final No growth after 5 days. 04/10/22 Unknown Urine clean catch - Urine camacho top Urine Culture - Final Pseudomonas aeruginosa Procedures Date of Service Date of Service: 04/16/22 Assessment & Plan Assessment and plan (1) Acute on chronic kidney failure: Status: Acute Plan PEG Met Acidosis Hyperkalemia Renal function is improving Acidosis is better- no need for Bicarb now K normalized Keep I >O No indication for dialysis Watch K Monitor BP Time Spent With Patient Time: Total time spent is greater than 50% in coordination of care (as documented) at patient's floor/unit and/or counseling patient: Progress Note: Quality Stroke Does the patient have a stroke diagnosis?: No
[2022-04-16] MEDS: Losartan Potassium 25 MG TABLET 75 MG PO (12:50)
--- NOTE | 2022-04-16 13:11 | MHC.CM.PN ---
Patient is not yet medically cleared for dc (UTI/IV Cefepime); Returning to [place] at [facility] [place] and CM will continue to follow.
--- NOTE | 2022-04-16 14:01 | MHC.SHP ---
Pre-Procedural Eval Section A Date of Service: 04/16/22 The patient is an INPATIENT: Yes The History & Physical has been completed within 30 days and I have reviewed it.: Yes Section B Chief Complaint: Hyperkalemia/PEG Allergies: Allergies Allergy/AdvReac Type Severity Reaction Status Date / Time codeine [CODEINE] Allergy Unknown UNKNOWN Verified 04/10/22 09:48 morphine [MORPHINE] Allergy Unknown UNKNOWN, Verified 04/10/22 09:48 anaphylaxis adhesive tape Allergy Unknown Verified 04/10/22 09:48 clarithromycin Allergy Unknown Verified 04/10/22 09:48 clonidine [From Catapres] Allergy Unknown Verified 04/10/22 09:48 lactose Allergy Unknown Verified 04/10/22 09:48 latex Allergy Unknown Verified 04/10/22 09:48 Plan Diagnosis/Plan: Unchanged I have reviewed the history and physical and performed a pertinent physical examination on my patient. No changes have occurred unless specified. discussed with brother who is POA, agrees with ERCP
--- NOTE | 2022-04-16 14:15 | HO.ANESPROP2 ---
[facility] Active Problems Active Problems: All Active Problems (Updated 04/13/22 @ 13:53 by Za Quarles MD) UTI (urinary tract infection) (Acute) Cerebral microvascular disease (Acute) Choledocholithiasis (Acute) Metabolic encephalopathy (Acute) Basal cell carcinoma of right upper arm (Acute) Squamous cell carcinoma of left upper extremity (Acute) Diabetic retinopathy (Acute) Anemia in chronic kidney disease (Acute) Acute on chronic kidney failure (Acute) Uncontrolled hypertension (Acute) Anemia in CKD (chronic kidney disease) (Acute) PAD (peripheral artery disease) (Acute) Acute hyperkalemia (Acute) Past Medical History Medical History (Updated 04/13/22 @ 13:53 by Za Quarles MD) Acute kidney failure Acute respiratory failure with hypoxia Atherosclerosis Basal cell carcinoma of right upper arm Below-knee amputation of left lower extremity Diabetes Diabetic retinopathy Dysphagia Failure to thrive in adult GERD (gastroesophageal reflux disease) History of venous thromboembolism Hypothyroidism PVD (peripheral vascular disease) Squamous cell carcinoma of left upper extremity TIA (transient ischemic attack) Family History Family history of problems with anesthesia: No Surgical History Surgical History (Updated 04/10/22 @ 14:38 by CORINNA Keyes) S/P below knee amputation History of Problems with Anesthesia: No Social History Social History Household Members: Other Housing: Correction Do you presently have visiting nurse or other home services: No Alcohol intake: never Patient Tobacco Use Status: Never used Tobacco Advance Directives Date on File: 02/25/22 service: No Current occupational status: disabled Meds Allergies Allergy/AdvReac Type Severity Reaction Status Date / Time codeine [CODEINE] Allergy Unknown UNKNOWN Verified 04/10/22 09:48 morphine [MORPHINE] Allergy Unknown UNKNOWN, Verified 04/10/22 09:48 anaphylaxis adhesive tape Allergy Unknown Verified 04/10/22 09:48 clarithromycin Allergy Unknown Verified 04/10/22 09:48 clonidine [From Catapres] Allergy Unknown Verified 04/10/22 09:48 lactose Allergy Unknown Verified 04/10/22 09:48 latex Allergy Unknown Verified 04/10/22 09:48 Active Medications: Current Medications Amlodipine Besylate (Amlodipine Besylate 10 Mg Tablet) 10 mg PO DAILY [facility]; Protocol Last Admin: 04/16/22 09:28 Dose: 10 mg Dextrose (Dextrose 50 % 25 Gm/50 Ml Syringe) 25 gm IVPUSH Q15M PRN; Protocol PRN Reason: per Hypoglycemia Standing Ord. Glucose (Glucose Gel 15 Gm Gel..Gram.) 15 gm PO Q15M PRN; Protocol PRN Reason: per Hypoglycemia Standing Ord. Heparin Sodium (Porcine) (Heparin Sodium,Porcine 5,000 Unit/Ml Vial) 5,000 unit SUBCUT Q12H [facility] Last Admin: 04/16/22 05:51 Dose: 5,000 unit Hydralazine HCl (Hydralazine Hcl 50 Mg Tablet) 50 mg PO TID [facility]; Protocol Last Admin: 04/16/22 09:28 Dose: 50 mg Hydromorphone HCl (Hydromorphone Hcl 0.5 Mg/0.5 Ml Syringe) 0.25 mg IVPUSH Q4H PRN; Protocol PRN Reason: Pain, Severe (Pain Scale 7-10) Last Admin: 04/15/22 02:57 Dose: 0.25 mg Cefepime HCl 0.5 gm/ Sodium (Chloride) 50 mls @ 100 mls/hr IV Q24H [facility] Last Infusion: 04/16/22 11:52 Dose: Infused Insulin Human Lispro (Insulin Lispro 100 Unit/Ml 3 Ml Vial) 0 unit SUBCUT QIDACHS [facility]; Protocol Last Admin: 04/16/22 12:22 Dose: Not Given Levothyroxine Sodium (Levothyroxine Sodium 200 Mcg Tablet) 200 mcg PO BEDTIME [facility] Losartan Potassium (Losartan Potassium 25 Mg Tablet) 75 mg PO DAILY [facility]; Protocol Last Admin: 04/16/22 12:50 Dose: 75 mg Metoprolol Tartrate (Metoprolol Tartrate 100 Mg Tablet) 100 mg PO BID [facility]; Protocol Last Admin: 04/16/22 09:28 Dose: 100 mg Pharmacy Consult (Consult Rx Perform Med Rec) 1 each MISCELLANE ONCE PRN PRN Reason: Consult order Polyethylene Glycol (Polyethylene Glycol 3350 17 Gm Powd.Pack) 17 gm PO DAILY [facility] Last Admin: 04/16/22 09:29 Dose: Not Given Sodium Chloride (0.9 % Sodium Chloride Flush 3 Ml Syringe) 3 ml IVFLUSH QSHIFT [facility] Last Admin: 04/16/22 09:29 Dose: 3 ml Home Medications Medication Instructions Recorded Confirmed Last Taken Type amitriptyline 25 mg tablet 1 tab PO BEDTIME 02/24/22 04/10/22 Unknown History amlodipine 10 mg tablet 1 tab PO DAILY 02/24/22 04/10/22 Unknown History apixaban 2.5 mg tablet (Eliquis) 1 tab PO BID 02/24/22 04/10/22 Unknown History aspirin 81 mg tablet,delayed 81 mg PO DAILY 02/24/22 04/10/22 Unknown History release atorvastatin 80 mg tablet 1 tab PO DAILY 02/24/22 04/10/22 Unknown History oovxqiljne-oejrwtwsfcrar-vqasbkob 1 cap PO Q8H PRN Headache 02/24/22 04/10/22 Unknown History 50 mg-300 mg-40 mg capsule (Fioricet) calcium carbonate 600 mg calcium 600 mg PO BID 02/24/22 04/10/22 Unknown History (1,500 mg) tablet (Calcium) escitalopram oxalate 10 mg tablet 1 tab PO DAILY 02/24/22 04/10/22 Unknown History furosemide 40 mg tablet 1 tab PO BID 02/24/22 04/10/22 Unknown History insulin aspart U-100 100 unit/mL See Rx Instructions .Route .COMPLEX 02/24/22 04/10/22 Unknown History subcutaneous solution (Novolog U-100 Insulin aspart) insulin degludec 100 unit/mL (3 10 unit subcut BEDTIME 02/24/22 04/10/22 Unknown History mL) subcutaneous pen (Tresiba FlexTouch U-100 insulin) lactase 3,000 unit tablet (Lactaid) 3,000 unit PO TIDWM 02/24/22 04/10/22 Unknown History levothyroxine 200 mcg tablet 1 tab PO BEDTIME 02/24/22 04/10/22 Unknown History losartan 25 mg tablet 3 tab PO DAILY 02/24/22 04/10/22 Unknown History metoprolol tartrate 100 mg tablet 1 tab PO BID 02/24/22 04/10/22 Unknown History ondansetron HCl 4 mg tablet 1 tab PO Q8H PRN Nausea 02/24/22 04/10/22 Unknown History oxycodone 5 mg tablet 1 tab PO BEDTIME 02/24/22 04/10/22 Unknown History oxycodone 5 mg tablet 2 tab PO Q6H PRN Pain 02/24/22 04/10/22 Unknown History pantoprazole 40 mg tablet,delayed 1 tab PO BID 02/24/22 04/10/22 Unknown History release polyvinyl alcohol 1.4 % eye drops 1 drp ophthalmic (eye) BID 02/24/22 04/10/22 Unknown History (Artificial Tears (polyvinyl alcohol)) acetaminophen 325 mg tablet 650 mg PO Q8H PRN Pain 04/10/22 04/10/22 Unknown History (Tylenol) baclofen 5 mg tablet 5 mg PO BEDTIME 04/10/22 04/10/22 Unknown History docusate sodium 100 mg tablet 100 mg PO BEDTIME PRN Constipation 04/10/22 04/10/22 Unknown History hydralazine 25 mg tablet 75 mg PO TID 04/10/22 04/10/22 Unknown History valacyclovir 500 mg tablet 1 tab PO DAILY 04/10/22 04/10/22 04/10/22 History Exam Exam Date and Time: April 16, 2022 1415 Height,Weight and Vital Signs: Height 5 ft 4 in Weight 113.398 kg Last Vital Signs Temp 98.1 F 04/16/22 12:04 Pulse 65 04/16/22 11:07 Resp 18 04/16/22 11:07 BP 175/78 H 04/16/22 11:07 Pulse Ox 97 04/16/22 11:07 O2 Del Method 04/16/22 11:07 Pertinent Lab Results Pertinent Lab Results: Laboratory Tests 04/10/22 04/10/22 04/10/22 10:48 10:53 10:53 WBC 4.0 L RBC 2.64 L Hgb 8.2 L Hct 25.7 L MCV 97.3 MCH 31.1 MCHC 31.9 RDW 13.3 Plt Count 162 MPV 10.7 Immature Gran % (Auto) 0.3 Neut % (Auto) 69.5 Lymph % (Auto) 21.2 [place] % (Auto) 6.5 Eos % (Auto) 1.5 Baso % (Auto) 1.0 Lymph # (Auto) 0.8 L [place] # (Auto) 0.3 Eos # (Auto) 0.1 Baso # (Auto) 0.0 Abs Immat Gran (auto) 0.01 Absolute Neuts (auto) 2.8 Absolute Nucleated RBC 0.000 Nucleated RBC % (auto) 0.0 Smear Tech's Comments PT INR APTT Sodium 132 L Potassium 6.4 H* D Chloride 102 Carbon Dioxide 19 L Anion Gap 17 BUN 70 H D Creatinine 4.53 H* Estim Creat Clear Calc 14.5 Estimated GFR 10 POC Glucose Random Glucose 183 H Estimat Average Glucose Hemoglobin A1c % Calcium 8.2 L D Magnesium 1.9 Iron TIBC % Saturation Unsat Iron Binding Total Bilirubin 0.4 Direct Bilirubin AST 90 H ALT 92 H Alkaline Phosphatase 449 H Total Protein 7.3 D Albumin 3.0 L D Urine Color Urine Appearance Urine pH Ur Specific Olds Urine Protein Urine Glucose (UA) Urine Ketones Urine Blood Urine Nitrite Ur Leukocyte Esterase Urine RBC Urine WBC Ur Squamous Epith Cells Urine Bacteria Ur Random Sodium Urine Creatinine Urine Microalbumin Microalb/Creat Ratio COVID-19 (LUCIO) Negative COVID-19 Clin Com See Note 04/10/22 04/10/22 04/10/22 10:53 15:12 16:19 WBC RBC Hgb Hct MCV MCH MCHC RDW Plt Count MPV Immature Gran % (Auto) Neut % (Auto) Lymph % (Auto) [place] % (Auto) Eos % (Auto) Baso % (Auto) Lymph # (Auto) [place] # (Auto) Eos # (Auto) Baso # (Auto) Abs Immat Gran (auto) Absolute Neuts (auto) Absolute Nucleated RBC Nucleated RBC % (auto) Smear Tech's Comments PT 15.9 H INR 1.4 H APTT 40.1 H Sodium 133 L Potassium 5.7 H Chloride 105 Carbon Dioxide 19 L Anion Gap 15 BUN 71 H Creatinine 4.33 H* Estim Creat Clear Calc 15.1 Estimated GFR 10 POC Glucose Random Glucose 160 H Estimat Average Glucose Hemoglobin A1c % Calcium 8.1 L Magnesium Iron TIBC % Saturation Unsat Iron Binding Total Bilirubin Direct Bilirubin AST ALT Alkaline Phosphatase Total Protein Albumin Urine Color YELLOW Urine Appearance CLOUDY Urine pH 6.0 Ur Specific Olds 1.025 Urine Protein 2+ H Urine Glucose (UA) NEG Urine Ketones NEG Urine Blood TRACE Urine Nitrite NEG Ur Leukocyte Esterase 3+ H Urine RBC 5-9 H Urine WBC TNTC H Ur Squamous Epith Cells 1+ Urine Bacteria 3+ Ur Random Sodium Urine Creatinine Urine Microalbumin Microalb/Creat Ratio COVID-19 (LUCIO) COVID-19 Clin Com 04/10/22 04/10/22 04/10/22 21:18 22:34 22:35 WBC RBC Hgb Hct MCV MCH MCHC RDW Plt Count MPV Immature Gran % (Auto) Neut % (Auto) Lymph % (Auto) [place] % (Auto) Eos % (Auto) Baso % (Auto) Lymph # (Auto) [place] # (Auto) Eos # (Auto) Baso # (Auto) Abs Immat Gran (auto) Absolute Neuts (auto) Absolute Nucleated RBC Nucleated RBC % (auto) Smear Tech's Comments PT INR APTT Sodium Potassium Chloride Carbon Dioxide Anion Gap BUN Creatinine Estim Creat Clear Calc Estimated GFR POC Glucose 136 H Random Glucose Estimat Average Glucose Hemoglobin A1c % Calcium Magnesium Iron TIBC % Saturation Unsat Iron Binding Total Bilirubin Direct Bilirubin AST ALT Alkaline Phosphatase Total Protein Albumin Urine Color YELLOW Urine Appearance CLOUDY Urine pH 6.0 Ur Specific [place] 1.020 Urine Protein 2+ H Urine Glucose (UA) NEG Urine Ketones NEG Urine Blood TRACE Urine Nitrite POS H Ur Leukocyte Esterase 2+ H Urine RBC 1-4 Urine WBC TNTC H Ur Squamous Epith Cells 1+ Urine Bacteria 3+ Ur Random Sodium 46.0 Urine Creatinine 54.73 Urine Microalbumin 775.0 Microalb/Creat Ratio 1416.0 COVID-19 (LUCIO) COVID-19 Clin Com 04/11/22 04/11/22 04/11/22 06:40 06:40 07:02 WBC 3.8 L RBC 2.39 L Hgb 7.6 L Hct 23.3 L MCV 97.5 MCH 31.8 MCHC 32.6 RDW 13.1 Plt Count 137 L MPV 10.6 Immature Gran % (Auto) 0.3 Neut % (Auto) 56.6 Lymph % (Auto) 31.2 [place] % (Auto) 8.7 Eos % (Auto) 2.1 Baso % (Auto) 1.1 Lymph # (Auto) 1.2 [place] # (Auto) 0.3 Eos # (Auto) 0.1 Baso # (Auto) 0.0 Abs Immat Gran (auto) 0.01 Absolute Neuts (auto) 2.1 Absolute Nucleated RBC 0.000 Nucleated RBC % (auto) 0.0 Smear Tech's Comments PT INR APTT Sodium 133 L Potassium 5.3 H Chloride 106 Carbon Dioxide 15 L Anion Gap 17 BUN 64 H Creatinine 4.11 H* Estim Creat Clear Calc 15.9 Estimated GFR 11 POC Glucose 138 H Random Glucose 154 H Estimat Average Glucose Hemoglobin A1c % Calcium 7.6 L D Magnesium Iron TIBC % Saturation Unsat Iron Binding Total Bilirubin 0.3 Direct Bilirubin AST 65 H ALT 71 H Alkaline Phosphatase 368 H Total Protein 6.7 Albumin 2.7 L Urine Color Urine Appearance Urine pH Ur Specific [place] Urine Protein Urine Glucose (UA) Urine Ketones Urine Blood Urine Nitrite Ur Leukocyte Esterase Urine RBC Urine WBC Ur Squamous Epith Cells Urine Bacteria Ur Random Sodium Urine Creatinine Urine Microalbumin Microalb/Creat Ratio COVID-19 (LUCIO) COVID-19 Clin Com 04/11/22 04/11/22 04/11/22 11:06 15:48 15:53 WBC RBC Hgb Hct MCV MCH MCHC RDW Plt Count MPV Immature Gran % (Auto) Neut % (Auto) Lymph % (Auto) [place] % (Auto) Eos % (Auto) Baso % (Auto) Lymph # (Auto) [place] # (Auto) Eos # (Auto) Baso # (Auto) Abs Immat Gran (auto) Absolute Neuts (auto) Absolute Nucleated RBC Nucleated RBC % (auto) Smear Tech's Comments PT INR APTT Sodium Potassium Chloride Carbon Dioxide Anion Gap BUN Creatinine Estim Creat Clear Calc Estimated GFR POC Glucose 138 H 133 H Random Glucose Estimat Average Glucose 114 Hemoglobin A1c % 5.6 Calcium Magnesium Iron TIBC % Saturation Unsat Iron Binding Total Bilirubin Direct Bilirubin AST ALT Alkaline Phosphatase Total Protein Albumin Urine Color Urine Appearance Urine pH Ur Specific [place] Urine Protein Urine Glucose (UA) Urine Ketones Urine Blood Urine Nitrite Ur Leukocyte Esterase Urine RBC Urine WBC Ur Squamous Epith Cells Urine Bacteria Ur Random Sodium Urine Creatinine Urine Microalbumin Microalb/Creat Ratio COVID-19 (LUCIO) COVID-19 Clin Com 04/11/22 04/12/22 04/12/22 20:45 05:58 05:58 WBC 4.0 L RBC 2.40 L Hgb 7.5 L Hct 23.6 L MCV 98.3 H MCH 31.3 MCHC 31.8 RDW 13.1 Plt Count 150 L MPV 12.0 Immature Gran % (Auto) 0.5 H Neut % (Auto) 49.4 Lymph % (Auto) 39.0 [place] % (Auto) 7.3 Eos % (Auto) 3.3 Baso % (Auto) 0.5 Lymph # (Auto) 1.5 [place] # (Auto) 0.3 Eos # (Auto) 0.1 Baso # (Auto) 0.0 Abs Immat Gran (auto) 0.02 Absolute Neuts (auto) 2.0 Absolute Nucleated RBC 0.000 Nucleated RBC % (auto) 0.0 Smear Tech's Comments VERIFIED PT INR APTT Sodium 139 Potassium 5.0 Chloride 107 Carbon Dioxide 19 L Anion Gap 18 BUN 55 H Creatinine 3.70 H Estim Creat Clear Calc 17.7 Estimated GFR 12 POC Glucose 133 H Random Glucose 142 H Estimat Average Glucose Hemoglobin A1c % Calcium 7.6 L Magnesium Iron 38 TIBC 134 L % Saturation 28 Unsat Iron Binding 96 Total Bilirubin 0.4 Direct Bilirubin AST 55 H ALT 61 H Alkaline Phosphatase 337 H Total Protein 6.6 Albumin 2.7 L Urine Color Urine Appearance Urine pH Ur Specific [place] Urine Protein Urine Glucose (UA) Urine Ketones Urine Blood Urine Nitrite Ur Leukocyte Esterase Urine RBC Urine WBC Ur Squamous Epith Cells Urine Bacteria Ur Random Sodium Urine Creatinine Urine Microalbumin Microalb/Creat Ratio COVID-19 (LUCIO) COVID-19 Clin Com 04/12/22 04/12/22 04/12/22 07:55 11:09 15:46 WBC RBC Hgb Hct MCV MCH MCHC RDW Plt Count MPV Immature Gran % (Auto) Neut % (Auto) Lymph % (Auto) [place] % (Auto) Eos % (Auto) Baso % (Auto) Lymph # (Auto) [place] # (Auto) Eos # (Auto) Baso # (Auto) Abs Immat Gran (auto) Absolute Neuts (auto) Absolute Nucleated RBC Nucleated RBC % (auto) Smear Tech's Comments PT INR APTT Sodium Potassium Chloride Carbon Dioxide Anion Gap BUN Creatinine Estim Creat Clear Calc Estimated GFR POC Glucose 139 H 142 H 148 H Random Glucose Estimat Average Glucose Hemoglobin A1c % Calcium Magnesium Iron TIBC % Saturation Unsat Iron Binding Total Bilirubin Direct Bilirubin AST ALT Alkaline Phosphatase Total Protein Albumin Urine Color Urine Appearance Urine pH Ur Specific [place] Urine Protein Urine Glucose (UA) Urine Ketones Urine Blood Urine Nitrite Ur Leukocyte Esterase Urine RBC Urine WBC Ur Squamous Epith Cells Urine Bacteria Ur Random Sodium Urine Creatinine Urine Microalbumin Microalb/Creat Ratio COVID-19 (LUCIO) COVID-19 Clin Com 04/12/22 04/13/22 04/13/22 20:13 06:06 06:06 WBC 4.7 L RBC 2.61 L Hgb 8.1 L Hct 24.9 L MCV 95.4 MCH 31.0 MCHC 32.5 RDW 13.0 Plt Count 169 MPV 10.8 Immature Gran % (Auto) Neut % (Auto) Lymph % (Auto) [place] % (Auto) Eos % (Auto) Baso % (Auto) Lymph # (Auto) [place] # (Auto) Eos # (Auto) Baso # (Auto) Abs Immat Gran (auto) Absolute Neuts (auto) Absolute Nucleated RBC 0.000 Nucleated RBC % (auto) 0.0 Smear Tech's Comments PT INR APTT Sodium 141 Potassium 4.7 Chloride 107 Carbon Dioxide 22 Anion Gap 17 BUN 47 H Creatinine 3.32 H Estim Creat Clear Calc 19.7 Estimated GFR 14 POC Glucose 162 H Random Glucose 153 H Estimat Average Glucose Hemoglobin A1c % Calcium 7.6 L Magnesium Iron TIBC % Saturation Unsat Iron Binding Total Bilirubin Direct Bilirubin AST ALT Alkaline Phosphatase Total Protein Albumin Urine Color Urine Appearance Urine pH Ur Specific [place] Urine Protein Urine Glucose (UA) Urine Ketones Urine Blood Urine Nitrite Ur Leukocyte Esterase Urine RBC Urine WBC Ur Squamous Epith Cells Urine Bacteria Ur Random Sodium Urine Creatinine Urine Microalbumin Microalb/Creat Ratio COVID-19 (LUCIO) COVID-19 Clin Com 04/13/22 04/13/22 04/13/22 06:06 07:19 12:01 WBC RBC Hgb Hct MCV MCH MCHC RDW Plt Count MPV Immature Gran % (Auto) Neut % (Auto) Lymph % (Auto) [place] % (Auto) Eos % (Auto) Baso % (Auto) Lymph # (Auto) [place] # (Auto) Eos # (Auto) Baso # (Auto) Abs Immat Gran (auto) Absolute Neuts (auto) Absolute Nucleated RBC Nucleated RBC % (auto) Smear Tech's Comments PT INR APTT Sodium Potassium Chloride Carbon Dioxide Anion Gap BUN Creatinine Estim Creat Clear Calc Estimated GFR POC Glucose 150 H 187 H Random Glucose Estimat Average Glucose Hemoglobin A1c % Calcium Magnesium Iron TIBC % Saturation Unsat Iron Binding Total Bilirubin 0.4 Direct Bilirubin 0.2 AST 54 H ALT 57 H Alkaline Phosphatase 340 H Total Protein 6.8 Albumin 2.8 L Urine Color Urine Appearance Urine pH Ur Specific [place] Urine Protein Urine Glucose (UA) Urine Ketones Urine Blood Urine Nitrite Ur Leukocyte Esterase Urine RBC Urine WBC Ur Squamous Epith Cells Urine Bacteria Ur Random Sodium Urine Creatinine Urine Microalbumin Microalb/Creat Ratio COVID-19 (LUCIO) COVID-19 Clin Com 04/13/22 04/13/22 04/14/22 16:13 20:42 06:00 WBC RBC Hgb Hct MCV MCH MCHC RDW Plt Count MPV Immature Gran % (Auto) Neut % (Auto) Lymph % (Auto) [place] % (Auto) Eos % (Auto) Baso % (Auto) Lymph # (Auto) [place] # (Auto) Eos # (Auto) Baso # (Auto) Abs Immat Gran (auto) Absolute Neuts (auto) Absolute Nucleated RBC Nucleated RBC % (auto) Smear Tech's Comments PT INR APTT Sodium 140 Potassium 3.8 Chloride 108 Carbon Dioxide 23 Anion Gap 13 BUN 41 H Creatinine 3.03 H Estim Creat Clear Calc 21.6 Estimated GFR 15 POC Glucose 213 H 199 H Random Glucose 116 H Estimat Average Glucose Hemoglobin A1c % Calcium 7.4 L Magnesium Iron TIBC % Saturation Unsat Iron Binding Total Bilirubin 0.3 Direct Bilirubin 0.2 AST 41 H ALT 44 H Alkaline Phosphatase 283 H Total Protein 6.1 L Albumin 2.5 L Urine Color Urine Appearance Urine pH Ur Specific [place] Urine Protein Urine Glucose (UA) Urine Ketones Urine Blood Urine Nitrite Ur Leukocyte Esterase Urine RBC Urine WBC Ur Squamous Epith Cells Urine Bacteria Ur Random Sodium Urine Creatinine Urine Microalbumin Microalb/Creat Ratio COVID-19 (LUCIO) COVID-19 Clin Com 04/14/22 04/14/22 04/14/22 07:24 11:24 15:47 WBC RBC Hgb Hct MCV MCH MCHC RDW Plt Count MPV Immature Gran % (Auto) Neut % (Auto) Lymph % (Auto) [place] % (Auto) Eos % (Auto) Baso % (Auto) Lymph # (Auto) [place] # (Auto) Eos # (Auto) Baso # (Auto) Abs Immat Gran (auto) Absolute Neuts (auto) Absolute Nucleated RBC Nucleated RBC % (auto) Smear Tech's Comments PT INR APTT Sodium Potassium Chloride Carbon Dioxide Anion Gap BUN Creatinine Estim Creat Clear Calc Estimated GFR POC Glucose 108 129 H 161 H Random Glucose Estimat Average Glucose Hemoglobin A1c % Calcium Magnesium Iron TIBC % Saturation Unsat Iron Binding Total Bilirubin Direct Bilirubin AST ALT Alkaline Phosphatase Total Protein Albumin Urine Color Urine Appearance Urine pH Ur Specific [place] Urine Protein Urine Glucose (UA) Urine Ketones Urine Blood Urine Nitrite Ur Leukocyte Esterase Urine RBC Urine WBC Ur Squamous Epith Cells Urine Bacteria Ur Random Sodium Urine Creatinine Urine Microalbumin Microalb/Creat Ratio COVID-19 (LUCIO) COVID-19 Clin Com 04/14/22 04/15/22 04/15/22 19:45 05:54 05:54 WBC RBC Hgb Hct MCV MCH MCHC RDW Plt Count MPV Immature Gran % (Auto) Neut % (Auto) Lymph % (Auto) [place] % (Auto) Eos % (Auto) Baso % (Auto) Lymph # (Auto) [place] # (Auto) Eos # (Auto) Baso # (Auto) Abs Immat Gran (auto) Absolute Neuts (auto) Absolute Nucleated RBC Nucleated RBC % (auto) Smear Tech's Comments PT INR APTT Sodium 139 Potassium 3.9 Chloride 107 Carbon Dioxide 22 Anion Gap 14 BUN 38 H Creatinine 2.99 H Estim Creat Clear Calc 21.8 Estimated GFR 16 POC Glucose 136 H Random Glucose 115 Estimat Average Glucose Hemoglobin A1c % Calcium 7.4 L Magnesium Iron TIBC % Saturation Unsat Iron Binding Total Bilirubin 0.3 Direct Bilirubin 0.2 AST 41 H ALT 40 H Alkaline Phosphatase 290 H Total Protein 6.5 Albumin 2.6 L Urine Color Urine Appearance Urine pH Ur Specific [place] Urine Protein Urine Glucose (UA) Urine Ketones Urine Blood Urine Nitrite Ur Leukocyte Esterase Urine RBC Urine WBC Ur Squamous Epith Cells Urine Bacteria Ur Random Sodium Urine Creatinine Urine Microalbumin Microalb/Creat Ratio COVID-19 (LUCIO) COVID-19 Clin Com 04/15/22 04/15/22 04/15/22 07:16 10:40 15:56 WBC RBC Hgb Hct MCV MCH MCHC RDW Plt Count MPV Immature Gran % (Auto) Neut % (Auto) Lymph % (Auto) [place] % (Auto) Eos % (Auto) Baso % (Auto) Lymph # (Auto) [place] # (Auto) Eos # (Auto) Baso # (Auto) Abs Immat Gran (auto) Absolute Neuts (auto) Absolute Nucleated RBC Nucleated RBC % (auto) Smear Tech's Comments PT INR APTT Sodium Potassium Chloride Carbon Dioxide Anion Gap BUN Creatinine Estim Creat Clear Calc Estimated GFR POC Glucose 120 H 137 H 129 H Random Glucose Estimat Average Glucose Hemoglobin A1c % Calcium Magnesium Iron TIBC % Saturation Unsat Iron Binding Total Bilirubin Direct Bilirubin AST ALT Alkaline Phosphatase Total Protein Albumin Urine Color Urine Appearance Urine pH Ur Specific [place] Urine Protein Urine Glucose (UA) Urine Ketones Urine Blood Urine Nitrite Ur Leukocyte Esterase Urine RBC Urine WBC Ur Squamous Epith Cells Urine Bacteria Ur Random Sodium Urine Creatinine Urine Microalbumin Microalb/Creat Ratio COVID-19 (LUCIO) COVID-19 Clin Com 04/15/22 04/16/22 04/16/22 19:53 05:37 05:52 WBC RBC Hgb Hct MCV MCH MCHC RDW Plt Count MPV Immature Gran % (Auto) Neut % (Auto) Lymph % (Auto) [place] % (Auto) Eos % (Auto) Baso % (Auto) Lymph # (Auto) [place] # (Auto) Eos # (Auto) Baso # (Auto) Abs Immat Gran (auto) Absolute Neuts (auto) Absolute Nucleated RBC Nucleated RBC % (auto) Smear Tech's Comments PT INR APTT Sodium 136 Potassium 3.8 Chloride 105 Carbon Dioxide 19 L Anion Gap 16 BUN 38 H Creatinine 2.87 H Estim Creat Clear Calc 22.8 Estimated GFR 16 POC Glucose 143 H 120 H Random Glucose 132 H Estimat Average Glucose Hemoglobin A1c % Calcium 7.0 L Magnesium Iron TIBC % Saturation Unsat Iron Binding Total Bilirubin Direct Bilirubin AST ALT Alkaline Phosphatase Total Protein Albumin Urine Color Urine Appearance Urine pH Ur Specific [place] Urine Protein Urine Glucose (UA) Urine Ketones Urine Blood Urine Nitrite Ur Leukocyte Esterase Urine RBC Urine WBC Ur Squamous Epith Cells Urine Bacteria Ur Random Sodium Urine Creatinine Urine Microalbumin Microalb/Creat Ratio COVID-19 (LUCIO) COVID-19 Clin Com 04/16/22 04/16/22 07:15 11:10 WBC RBC Hgb Hct MCV MCH MCHC RDW Plt Count MPV Immature Gran % (Auto) Neut % (Auto) Lymph % (Auto) [place] % (Auto) Eos % (Auto) Baso % (Auto) Lymph # (Auto) [place] # (Auto) Eos # (Auto) Baso # (Auto) Abs Immat Gran (auto) Absolute Neuts (auto) Absolute Nucleated RBC Nucleated RBC % (auto) Smear Tech's Comments PT INR APTT Sodium Potassium Chloride Carbon Dioxide Anion Gap BUN Creatinine Estim Creat Clear Calc Estimated GFR POC Glucose 131 H 130 H Random Glucose Estimat Average Glucose Hemoglobin A1c % Calcium Magnesium Iron TIBC % Saturation Unsat Iron Binding Total Bilirubin Direct Bilirubin AST ALT Alkaline Phosphatase Total Protein Albumin Urine Color Urine Appearance Urine pH Ur Specific [place] Urine Protein Urine Glucose (UA) Urine Ketones Urine Blood Urine Nitrite Ur Leukocyte Esterase Urine RBC Urine WBC Ur Squamous Epith Cells Urine Bacteria Ur Random Sodium Urine Creatinine Urine Microalbumin Microalb/Creat Ratio COVID-19 (LUCIO) COVID-19 Clin Com Airway Mallampati Class: II TM Dist: >3cm Neck ROM: Full Denture: Upper and Lower Heart: rrr Lungs: cta Assessment and Plan Assessment Anesthesia Assessment: Anesthesia Plan Discussed and Chart Reviewed Final Anesthetic Review Family History of Problems with Anesthesia: No History of Problems with Anesthesia: No NPO: Yes ASA Class: III Final Preanesthetic Review: No Changes in Pt Med Stat, Meds/Allgs Chart Reviewed and Consent Obtained/Reviewed Patient Risk: Intermediate Procedure Risk: Intermediate Anesthetic Plan Anesthetic Plan: GA Disposition: Standard PACU
[2022-04-16 14:58] LABS: Glucose, Whole Blood 124 mg/dL (60-115)
--- NOTE | 2022-04-16 15:23 | PC.NURSE ---
put patient in iso room for airborne precautions
--- NOTE | 2022-04-16 16:27 | W.PM.IDCN ---
History of Present Illness Data of Consult Service Date: 04/16/22 Requesting physician: Za Quarles Primary Care Provider: Annette Joya MD HPI Reason for consult: new pyuria,Pseudomonas She presents from [facility] with upper arm spasms. She also had hyperkalemia and increased creatinine. She has no fever or chills. She has Pseudomonas in urine. Urine has new pyuria as January. Review of Systems Review of Systems: Yes all other systems are reviewed and are negative [facility] Past Medical History Medical History Acute kidney failure Acute respiratory failure with hypoxia Atherosclerosis Basal cell carcinoma of right upper arm Below-knee amputation of left lower extremity Diabetes Diabetic retinopathy Dysphagia Failure to thrive in adult GERD (gastroesophageal reflux disease) History of venous thromboembolism Hypothyroidism PVD (peripheral vascular disease) Squamous cell carcinoma of left upper extremity TIA (transient ischemic attack) Family History Family history: reviewed and not pertinent Surgical History Surgical History S/P below knee amputation Social History Social History Household Members: Other Housing: Longterm Do you presently have visiting nurse or other home services: No Alcohol intake: never Patient Tobacco Use Status: Never used Tobacco Advance Directives Date on File: 02/25/22 service: No Current occupational status: disabled Meds Allergies Allergy/AdvReac Type Severity Reaction Status Date / Time codeine [CODEINE] Allergy Unknown UNKNOWN Verified 04/10/22 09:48 morphine [MORPHINE] Allergy Unknown UNKNOWN, Verified 04/10/22 09:48 anaphylaxis adhesive tape Allergy Unknown Verified 04/10/22 09:48 clarithromycin Allergy Unknown Verified 04/10/22 09:48 clonidine [From Catapres] Allergy Unknown Verified 04/10/22 09:48 lactose Allergy Unknown Verified 04/10/22 09:48 latex Allergy Unknown Verified 04/10/22 09:48 Active Medications: Current Medications Amlodipine Besylate (Amlodipine Besylate 10 Mg Tablet) 10 mg PO DAILY [facility]; Protocol Last Admin: 04/16/22 09:28 Dose: 10 mg Dextrose (Dextrose 50 % 25 Gm/50 Ml Syringe) 25 gm IVPUSH Q15M PRN; Protocol PRN Reason: per Hypoglycemia Standing Ord. Glucose (Glucose Gel 15 Gm Gel..Gram.) 15 gm PO Q15M PRN; Protocol PRN Reason: per Hypoglycemia Standing Ord. Heparin Sodium (Porcine) (Heparin Sodium,Porcine 5,000 Unit/Ml Vial) 5,000 unit SUBCUT Q12H [facility] Last Admin: 04/16/22 05:51 Dose: 5,000 unit Hydralazine HCl (Hydralazine Hcl 50 Mg Tablet) 50 mg PO TID [facility]; Protocol Last Admin: 04/16/22 09:28 Dose: 50 mg Hydromorphone HCl (Hydromorphone Hcl 0.5 Mg/0.5 Ml Syringe) 0.25 mg IVPUSH Q4H PRN; Protocol PRN Reason: Pain, Severe (Pain Scale 7-10) Last Admin: 04/15/22 02:57 Dose: 0.25 mg Cefepime HCl 0.5 gm/ Sodium (Chloride) 50 mls @ 100 mls/hr IV Q24H [facility] Last Infusion: 04/16/22 11:52 Dose: Infused Insulin Human Lispro (Insulin Lispro 100 Unit/Ml 3 Ml Vial) 0 unit SUBCUT QIDACHS [facility]; Protocol Last Admin: 04/16/22 12:22 Dose: Not Given Levothyroxine Sodium (Levothyroxine Sodium 200 Mcg Tablet) 200 mcg PO BEDTIME [facility] Losartan Potassium (Losartan Potassium 25 Mg Tablet) 75 mg PO DAILY [facility]; Protocol Last Admin: 04/16/22 12:50 Dose: 75 mg Metoprolol Tartrate (Metoprolol Tartrate 100 Mg Tablet) 100 mg PO BID [facility]; Protocol Last Admin: 04/16/22 09:28 Dose: 100 mg Pharmacy Consult (Consult Rx Perform Med Rec) 1 each MISCELLANE ONCE PRN PRN Reason: Consult order Polyethylene Glycol (Polyethylene Glycol 3350 17 Gm Powd.Pack) 17 gm PO DAILY [facility] Last Admin: 04/16/22 09:29 Dose: Not Given Sodium Chloride (0.9 % Sodium Chloride Flush 3 Ml Syringe) 3 ml IVFLUSH QSHIFT [facility] Last Admin: 04/16/22 09:29 Dose: 3 ml Home Medications Medication Instructions Recorded Confirmed Last Taken Type amitriptyline 25 mg tablet 1 tab PO BEDTIME 02/24/22 04/10/22 Unknown History amlodipine 10 mg tablet 1 tab PO DAILY 02/24/22 04/10/22 Unknown History apixaban 2.5 mg tablet (Eliquis) 1 tab PO BID 02/24/22 04/10/22 Unknown History aspirin 81 mg tablet,delayed 81 mg PO DAILY 02/24/22 04/10/22 Unknown History release atorvastatin 80 mg tablet 1 tab PO DAILY 02/24/22 04/10/22 Unknown History gwvjcfxczq-cwiqrxkgroikh-ktltmxbn 1 cap PO Q8H PRN Headache 02/24/22 04/10/22 Unknown History 50 mg-300 mg-40 mg capsule (Fioricet) calcium carbonate 600 mg calcium 600 mg PO BID 02/24/22 04/10/22 Unknown History (1,500 mg) tablet (Calcium) escitalopram oxalate 10 mg tablet 1 tab PO DAILY 02/24/22 04/10/22 Unknown History furosemide 40 mg tablet 1 tab PO BID 02/24/22 04/10/22 Unknown History insulin aspart U-100 100 unit/mL See Rx Instructions .Route .COMPLEX 02/24/22 04/10/22 Unknown History subcutaneous solution (Novolog U-100 Insulin aspart) insulin degludec 100 unit/mL (3 10 unit subcut BEDTIME 02/24/22 04/10/22 Unknown History mL) subcutaneous pen (Tresiba FlexTouch U-100 insulin) lactase 3,000 unit tablet (Lactaid) 3,000 unit PO TIDWM 02/24/22 04/10/22 Unknown History levothyroxine 200 mcg tablet 1 tab PO BEDTIME 02/24/22 04/10/22 Unknown History losartan 25 mg tablet 3 tab PO DAILY 02/24/22 04/10/22 Unknown History metoprolol tartrate 100 mg tablet 1 tab PO BID 02/24/22 04/10/22 Unknown History ondansetron HCl 4 mg tablet 1 tab PO Q8H PRN Nausea 02/24/22 04/10/22 Unknown History oxycodone 5 mg tablet 1 tab PO BEDTIME 02/24/22 04/10/22 Unknown History oxycodone 5 mg tablet 2 tab PO Q6H PRN Pain 02/24/22 04/10/22 Unknown History pantoprazole 40 mg tablet,delayed 1 tab PO BID 02/24/22 04/10/22 Unknown History release polyvinyl alcohol 1.4 % eye drops 1 drp ophthalmic (eye) BID 02/24/22 04/10/22 Unknown History (Artificial Tears (polyvinyl alcohol)) acetaminophen 325 mg tablet 650 mg PO Q8H PRN Pain 04/10/22 04/10/22 Unknown History (Tylenol) baclofen 5 mg tablet 5 mg PO BEDTIME 04/10/22 04/10/22 Unknown History docusate sodium 100 mg tablet 100 mg PO BEDTIME PRN Constipation 04/10/22 04/10/22 Unknown History hydralazine 25 mg tablet 75 mg PO TID 04/10/22 04/10/22 Unknown History valacyclovir 500 mg tablet 1 tab PO DAILY 04/10/22 04/10/22 04/10/22 History Physical Exam Vital Signs: Vital Signs: Last Vital Signs Temp 98.1 F 04/16/22 14:39 Pulse 67 04/16/22 14:39 Resp 16 04/16/22 14:39 BP 170/59 H 04/16/22 14:39 Pulse Ox 98 04/16/22 14:39 O2 Del Method 04/16/22 14:39 BMI result Body Mass Index 42.9 Const: General: cooperative HEENT: Head: Yes normal to inspection Face and sinus: Yes normal facial exam Mouth: Normal oral and palatal mucosa present Teeth and gingiva: dentition normal Eyes: General: appearance normal, both eyes and all related structures Pupils: Equal, round and reactive pupils present Resp: Effort & Inspection: normal respiratory effort Cardio: Rate: regular rate Rhythm: regular rhythm GI: Palpation (GI): Soft to palpation and nontender : General: Yes no CVA tenderness Back/Spine/Pelvis: Back: no CVA tenderness Skin: General skin exam: no rashes or lesions noted Neuro: General: moves all extremities Cranial nerves: Yes Equal, round and reactive pupils present Extrem: Other: left BKA Patch over lower back ,no zoster seen Psych: Appearance: grossly normal Results Labs CBC & Chem 7: 04/13/22 06:06 04/16/22 05:37 Labs: BMP 04/16/22 05:37 Sodium 136 Potassium 3.8 Chloride 105 Carbon Dioxide 19 L BUN 38 H Creatinine 2.87 H Calcium 7.0 L Microbiology Microbiology Results: Microbiology 04/10/22 14:19 Blood - Venous Blood Culture - Final No growth after 5 days. 04/10/22 14:19 Blood - Venous Blood Culture - Final No growth after 5 days. 04/10/22 Unknown Urine clean catch - Urine camacho top Urine Culture - Final Pseudomonas aeruginosa Assessment and Plan (1) UTI (urinary tract infection): Status: Acute this is probably real UTI as new pyuria,encephalopathy. She has Pseudomonas (2) Cerebral microvascular disease: Status: Acute (3) Choledocholithiasis: Status: Acute (4) Metabolic encephalopathy: Status: Acute Plan Would continue Cefepime now and then po Levaquin renally dose adjusted total 14 days
--- NOTE | 2022-04-16 17:21 | W.PM.OPN ---
Operative Note Operative Note Date of Service: 04/16/22 Narrative: Description: Endoscopic retrograde cholangiopancreatography (ERCP) PROCEDURE: Endoscopic retrograde cholangiopancreatography with sphincterotomy, cholangiogram, stone extraction and bile duct dilation INDICATION FOR THE PROCEDURE: Patient with a history of imaging revealing CBD stone MEDICATIONS: General anesthesia, rectal indomethacin 100 mg, The risks of the procedure were made aware to the patient and consisted of medication reaction, bleeding, perforation, aspiration, and post ERCP pancreatitis. DESCRIPTION OF PROCEDURE: After informed consent and appropriate sedation, the duodenoscope was inserted into the oropharynx, down the esophagus, and into the stomach. The scope was then advanced through the pylorus to the ampulla. The ampulla had a markedly abnormal appearance, and was rather bulbous with the openings facing away from the scope. With manipulation eventually the CBD was accessed, confirmed by cholangiogram. A generous sphincterotomy was performed with good flow of bile. An extraction balloon was used but no stone material came out. An occlusion cholangiogram seemed to show a filling defect in the proximal CBD. The distal CBD was also tortuous so a dilation balloon was used to dilate the area. A 3 cm basket was used and stone debris and material was noted. A repeat cholangiogram did not reveal any filling defects. The gallbladder did not fill with contrast. There was some minor oozing which had ceased by the end of the procedure. The stomach was then decompressed and the endoscope was withdrawn. FINDINGS: 1. choledocholithiasis s/p extraction RECOMMENDATIONS: 1. NPO except ice chips for next 4-6 hrs then clears as tolerated, can advance diet tomorrow if feels well 2. watch for pancreatitis, can cont with LR for next 24 hrs, 3. f/u with surgical team
[2022-04-16 18:55] LABS: Glucose, Whole Blood 157 mg/dL (60-115)
[2022-04-16 20:19] LABS: Glucose, Whole Blood 156 mg/dL (60-115)
[2022-04-16] MEDS: Insulin Lispro 100 UNIT/ML 3 ML VIAL SUBCUT (21:26)
[2022-04-16] MEDS: Levothyroxine Sodium 200 MCG TABLET PO (21:26)
[2022-04-17 04:00] VITALS: BP 158/62; PULSE 62; RESP 20; TEMP 37.1; O2SAT 96
[2022-04-17] MEDS: Heparin Sodium,Porcine 5,000 UNIT/ML VIAL 5000 UNIT SUBCUT (06:20)
[2022-04-17 06:57] LABS: Alanine Aminotransferase 43 U/L (0-31); Albumin Level 2.6 g/dL (3.5-5.0); Alkaline Phosphatase 465 U/L (39-117); Anion Gap 17 (12-20); Aspartate Amino Transferase 64 U/L (5-31); Bilirubin Direct 0.2 mg/dL (0.0-0.5); Bilirubin Total 0.2 mg/dL (0.0-1.0); Blood Urea Nitrogen 39 mg/dL (9-16); Calcium 7.2 mg/dL (8.4-10.2); Carbon Dioxide 18 mmol/L (22-29); Chloride 106 mmol/L (96-108); Creatinine Clr Calc Pharmacy 22.2; Estimated Glomerular Filt Rate 16; Glucose Random 116 mg/dL (60-115); Potassium 4.1 mmol/L (3.3-5.1); Sodium 137 mmol/L (135-145); Total Protein 6.3 g/dL (6.5-8.0)
[2022-04-17 07:24] LABS: Glucose, Whole Blood 103 mg/dL (60-115)
--- NOTE | 2022-04-17 07:49 | PM.PNGS ---
Subjective Subjective Date of Service: 04/17/22 Interval history: Patient feels improved with no abdominal pain. She is hungry this morning. Physical Exam Vital Signs: Vital Signs: Last Vital Signs Temp 98.7 F 04/17/22 04:00 Pulse 62 04/17/22 04:00 Resp 20 04/17/22 04:00 BP 158/62 H 04/17/22 04:00 Pulse Ox 96 04/17/22 04:00 O2 Del Method 04/17/22 04:00 O2 Flow Rate 4 04/16/22 17:56 BMI result Body Mass Index 42.9 Const: General: comfortable and no acute distress Nutritional Appearance: well nourished Orientation/consciousness: patient oriented x3 Resp: Effort & Inspection: normal respiratory effort, no audible wheezes, no cough and no respiratory distress GI: Inspection: Yes normal to inspection Palpation (GI): Soft to palpation, nontender, no guarding and not rigid Percussion: Yes normal to percussion Skin: Other: Warm, dry, normal color Neuro: General: patient oriented x3 Objective Data Active Medications Amlodipine Besylate (Amlodipine Besylate 10 Mg Tablet) 10 mg PO DAILY [facility]; Protocol Last Admin: 04/16/22 09:28 Dose: 10 mg Documented By: PHUC Dextrose (Dextrose 50 % 25 Gm/50 Ml Syringe) 25 gm IVPUSH Q15M PRN; Protocol PRN Reason: per Hypoglycemia Standing Ord. Glucose (Glucose Gel 15 Gm Gel..Gram.) 15 gm PO Q15M PRN; Protocol PRN Reason: per Hypoglycemia Standing Ord. Heparin Sodium (Porcine) (Heparin Sodium,Porcine 5,000 Unit/Ml Vial) 5,000 unit SUBCUT Q12H [facility] Last Admin: 04/17/22 06:20 Dose: 5,000 unit Documented By: LEV Hydralazine HCl (Hydralazine Hcl 50 Mg Tablet) 50 mg PO TID [facility]; Protocol Last Admin: 04/16/22 21:26 Dose: 50 mg Documented By: LEV Hydromorphone HCl (Hydromorphone Hcl 0.5 Mg/0.5 Ml Syringe) 0.25 mg IVPUSH Q4H PRN; Protocol PRN Reason: Pain, Severe (Pain Scale 7-10) Last Admin: 04/15/22 02:57 Dose: 0.25 mg Documented By: TALYA Cefepime HCl 0.5 gm/ Sodium (Chloride) 50 mls @ 100 mls/hr IV Q24H [facility] Last Infusion: 04/16/22 11:52 Dose: 0 mls/hr Documented By: PHUC Insulin Human Lispro (Insulin Lispro 100 Unit/Ml 3 Ml Vial) 0 unit SUBCUT QIDACHS [facility]; Protocol Last Admin: 04/17/22 07:47 Dose: Not Given Documented By: MELISSA Non-Admin Reason: No Insulin Coverage Levothyroxine Sodium (Levothyroxine Sodium 200 Mcg Tablet) 200 mcg PO BEDTIME [facility] Last Admin: 04/16/22 21:26 Dose: 200 mcg Documented By: LEV Losartan Potassium (Losartan Potassium 25 Mg Tablet) 75 mg PO DAILY [facility]; Protocol Last Admin: 04/16/22 12:50 Dose: 75 mg Documented By: PH[facility] Metoprolol Tartrate (Metoprolol Tartrate 100 Mg Tablet) 100 mg PO BID [facility]; Protocol Last Admin: 04/16/22 21:26 Dose: 100 mg Documented By: LEV Pharmacy Consult (Consult Rx Perform Med Rec) 1 each MISCELLANE ONCE PRN PRN Reason: Consult order Polyethylene Glycol (Polyethylene Glycol 3350 17 Gm Powd.Pack) 17 gm PO DAILY [facility] Last Admin: 04/16/22 09:29 Dose: Not Given Documented By: PHUC Non-Admin Reason: Patient Refused Sodium Chloride (0.9 % Sodium Chloride Flush 3 Ml Syringe) 3 ml IVFLUSH QSHIFT [facility] Last Admin: 04/16/22 21:27 Dose: 3 ml Documented By: LEV Labs CBC & Chem 7: 04/13/22 06:06 04/17/22 06:14 Labs: Laboratory Results - last 24 hr 04/16/22 04/16/22 04/16/22 11:10 14:40 18:50 Anion Gap Estim Creat Clear Calc Estimated GFR POC Glucose 130 H 124 H 157 H Random Glucose Calcium Total Bilirubin Direct Bilirubin AST ALT Alkaline Phosphatase Total Protein Albumin 04/16/22 04/17/22 04/17/22 20:15 06:14 06:14 Anion Gap 17 Estim Creat Clear Calc 22.2 Estimated GFR 16 POC Glucose 156 H Random Glucose 116 H Calcium 7.2 L Total Bilirubin 0.2 Cancelled Direct Bilirubin 0.2 Cancelled AST 64 H Cancelled ALT 43 H Cancelled Alkaline Phosphatase 465 H D Cancelled Total Protein 6.3 L Cancelled Albumin 2.6 L Cancelled 04/17/22 07:18 Anion Gap Estim Creat Clear Calc Estimated GFR POC Glucose 103 Random Glucose Calcium Total Bilirubin Direct Bilirubin AST ALT Alkaline Phosphatase Total Protein Albumin Procedures Date of Service Date of Service: 04/17/22 Progress Note: A&P Assessment and plan (1) Choledocholithiasis: Status: Acute Plan 71-year-old female patient found to have choledocholithiasis and cholelithiasis, now s/p ERCP with removal of gallstone in common bile duct. She tolerated the procedure well and is comfortable this morning. We discussed possibility of laparoscopic cholecystectomy during this admission or as an outpatient after discharge. She wishes to hold off on any surgery at this time and understands that her symptoms may return once again. She will follow-up in my office after discharge to discuss surgery further. Time Spent With Patient Time: Total time spent is greater than 50% in coordination of care (as documented) at patient's floor/unit and/or counseling patient: Quality Stroke Does the patient have a stroke diagnosis?: No VTE Prior VTE?: Yes VTE Risk Level:: Medical - moderate - high VTE Device Contraindication: Treatment Not Indicated VTE Drug Contraindication: N/A - Med Ordered
[2022-04-17 08:00] VITALS: BP 156/70; PULSE 65; RESP 20; TEMP 37; O2SAT 98
--- NOTE | 2022-04-17 08:58 | HO.POSTANES ---
Post Anesthesia Evaluation Post Anesthesia Evaluation Vital Signs: Vital Signs Temp Pulse Resp BP Pulse Ox O2 Del Method 04/17/22 08:00 98.6 F 65 20 156/70 H 98 Room Air 04/17/22 04:00 98.7 F 62 20 158/62 H 96 Room Air 04/16/22 23:26 98.7 F 66 18 160/74 H 95 Room Air Anesthesia: General Endotracheal-GETA Mental Status: Awake Pain Control: Satisfactory Nausea/Vomiting: None Hydration: Adequate Anesthesia-Related Issues: No Anes. Related Issues
--- NOTE | 2022-04-17 10:08 | MHC.CM.PN ---
Per MD, Patient will be medically cleared for dc to SNF today. Patient will return to [facility] today at 1PM via [facility]. Patient has s/s of confusion at times; CM addressed IMM with Brother/HCP/Brian @ [phone] (original to be mailed certified letter to Brian and a copy has been placed on the chart).
[2022-04-17 10:57] LABS: Glucose, Whole Blood 131 mg/dL (60-115)
--- NOTE | 2022-04-17 11:15 | P.DS_ITS ---
DS: Providers Provider Date of Service: 04/17/22 Date of admission: 04/10/22 13:20 Primary care physician: Annette Joya MD Consults: 04/10/22 13:36 Consult to Nephrology Routine Consulting Provider: Cj Campbell Reason for consultation: hyperkalemia/PEG Has provider been notified: No Consult to Neurology Routine Consulting Provider: [facility] Reason for consultation: ?infarction Has provider been notified: No 04/10/22 13:53 Consult to General Surgery Routine Consulting Provider: Clifford Howe Reason for consultation: choledocolithiasis, porcelin gallbladder Has provider been notified: No 04/10/22 13:55 Consult to Gastroenterology Routine Consulting Provider: Juany Kolb Reason for consultation: choledocolithiasis, porcelin gallbladder Has provider been notified: No 04/13/22 13:51 Consult to Infectious Diseases Routine Consulting Provider: Edwige Sherwood Reason for consultation: Pseudomonas UTI DS: Diagnosis Discharge Diagnosis (1) Acute on chronic kidney failure: Status: Acute (2) UTI (urinary tract infection): Status: Acute (3) Choledocholithiasis: Status: Acute (4) Metabolic encephalopathy: Status: Acute (5) Acute hyperkalemia: Status: Acute (6) Cerebral microvascular disease: Status: Acute DS: Summary Hospital Course Hospital Course: Admission note HPI 71 year old female with past history significant for CKD stage 3, insulin dependent type 2 diabetes s/p left BKA, GERD, hypothyroidism, history TIA, and history VTE brought to ED this morning by ambulance from [facility] in [place] after exhibiting dystonic spasms in the bilateral upper extremities. Unable to obtain much history from patient as she is quite obtunded and baseline mental status is somewhat unclear. Per ED provider, patient was a&o x3 on arrival but slow to respond to questions. Initially dystonic movements thought to be secondary to amitriptyline use, which pt has been taking for some time, so dose of cogentin was given which could be cause of patient's lethargy. Chemistries show PEG with creatinine 4.53 (baseline 2.63 from 7/3) and BUN 70 (baseline 43 from 7/3). K was 6.4, NA 132, glucose 183. In ED, patient treated for hyperkalemia with calcium gluconate, lokelma, insuling, D5, and NS. LFTs slightly above baseline with AST 90, ALT, 92, Alk phos 449. EKG with mildly peaked t waves in avl and V4, no other ST-T wave abnormalities. Head CT with no acute midline shift or hemorrhage but with evidence of white matter ischemic change and with decreased attenuation in central brain at the level of cerebral peduncles of uncertain etiology, but could be patient accounting representative of infarct. Patient is obtunded but complaining of pain all over while awake. She is also currently being treated with valtrex for shingles on the left low back. Hospital course The patient was admitted to the hospital for evaluation of encephalopathy S she was on to have acute kidney injury, UTI any evidence of gallbladder stones at time of admission. Treated with IV fluid with improvement in her kidney function as she was evaluated by Nephrology team with creatinine improving to almost her baseline of 2.9. Started on Lokelma as potassium number improved back to normal. Treated with IV antibiotics for UTI. Urine culture grew Pseudomonas. Antibiotic was changed to cefepime as the patient evaluated by infectious disease specialist who recommended to finish cefepime while inpatient and to continue with Levaquin at time of discharge for total of 10 days. Renally adjusted Levaquin does prescribed. CT scan of the abdomen and pelvis revealed calcified material within the bladder. Concern over a CBD stone was raised as an MRCP was done showing evidence of a small stone. ERCP was done removing the stone with improvement in the abdominal pain. Surgical team recommended cholecystectomy once the patient is medically stable as she can follow in the office in 2 weeks to arrange for outpatient procedure. Her mental status improved significantly back to her baseline after treatment of the infection. As part of evaluation a CT of head was done showing decreased attenuation in central brain at the level of cerebral peduncles of uncertain etiology. Evaluated by Neurology team who recommended no further evaluation or intervention as an MRI was done showing no acute infarct but chronic lacunar infarcts. She was advised to lose weight for her morbid obesity with BMI 42. Continue levofloxacin as prescribed Start low-fat diet To follow-up with surgery Dr. Howe as outpatient to plan for gallbladder removal Time Spent with Patient Time attestation: Total time spent providing and/or coordinating discharge services: Discharge coordination time: Greater than 30 minutes Quality: Safe Use of Opioids Does Pt have an Active Cancer Diagnosis on the Problem List?: No Quality: Stroke Does the patient have a stroke diagnosis?: No Physical Exam Vital Signs: Vital Signs: Last Vital Signs Temp 98.6 F 04/17/22 08:00 Pulse 65 04/17/22 08:00 Resp 20 04/17/22 08:00 BP 156/70 H 04/17/22 08:00 Pulse Ox 98 04/17/22 08:00 O2 Del Method 04/17/22 08:00 O2 Flow Rate 4 04/16/22 17:56 BMI result Body Mass Index 42.9 Const: Other: Constitutional : Alert, interactive, not in distress, morbidly obese Neck : Normal inspection, Supple Cardiovascular : RRR, no JVP, no lower extremity edema Respiratory : fair bilateral air entry, no crackles, wheezes or rhonchi Gastrointestinal: soft, lax, Normal bowel sounds, Non tender Musculoskeletal, left BKA Skin : Warm, Dry, rash in the back representing shingles along L1 dermatome left-sided Neurological : Alert & oriented to self , no focal deficit, CN 2-12 within normal DS: Data Data Completed and Pending Labs on day of discharge: Laboratory Results - last 24 hr 04/16/22 04/16/22 04/16/22 11:10 14:40 18:50 Sodium Potassium Chloride Carbon Dioxide Anion Gap BUN Creatinine Estim Creat Clear Calc Estimated GFR POC Glucose 130 H 124 H 157 H Random Glucose Calcium Total Bilirubin Direct Bilirubin AST ALT Alkaline Phosphatase Total Protein Albumin 04/16/22 04/17/22 04/17/22 20:15 06:14 06:14 Sodium 137 Potassium 4.1 Chloride 106 Carbon Dioxide 18 L Anion Gap 17 BUN 39 H Creatinine 2.95 H Estim Creat Clear Calc 22.2 Estimated GFR 16 POC Glucose 156 H Random Glucose 116 H Calcium 7.2 L Total Bilirubin 0.2 Cancelled Direct Bilirubin 0.2 Cancelled AST 64 H Cancelled ALT 43 H Cancelled Alkaline Phosphatase 465 H D Cancelled Total Protein 6.3 L Cancelled Albumin 2.6 L Cancelled 04/17/22 04/17/22 07:18 10:48 Sodium Potassium Chloride Carbon Dioxide Anion Gap BUN Creatinine Estim Creat Clear Calc Estimated GFR POC Glucose 103 131 H Random Glucose Calcium Total Bilirubin Direct Bilirubin AST ALT Alkaline Phosphatase Total Protein Albumin Imaging MRI - abdomen: Radiologist's impression: ITS Impressions Head CT 04/10/22 10:27 IMPRESSION: There is no acute midline shift mass effect or hemorrhage. There is evidence of white matter ischemic change here and as described decreased attenuation in the central brain at the level of cerebral peduncles of uncertain etiology. This could represent an infarct. Underlying lesion cannot be excluded. Recommend MR for full evaluation. Abdomen/Pelvis CT 04/10/22 12:42 IMPRESSION: * No acute findings along the urinary tracts. No nephrolithiasis or hydronephrosis. * Gallbladder is suboptimally evaluated. 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 Also noted is choledocholithiasis and a punctate focus of gas within the gallbladder or along its wall at its interface with the liver. * Severe atherosclerotic disease of aorta and branch vessels. * Myelolipoma of the right adrenal gland and lipid rich adenoma of the left adrenal gland. Brain MRI 04/11/22 14:36 IMPRESSION: Incomplete study. No axial FLAIR imaging was obtained. The acquired series are motion degraded. There are no acute infarcts. There is global cerebral volume loss with a temporal lobe predominance and there is probable advanced chronic microangiopathy as well as chronic lacunar infarcts within the deep camacho nuclei and cierra. Cholangiopancreatography MRI 04/14/22 12:32 IMPRESSION: Limited exam due to motion artifact. Mild common bile duct dilatation and 4 x 7 mm common bile duct stone. Low signal in the gallbladder. It is uncertain whether this represents gallbladder wall calcification versus large gallstone. Bilateral renal simple cysts and 1.6 cm probable hemorrhagic cyst in the upper pole of the left kidney. Bilateral benign adrenal lesions, probable myelolipoma on the right and lipid rich adenoma on the left. Guidance Fluoroscopy 04/16/22 17:20 IMPRESSION: Fluoroscopic imaging for intraoperative ERCP. Discharge Plan Discharge Patient Disposition: [facility] Discharge Diagnosis: Gallbladder stones with obstruction UTI Acute kidney injury Hyperkalemia Toxic metabolic encephalopathy Referrals: [facility] [Outside] - 1 Week Annette Joya MD [Primary Care Provider] - 1 Week Clifford Howe MD [Physician] - 2 Weeks Discharge Medications: New levofloxacin 250 mg tablet 250 mg PO DAILY Qty: 10 0RF Continued furosemide 40 mg tablet 1 tab PO BID Hold Instructions: Resume on 03/10/22. hold until seen by nephrology atorvastatin 80 mg tablet 1 tab PO DAILY metoprolol tartrate 100 mg tablet 1 tab PO BID ondansetron HCl 4 mg tablet 1 tab PO Q8H PRN (Reason: Nausea) amitriptyline 25 mg tablet 1 tab PO BEDTIME amlodipine 10 mg tablet 1 tab PO DAILY Rx Instructions: HOLD SBP <100 insulin aspart U-100 [Novolog U-100 Insulin aspart] 100 unit/mL solution See Rx Instructions .ROUTE .COMPLEX Rx Instructions: INJECT TID WM PER SLIDING SCALE: 150-199: 9U 200-249:12 U 250-299: 15U 300-349:18U 350-399:21U CALL MD/CENTER RECEPTIONIST >400 pantoprazole 40 mg tablet,delayed release (DR/EC) 1 tab PO BID losartan 25 mg tablet 3 tab PO DAILY Hold Instructions: Resume on 03/17/22. hold until seen by nephro( patient has hyperkalemia) levothyroxine 200 mcg tablet 1 tab PO BEDTIME oxycodone 5 mg tablet 2 tab PO Q6H PRN (Reason: Pain) Rx Instructions: MUST BE 4 HOURS APART FROM SCHEDULED DOSE escitalopram oxalate 10 mg tablet 1 tab PO DAILY [id number]-almc [Fioricet] 50-300-40 mg capsule 1 cap PO Q8H PRN (Reason: Headache) Eliquis 2.5 mg tablet 1 tab PO BID Tresiba FlexTouch U-100 100 unit/mL (3 mL) insulin pen 10 unit subcut BEDTIME polyvinyl alcohol [Artificial Tears (polyvin alc)] 1.4 % Drops 1 drp OPHTHALMIC (EYE) BID aspirin 81 mg Tablet,Delayed Release (Dr/Ec) 81 mg PO DAILY calcium carbonate [Calcium 600] 600 mg calcium (1,500 mg) Tablet 600 mg PO BID lactase [Lactaid] 3,000 unit Tablet 3,000 unit PO TIDWM Rx Instructions: administer with meals and/or snacks oxycodone 5 mg tablet 1 tab PO BEDTIME hydrochlorothiazide 25 mg Tablet 25 mg PO DAILY Qty: 30 0RF Lokelma 10 gram powder in packet 10 g PO Q OTHER DAY Qty: 11 0RF valacyclovir 500 mg tablet 1 tab PO DAILY baclofen 5 mg Tablet 5 mg PO BEDTIME acetaminophen [Tylenol] 325 mg Tablet 650 mg PO Q8H PRN (Reason: Pain) docusate sodium 100 mg Tablet 100 mg PO BEDTIME PRN (Reason: Constipation) hydralazine 25 mg tablet 75 mg PO TID Protocol: Hold for SBP< HOLD for SBP < : 90 Discharge Orders: Discharge Order (Routine); Ordered 04/17/22 Ordered By: Za Quarles Diet: Low fat, low cholesterol Activity on Discharge: As tolerated Stand Alone Forms: Patient Portal Discharge page Care Plan Goals: Read below Health Concerns: Read below Plan of Treatment: Read below Assessment: You were admitted to the hospital for evaluation of altered mentation. Found to have acute kidney injury, gallbladder stones and elevated potassium level with evidence of urinary tract infection. Treated with IV fluid, IV antibiotics with good response over the course of hospital stay. Kidney function improved back to her baseline. Evaluated by stewarding supervisor as abdominal images showed evidence of stone obstructing your common bile duct that was removed through ERCP procedure. Urine culture grew Pseudomonas bacteria. Evaluated by infectious disease specialist. To finish 10 more days of levofloxacin. Continue levofloxacin as prescribed Start low-fat diet To follow-up with surgery Dr. Howe as outpatient to plan for gallbladder removal
--- NOTE | 2022-04-17 11:18 | PM.PNNEP ---
Subjective Subjective Date of Service: 04/17/22 Interval history: Events noted Physical Exam Vital Signs: Vital Signs: Last Vital Signs Temp 98.6 F 04/17/22 08:00 Pulse 65 04/17/22 08:00 Resp 20 04/17/22 08:00 BP 156/70 H 04/17/22 08:00 Pulse Ox 98 04/17/22 08:00 O2 Del Method 04/17/22 08:00 O2 Flow Rate 4 04/16/22 17:56 BMI result Body Mass Index 42.9 Const: Other: Constitutional : Alert, interactive, not in distress, morbidly obese Neck : Normal inspection, Supple Cardiovascular : RRR, no JVP, no lower extremity edema Respiratory : fair bilateral air entry, no crackles, wheezes or rhonchi Gastrointestinal: soft, lax, Normal bowel sounds, Non tender Musculoskeletal, left BKA Skin : Warm, Dry, rash in the back representing shingles along L1 dermatome left-sided Neurological : Alert & oriented to self but overall confused, CN 2-12 within normal Objective Data Labs CBC & Chem 7: 04/13/22 06:06 04/17/22 06:14 Labs: Laboratory Results - last 24 hr 04/16/22 04/16/22 04/16/22 11:10 14:40 18:50 Sodium Potassium Chloride Carbon Dioxide Anion Gap BUN Creatinine Estim Creat Clear Calc Estimated GFR POC Glucose 130 H 124 H 157 H Random Glucose Calcium Total Bilirubin Direct Bilirubin AST ALT Alkaline Phosphatase Total Protein Albumin 04/16/22 04/17/22 04/17/22 20:15 06:14 06:14 Sodium 137 Potassium 4.1 Chloride 106 Carbon Dioxide 18 L Anion Gap 17 BUN 39 H Creatinine 2.95 H Estim Creat Clear Calc 22.2 Estimated GFR 16 POC Glucose 156 H Random Glucose 116 H Calcium 7.2 L Total Bilirubin 0.2 Cancelled Direct Bilirubin 0.2 Cancelled AST 64 H Cancelled ALT 43 H Cancelled Alkaline Phosphatase 465 H D Cancelled Total Protein 6.3 L Cancelled Albumin 2.6 L Cancelled 04/17/22 04/17/22 07:18 10:48 Sodium Potassium Chloride Carbon Dioxide Anion Gap BUN Creatinine Estim Creat Clear Calc Estimated GFR POC Glucose 103 131 H Random Glucose Calcium Total Bilirubin Direct Bilirubin AST ALT Alkaline Phosphatase Total Protein Albumin Microbiology Microbiology Results: Microbiology 04/10/22 14:19 Blood - Venous Blood Culture - Final No growth after 5 days. 04/10/22 14:19 Blood - Venous Blood Culture - Final No growth after 5 days. 04/10/22 Unknown Urine clean catch - Urine camacho top Urine Culture - Final Pseudomonas aeruginosa Procedures Date of Service Date of Service: 04/17/22 Assessment & Plan Assessment and plan (1) Acute on chronic kidney failure: Status: Acute Plan PEG Met Acidosis Hyperkalemia Renal function is improving - close to baseline Acidosis is better- no need for Bicarb now K normalized Keep I >O Continue to avoid nephrotoxins Will arrange for OP follow up if discharged Time Spent With Patient Time: Total time spent is greater than 50% in coordination of care (as documented) at patient's floor/unit and/or counseling patient: Progress Note: Quality Stroke Does the patient have a stroke diagnosis?: No
[2022-04-17 11:41] VITALS: BP 155/73; PULSE 67; RESP 20; TEMP 36.8; O2SAT 96
[2022-04-17] MEDS: Losartan Potassium 25 MG TABLET 75 MG PO (12:11)
[2022-04-17] MEDS: hydrALAZINE HCl 25 MG TABLET 75 MG PO (12:11)
[2022-04-17] MEDS: Metoprolol Tartrate 100 MG TABLET PO (12:11)
[2022-04-17] MEDS: 0.9 % Sodium Chloride Flush 3 ML SYRINGE IVFLUSH (12:12)
[2022-04-17] MEDS: amLODIPine Besylate 10 MG TABLET PO (12:12)
[2022-04-17] MEDS: cefEPime HCl 0.5 GM in 0.9 % Sodium Chloride 50 ML IV (12:21)
[2022-04-17 12:53] LABS: COVID-19 Test Negative (Negative); IDNOW Serial# 16C4AD1C
== END 2022-04-17 13:20 | disposition skilled nursing facility (03) | DRG 444 ==
LOC: HO.ED 10:17 → HO.EDOVER 13:45 → HO.IMC 04-11 07:22
PROVIDERS: Internal Medicine Gastroenterology; Physician Assistant; Admitting Provider Physician Assistant; Emergency Provider Emergency Medicine; PCP Internal Medicine; Visit Provider Student in an Organized Health Care Education/Training Program
PROC: 0FC98ZZ Extirpation of Matter from Common Bile Duct, Via Natural or Artificial Opening Endoscopic (ICD-10-PCS; CPT 43260; principal; 2022-04-16 14:30)
DX: K80.50 Calculus of bile duct without cholangitis or cholecystitis without obstruction (principal); G92.8 Other toxic encephalopathy; N17.0 Acute kidney failure with tubular necrosis; Z68.41 Body mass index [BMI] 40.0-44.9, adult; E87.2 Acidosis; E87.1 Hypo-osmolality and hyponatremia; N18.4 Chronic kidney disease, stage 4 (severe); E83.51 Hypocalcemia; K21.9 Gastro-esophageal reflux disease without esophagitis; E03.9 Hypothyroidism, unspecified; B02.9 Zoster without complications; E87.5 Hyperkalemia; Z66 Do not resuscitate; D63.1 Anemia in chronic kidney disease; E11.22 Type 2 diabetes mellitus with diabetic chronic kidney disease; E11.51 Type 2 diabetes mellitus with diabetic peripheral angiopathy without gangrene; Z20.822 Contact with and (suspected) exposure to COVID-19; E66.01 Morbid (severe) obesity due to excess calories; B96.5 Pseudomonas (aeruginosa) (mallei) (pseudomallei) as the cause of diseases classified elsewhere; Z71.3 Dietary counseling and surveillance; Z89.512 Acquired absence of left leg below knee; Z86.73 Personal history of transient ischemic attack (TIA), and cerebral infarction without residual deficits; Z88.5 Allergy status to narcotic agent; Z88.8 Allergy status to other drugs, medicaments and biological substances; Z79.4 Long term (current) use of insulin; Z79.82 Long term (current) use of aspirin; Z79.01 Long term (current) use of anticoagulants; Z79.890 Hormone replacement therapy; Z79.899 Other long term (current) drug therapy
CPT/HCPCS: 36415; 70450; 70551; 74176; 74181; 80048; 80053; 80076; 81001; 82043; 82947; 83036; 83540; 83735; 84300; 85025; 85027; 85610; 85730; 87040; 87086; 87088; 87186; 87635; 93005; 94640; 96361; 96372; 96374; 96375; 99285; C1758; C1769; J0515; J0610; J0692; J1100; J1170; J1610; J2250; J2405; J2543; J3010; Q9965; Q9967

== ENCOUNTER → 2022-05-06 14:04 | Outpatient (BNVA) | payer MEDICARE, MEDICAID, SELFPAY | PROVIDERS: PCP Internal Medicine; Visit Provider Surgery | DX: K80.50 Calculus of bile duct without cholangitis or cholecystitis without obstruction (principal) | CPT/HCPCS: 99212 ==

== ENCOUNTER 2022-06-06 04:48 | Inpatient (IN) | payer MEDICARE, MEDICAID, SELFPAY ==
[2022-06-06] VITALS (8 sets, daily range): BP systolic 128–177; BP diastolic 46–77; PULSE 71–96; RESP 12–19; TEMP 36.5–37.2; O2SAT 94–100; BMI 36.1
--- NOTE | ~2022-06-06 | CT_ITS ---
EXAMINATION: CT BRAIN WITHOUT CONTRAST CT CERVICAL SPINE WITHOUT CONTRAST CLINICAL INFORMATION: Confusion. COMPARISON: None TECHNIQUE: 5 mm thin axial and reformatted 2 mm thin sagittal and coronal images of brain were obtained. Subsequently axial 3 mm thin and reformatted 2 mm thin sagittal and coronal images of cervical spine were obtained. DLP: 2515 mGy-cm FINDINGS: BRAIN: There is no acute intra-axial, extra-axial bleed, masses, collection or midline shift. There is no acute infarction evolution. The lateral ventricles are enlarged and so are the cortical sulci. There is mild periventricular hypodensity in both cerebral hemispheres. Bone windows reveal no calvarial abnormality. There is no scalp soft tissue abnormality. Bilateral paranasal sinuses and mastoid air cells are well aerated. CERVICAL SPINE: There is mild straightening of cervical lordosis. The vertebral heights, alignment are normal. There is loss of C4-C5, C5-C6 disc heights with mild posterior spondylosis. Rest of the disc heights are normal. The craniovertebral junction and the C1-C2 alignment is normal. The prevertebral and paravertebral soft tissues are normal. The airway is widely patent. Visualized bilateral parotid, submandibular glands are symmetrical and normal. The lung apices are clear. CT/CT cervical spine wo IV con IMPRESSION: No acute intracranial process seen. There is no acute fracture, dislocation or subluxation of cervical spine. There are degenerative disc changes and posterior spondylosis as described above.
--- NOTE | ~2022-06-06 | XR_ITS ---
EXAMINATION: XR CHEST CLINICAL INFORMATION: Altered mental status. COMPARISON: February 24, 2022. TECHNIQUE: Portable AP view of the chest was obtained. XR/XR chest 1V FINDINGS/IMPRESSION: The study is limited by portable technique, low lung volumes, and patient body habitus. No focal infiltrate, effusion, or pneumothorax is seen. The right hemidiaphragm is mildly elevated. The cardiac silhouette is poorly evaluated. The aorta is atherosclerotic. There are degenerative changes of the spine.
--- NOTE | ~2022-06-06 | CT_ITS ---
EXAMINATION: CT ABDOMEN AND PELVIS WITHOUT CONTRAST CLINICAL INFORMATION: Acute mental status change. Pain. COMPARISON: Previous CT of the abdomen and pelvis and MRCP March 2022 TECHNIQUE: Multidetector volumetric imaging was performed from the superior aspect of the liver through the pubic symphysis. Sagittal and coronal reformatted images were obtained on the technologist's workstation. This CT examination was performed using dose optimization techniques as appropriate, variously including the following: *Automated exposure control *Adjustment of mA and/or kV according to patient size (this includes techniques or standardized protocols for targeted exams where dose is matched to indication/reason for exam; i.e. extremities or head) *Use of iterative reconstruction technique DLP: 1412 mGy-cm FINDINGS: LUNG BASES: The visualized lung bases are unremarkable. LIVER, GALLBLADDER, AND BILIARY TREE: There are small calcifications in the liver that are stable. The gallbladder is normal in size. There is high attenuation in the gallbladder questionable for a small gallstones. There is question of gallbladder wall thickening. There is no intrahepatic biliary duct dilatation. The common bile duct is upper normal in size measuring 7 mm. PANCREAS: Unremarkable. SPLEEN: Unremarkable. ADRENAL GLANDS: 2 x 3 cm low-attenuation left adrenal nodule stable suggestive of a benign adenoma. Fatty 3.5 cm stable right adrenal nodule suggestive of a myelolipoma. KIDNEYS AND URETERS: The kidneys are normal in size, shape, and attenuation. No hydronephrosis, hydroureter, or calculi seen. No perinephric stranding. BLADDER: Unremarkable. GASTROINTESTINAL TRACT: Stool throughout the colon suggestive of constipation. The small and large bowel are otherwise unremarkable. The appendix is unremarkable. ABDOMINAL WALL: No hernia. Subcutaneous edema in the bilateral lateral abdominal wall. No focal fluid collection. LYMPH NODES: Normal. VASCULAR: Severe atherosclerotic disease. PELVIC VISCERA: Unremarkable. OSSEOUS STRUCTURES: Degenerative changes of the spine. CT/CT abdomen pelvis wo IV con IMPRESSION: Probable small gallstones. Normal-size gallbladder. Question gallbladder wall thickening. No intrahepatic biliary duct dilatation. Upper normal-size common bile duct. No common bile duct stone appreciated by CT. Constipation. Stable bilateral adrenal lesions. Severe atherosclerotic disease. Bilateral lateral abdominal wall subcutaneous edema Fleischner guidelines were followed.
--- NOTE | ~2022-06-06 | CT_ITS ---
EXAMINATION: CT BRAIN WITHOUT CONTRAST CT CERVICAL SPINE WITHOUT CONTRAST CLINICAL INFORMATION: Confusion. COMPARISON: None TECHNIQUE: 5 mm thin axial and reformatted 2 mm thin sagittal and coronal images of brain were obtained. Subsequently axial 3 mm thin and reformatted 2 mm thin sagittal and coronal images of cervical spine were obtained. DLP: 2515 mGy-cm FINDINGS: BRAIN: There is no acute intra-axial, extra-axial bleed, masses, collection or midline shift. There is no acute infarction evolution. The lateral ventricles are enlarged and so are the cortical sulci. There is mild periventricular hypodensity in both cerebral hemispheres. Bone windows reveal no calvarial abnormality. There is no scalp soft tissue abnormality. Bilateral paranasal sinuses and mastoid air cells are well aerated. CERVICAL SPINE: There is mild straightening of cervical lordosis. The vertebral heights, alignment are normal. There is loss of C4-C5, C5-C6 disc heights with mild posterior spondylosis. Rest of the disc heights are normal. The craniovertebral junction and the C1-C2 alignment is normal. The prevertebral and paravertebral soft tissues are normal. The airway is widely patent. Visualized bilateral parotid, submandibular glands are symmetrical and normal. The lung apices are clear. CT/CT head/brain wo IV con IMPRESSION: No acute intracranial process seen. There is no acute fracture, dislocation or subluxation of cervical spine. There are degenerative disc changes and posterior spondylosis as described above.
--- NOTE | 2022-06-06 05:12 | PC.NURSE ---
Pt. is on phototypesetting equipment monitor at this time. Awaiting MD assessment
--- OUTSIDE RECORDS SUMMARY | 2022-06-06 05:42 | XMS_ITS | Continuity of Care Document ---
:1950 Author Organization [facility] Address [address] [place] [address]- Care Team Providers Name Role Phone Elder Bailey MIJARES Primary Care Physician [phone] Encounter [facility] Date(s): 09/18/21 - 10/18/21 [facility] [place] [address] [place] [address], [place] [address] Attending Physician: Jodee Recinos Admitting Physician: Admtr, Jodee Referring Physician: Admtr, Ar8 Allergies, Adverse Reactions, Alerts Substance Reaction Severity Status codeine unknown Active clarithromycin unknown Active morphine sob Active Biaxin unknown Active Catapres unknown Active Latex rash Active Tape unknown Active Lactose DIARRHEA Active Immunizations Given and Recorded Vaccine Date Status Refusal Reason tetanus/diphtheria/pertussis, acel(Tdap) 07/28/17 Given tetanus/diphtheria/pertussis, acel(Tdap) 10/20/11 Given Diphth-Tetanus Toxoids Adsorbed(oldterm) 03/12/05 Given Not Given Vaccine Date Status Refusal Reason pneumococcal 23-valent vaccine 05/29/17 Not Given P atient Refuses influenza virus vaccine, inactivated 05/29/17 Not Given Patient Refuses Medications acetaminophen 325 mg oral tablet 650 mg, 2, tablet, By Mouth, Every 4 hours, PRN, Maintenance, as needed for fever/pain, 09/27/20 20:52:00 EST, Partial fill upon patient request if the prescription is for a schedule II opioid drug. Start Date: 09/27/20 Status: Orderedamitriptyline 25 mg oral tablet 25 mg, 1, tablet, By Mouth, Daily at bedtime, Refills 0, Maintenance, 09/29/19 1:39:00 EST Start Date: 09/29/19 Status: Orderedapixaban 2.5 mg oral tablet 1 tablet = 2.5 mg, By Mouth, Every 12 hours, 0 Refills, Maintenance, 10/01/20 11:22:00 EST, Tablet, Partial fill upon patient request if the prescription is for a schedule II opioid drug. Start Date: 10/01/20 Status: OrderedArtificial Tears PF Ophth 1 drops, Eyes, Both, 4 times a day, PRN Itch, Dryness, 0 Refills, Maintenance, 09/29/19 1:41:00 EST,Ophth Solution Start Date: 09/29/19 Status: Orderedatorvastatin 40 mg oral tablet 1 tablet = 40 mg, By Mouth, Daily, # 30 tablet, 5 Refills, Maintenance, 09/05/15 15:15:00, Tablet, 1tablet By Mouth Daily Start Date: 09/05/15 Status: Orderedbisacodyl 10 mg rectal suppository 1 supp = 10 mg, Rectally, Daily, PRN for constipation, if no results from MOM, 0 Refills, Maintenance, 03/25/18 19:51:05 EDT, Suppository Start Date: 03/25/18 Status: Orderedcranberry oral capsule = 1,000 mg, By Mouth, 2 times a day, 0 Refills, Maintenance, 11/15/18 12:16:32 EDT Start Date: 11/15/18 Status: Ordereddocusate sodium 100 mg oral capsule 100 mg, 1, capsule, By Mouth, Daily at bedtime, PRN, Maintenance, as needed for constipation, 09/27/20 20:57:00 EST, Partial fill upon patient request if the prescription is for a schedule II opioid drug. Start Date: 09/27/20 Status: Ordereddoxycycline hyclate 100 mg oral tablet 1 capsule, By Mouth, Every 12 hours, Maintenance, 09/27/20 20:58:00 EST, Capsule, Partial fill upon patient request if the prescription is for a schedule II opioid drug. Start Date: 09/27/20 Stop Date: 10/01/20 Status: OrderedFioricet oral capsule 1 capsule, By Mouth, Every 6 hours, PRN Migraine Headache, Maintenance, 09/27/20 21:00:00 EST, Capsule, Partial fill upon patient request if the prescription is for a schedule II opioid drug. Start Date: 09/27/20 Status: OrderedFleet Enema 19 gm-7 gm rectal enema 1 each, Rectally, Once, PRN for constipation, Maintenance, 09/27/20 20:59:00 EST, Enema, Partial fill upon patient request if the prescription is for a schedule II opioid drug. Start Date: 09/27/20 Status: OrderedGlucaGen HypoKit 1 mg injection Subcutaneous Injection, Once, PRN Blood Glucose, 0 Refills, Maintenance, 05/12/18 15:28:31 EDT Start Date: 05/12/18 Status: OrderedGlutose 45 oral gel = 15 Gm, By Mouth, Once, PRN hypoglycemic protocol, Maintenance, 09/27/20 21:15:00 EST, Partial fillupon patient request if the prescription is for a schedule II opioid drug. Start Date: 09/27/20 Status: Orderedlevothyroxine 0.1 mg oral tablet 1 tablet = 100 mcg, By Mouth, Daily, with 200mcg for total of 300mcg, 0 Refills, Maintenance, 09/29/19 3:50:00 EST, Tablet Start Date: 09/29/19 Status: Orderedlevothyroxine 0.2 mg oral tablet 1 tablet = 200 mcg, By Mouth, Daily, give with 100mcg for a total of 300mcg, Maintenance, 09/27/20 21:04:00 EST, Tablet, Partial fill upon patient request if the prescription is for a schedule II opioid drug. Start Date: 09/27/20 Status: Orderedloratadine 10 mg oral tablet 10 mg, 1, tablet, By Mouth, Daily at bedtime, Maintenance, 09/27/20 20:55:00 EST, Partial fill upon patient request if the prescription is for a schedule II opioid drug. Start Date: 09/27/20 Status: Orderedmagnesium oxide 400 mg oral tablet 1 tablet = 400 mg, By Mouth, 2 times a day, 0 Refills, Maintenance, 11/15/18 12:16:11 EDT Start Date: 11/15/18 Status: Orderedmetoprolol 100 mg oral tablet = 100 mg, By Mouth, 2 times a day, # 60 tablet, 5 Refills, Maintenance, 10/12/15 16:01:00, Tablet, 100 mg By Mouth 2 times a day,x30 days Start Date: 10/12/15 Stop Date: 02/09/16 Status: OrderedMilk of Magnesia 30 mL, By Mouth, Daily, PRN as needed for constipation, 0 Refills, Maintenance, 02/04/18 10:15:37 EDT Start Date: 02/04/18 Status: OrderednalOXONE 0.4 mg/mL injectable solution = 0.4 mg, IV Infusion, Once, PRN opioid overdose, Maintenance, 09/27/20 21:16:00 EST, Partial fill upon patient request if the prescription is for a schedule II opioid drug. Start Date: 09/27/20 Status: OrderedNorvasc 10 mg oral tablet 10 mg, By Mouth, Daily, # 30 Doses, Refills 0, Tot. Refills 0, Maintenance, 04/05/17 10:58:11, [facility] Electronically, [id number], [facility] Start Date: 04/05/17 Stop Date: 05/05/17 Status: OrderedNovoLOG 100 units/mL subcutaneous solution See Instructions, Subcutaneous Injection, 3 times a day before meals at at bedtime 100???149= 9 units 150???199= 12 units 200???249= 15 units 250???299= 18 units 300???349= 21 units 350???399= 24 units, 5 Refills, Maintenance, 09/29/19 3:47:00 EST Start Date: 09/29/19 Stop Date: 10/29/19 Status: Orderedomeprazole 20 mg oral enteric coated capsule 1 capsule = 20 mg, By Mouth, Daily, # 30 capsule, 11 Refills, Maintenance, 08/17/15 16:57:00, 1 capsule By Mouth Daily Start Date: 08/17/15 Status: Orderedondansetron 4 mg oral tablet 1 tablet = 4 mg, By Mouth, Every 8 hours, PRN Nausea, 0 Refills, Maintenance, 11/15/18 12:14:22 EDT Start Date: 11/15/18 Status: OrderedoxyCODONE 5 mg oral tablet 5 mg, 1, tablet, By Mouth, 3 times a day, PRN, Refills 0, Tot. Refills 0, Maintenance, Pain , Severe, 09/27/20 21:07:00 EST, Partial fill upon patient request if the prescription is for a schedule II opioid drug. Start Date: 09/27/20 Status: OrderedoxyCODONE 5 mg oral tablet 5 mg, 1, tablet, By Mouth, Daily at bedtime, Refills 0, Tot. Refills 0, Maintenance, 09/27/20 21:10:00 EST, Partial fill upon patient request if the prescription is for a schedule II opioid drug. Start Date: 09/27/20 Status: OrderedPreparation H apply, Rectally, Every 12 hours, PRN as needed for itching, Maintenance, 09/27/20 21:06:00 EST, Partial fill upon patient request if the prescription is for a schedule II opioid drug. Start Date: 09/27/20 Status: OrderedTresiba 100 units/mL subcutaneous solution = 70 units, Subcutaneous Injection, Daily at bedtime, Maintenance, 09/27/20 21:10:00 EST, Partial fill upon patient request if the prescription is for a schedule II opioid drug. 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) Bronchial asthma(Confirmed) Active h/o Cellulitis(Confirmed) Active Chronic kidney disease(Confirmed) Active CVA - Cerebrovascular Active accident(Confirmed) Diabetes mellitus, insulin Active dependent(Confirmed) GERD - Gastro-esophageal reflux Active disease(Confirmed) Hyperlipidemia(Confirmed) Active Hypertension(Confirmed) Active Hypothyroidism 2/2 Active thyroidectomy(Confirmed) Motion sickness(Confirmed) Active Obesity(Confirmed) Active PVD (peripheral vascular disease) s/p Active left BKA(Confirmed) Social History Social History Type Response Smoking Status Former smoker, quit more suresh n 30 days ago; Type: Cigarettes; Total pack years: 1; entered on: 09/29/19 Sex
--- OUTSIDE RECORDS SUMMARY | 2022-06-06 05:42 | XMS_ITS | Continuity of Care Document ---
:1950 Author Organization [facility] Address [address] [place] [address]- Care Team Providers Name Role Phone Elder Bailey MIJARES Primary Care Physician [phone] Encounter [facility] Date(s): 11/05/20 - 12/05/20 [facility] [address] [place] [address] Allergies, Adverse Reactions, Alerts Substance Reaction Severity [...] 0, Tot. Refills 0, Maintenance, 04/05/17 10:58:11, [facility] Electronically, [id number], [facility] Start Date: 04/05/17 Stop Date: 05/05/17 Status: [...]
--- OUTSIDE RECORDS SUMMARY | 2022-06-06 05:42 | XMS_ITS | Continuity of Care Document ---
:1950 Author Organization [facility] Address [address] [place] [id number]- Care Team Providers Name Role Phone Elder Bailey MIJARES Primary Care Physician En[place] [facility] Date(s): 12/16/21 - 01/15/22 [facility] [address] [place] [id number] Attending Physician: Jodee Recinos Admitting Physician: Admtr, Sam8 Referring Physician: Admtr, Ar8 Allergies, Adverse Reactions, Alerts Substance Reaction Severity Status codeine unknown Active Catapres unknown Active Tape unknown Active Lactose DIARRHEA Active clarithromycin unknown Active morphine sob Active Biaxin unknown Active Latex rash Active Immunizations Given and Recorded Vaccine Date [...] 0, Tot. Refills 0, Maintenance, 04/05/17 10:58:11, [facility] Electronically, [id number], [facility] Start Date: 04/05/17 Stop Date: 05/05/17 Status: [...]
--- OUTSIDE RECORDS SUMMARY | 2022-06-06 05:42 | XMS_ITS | Continuity of Care Document ---
:1950 Author Organization [facility] Address [address] [place] [address]- Care Team Providers Name Role Phone Elder Bailey MIJARES Primary Care Physician Encounter [facility] [place] [place] [facility] [id number] Date(s): 01/31/20 - 03/01/20 [facility] [address] [place] [address] [facility] Attending Physician: Jodee Recinos Admitting Physician: Admtr, [...] Not Given Vaccine Date Status Refusal Reason influenza virus vaccine, inactivated 05/29/17 Not Given Patient Refuses pneumococcal 23-valent vaccine 05/29/17 Not Given P atient Refuses Medications acetaminophen/butalbital/caffeine 300 mg-50 mg-40 mg oral capsule 1 capsule, By Mouth, Every 6 hours, PRN as needed, # 30 capsule, 0 Refills, Maintenance, 09/29/19 1:47:00 EST, Capsule Start Date: 09/29/19 Status: OrderedAcidophilus oral capsule By Mouth, 2 times a day, 0 Refills, Maintenance, 09/29/19 1:20:00 EST Start Date: 09/29/19 Status: Orderedalbuterol-ipratropium 3 mg-0.5 mg/3 ml inhalation solution 3 mL, Neb, 4 times a day, 0 Refills, Maintenance, 11/15/18 12:17:03 EDT Start Date: 11/15/18 Status: Orderedamitriptyline 25 mg oral tablet 25 mg, 1, tablet, By Mouth, Daily at bedtime, # 60 tablet, Refills 0, Maintenance, 09/29/19 1:39:00 EST Start Date: 09/29/19 Status: Orderedapixaban 5 mg oral tablet 1 tablet = 5 mg, By Mouth, 2 times a day, to hold 4 days prior to OR, # 60 tablet, 0 Refills, Maintenance, 05/12/18 15:48:28 EDT, Tablet Start Date: 05/12/18 Status: OrderedArtificial Tears PF Ophth 1 drops, Eyes, Both, 4 times a day, PRN Other, Dryness, 0 Refills, Maintenance, 09/29/19 1:41:00 EST, Ophth Solution Start Date: 09/29/19 Status: Orderedatorvastatin 40 mg oral tablet 1 tablet = 40 mg, By Mouth, Daily, # 30 tablet, 5 Refills, Maintenance, 09/05/15 15:15:00, Tablet, 1tablet By Mouth Daily Start Date: 09/05/15 Status: Orderedbisacodyl 10 mg rectal suppository 1 supp = 10 mg, Rectally, Daily, PRN for constipation, # 10 supp, 0 Refills, Maintenance, 03/25/18 19:51:05 EDT, Suppository Start Date: 03/25/18 Status: OrderedCetaphil Cleanser Topical 1 application, Topically, 0 Refills, Maintenance, Cream Start Date: 09/29/19 Status: Orderedcranberry oral capsule = 1,000 mg, By Mouth, 0 Refills, Maintenance, 11/15/18 12:16:32 EDT Start Date: 11/15/18 Status: OrderedEucerin Plus Topically, 4 times a day, 0 Refills, Maintenance, 09/29/19 1:46:00 EST Start Date: 09/29/19 Status: Orderedferrous sulfate 325 mg oral tablet 1 tablet = 325 mg, By Mouth, 2 times a day, # 270 tablet, 0 Refills, Maintenance, 09/29/19 1:46:00 EST, Tablet Start Date: 09/29/19 Status: Orderedgabapentin 100 mg oral capsule 200 mg, 2, capsule, By Mouth, 2 times a day, # 28 capsule, Refills 0, Tot. Refills 0, Maintenance, 09/30/19 15:10:00 EST, Print Requisition Start Date: 09/30/19 Stop Date: 10/07/19 Status: OrderedGlucaGen HypoKit 1 mg injection Subcutaneous Injection, Once, PRN Blood Glucose, 0 Refills, Maintenance, 05/12/18 15:28:31 EDT Start Date: 05/12/18 Status: Orderedinsulin degludec 100 units/mL subcutaneous solution = 80 units, Subcutaneous Injection, Daily at bedtime, 0 Refills, Maintenance, 09/29/19 3:43:00 EST Start Date: 09/29/19 Status: OrderedLevaquin 750 mg oral tablet 1 tablet = 750 mg, By Mouth, Every 48 hours, # 5 tablet, 0 Refills, Maintenance, 09/29/19 1:51:00 EST, Tablet Start Date: 09/29/19 Stop Date: 10/06/19 Status: Orderedlevothyroxine 0.1 mg oral tablet 1 tablet = 100 mcg, By Mouth, Daily, with 150mcg for total of 250 mcg, # 90 tablet, 0 Refills, Maintenance, 09/29/19 3:50:00 EST, Tablet Start Date: 09/29/19 Status: Orderedlevothyroxine 0.15 mg oral tablet with 100mcg for total of 250 mcg, 0 Refills, Maintenance, 09/29/19 3:50:00 EST Start Date: 09/29/19 Status: Orderedmagnesium oxide 400 mg oral tablet 1 tablet = 400 mg, By Mouth, Daily, 0 Refills, Maintenance, 11/15/18 12:16:11 EDT Start [...] 02/04/18 10:15:37 EDT Start Date: 02/04/18 Status: OrderedMulti Podus Boot Multi Podus Boot, See Instructions, # 1 pair, Refills 1, Tot. Refills 1, Maintenance, apply to rightfoot DX: Plantar Fascitis, 07/08/18 10:58:39 EST, Compound Start Date: 07/08/18 Status: OrderedNorvasc 10 mg oral tablet 10 mg, By Mouth, Daily, # 30 Doses, Refills 0, Tot. Refills 0, Maintenance, 04/05/17 10:58:11, [facility] Electronically, [id number], [facility] Start Date: 04/05/17 Stop Date: 05/05/17 Status: OrderedNovoLOG 100 units/mL subcutaneous solution See Instructions, Subcutaneous Injection, 3 times a day before meal 100???149 9 units 150???199 12 units 200???249 15 units 250???299 18 units 300???349 21 units 350???399 24 units 400???449 29 units 450???499 32 units, 5 Refills, Maintenance, 09/29/19 3:47:... Start Date: 09/29/19 Stop Date: 10/29/19 Status: Orderedomeprazole 20 mg oral enteric coated capsule 1 capsule = 20 mg, By Mouth, Daily, # 30 capsule, 11 Refills, Maintenance, 08/17/15 16:57:00, 1 capsule By Mouth Daily Start Date: 08/17/15 Status: Orderedondansetron 4 mg oral tablet 1 tablet = 4 mg, By Mouth, Every 8 hours, 0 Refills, Maintenance, 11/15/18 12:14:22 EDT Start Date: 11/15/18 Status: OrderedoxyCODONE 5 mg oral capsule 1 capsule = 5 mg, By Mouth, 3 times a day, PRN as needed for pain, 0 Refills, Maintenance, 02/04/18 10:14:17 EDT Start Date: 02/04/18 Status: OrderedoxyCODONE 5 mg oral capsule 1 capsule = 5 mg, By Mouth, Daily at bedtime, 0 Refills, Maintenance, 05/12/18 15:40:57 EDT Start Date: 05/12/18 Status: OrderedPt.'s Own Meds glucose 45 gel 40%, By Mouth, 2 times a day, PRN, Maintenance, 05/12/18 15:32:46 EDT Start Date: 05/12/18 Status: OrderedTylenol 325 mg oral capsule 2 capsule = 650 mg, By Mouth, Every 4 hours, PRN as needed for pain, 0 Refills, Maintenance, 02/04/18 10:15:24 EDT Start Date: 02/04/18 Status: OrderedVitamin C 500 mg oral tablet 1 tablet = 500 mg, By Mouth, 2 times a day, 0 Refills, Maintenance, 11/15/18 12:17:53 EDT Start Date: 11/15/18 Status: OrderedVitamin D3 1000 intl units oral capsule 1 capsule = 1,000 International_Units, By Mouth, Daily, 0 Refills, Maintenance, 11/15/18 12:15:43 EDT Start [...]
--- OUTSIDE RECORDS SUMMARY | 2022-06-06 05:42 | XMS_ITS | Continuity of Care Document ---
:1950 Author Organization [facility] Address [address] [place] [address]- Care Team Providers Name Role Phone Elder Bailey MIJARES Primary Care Physician Encounter [facility] [place] Date(s): 09/27/20 - 10/01/[address] [address] Discharge Disposition: A-Transfer SNF Attending Physician: Mirela Ness MD Admitting Physician: Susi Mckeon MD Referring Physician: Not on Staff, Referring MD Allergies, Adverse Reactions, Alerts Substance Reaction Severity [...] 11/15/18 Status: Orderedmetoprolol 100 mg oral tablet 100 mg, Tablet, By Mouth, 09/30/20 21:00:00 EST Start Date: 09/30/20 Stop Date: 09/30/20 Status: Completedmetoprolol 100 mg oral tablet 100 mg, Tablet, By Mouth, 10/01/20 9:00:00 EST Start Date: 10/01/20 Stop Date: 10/01/20 Status: Completedmetoprolol 100 mg oral tablet = 100 mg, [...] OrderedNorvasc 10 mg oral tablet 10 mg, Tablet, By Mouth, 10/01/20 9:00:00 EST Start Date: 10/01/20 Stop Date: 10/01/20 Status: CompletedNorvasc 10 mg oral tablet 10 mg, By Mouth, Daily, # 30 Doses, Refills 0, Tot. Refills 0, Maintenance, 04/05/17 10:58:11, [facility] Electronically, [id number], [facility] Start Date: 04/05/17 Stop Date: 05/05/17 [...] II opioid drug. Start Date: 09/27/20 Status: OrderedTylenol 325 mg oral tablet 650 mg, Tablet, By Mouth, 09/30/20 20:00:00 EST Start Date: 09/30/20 Stop Date: 09/30/20 Status: CompletedVitamin C 500 mg oral tablet 1 tablet [...] (peripheral vascular disease) s/p Active left BKA(Confirmed) Results Orders for Microbiology Reports Name Date Blood Culture 09/27/20 Blood Culture #2 09/27/20 Microbiology Reports TEST:Blood Culture, Second Order STATUS:Unauthenticated BODY SITE: SOURCE:Blood COLLECTED DATE/TIME:09/27/20 6:53 PMBlood Culture, Second Order SPECIMEN DESCRIPTION : BLOOD NO SITE SPECIAL REQUESTS : NONE CULTURE : NO GROWTH 4 DAYS REPORT STATUS : PRELIMINARY REPORT TEST:Blood Culture STATUS:Unauthenticated BODY SITE: SOURCE:Blood COLLECTED DATE/TIME:09/27/20 4:10 PMBlood Culture SPECIMEN DESCRIPTION : BLOOD NO SITE SPECIAL REQUESTS : NONE CULTURE : NO GROWTH 4 DAYS REPORT STATUS : PRELIMINARY REPORT Radiology Reports Exam Date Time Procedure Performing Provider Status 09/27/20 5:25 PM Chest Portable Chloe Alford; Lenard (Verified ) Notes:(Chest Portable) Reason For Exam: Shortness of BreathRESULT: Chest Portable Examination: Portable chest performed on 09/27/2020. History: Confusion. Shortness of breath. Findings: A frontal view of the chest is compared to a prior study dated 03/22/2019. The cardiac and mediastinal silhouettes are within normal limits. The lungs are clear. The osseous and soft tissue structures are unremarkable. IMPRESSION: There is no acute cardiopulmonary disease. WSN: [id number] Ordering Physician: Katherin Sood Dictated By: America Gonsales MD Dictated Date/Time: 09/27/20 5:33 pm Reviewed By: America Gonsales MD Signed By: America Gonsales MD Signed Date/Time: 09/27/20 5:33 pm Transcribed By: CSB Transcribed Date/Time: 09/27/20 5:32 pm Vital Signs Most recent to oldest 1 2 3 [Reference Range]: Height 160 cm 160 cm 160 cm (10/01/20 3:05 AM) (10/01/20 12:24 AM) (09/30/20 8:32 PM) Weight 102.1 kg (09/28/20 2:18 PM) Oxygen Saturation [94-100 %] 98 % 98 % 95 % (10/01/20 12:00 PM) (10/01/20 8:00 AM) (10/01/20 5:00 AM) Pulse Rate [55-90 bpm] 82 bpm 69 bpm 91 bpm (10/01/20 7:58 AM) (10/01/20 12:24 AM) *H* (09/30/20 8:45 PM ) Body Mass Index [18.5-24.99] 39.88 *>HHI* (09/28/20 2:18 PM) Blood Pressure [90-138/55-84 189/73 mm Hg 189/73 mm Hg 189 /73 mm Hg mm Hg] *H* *H* *H* (10/01/20 8:00 AM) (10/01/20 7:58 AM) (10/01/20 7:58 A M) Respiratory Rate [16-30 17 br/min 15 br/min 20 br/mi n br/min] (10/01/20 5:00 AM) *L* (09/30/20 9:44 P M) (10/01/20 12:24 AM) Temperature [96.8-100.4 98.3 DegF 98.3 DegF 98.4 Deg F DegF] (10/01/20 8:00 AM) (10/01/20 3:05 AM) (10/01/20 12:24 AM) Liters per Minute 2 L/min 2 L/min 2 L/min (09/29/20 12:00 AM) (09/28/20 2:18 PM) (09/28/20 12 :21 PM) Mode of Delivery (Oxygen) Room air Nasal cannula Nasal cannula (10/01/20 12:24 AM) (09/29/20 12:00 AM) (09/28/20 4: 00 PM) Blood pressure sites Arm, right Arm, right Arm, right (10/01/20 12:24 AM) (09/29/20 12:00 AM) (09/28/20 2: 18 PM) Temperature Route Oral Oral Oral (10/01/20 8:00 AM) (10/01/20 3:05 AM) (10/01/20 12:24 AM) Weight Obtained Via Bed scale (09/28/20 2:18 PM) Social History Social History Type Response Smoking Status Former smoker, quit more suresh n 30 days ago; Type: Cigarettes; Total pack years: 1; entered on: 09/29/19 Sex
--- OUTSIDE RECORDS SUMMARY | 2022-06-06 05:42 | XMS_ITS | Continuity of Care Document ---
:1950 Author Organization [facility] Address [address] [place] [address]- Care Team Providers Name Role Phone Elder Bailey MIJARES Primary Care Physician Encounter [facility] Date(s): 01/21/21 - 03/23/21 [facility] [address] [place] [address] Attending Physician: Tatiana Gibson MD Admitting Physician: Tatiana Gibson MD Allergies, Adverse Reactions, Alerts Substance Reaction [...] 0, Tot. Refills 0, Maintenance, 04/05/17 10:58:11, [facility] Electronically, [id number], [facility] Start Date: 04/05/17 Stop Date: 05/05/17 [...]
--- OUTSIDE RECORDS SUMMARY | 2022-06-06 05:42 | XMS_ITS | Continuity of Care Document ---
:1950 Author Organization [facility] Address [address] [place] [address]- Care Team Providers Name Role Phone Elder Bailey MIJARES Primary Care Physician Encounter [facility] [place] Date(s): 02/23/20 - 03/30/[address] [address] Attending Physician: Jf Bruce MD Admitting Physician: Jf Bruce MD Referring Physician: Jf Bruce MD Allergies, Adverse Reactions, Alerts Substance Reaction Severity Status codeine unknown Active morphine sob Active Catapres unknown Active Latex rash Active Lactose DIARRHEA Active Tape unknown Active clarithromycin unknown Active Biaxin unknown Active Immunizations Given and Recorded Vaccine Date [...] 0, Tot. Refills 0, Maintenance, 04/05/17 10:58:11, [facility] Electronically, [id number], [facility] Start Date: 04/05/17 Stop Date: 05/05/17 Status: [...]
--- OUTSIDE RECORDS SUMMARY | 2022-06-06 05:42 | XMS_ITS | Continuity of Care Document ---
:1950 Author Organization [facility] Address [address] [place] [address]- Care Team Providers Name Role Phone Elder Bailey MIJARES Primary Care Physician [place] [facility] [place] 09/29/19 - 09/30/[address] [address]- [facility] Encounter Diagnosis PEG (acute kidney injury) (Final) - 09/28/19 Discharge Disposition: A-D/C Home Attending Physician: Diana Hensley MD Admitting Physician: Neftali Flanagan MD Referring Physician: Not on Staff, Referring [...] 0, Tot. Refills 0, Maintenance, 04/05/17 10:58:11, [facility] Electronically, [id number], [facility] Start Date: 04/05/17 Stop Date: 05/05/17 Status: [...] (peripheral vascular disease) s/p Active left BKA(Confirmed) Vital Signs Most recent to oldest 1 2 3 [Reference Range]: Height 160 cm 160 cm 160 cm (09/30/19 11:52 AM) (09/30/19 8:06 AM) (09/30/19 4: 09 AM) Weight 104.1 kg 108 kg (09/29/19 1:17 AM) (09/29/19 12:57 AM) Oxygen Saturation [94-100 %] 94 % 96 % 97 % (09/30/19 11:52 AM) (09/30/19 8:06 AM) (09/30/19 4: 09 AM) Pulse Rate [55-90 bpm] 77 bpm 84 bpm 78 bpm (09/30/19 11:52 AM) (09/30/19 9:31 AM) (09/30/19 8: 06 AM) Body Mass Index [18.5-24.99] 40.66 *>HHI* (09/29/19 1:17 AM) Blood Pressure [90-138/55-84 160/66 mm Hg 173/70 mm Hg 170 /70 mm Hg mm Hg] *H* *H* *H* (09/30/19 11:52 AM) (09/30/19 9:31 AM) (09/30/19 9: 31 AM) Respiratory Rate [16-30 18 br/min 20 br/min 20 br/mi n br/min] (09/30/19 11:52 AM) (09/30/19 9:56 AM) (09/30/19 9: 31 AM) Temperature [96.8-100.4 DegF] 97.6 DegF 97.7 DegF 97 .7 DegF (09/30/19 11:52 AM) (09/30/19 8:06 AM) (09/30/19 4: 09 AM) Mode of Delivery (Oxygen) Room air Room air Room a ir (09/30/19 11:52 AM) (09/30/19 8:06 AM) (09/30/19 4: 09 AM) Blood pressure sites Arm, left Arm, left Arm, left (09/30/19 11:52 AM) (09/30/19 8:06 AM) (09/30/19 4: 09 AM) Temperature Route Oral Oral Oral (09/30/19 11:52 AM) (09/30/19 8:06 AM) (09/30/19 4: 09 AM) Dry Weight 104.1 kg (09/29/19 1:17 AM) Weight Obtained Via Bed scale (09/29/19 12:57 AM) Social History Social History Type Response Smoking Status Former smoker, quit more suresh n 30 days ago; Type: Cigarettes; Total pack years: 1; entered on: 09/29/19 Sex
--- OUTSIDE RECORDS SUMMARY | 2022-06-06 05:42 | XMS_ITS | Continuity of Care Document ---
:1950 Author Organization [facility] Address [address] [place] [address]- Care Team Providers Name Role Phone Toan MIJARES, Bailey Macedo Primary Care Physician Encounter [facility] [place] Date(s): 09/24/21 - 01/15/22 [facility] [address] [place] [id number] Attending Physician: Luisa Mondragon MD Admitting Physician: Luisa Mondragon MD Referring Physician: Bailey Joya MD Allergies, Adverse Reactions, Alerts Substance Reaction [...] day,x30 days Start Date: 10/12/15 Stop Date: 6/11/16 Status: OrderedMilk of Magnesia 30 mL, By [...] 0, Maintenance, 04/05/17 10:58:11, [facility] Electronically, [id number], [facility] Start Date: 04/05/17 Stop Date: 05/05/17 [...]
--- OUTSIDE RECORDS SUMMARY | 2022-06-06 05:42 | XMS_ITS | Continuity of Care Document ---
:1950 Author Organization [facility] Address [address] [place] [address]- Care Team Providers Name Role Phone Toan MIJARES, Bailey Macedo Primary Care Physician [phone] [place] [facility] [place] 10/19/20 - 02/16/21 [facility] [address] [place] [id number] Attending Physician: Tatiana Gibson MD Admitting Physician: Tatiana Gibson MD Referring Physician: Bailey Joya MD Allergies, Adverse Reactions, Alerts Substance Reaction Severity Status codeine unknown Active Tape unknown Active Lactose DIARRHEA Active clarithromycin unknown Active morphine sob Active Biaxin unknown Active Catapres unknown Active Latex rash Active Immunizations Given [...] 0, Tot. Refills 0, Maintenance, 04/05/17 10:58:11, [facility] Electronically, [id number], [facility] Start Date: 04/05/17 Stop Date: [...] Response Smoking Status Former smoker, quit more suersh n 30 days ago; Type: Cigarettes; Total pack years: 1; entered on: 09/29/19 Sex
--- OUTSIDE RECORDS SUMMARY | 2022-06-06 05:43 | XMS_ITS | Continuity of Care Document ---
:1950 Author Organization [facility] Address [address] [place] [address]- Care Team Providers Name Role Phone Toan MIJARES, Bailey Macedo Primary Care Physician [phone] [facility] Date(s): 09/13/21 - 10/18/21 [facility] [place] [address] [place], [place] [address] Attending Physician: Xavi MIJARES, Renee Referring Physician: Bailey Joya MD Allergies, Adverse [...] 0, Tot. Refills 0, Maintenance, 04/05/17 10:58:11, [facility] Electronically, [id number], [facility] Start Date: 04/05/17 Stop Date: 05/05/17 [...]
--- OUTSIDE RECORDS SUMMARY | 2022-06-06 05:43 | XMS_ITS | Continuity of Care Document ---
:1950 Author Organization [facility] Address [address] [place] [address]- Care Team Providers Name Role Phone Elder Bailey MIJARES Primary Care Physician [place] [facility] [place] 03/23/21 [facility] [address] [place] [address] Attending Physician: Jodee Recinos Admitting [...] 0, Tot. Refills 0, Maintenance, 04/05/17 10:58:11, [facility] Electronically, [id number], [facility] Start Date: 04/05/17 Stop Date: 05/05/17 [...]
--- OUTSIDE RECORDS SUMMARY | 2022-06-06 05:43 | XMS_ITS | Continuity of Care Document ---
:1950 Author Organization [facility] Address [address] [place] [address]- Care Team Providers Name Role Phone Elder Bailey MIJARES Primary Care Physician Encounter [facility] [place] Date(s): 11/02/19 - 03/01/20 [facility] [address] [place] [address] [facility] Attending Physician: Jf Bruce MD Admitting Physician: [...] Tot. Refills 0, Maintenance, 04/05/17 10:58:11, [facility] Electronically, [id number], [facility] Start Date: 04/05/17 Stop Date: 05/05/17 [...]
--- OUTSIDE RECORDS SUMMARY | 2022-06-06 05:43 | XMS_ITS | Continuity of Care Document ---
:1950 Author Organization [facility] Address [address] [place] [address]- Care Team Providers Name Role Phone Toan MIJARES, Bailey Macedo Primary Care Physician En[place] [facility] [place] Date(s): 11/02/19 - 03/03/20 [facility] [address] [place] [address]- [facility] Attending Physician: Faith Morales NP Admitting Physician: Faith Morales NP Referring Physician: Bailey Joya MD Allergies, Adverse [...] 0, Tot. Refills 0, Maintenance, 04/05/17 10:58:11, [facility] Electronically, [id number], [facility] Start Date: 04/05/17 Stop Date: 05/05/17 [...]
--- OUTSIDE RECORDS SUMMARY | 2022-06-06 05:43 | XMS_ITS | Continuity of Care Document ---
:1950 Author Organization [facility] Address [address] [place] [address]- Care Team Providers Name Role Phone Elder Bailey MIJARES Primary Care Physician Encounter [facility] [place] Date(s): 01/26/20 - 03/02/[address] [address]- [facility] Attending Physician: Alanna Bales MD Admitting Physician: Nii MIJARES, Alanna Jose Referring Physician: Nii MIJARES, Alanna Jose Allergies, Adverse Reactions, Alerts Substance Reaction Severity [...] 0, Tot. Refills 0, Maintenance, 04/05/17 10:58:11, [facility] Electronically, [id number], [facility] Start Date: 04/05/17 Stop [...]
--- OUTSIDE RECORDS SUMMARY | 2022-06-06 05:43 | XMS_ITS | Continuity of Care Document ---
:1950 Author Organization [facility] Address [address] [place] [address]- Care Team Providers Name Role Phone Elder Bailey MIJARES Primary Care Physician Encounter [facility] [place] [facility] [id number] Date(s): 02/02/20 - 03/03/20 [facility] [address] [place] [address] [facility] Attending Physician: Jodee Recinos Admitting Physician: AdmtrJodee Referring Physician: Admtr ArMaya Allergies, Adverse Reactions, Alerts Substance Reaction Severity [...] 0, Tot. Refills 0, Maintenance, 04/05/17 10:58:11, [facility] Electronically, [id number], [facility] Start Date: 04/05/17 Stop Date: 05/05/17 [...]
--- OUTSIDE RECORDS SUMMARY | 2022-06-06 05:43 | XMS_ITS | Continuity of Care Document ---
:1950 Author Organization [facility] Address [address] [place] [address]- Care Team Providers Name Role Phone Toan MIJARES, Bailey Macedo Primary Care Physician [phone] [place] [facility] [place] 09[place]24/21 - 01/10/22 [facility] [address] [place] [address] Attending Physician: Bela Zapien MD Admitting Physician: Curry MIJARES, Bela Referring Physician: Bailey Joya MD Allergies, Adverse [...] 0, Tot. Refills 0, Maintenance, 04/05/17 10:58:11, [facility] Electronically, [id number], [facility] Start Date: 04/05/17 Stop Date: 05/05/17 [...]
--- NOTE | 2022-06-06 08:24 | ED.GENADULT ---
HPI - General Adult General Chief complaint: Altered Mental Status Stated complaint: ams, abdominal pain Time Seen by Provider: 06/06/22 08:24 Source: patient and EMS Mode of arrival: EMS Limitations: altered mental status History of Present Illness HPI narrative: Patient is a 71 year old female presenting to the emergency department today with altered mental status. Patient comes from a SNF. EMS states that staff informed them the patient was more altered than usual and that's why they are sending her in. Patient states that she feels generally unwell and like she is in pain everywhere, especially her head and neck. Patient is a DNR / DNI. Onset (ago): hour(s) Severity: mild Severity scale (1-10): 3 Relieving factors: none Exacerbating factors: none Associated symptoms: confusion Treatments prior to arrival: none Related Data Home Medications Medication Instructions Recorded Confirmed amitriptyline 25 mg tablet 1 tab PO BEDTIME 02/24/22 06/06/22 amlodipine 10 mg tablet 1 tab PO DAILY 02/24/22 06/06/22 apixaban 2.5 mg tablet (Eliquis) 1 tab PO BID 02/24/22 06/06/22 aspirin 81 mg tablet,delayed 81 mg PO DAILY 02/24/22 06/06/22 release atorvastatin 80 mg tablet 1 tab PO DAILY 02/24/22 06/06/22 qapbrpijyl-nayjtupxmnzbu-pgyxtsir 1 cap PO Q8H PRN Migraine Headache 02/24/22 06/06/22 50 mg-300 mg-40 mg capsule (Fioricet) calcium carbonate 600 mg calcium 600 mg PO BID 02/24/22 06/06/22 (1,500 mg) tablet (Calcium) escitalopram oxalate 10 mg tablet 1 tab PO DAILY 02/24/22 06/06/22 furosemide 40 mg tablet 1 tab PO DAILY@1400 02/24/22 06/06/22 insulin aspart U-100 100 unit/mL See Rx Instructions .Route .COMPLEX 02/24/22 06/06/22 subcutaneous solution (Novolog U-100 Insulin aspart) insulin degludec 100 unit/mL (3 10 unit subcut BEDTIME 02/24/22 06/06/22 mL) subcutaneous pen (Tresiba FlexTouch U-100 insulin) lactase 3,000 unit tablet (Lactaid) 9,000 unit PO TIDWM 02/24/22 06/06/22 levothyroxine 200 mcg tablet 1 tab PO BEDTIME 02/24/22 06/06/22 metoprolol tartrate 100 mg tablet 1 tab PO BID 02/24/22 06/06/22 ondansetron HCl 4 mg tablet 1 tab PO Q8H PRN Nausea 02/24/22 06/06/22 oxycodone 5 mg tablet 1 tab PO BEDTIME 02/24/22 06/06/22 oxycodone 5 mg tablet 2 tab PO Q6H PRN Pain 02/24/22 06/06/22 pantoprazole 40 mg tablet,delayed 1 tab PO BID@0630,1630 02/24/22 06/06/22 release polyvinyl alcohol 1.4 % eye drops 1 drp ophthalmic (eye) BID 02/24/22 06/06/22 (Artificial Tears (polyvinyl alcohol)) acetaminophen 325 mg tablet 650 mg PO Q8H PRN Pain 04/10/22 06/06/22 (Tylenol) baclofen 5 mg tablet 5 mg PO BEDTIME 04/10/22 06/06/22 docusate sodium 100 mg tablet 100 mg PO Q24H PRN Constipation 04/10/22 06/06/22 hydralazine 25 mg tablet 75 mg PO TID 04/10/22 06/06/22 sodium zirconium cyclosilicate 10 10 g PO Q2D 05/06/22 06/06/22 gram oral powder packet (Lokelma) bisacodyl 10 mg rectal suppository 10 mg MI DAILY PRN Constipation 06/06/22 06/06/22 hydrocortisone 1 % topical cream 1 appl topical BID PRN Hemorrhoids 06/06/22 06/06/22 (Preparation H Hydrocortisone) loperamide 2 mg tablet 2 mg PO Q4H PRN Diarrhea 06/06/22 06/06/22 losartan 25 mg tablet 75 mg PO DAILY 06/06/22 06/06/22 Previous Rx's Medication Instructions Recorded hydrochlorothiazide 25 mg tablet 25 mg PO DAILY #30 tabs 03/01/22 Allergies Allergy/AdvReac Type Severity Reaction Status Date / Time codeine [CODEINE] Allergy Unknown UNKNOWN Verified 04/10/22 09:48 morphine [MORPHINE] Allergy Unknown UNKNOWN, Verified 04/10/22 09:48 anaphylaxis adhesive tape Allergy Unknown Verified 04/10/22 09:48 clarithromycin Allergy Unknown Verified 04/10/22 09:48 clonidine [From Catapres] Allergy Unknown Verified 04/10/22 09:48 lactose Allergy Unknown Verified 04/10/22 09:48 latex Allergy Unknown Verified 04/10/22 09:48 Review of Systems Review of Systems: Yes Unobtainable due to mental status (patient able to answer some questions but not all) Constitutional: Constitutional: Reports no additional constitutional complaints, Reports body ache(s), Denies chills, Denies fever(s), Reports headache(s) and Denies night sweats Eyes: Eyes: Reports no additional eye complaints, Denies blurry vision, Denies change in vision, Denies diplopia, Denies eye discharge, Denies loss of vision and Denies eye pain ENT: Denies dizziness, Reports headache(s) and Reports neck pain Cardiovascular: Cardiovascular: Reports no additional cardiovascular complaints, Denies chest pain, Denies lightheadedness, Denies Loss of Consciousness and Denies dyspnea Respiratory: Respiratory: Reports no additional respiratory complaints and Denies dyspnea Gastrointestinal: Gastrointestinal: Reports no additional gastrointestinal complaints, Denies abdominal pain, Denies melena, Denies hematochezia, Denies change in bowel habits and Denies change in stool character Genitourinary: Genitourinary: Denies hematuria, Denies urinary frequency, Denies dysuria, Denies urinary incontinence, Denies urinary hesitancy and Denies urinary urgency Musculoskeletal: Musculoskeletal: Reports no additional musculoskeletal complaints, Reports myalgias, Reports neck pain, Denies numbness and Denies tingling Neurologic: Reports confusion, Denies dizziness, Reports headache(s), Denies loss of vision, Denies numbness and Denies tingling Psychiatric: Psychiatric: Reports no additional psychiatric complaints and Reports confusion Endocrine: Endocrine: Reports no additional endocrine complaints Hematologic/Lymphatic: Hematologic/Lymphatic: Reports no additional hematologic/lymphatic complaints Allergic/Immunologic: Allergic/Immunologic: Reports no additional allergic/immunologic complaints PMFSH Past Medical History Attestation statement: The following information was validated with the patient. Source: old records reviewed Medical History Acute kidney failure Acute respiratory failure with hypoxia Anemia in CKD (chronic kidney disease) Atherosclerosis Basal cell carcinoma of right upper arm Below-knee amputation of left lower extremity Cerebral microvascular disease Chronic kidney disease CVA (cerebrovascular accident) Diabetes Diabetic retinopathy Dysphagia Failure to thrive in adult GERD (gastroesophageal reflux disease) History of venous thromboembolism Hypothyroidism PVD (peripheral vascular disease) Squamous cell carcinoma of left upper extremity TIA (transient ischemic attack) Uncontrolled hypertension Surgical History History of thyroidectomy S/P below knee amputation Social History Social History Household Members: Other Housing: Group Home Do you presently have visiting nurse or other home services: No Alcohol intake: never Patient Tobacco Use Status: Never used Tobacco Use of substances other than those prescribed or required for medical reasons: No Advance Directives: Yes Advance Directives on File: Yes Advance Directives Date on File: 02/25/22 service: No Current occupational status: disabled Physical Exam ED Vital Signs: Vital Signs - 24 hr 06/06/22 04:56 06/06/22 05:08 06/06/22 07:32 Temperature 98.9 F 98.9 F 98.1 F Pulse Rate 71 71 74 Respiratory Rate 18 14 14 Blood Pressure 149/68 H 149/68 H 173/75 H Pulse Oximetry 96 96 100 Oxygen Delivery Method Room Air Room Air Room Air 06/06/22 11:17 06/06/22 14:34 06/06/22 15:47 Temperature 98.1 F 98.8 F Pulse Rate 73 74 81 Respiratory Rate 12 16 15 Blood Pressure 140/59 H 128/46 L 158/77 H Pulse Oximetry 95 95 96 Oxygen Delivery Method Room Air Room Air Room Air BMI result Body Mass Index 36.1 Const General: confusion Nutritional Appearance: well nourished Orientation/consciousness: confusion Limitations: no limitations HENMT Head: Yes normal to inspection and Yes atraumatic Ears: hearing grossly normal bilaterally and external ears normal General nose exam: Normal external nose present, no nasal discharge noted and no epistaxis Face and sinus: Yes normal facial exam, No abrasion and No laceration Mouth: Normal oral and palatal mucosa present, no drooling and no muffled voice Eyes General: appearance normal, both eyes and all related structures Periorbital: periorbital findings normal Eyelids: Yes eyelids normal Conjunctivae: conjunctivae normal Pupils: Equal, round and reactive pupils present EOM: EOMs intact bilaterally Neck Neck: Yes normal visual inspection, Yes full ROM and Yes no lymphadenopathy Chest Chest palpation & inspection: normal inspection of the chest Resp Effort & Inspection: normal respiratory effort and able to speak in complete sentences Auscultation: clear to auscultation bilaterally Cardio Rate: regular rate Rhythm: regular rhythm GI Inspection: Yes normal to inspection Neuro General: confusion Cranial nerves: Yes Equal, round and reactive pupils present Cognition (Neuro): abnormal cognition Extrem Other: patient has BKA present General: Yes capillary refill normal Psych Appearance: grossly normal Mental Status: mental status grossly normal Affect: normal affect Attitude: cooperative Thought process: Normal thought process present Thought content: Normal thought content present Insight: Good insight present (Psych) Medical Decision Making MDM Narrative Medical decision making narrative: Patient is a 71 year old female presenting to the emergency department today with confusion. Patient's physical exam showed a not so pleasantly confused woman. Patient's blood work showed an elevated potassium of 6.1, an elevated BUN of 73, and an elevated creatinine of 3.9. Patient's urine showed an acute urinary tract infection. Patient's previous urine culture grew out psuedomonas so the patient was given Zosyn to cover. Patient was given IV Insulin, D50, Bicarb, and Lokelma. Patient's EKG was unremarkable. Patient's chest x-ray showed no acute process. Patient's head, cervical spine, and abdomen pelvis CTs showed no acute process. Patient is not septic and sepsis is not suspected. I spoke to the patient's brother, who agreed that the patient is to remain a DNR / DNI however, if for whatever reason she needs dialysis, it can be done. I spoke to the hospitalist team who agreed to admission. I explained my physical exam findings as well as all test results to the patient. I answered all questions asked by the patient. Patient verbalized agreement and understanding with this treatment plan and admission. Medical Records Medical records reviewed: Yes I reviewed the patient's medical records. Lab Data Lab results reviewed: Yes I reviewed the patient's lab results. Result diagrams: 06/06/22 09:29 06/06/22 09:29 Labs: Lab Results 06/06/22 06/06/22 06/06/22 Range/Units 09:29 09:29 09:29 WBC 8.3 (4.8-10.8) X10*3/uL RBC 2.61 L (4.20-5.50) X10*6/uL Hgb 8.2 L (12.0-16.0) g/dl Hct 25.0 L (37.0-47.0) % MCV 95.8 (80.0-98.0) fL MCH 31.4 (27.0-33.0) pg MCHC 32.8 (31.0-35.0) g/dl RDW 13.7 (11.0-16.0) % Plt Count 174 (160-400) X10*3/uL MPV 11.0 (9.4-12.3) fL Immature Gran % (Auto) 0.5 H (0.0-0.4) % Neut % (Auto) 80.4 H (45-73) % Lymph % (Auto) 16.2 L (20-40) % [place] % (Auto) 2.4 (2-11) % Eos % (Auto) 0.1 (0-4) % Baso % (Auto) 0.4 (0-2) % Lymph # (Auto) 1.3 (1.2-4.9) X10*3/uL [place] # (Auto) 0.2 (0.1-1.2) X10*3/uL Eos # (Auto) 0.0 (0.0-0.4) X10*3/uL Baso # (Auto) 0.0 (0.0-0.2) X10*3/uL Abs Immat Gran (auto) 0.04 H (0.00-0.03) X10*3/uL Absolute Neuts (auto) 6.6 (2.0-8.3) x10*3/uL Absolute Nucleated RBC 0.000 (0.0-0.012) X10*3/uL Nucleated RBC % (auto) 0.0 (0.0-0.2) /100WBC Sodium 137 (135-145) mmol/L Potassium 6.1 H* D (3.3-5.1) mmol/L Chloride 108 (96-108) mmol/L Carbon Dioxide 19 L (22-29) mmol/L Anion Gap 16 (12-20) BUN 73 H D (9-16) mg/dL Creatinine 3.91 H (0.5-1.4) mg/dL Estim Creat Clear Calc 14.6 Estimated GFR 11 Random Glucose 212 H (60-115) mg/dL Osmolality (281-305) mosm/kg Calcium 8.1 L D (8.4-10.2) mg/dL Magnesium 1.9 (1.6-2.6) mg/dL Total Bilirubin 0.3 (0.0-1.0) mg/dL AST 30 D (5-31) U/L ALT 29 (0-31) U/L Alkaline Phosphatase 211 H D (39-117) U/L Troponin I High Sens 7.2 (<3.5-17.0) ng/L Total Protein 7.5 (6.5-8.0) g/dL Albumin 3.1 L (3.5-5.0) g/dL COVID-19 (LUCIO) (Negative) COVID-19 Clin Com 06/06/22 06/06/22 Range/Units 09:29 09:36 WBC (4.8-10.8) X10*3/uL RBC (4.20-5.50) X10*6/uL Hgb (12.0-16.0) g/dl Hct (37.0-47.0) % MCV (80.0-98.0) fL MCH (27.0-33.0) pg MCHC (31.0-35.0) g/dl RDW (11.0-16.0) % Plt Count (160-400) X10*3/uL MPV (9.4-12.3) fL Immature Gran % (Auto) (0.0-0.4) % Neut % (Auto) (45-73) % Lymph % (Auto) (20-40) % [place] % (Auto) (2-11) % Eos % (Auto) (0-4) % Baso % (Auto) (0-2) % Lymph # (Auto) (1.2-4.9) X10*3/uL [place] # (Auto) (0.1-1.2) X10*3/uL Eos # (Auto) (0.0-0.4) X10*3/uL Baso # (Auto) (0.0-0.2) X10*3/uL Abs Immat Gran (auto) (0.00-0.03) X10*3/uL Absolute Neuts (auto) (2.0-8.3) x10*3/uL Absolute Nucleated RBC (0.0-0.012) X10*3/uL Nucleated RBC % (auto) (0.0-0.2) /100WBC Sodium (135-145) mmol/L Potassium (3.3-5.1) mmol/L Chloride (96-108) mmol/L Carbon Dioxide (22-29) mmol/L Anion Gap (12-20) BUN (9-16) mg/dL Creatinine (0.5-1.4) mg/dL Estim Creat Clear Calc Estimated GFR Random Glucose (60-115) mg/dL Osmolality 320 H (281-305) mosm/kg Calcium (8.4-10.2) mg/dL Magnesium (1.6-2.6) mg/dL Total Bilirubin (0.0-1.0) mg/dL AST (5-31) U/L ALT (0-31) U/L Alkaline Phosphatase (39-117) U/L Troponin I High Sens (<3.5-17.0) ng/L Total Protein (6.5-8.0) g/dL Albumin (3.5-5.0) g/dL COVID-19 (LUCIO) Negative (Negative) COVID-19 Clin Com See Note Imaging Data Chest x-ray: Attestation: I personally reviewed and interpreted this imaging study as follows: My impression: No acute process. Radiologist's impression: EXAMINATION: XR CHEST CLINICAL INFORMATION: Altered mental status. COMPARISON: February 24, 2022. TECHNIQUE: Portable AP view of the chest was obtained. XR/XR chest 1V FINDINGS/IMPRESSION: ? The study is limited by portable technique, low lung volumes, and patient body habitus. ? No focal infiltrate, effusion, or pneumothorax is seen. ? The right hemidiaphragm is mildly elevated. ? The cardiac silhouette is poorly evaluated. The aorta is atherosclerotic. There are degenerative changes of the spine. Dictated By: Lester Nix Signed By: Electronically signed by Lester Nix 06/06/[address] scan - abdomen: Attestation: I personally reviewed and interpreted this imaging study as follows: My impression: No acute process. Radiologist's impression: EXAMINATION: CT ABDOMEN AND PELVIS WITHOUT CONTRAST? CLINICAL INFORMATION: Acute mental status change. Pain.? COMPARISON: Previous CT of the abdomen and pelvis and MRCP March 2022? TECHNIQUE: Multidetector volumetric imaging was performed from the superior aspect of the liver through the pubic symphysis. Sagittal and coronal reformatted images were obtained on the technologist's workstation.? This CT examination was performed using dose optimization techniques as appropriate, variously including the following: *Automated exposure control *Adjustment of mA and/or kV according to patient size (this includes techniques or standardized protocols for targeted exams where dose is matched to indication/reason for exam; i.e. extremities or head) *Use of iterative reconstruction technique DLP: 1412 mGy-cm FINDINGS: LUNG BASES: The visualized lung bases are unremarkable.? LIVER, GALLBLADDER, AND BILIARY TREE: There are small calcifications in the liver that are stable. The gallbladder is normal in size. There is high attenuation in the gallbladder questionable for a small gallstones. There is question of gallbladder wall thickening. There is no intrahepatic biliary duct dilatation. The common bile duct is upper normal in size measuring 7 mm. PANCREAS: Unremarkable.? SPLEEN: Unremarkable.? ADRENAL GLANDS: 2 x 3 cm low-attenuation left adrenal nodule stable suggestive of a benign adenoma. Fatty 3.5 cm stable right adrenal nodule suggestive of a myelolipoma. KIDNEYS AND URETERS: The kidneys are normal in size, shape, and attenuation. No hydronephrosis, hydroureter, or calculi seen. No perinephric stranding. ? BLADDER: Unremarkable.? GASTROINTESTINAL TRACT: Stool throughout the colon suggestive of constipation. The small and large bowel are otherwise unremarkable. The appendix is unremarkable.? ABDOMINAL WALL: No hernia. Subcutaneous edema in the bilateral lateral abdominal wall. No focal fluid collection. LYMPH NODES: Normal. VASCULAR: Severe atherosclerotic disease. PELVIC VISCERA: Unremarkable.? OSSEOUS STRUCTURES: Degenerative changes of the spine. CT/CT abdomen pelvis wo IV con IMPRESSION: Probable small gallstones. Normal-size gallbladder. Question gallbladder wall thickening. No intrahepatic biliary duct dilatation. Upper normal-size common bile duct. No common bile duct stone appreciated by CT. Constipation. Stable bilateral adrenal lesions. Severe atherosclerotic disease. Bilateral lateral abdominal wall subcutaneous edema ? Fleischner guidelines were followed. Dictated By: Ree Vee MD Signed By: Electronically signed by Ree Vee MD DD/ [id number] CT scan of head and c-spine: Attestation: I personally reviewed and interpreted this imaging study as follows: My impression: No acute process. Radiologist's impression: EXAMINATION: CT BRAIN WITHOUT CONTRAST CT CERVICAL SPINE WITHOUT CONTRAST CLINICAL INFORMATION: Confusion. COMPARISON: None? TECHNIQUE: 5 mm thin axial and reformatted 2 mm thin sagittal and coronal images of brain were obtained. Subsequently axial 3 mm thin and reformatted 2 mm thin sagittal and coronal images of cervical spine were obtained. DLP: 2515 mGy-cm FINDINGS: BRAIN: There is no acute intra-axial, extra-axial bleed, masses, collection or midline shift. There is no acute infarction evolution. The lateral ventricles are enlarged and so are the cortical sulci. There is mild periventricular hypodensity in both cerebral hemispheres. Bone windows reveal no calvarial abnormality. There is no scalp soft tissue abnormality. Bilateral paranasal sinuses and mastoid air cells are well aerated. CERVICAL SPINE: There is mild straightening of cervical lordosis. The vertebral heights, alignment are normal. There is loss of C4-C5, C5-C6 disc heights with mild posterior spondylosis. Rest of the disc heights are normal. The craniovertebral junction and the C1-C2 alignment is normal. The prevertebral and paravertebral soft tissues are normal. The airway is widely patent. Visualized bilateral parotid, submandibular glands are symmetrical and normal. The lung apices are clear. CT/CT cervical spine wo IV con IMPRESSION: No acute intracranial process seen. ? There is no acute fracture, dislocation or subluxation of cervical spine. There are degenerative disc changes and posterior spondylosis as described above.? Dictated By: Alex Sheffield MD Signed By: Electronically signed by Alex Sheffield MD 06/06/22 1303 ECG Data Attestation: I personally reviewed and interpreted this ECG as follows: Prior ECG tracings: available for review Interpretation: Vent. Rate: 072 BPM ? ? Atrial Rate: 072 BPM P-R Int: 196 ms? QRS Dur: 118 ms QT Int: 420 ms ? ? ? P-R-T Axes: 054 -50 035 degrees QTc Int: 459 ms ? Normal sinus rhythm Left anterior fascicular block Left ventricular hypertrophy with QRS widening ( R in aVL , [place] product ) Abnormal ECG When compared with ECG of 10-APR-2022 12:10, No significant change was found DD/ [id number] Critical Care Time Critical Care Time Critical Care Time: Yes Total Critical Care Time: 30 Attestation: I spent 30 minutes of Critical Care Time with this patient. This does not include time spent on separately reported billable procedures. Discharge Plan Discharge Clinical Impression: Acute hyperkalemia, Urinary tract infection Patient Disposition: Admitted As Inpatient
--- NOTE | 2022-06-06 08:33 | ECG_ITS ---
Test Reason : AMS Blood Pressure : / mmHG Vent. Rate : 072 BPM Atrial Rate : 072 BPM P-R Int : 196 ms QRS Dur : 118 ms QT Int : 420 ms P-R-T Axes : 054 -50 035 degrees QTc Int : 459 ms Normal sinus rhythm Incomplete right bundle branch block Left anterior fascicular block Left ventricular hypertrophy with QRS widening ( R in aVL , [place] product ) Abnormal ECG When compared with ECG of 10-APR-2022 12:10, No significant change was found Referred By: Mae Epps Electronically Signed By:TEO SELLERS
--- NOTE | 2022-06-06 08:35 | PC.NURSE ---
pt is a/o x 2 no sob/timothy noted lungs - mirta upper lobes cta, mirta lower lobes diminished. pt speaks in full sentences. pt is mirta restless hands, heart sounds - regular. abd obese, soft, n/t. bs + x 4 quads
--- NOTE | 2022-06-06 08:57 | PC.NURSE ---
PT HAS L BKA, PT IS AWARE OF PLAN OF CARE.
[2022-06-06 09:34] LABS: Basophils Percent Auto 0.4 % (0-2); Eosinophils Percent Auto 0.1 % (0-4); Hemoglobin 8.2 g/dl (12.0-16.0); Imm Gran Abs Auto 0.04 X10*3/uL (0.00-0.03); Imm Gran Pct Auto 0.5 % (0.0-0.4); Lymphocytes Absolute Auto 1.3 X10*3/uL (1.2-4.9); Lymphocytes Percent Auto 16.2 % (20-40); MANUAL DIFF FLAG NO; Mean Corpuscular HGB Conc 32.8 g/dl (31.0-35.0); Mean Corpuscular Hemoglobin 31.4 pg (27.0-33.0); Mean Corpuscular Volume 95.8 fL (80.0-98.0); Monocytes Absolute Auto 0.2 X10*3/uL (0.1-1.2); Monocytes Percent Auto 2.4 % (2-11); Neutrophils Absolute Auto 6.6 x10*3/uL (2.0-8.3); Neutrophils Percent Auto 80.4 % (45-73); Platelet Count 174 X10*3/uL (160-400); Red Blood Count 2.61 X10*6/uL (4.20-5.50); Red Cell Distribution Width 13.7 % (11.0-16.0); White Blood Count 8.3 X10*3/uL (4.8-10.8)
[2022-06-06] MEDS: ondansetron HCL 4 MG/2 ML VIAL IVPUSH (09:34)
[2022-06-06] MEDS: HYDROmorphone HCl 1 MG/ML SYRINGE IVPUSH (09:34)
[2022-06-06 09:55] LABS: COVID-19 Test Negative (Negative); IDNOW Serial# 16C4AD1C
[2022-06-06 09:58] LABS: Troponin-I High Sensitivity 7.2 ng/L (<3.5-17.0)
[2022-06-06 10:12] LABS: Alanine Aminotransferase 29 U/L (0-31); Albumin Level 3.1 g/dL (3.5-5.0); Alkaline Phosphatase 211 U/L (39-117); Anion Gap 16 (12-20); Aspartate Amino Transferase 30 U/L (5-31); Bilirubin Total 0.3 mg/dL (0.0-1.0); Blood Urea Nitrogen 73 mg/dL (9-16); Calcium 8.1 mg/dL (8.4-10.2); Carbon Dioxide 19 mmol/L (22-29); Chloride 108 mmol/L (96-108); Creatinine Clr Calc Pharmacy 14.6; Estimated Glomerular Filt Rate 11; Glucose Random 212 mg/dL (60-115); Magnesium 1.9 mg/dL (1.6-2.6); Potassium 6.1 mmol/L (3.3-5.1); Sodium 137 mmol/L (135-145); Total Protein 7.5 g/dL (6.5-8.0)
[2022-06-06] MEDS: Sodium Bicarbonate 8.4% 50 MEQ/50 ML SYRINGE IVPUSH (11:20)
[2022-06-06] MEDS: Dextrose 50 % 25 GM/50 ML SYRINGE IVPUSH (11:20)
[2022-06-06] MEDS: Sodium Zirconium Cyclosilicate 10 GM POWD.PACK PO ×2 (11:25→19:40)
[2022-06-06] MEDS: Insulin Regular, Human 100 UNIT/ML 3 ML VIAL 10 UNIT IVPUSH (11:25)
[2022-06-06 12:16] LABS: Appearance Urine Cloudy; Color Urine Yellow; Glucose Urine UA 250 mg/dL (Negative); Leukocyte Esterase Urine Large (3+) (Negative); Nitrite Urine Positive (Negative); UMIC TRIGGER UACC YES; Urine Blood Trace (Negative); Urine Ketones Negative (Negative); Urine Protein 300 (3+) mg/dL (Neg-Trace)
[2022-06-06 12:33] LABS: Bacteria Urine 4+ (None Seen); UACC Culture Trigger YES; WBC Urine >50 /HPF (0-5)
[2022-06-06 12:47] LABS: Osmolality, Serum 320 mosm/kg (281-305)
[2022-06-06 12:47] LABS: Osmolality Urine 350 mosm/kg (373-1093)
[2022-06-06] MEDS: Piperacillin Sodium/Tazobactam 3.375 GM in 0.9 % Sodium Chloride 50 ML IV (14:40)
--- NOTE | 2022-06-06 15:14 | PHA.MEDREC ---
Pharmacy Consult ? Medication Reconciliation Pharmacy has completed the medication reconciliation. list obtained from [facility]
--- NOTE | 2022-06-06 16:06 | PC.NURSE ---
Pt adamantly refusing blood draw x2. A and o x1-person only. PA aware due to pending admission status.
[2022-06-06] MEDS: Sodium Polystyrene Sulfon/Sorb 15 GM/60 ML ORAL.SUSP PO (16:58)
[2022-06-06] MEDS: 0.9 % Sodium Chloride 1,000 ML 999 ML IV (17:00)
--- NOTE | 2022-06-06 17:27 | P.HPHOSP_ITS ---
History of Present Illness Date of Service: 06/06/22 Chief Complaint: Altered mentation A 71 years old lady with PMH of CKD stage 4, CVA, diabetes, GERD, DVT on Eliquis among others who presents to the hospital with altered mentation. The patient was brought by SNF staff with altered mentation. Patient unable to provide any history given encephalopathy. History taken mainly from the emergency provider. Reported that prison staff noted that she has been acting differently, more aggressive and altered mentation, not eating well. No reported fever, chills, nausea, vomiting, change in bowel habit or urinary symptoms. In the emergency the patient was found to have urinary tract infection with wors ening kidney function and elevated potassium level. Images were negative for any acute findings. Admitted for further evaluation and treatment at this point. Review of Systems Review of Systems: . 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 Chronic kidney disease CVA (cerebrovascular accident) Diabetes Diabetic retinopathy Dysphagia Failure to thrive in adult GERD (gastroesophageal reflux disease) History of venous thromboembolism Hypothyroidism PVD (peripheral vascular disease) Squamous cell carcinoma of left upper extremity TIA (transient ischemic attack) Uncontrolled hypertension Surgical History History of thyroidectomy S/P below knee amputation Social History Household Members: Other Housing: [facility] Do you presently have visiting nurse or other home services: No Alcohol intake: never Patient Tobacco Use Status: Never used Tobacco Use of substances other than those prescribed or required for medical reasons: No Advance Directives: Yes Advance Directives on File: Yes Advance Directives Date on File: 02/25/22 service: No Current occupational status: disabled Meds Allergies Allergy/AdvReac Type Severity Reaction Status Date / Time codeine [CODEINE] Allergy Unknown UNKNOWN Verified 04/10/22 09:48 morphine [MORPHINE] Allergy Unknown UNKNOWN, Verified 04/10/22 09:48 anaphylaxis adhesive tape Allergy Unknown Verified 04/10/22 09:48 clarithromycin Allergy Unknown Verified 04/10/22 09:48 clonidine [From Catapres] Allergy Unknown Verified 04/10/22 09:48 lactose Allergy Unknown Verified 04/10/22 09:48 latex Allergy Unknown Verified 04/10/22 09:48 Active Medications: Current Medications Sodium Chloride (Ns) 1,000 mls @ 999 mls/hr IV .Q1H1M NAHUM Stop: 06/06/22 17:30 Last Admin: 06/06/22 17:00 Dose: 999 mls/hr Pharmacy Consult (Consult Rx Perform Med Rec) 1 each MISCELLANE ONCE PRN PRN Reason: Consult order Home Medications Medication Instructions Recorded Confirmed Last Taken Type amitriptyline 25 mg tablet 1 tab PO BEDTIME 02/24/22 06/06/22 Unknown History amlodipine 10 mg tablet 1 tab PO DAILY 02/24/22 06/06/22 Unknown History apixaban 2.5 mg tablet (Eliquis) 1 tab PO BID 02/24/22 06/06/22 Unknown History aspirin 81 mg tablet,delayed 81 mg PO DAILY 02/24/22 06/06/22 Unknown History release atorvastatin 80 mg tablet 1 tab PO DAILY 02/24/22 06/06/22 Unknown History ahollhnbyx-ymovjoeofcimj-lpaviquk 1 cap PO Q8H PRN Migraine Headache 02/24/22 06/06/22 Unknown History 50 mg-300 mg-40 mg capsule (Fioricet) calcium carbonate 600 mg calcium 600 mg PO BID 02/24/22 06/06/22 Unknown History (1,500 mg) tablet (Calcium) escitalopram oxalate 10 mg tablet 1 tab PO DAILY 02/24/22 06/06/22 Unknown History furosemide 40 mg tablet 1 tab PO DAILY@1400 02/24/22 06/06/22 Unknown History insulin aspart U-100 100 unit/mL See Rx Instructions .Route .COMPLEX 02/24/22 06/06/22 Unknown History subcutaneous solution (Novolog U-100 Insulin aspart) insulin degludec 100 unit/mL (3 10 unit subcut BEDTIME 02/24/22 06/06/22 Unknown History mL) subcutaneous pen (Tresiba FlexTouch U-100 insulin) lactase 3,000 unit tablet (Lactaid) 9,000 unit PO TIDWM 02/24/22 06/06/22 Unknown History levothyroxine 200 mcg tablet 1 tab PO BEDTIME 02/24/22 06/06/22 Unknown History metoprolol tartrate 100 mg tablet 1 tab PO BID 02/24/22 06/06/22 Unknown History ondansetron HCl 4 mg tablet 1 tab PO Q8H PRN Nausea 02/24/22 06/06/22 Unknown History oxycodone 5 mg tablet 1 tab PO BEDTIME 02/24/22 06/06/22 Unknown History oxycodone 5 mg tablet 2 tab PO Q6H PRN Pain 02/24/22 06/06/22 Unknown History pantoprazole 40 mg tablet,delayed 1 tab PO BID@0630,1630 02/24/22 06/06/22 Unknown History release polyvinyl alcohol 1.4 % eye drops 1 drp ophthalmic (eye) BID 02/24/22 06/06/22 Unknown History (Artificial Tears (polyvinyl alcohol)) acetaminophen 325 mg tablet 650 mg PO Q8H PRN Pain 04/10/22 06/06/22 Unknown Hi story (Tylenol) baclofen 5 mg tablet 5 mg PO BEDTIME 04/10/22 06/06/22 Unknown History docusate sodium 100 mg tablet 100 mg PO Q24H PRN Constipation 04/10/22 06/06/22 Unknown History hydralazine 25 mg tablet 75 mg PO TID 04/10/22 06/06/22 Unknown History sodium zirconium cyclosilicate 10 10 g PO Q2D 05/06/22 06/06/22 Unknown History gram oral powder packet (Lokelma) bisacodyl 10 mg rectal suppository 10 mg OK DAILY PRN Constipation 06/06/22 06/06/22 Unknown History hydrocortisone 1 % topical cream 1 appl topical BID PRN Hemorrhoids 06/06/22 06/06/22 Unknown History (Preparation H Hydrocortisone) loperamide 2 mg tablet 2 mg PO Q4H PRN Diarrhea 06/06/22 06/06/22 Unknown History losartan 25 mg tablet 75 mg PO DAILY 06/06/22 06/06/22 Unknown History Physical Exam Vital Signs and Narrative: Vital Signs: Last Vital Signs Temp 98.8 F 06/06/22 15:47 Pulse 81 06/06/22 15:47 Resp 15 06/06/22 15:47 BP 158/77 H 06/06/22 15:47 Pulse Ox 96 06/06/22 15:47 O2 Del Method 06/06/22 15:47 BMI result Body Mass Index 36.1 Const: Other: Constitutional : interactive, not in distress, morbidly obese Neck : Normal inspection, Supple Cardiovascular : RRR, no JVP, no lower extremity edema Respiratory : fair bilateral air entry,? no crackles, wheezes or rhonchi Gastrointestinal:? soft, lax, Normal bowel sounds, Non tender Musculoskeletal, left BKA Skin : Warm, Dry, Neurological : Alert with stimulation, oriented to self but otherwise confused Results Labs CBC and Chem 7: 06/06/22 09:29 06/06/22 09:29 Labs: Laboratory Results - last 24 hr 06/06/22 06/06/22 06/06/22 09:29 09:29 09:29 MCV 95.8 MCH 31.4 MCHC 32.8 RDW 13.7 Plt Count 174 MPV 11.0 Immature Gran % (Auto) 0.5 H Neut % (Auto) 80.4 H Lymph % (Auto) 16.2 L Glades % (Auto) 2.4 Eos % (Auto) 0.1 Baso % (Auto) 0.4 Lymph # (Auto) 1.3 Glades # (Auto) 0.2 Eos # (Auto) 0.0 Baso # (Auto) 0.0 Abs Immat Gran (auto) 0.04 H Absolute Neuts (auto) 6.6 Absolute Nucleated RBC 0.000 Nucleated RBC % (auto) 0.0 Anion Gap 16 Estim Creat Clear Calc 14.6 Estimated GFR 11 Random Glucose 212 H Osmolality Calcium 8.1 L D Magnesium 1.9 Total Bilirubin 0.3 AST 30 D ALT 29 Alkaline Phosphatase 211 H D Troponin I High Sens 7.2 Total Protein 7.5 Albumin 3.1 L Urine Color Urine Appearance Urine pH Ur Specific [employer] Urine Protein Urine Glucose (UA) Urine Ketones Urine Blood Urine Nitrite Ur Leukocyte Esterase Urine RBC Urine WBC Ur Squamous Epith Cells Urine Bacteria Hyaline Casts Urine Osmolality COVID-19 (LUCIO) COVID-19 Clin Com 06/06/22 06/06/22 06/06/22 09:29 09:36 Unknown MCV MCH MCHC RDW Plt Count MPV Immature Gran % (Auto) Neut % (Auto) Lymph % (Auto) Glades % (Auto) Eos % (Auto) Baso % (Auto) Lymph # (Auto) Glades # (Auto) Eos # (Auto) Baso # (Auto) Abs Immat Gran (auto) Absolute Neuts (auto) Absolute Nucleated RBC Nucleated RBC % (auto) Anion Gap Estim Creat Clear Calc Estimated GFR Random Glucose Osmolality 320 H Calcium Magnesium Total Bilirubin AST ALT Alkaline Phosphatase Troponin I High Sens Total Protein Albumin Urine Color Urine Appearance Urine pH Ur Specific [employer] Urine Protein Urine Glucose (UA) Urine Ketones Urine Blood Urine Nitrite Ur Leukocyte Esterase Urine RBC Urine WBC Ur Squamous Epith Cells Urine Bacteria Hyaline Casts Urine Osmolality 350 L COVID-19 (LUCIO) Negative COVID-19 Clin Com See Note 06/06/22 Unknown MCV MCH MCHC RDW Plt Count MPV Immature Gran % (Auto) Neut % (Auto) Lymph % (Auto) Glades % (Auto) Eos % (Auto) Baso % (Auto) Lymph # (Auto) Glades # (Auto) Eos # (Auto) Baso # (Auto) Abs Immat Gran (auto) Absolute Neuts (auto) Absolute Nucleated RBC Nucleated RBC % (auto) Anion Gap Estim Creat Clear Calc Estimated GFR Random Glucose Osmolality Calcium Magnesium Total Bilirubin AST ALT Alkaline Phosphatase Troponin I High Sens Total Protein Albumin Urine Color Yellow Urine Appearance Cloudy Urine pH 6.0 Ur Specific [employer] 1.010 Urine Protein 300 (3+) H Urine Glucose (UA) 250 H Urine Ketones Negative Urine Blood Trace H Urine Nitrite Positive H Ur Leukocyte Esterase Large (3+) H Urine RBC 6-10 H Urine WBC >50 H Ur Squamous Epith Cells 6-10 Urine Bacteria 4+ Hyaline Casts 3-5 Urine Osmolality COVID-19 (LUCIO) COVID-19 Clin Com Imaging Radiologist's Impressions: Impressions Chest X-Ray 06/06/22 10:08 FINDINGS/IMPRESSION: The study is limited by portable technique, low lung volumes, and patient body habitus. No focal infiltrate, effusion, or pneumothorax is seen. The right hemidiaphragm is mildly elevated. The cardiac silhouette is poorly evaluated. The aorta is atherosclerotic. There are degenerative changes of the spine. Abdomen/Pelvis CT 06/06/22 10:47 IMPRESSION: Probable small gallstones. Normal-size gallbladder. Question gallbladder wall thickening. No intrahepatic biliary duct dilatation. Upper normal-size common bile duct. No common bile duct stone appreciated by CT. Constipation. Stable bilateral adrenal lesions. Severe atherosclerotic disease. Bilateral lateral abdominal wall subcutaneous edema Fleischner guidelines were followed. Cervical Spine CT 06/06/22 10:47 IMPRESSION: No acute intracranial process seen. There is no acute fracture, dislocation or subluxation of cervical spine. There are degenerative disc changes and posterior spondylosis as described above. Head CT 06/06/22 10:47 IMPRESSION: No acute intracranial process seen. There is no acute fracture, dislocation or subluxation of cervical spine. There are degenerative disc changes and posterior spondylosis as described above. Assessment and Plan (1) Acute worsening of stage 4 chronic kidney disease: Status: Acute (2) UTI (urinary tract infection): Status: Acute (3) Toxic metabolic encephalopathy: Status: Acute Plan A 71 years old lady with PMH of CKD stage 4, CVA, diabetes, GERD, DVT on Eliquis among others who presents to the hospital with altered mentation. 1- PEG on CKD stage 4 ,acute hyperkalemia No obstruction noted on CT scan ?Potassium 6.1 , creatinine worsened with elevated BUN Received Lokelma, Kayexalate Refused to repeat BMP Nephrology consult Give IV fluid Monitor intake and output, repeat BMP 2-toxic metabolic Encephalopathy 2/2 UTI Not septic History of Pseudomonas in urine Start with renally adjusted cefepime Pending urine and blood cultures 3- Choledocolithiasis CT abdomen and pelvis revealed calcified material within the gallbladder Evaluated previously by surgery, following up as outpatient with surgical team No LFT changes or pain reported, to monitor 4- involuntary movements, tremors Evaluated last admission with CT scan that showed decreased attenuation in c entral brain at the level of cerebral peduncles of uncertain etiology, but 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 Overnight hospital stay for evaluation of encephalopathy pending final urine and blood cultures to prevent possible decompensation in to sepsis. Quality Stroke Does the patient have a stroke diagnosis?: No VTE Prior VTE?: No VTE Risk Level:: Medical - moderate - high VTE Device Contraindication: Treatment Not Indicated VTE Drug Contraindication: N/A - Med Ordered
[2022-06-06] MEDS: 0.9 % Sodium Chloride 1,000 ML 100 ML IVCONT (18:32)
[2022-06-06] MEDS: cefEPime HCl 0.5 GM in 0.9 % Sodium Chloride 50 ML IV (18:33)
[2022-06-06 18:56] LABS: Anion Gap 20 (12-20); Blood Urea Nitrogen 76 mg/dL (9-16); Calcium 8.1 mg/dL (8.4-10.2); Carbon Dioxide 16 mmol/L (22-29); Chloride 109 mmol/L (96-108); Creatinine Clr Calc Pharmacy 14.3; Estimated Glomerular Filt Rate 11; Glucose Random 209 mg/dL (60-115); Potassium 5.7 mmol/L (3.3-5.1); Sodium 139 mmol/L (135-145)
[2022-06-06] MEDS: oxyCODONE HCl Immed Release 5 MG TABLET PO (19:39)
[2022-06-06] MEDS: hydrALAZINE HCl 25 MG TABLET 75 MG PO (19:39)
[2022-06-06] MEDS: Metoprolol Tartrate 100 MG TABLET PO (19:39)
[2022-06-06] MEDS: Baclofen 10 MG TABLET 5 MG PO (19:40)
[2022-06-06] MEDS: Apixaban 2.5 MG TABLET PO (19:40)
[2022-06-06] MEDS: Amitriptyline HCl 25 MG TABLET PO ×2 (19:40→19:43)
--- NOTE | 2022-06-06 20:21 | PC.NURSE ---
Purewic in place,bed cleaned, pt offered gingerale, took a sip now resting. SG
--- NOTE | 2022-06-06 20:47 | PC.NURSE ---
multiple attempts have been made to offer night meds. pt continues to refuse by various nurses.
--- NOTE | 2022-06-06 20:50 | PC.NURSE ---
pharmacy contacted for meds not in pyxis
--- NOTE | 2022-06-06 21:58 | PC.NURSE ---
Attempted to medicate with rest of night meds. Unsucessful. Pt states You're going to poison me. You're not helping me at all. I'm going to from the water. Pt remains only orientated to person at this time. Charge Nurse aware and will attempt to medicate.
[2022-06-06] MEDS: 0.9 % Sodium Chloride Flush 3 ML SYRINGE IVFLUSH (23:44)
[2022-06-07] VITALS (7 sets, daily range): BP systolic 123–189; BP diastolic 62–74; PULSE 70–87; RESP 14–19; TEMP 36.1–36.8; O2SAT 93–100
[2022-06-07] MEDS: 0.9 % Sodium Chloride 1,000 ML 100 ML IVCONT (02:51)
--- NOTE | 2022-06-07 04:20 | PC.NURSE ---
Throughout the entire evening, patient has been screaming out in confusion, yelling help me! and i'm allergic to water! (among other things). MD Za Quarles made aware now and this RN inquires about anything to help patient rest (likely won't take PO). Patient has been repositioned multiple times with several pillows, provided with beverage, heat/cold packs for comfort, and verbal reassurance on several occasions. Patient's bed linens are clean and dry, with purewick in place draining clear, yellow urine. Environment adjusted to be more relaxing. Call perez within reach and patient presses approximately q15 minutes. Frequent rounding and comfort checks in place.
--- NOTE | 2022-06-07 06:47 | PC.NURSE ---
Patient continues to scream and press her call perez regularly (about every 10 minutes) to express needs. She states I shit again! Small smear of stool noted. Luisa care provided with warm wipes and linens changed. Patient boosted and repositioned in stretcher.
[2022-06-07 07:22] LABS: Glucose, Whole Blood 186 mg/dL (60-115)
[2022-06-07] MEDS: Insulin Lispro 100 UNIT/ML 3 ML VIAL SUBCUT ×3 (07:26→21:18)
[2022-06-07] MEDS: hydrALAZINE HCl 25 MG TABLET 75 MG PO ×3 (09:27→21:13)
[2022-06-07] MEDS: Metoprolol Tartrate 100 MG TABLET PO ×2 (09:29→21:17)
[2022-06-07] MEDS: hydroCHLOROthiazide 25 MG TABLET PO (09:29)
[2022-06-07] MEDS: Apixaban 2.5 MG TABLET PO ×2 (09:30→21:18)
[2022-06-07] MEDS: Escitalopram Oxalate 10 MG TABLET PO (09:30)
[2022-06-07] MEDS: amLODIPine Besylate 10 MG TABLET PO (09:30)
[2022-06-07] MEDS: Atorvastatin Calcium 80 MG TABLET PO (09:30)
[2022-06-07] MEDS: Aspirin Enteric Coated 81 MG TABLET.DR PO (09:31)
[2022-06-07 11:04] LABS: Hematocrit 23.2 % (37.0-47.0); Hemoglobin 7.6 g/dl (12.0-16.0); Mean Corpuscular HGB Conc 32.8 g/dl (31.0-35.0); Mean Corpuscular Hemoglobin 31.4 pg (27.0-33.0); Mean Corpuscular Volume 95.9 fL (80.0-98.0); Mean Platelet Volume 10.7 fL (9.4-12.3); Platelet Count 179 X10*3/uL (160-400); Red Blood Count 2.42 X10*6/uL (4.20-5.50); Red Cell Distribution Width 13.3 % (11.0-16.0); White Blood Count 10.4 X10*3/uL (4.8-10.8)
[2022-06-07 11:32] LABS: Anion Gap 19 (12-20); Blood Urea Nitrogen 75 mg/dL (9-16); Calcium 7.7 mg/dL (8.4-10.2); Carbon Dioxide 16 mmol/L (22-29); Chloride 109 mmol/L (96-108); Creatinine Clr Calc Pharmacy 15.6; Estimated Glomerular Filt Rate 12; Glucose Random 194 mg/dL (60-115); Potassium 4.7 mmol/L (3.3-5.1); Sodium 139 mmol/L (135-145)
[2022-06-07] MEDS: Lactase TABLET 1 TAB PO ×2 (12:07→15:53)
--- NOTE | 2022-06-07 13:10 | PC.NURSE ---
Addendum entered by Lea Plunkett RN 06/07/22 18:32: Patient continues to yell out for help. Patient reassured and all needs have been addressed at each time of interaction. Original Note: Patient had very large hard stool disimpacted. with much relief. Patient now resting. No complaints.
--- NOTE | 2022-06-07 14:39 | HO.PM.IMPN ---
Subjective Subjective Date of Service: 06/07/22 Interval History: the patient was seen and evaluated this morning Laying in bed, still pretty anxious but less than yesterday Denies any fever, chills or shortness of breath No reported other overnight events. Systemic review: No fever, chills or weakness No chest pain, palpitation No shortness of breath or coughing No abdominal pain, nausea or vomiting No urinary symptoms No any rash or wounds Review of Systems . Physical Exam Vital Signs: Vital Signs: Last Vital Signs Temp 97.2 F 06/07/22 12:00 Pulse 75 06/07/22 12:00 Resp 18 06/07/22 12:00 BP 168/67 H 06/07/22 12:00 Pulse Ox 93 06/07/22 12:00 O2 Del Method 06/07/22 12:00 BMI result Body Mass Index 36.1 Const: Other: Constitutional : interactive, mildly anxious, morbidly obese Neck : Normal inspection, Supple Cardiovascular : RRR, no JVP, no lower extremity edema Respiratory : fair bilateral air entry,? no crackles, wheezes or rhonchi Gastrointestinal:? soft, lax, Normal bowel sounds, Non tender Musculoskeletal, left BKA Skin : Warm, Dry, Neurological : Alert with stimulation, oriented to self and place Objective Data Active Medications Acetaminophen (Acetaminophen 325 Mg Tablet) 650 mg PO Q6H PRN PRN Reason: Pain, Mild (Pain Scale 1-3) Acetaminophen/Butalbital/Caffeine (Butalb/Acetamin/Caff 50/325/40 Tablet) 1 tab PO Q8H PRN PRN Reason: Migraine Headache Amitriptyline HCl (Amitriptyline Hcl 25 Mg Tablet) 25 mg PO BEDTIME [facility] Last Admin: 06/06/22 19:43 Dose: 25 mg Documented By: ARIADNA Amlodipine Besylate (Amlodipine Besylate 10 Mg Tablet) 10 mg PO DAILY [facility]; Protocol Last Admin: 06/07/22 09:30 Dose: 10 mg Documented By: JANEY Apixaban (Apixaban 2.5 Mg Tablet) 2.5 mg PO BID [facility] Last Admin: 06/07/22 09:30 Dose: 2.5 mg Documented By: JANEY Artificial Tears (Artificial Tears 15 Ml Drops) 1 drop EYE-BOTH BID [facility] Last Admin: 06/07/22 09:31 Dose: Not Given Documented By: JANEY Non-Admin Reason: Patient Refused Aspirin (Aspirin Enteric Coated 81 Mg Tablet.) 81 mg PO DAILY [facility] Last Admin: 06/07/22 09:31 Dose: 81 mg Documented By: JANEY Atorvastatin Calcium (Atorvastatin Calcium 80 Mg Tablet) 80 mg PO DAILY [facility] Last Admin: 06/07/22 09:30 Dose: 80 mg Documented By: JANEY Baclofen (Baclofen 10 Mg Tablet) 5 mg PO BEDTIME [facility] Last Admin: 06/06/22 19:40 Dose: 5 mg Documented By: ARIADNA Bisacodyl (Bisacodyl 10 Mg Supp.Rect) 10 mg [place] DAILY PRN PRN Reason: Constipation Calcium Carbonate (Calcium Carbonate 500 Mg Tablet) 500 mg PO BID [facility] Last Admin: 06/07/22 09:32 Dose: Not Given Documented By: JANEY Non-Admin Reason: Patient Refused Docusate Sodium (Docusate Sodium 100 Mg Capsule) 100 mg PO Q24H PRN PRN Reason: Constipation Escitalopram Oxalate (Escitalopram Oxalate 10 Mg Tablet) 10 mg PO DAILY [facility] Last Admin: 06/07/22 09:30 Dose: 10 mg Documented By: JANYE Hydralazine HCl (Hydralazine Hcl 25 Mg Tablet) 75 mg PO TID [facility]; Protocol Last Admin: 06/07/22 09:27 Dose: 75 mg Documented By: JANEY Hydrochlorothiazide (Hydrochlorothiazide 25 Mg Tablet) 25 mg PO DAILY [facility]; Protocol Last Admin: 06/07/22 09:29 Dose: 25 mg Documented By: JANEY Cefepime HCl 0.5 gm/ Sodium (Chloride) 50 mls @ 100 mls/hr IV Q24H [facility] Last Infusion: 06/06/22 19:13 Dose: 0 mls/hr Documented By: LESLYE Insulin Human Lispro (Insulin Lispro 100 Unit/Ml 3 Ml Vial) 0 unit SUBCUT QIDACHS [facility]; Protocol Last Admin: 06/07/22 12:07 Dose: 2 unit Documented By: RORO Lactase (Lactase Tablet) 1 tab PO TIDWM [facility] Last Admin: 06/07/22 12:07 Dose: 1 tab Documented By: RORO Levothyroxine Sodium (Levothyroxine Sodium 200 Mcg Tablet) 200 mcg PO BEDTIME [facility] Last Admin: 06/06/22 23:43 Dose: Not Given Documented By: BARRY Non-Admin Reason: not given on previous shift- pt refused Loperamide HCl (Loperamide Hcl 2 Mg Capsule) 2 mg PO Q4H PRN PRN Reason: Diarrhea Metoprolol Tartrate (Metoprolol Tartrate 100 Mg Tablet) 100 mg PO BID [facility]; Protocol Last Admin: 06/07/22 09:29 Dose: 100 mg Documented By: JANEY Ondansetron HCl (Ondansetron Hcl 4 Mg/2 Ml Vial) 4 mg IVPUSH Q8H PRN PRN Reason: Nausea and Vomiting Oxycodone HCl (Oxycodone Hcl Immed Release 5 Mg Tablet) 5 mg PO BEDTIME [facility] Last Admin: 06/06/22 19:39 Dose: 5 mg Documented By: ARIADNA Pharmacy Consult (Consult Rx Perform Med Rec) 1 each MISCELLANE ONCE PRN PRN Reason: Consult order Sodium Chloride (0.9 % Sodium Chloride Flush 3 Ml Syringe) 3 ml IVFLUSH QSHIFT [facility] Last Admin: 06/07/22 07:27 Dose: Not Given Documented By: CHRISTINE Non-Admin Reason: IV Running Sodium Zirconium Cyclosilicate (Sodium Zirconium Cyclosilicate 10 Gm Powd.Pack) 10 gm PO Q2D [facility] Last Admin: 06/06/22 18:43 Dose: Not Given Documented By: LESLYE Non-Admin Reason: Patient Refused Labs CBC & Chem 7: 06/07/22 10:55 06/07/22 10:55 Labs: Laboratory Results - last 24 hr 06/06/22 06/07/22 06/07/22 18:06 07:16 10:55 MCV 95.9 MCH 31.4 MCHC 32.8 RDW 13.3 Plt Count 179 MPV 10.7 Absolute Nucleated RBC 0.000 Nucleated RBC % (auto) 0.0 Anion Gap 20 Estim Creat Clear Calc 14.3 Estimated GFR 11 POC Glucose 186 H Random Glucose 209 H Calcium 8.1 L 06/07/22 06/07/22 10:55 11:56 MCV MCH MCHC RDW Plt Count MPV Absolute Nucleated RBC Nucleated RBC % (auto) Anion Gap 19 Estim Creat Clear Calc 15.6 Estimated GFR 12 POC Glucose 160 H Random Glucose 194 H Calcium 7.7 L Microbiology Microbiology Results: Microbiology 06/06/22 Unknown Urine Culture - Final Urine clean catch - Urine camacho top Assessment and Plan (1) Acute hyperkalemia: Status: Acute (2) Urinary tract infection: Status: Acute (3) Toxic metabolic encephalopathy: Status: Acute Plan A 71 years old lady with PMH of CKD stage 4, CVA, diabetes, GERD, DVT on Eliquis among others who presents to the hospital with altered mentation. 1- PEG on CKD stage 4 ,acute hyperkalemia No obstruction noted on CT scan Improving Potassium back to normal Nephrology following Hold hydration Monitor intake and output, repeat BMP 2-toxic metabolic Encephalopathy 2/2 UTI Not septic History of Pseudomonas in urine Continue with renally adjusted cefepime Urine culture growing mixed bacteria 3- Choledocolithiasis CT abdomen and pelvis revealed calcified material within the gallbladder Evaluated previously by surgery, following up as outpatient with surgical team No LFT changes or pain reported, to monitor 4- involuntary movements, tremors Evaluated last admission with CT scan that showed decreased attenuation in central brain at the level of cerebral peduncles of uncertain etiology, but could be customer response representative of infarct MRI done, incomplete study, no acute infarct seen but chronic lacunar infarcts noted Neurology last admission believed secondary to acute infection and electrolyte imbalance Will monitor and consider neurology re-evaluation if worsens 5- Insulin dependent type 2 diabetes- stable POC glucose SSI 6- Hypertension Hold lisinopril for Peg I Start amlodipine, metoprolol and hydralazine for now 7-Anemia of chronic disease secondary to CKD Stable 8- Morbid obesity BMI of 42 Advised weight reduction DVT prophylaxis Eliquis Code status: DNR/DNI Patient requires Overnight hospital stay for evaluation of encephalopathy, UTI and acute kidney injury to prevent possible decompensation in to sepsis. Quality Stroke Does the patient have a stroke diagnosis?: No VTE Prior VTE?: No VTE Risk Level:: Medical - moderate - high VTE Device Contraindication: Treatment Not Indicated VTE Drug Contraindication: N/A - Med Ordered
--- NOTE | 2022-06-07 15:08 | MHC.CM.PN ---
Attempted to meet with pt to discuss d/c plans: pt not a reliable historian: call placed to pt's brother, Brian who is also her HCP - call also placed to [facility] where pt has been a resident. Pt will return to [facility] for continuation of care: she is a 20 day bed hold. Pt requires physical assist to complete ADL's . HCP and [facility]OL[facility] on file. BLS transfer back to [facility]. Vax [phone]
--- NOTE | 2022-06-07 15:38 | P.CONNP_ITS ---
History of Present Illness Reason for Consult Consult date: 06/07/22 Reason for consult: PEG on CKD with Hyperkalemia Chief Complaint Chief complaint: altered mental, uti History of Present Illness Narrative: Ms. Zari Rg is a 71-year-old female with past medical history of CKD stage IV (BL ~ 2.4 - 2.5 mg/dL), T2DM, GERD, hypothyroidism, left BKA who was sent to ED from SNF. She was found to have urosepsis, PEG on CKD and Hyperkalemia. Of note, she has a history of hyperkalemia on RAAS blockade. Review of Systems Review of Systems . Yes Unobtainable due to mental status PMFSH Past Medical History Medical History (Updated 06/07/22 @ 15:43 by Jaleel Barraza MD) Acute kidney failure Acute respiratory failure with hypoxia Anemia in CKD (chronic kidney disease) Atherosclerosis Basal cell carcinoma of right upper arm Below-knee amputation of left lower extremity Cerebral microvascular disease Chronic kidney disease CVA (cerebrovascular accident) Diabetes Diabetic retinopathy Dysphagia Failure to thrive in adult GERD (gastroesophageal reflux disease) History of venous thromboembolism Hypothyroidism PVD (peripheral vascular disease) Squamous cell carcinoma of left upper extremity TIA (transient ischemic attack) Uncontrolled hypertension Surgical History Surgical History History of thyroidectomy S/P below knee amputation Social History Social History Household Members: Unknown / Unable to assess Housing: Assisted Living Facility Do you presently have visiting nurse or other home services: No Unable to assess alcohol history related to: Unable to respond Alcohol intake: never Patient Tobacco Use Status: Never used Tobacco Advance Directives Date on File: 02/25/22 service: No Current occupational status: disabled Meds Allergies Allergy/AdvReac Type Severity Reaction Status Date / Time codeine [CODEINE] Allergy Unknown UNKNOWN Verified 04/10/22 09:48 morphine [MORPHINE] Allergy Unknown UNKNOWN, Verified 04/10/22 09:48 anaphylaxis adhesive tape Allergy Unknown Verified 04/10/22 09:48 clarithromycin Allergy Unknown Verified 04/10/22 09:48 clonidine [From Catapres] Allergy Unknown Verified 04/10/22 09:48 lactose Allergy Unknown Verified 04/10/22 09:48 latex Allergy Unknown Verified 04/10/22 09:48 Active Medications: Current Medications Acetaminophen (Acetaminophen 325 Mg Tablet) 650 mg PO Q6H PRN PRN Reason: Pain, Mild (Pain Scale 1-3) Acetaminophen/Butalbital/Caffeine (Butalb/Acetamin/Caff 50/325/40 Tablet) 1 tab PO Q8H PRN PRN Reason: Migraine Headache Amitriptyline HCl (Amitriptyline Hcl 25 Mg Tablet) 25 mg PO BEDTIME [facility] Last Admin: 06/06/22 19:43 Dose: 25 mg Amlodipine Besylate (Amlodipine Besylate 10 Mg Tablet) 10 mg PO DAILY [facility]; Protocol Last Admin: 06/07/22 09:30 Dose: 10 mg Apixaban (Apixaban 2.5 Mg Tablet) 2.5 mg PO BID [facility] Last Admin: 06/07/22 09:30 Dose: 2.5 mg Artificial Tears (Artificial Tears 15 Ml Drops) 1 drop EYE-BOTH BID [facility] Last Admin: 06/07/22 09:31 Dose: Not Given Aspirin (Aspirin Enteric Coated 81 Mg Tablet.Dr) 81 mg PO DAILY [facility] Last Admin: 06/07/22 09:31 Dose: 81 mg Atorvastatin Calcium (Atorvastatin Calcium 80 Mg Tablet) 80 mg PO DAILY [facility] Last Admin: 06/07/22 09:30 Dose: 80 mg Baclofen (Baclofen 10 Mg Tablet) 5 mg PO BEDTIME [facility] Last Admin: 06/06/22 19:40 Dose: 5 mg Bisacodyl (Bisacodyl 10 Mg Supp.Rect) 10 mg [place] DAILY PRN PRN Reason: Constipation Calcium Carbonate (Calcium Carbonate 500 Mg Tablet) 500 mg PO BID [facility] Last Admin: 06/07/22 09:32 Dose: Not Given Docusate Sodium (Docusate Sodium 100 Mg Capsule) 100 mg PO Q24H PRN PRN Reason: Constipation Escitalopram Oxalate (Escitalopram Oxalate 10 Mg Tablet) 10 mg PO DAILY [facility] Last Admin: 06/07/22 09:30 Dose: 10 mg Hydralazine HCl (Hydralazine Hcl 25 Mg Tablet) 75 mg PO TID [facility]; Protocol Last Admin: 06/07/22 09:27 Dose: 75 mg Hydrochlorothiazide (Hydrochlorothiazide 25 Mg Tablet) 25 mg PO DAILY [facility]; Protocol Last Admin: 06/07/22 09:29 Dose: 25 mg Cefepime HCl 0.5 gm/ Sodium (Chloride) 50 mls @ 100 mls/hr IV Q24H [facility] Last Infusion: 06/06/22 19:13 Dose: Infused Sodium Chloride (Ns) 1,000 mls @ 80 mls/hr IVCONT .[id number] [facility] Insulin Human Lispro (Insulin Lispro 100 Unit/Ml 3 Ml Vial) 0 unit SUBCUT QIDACHS [facility]; Protocol Last Admin: 06/07/22 12:07 Dose: 2 unit Lactase (Lactase Tablet) 1 tab PO TIDWM [facility] Last Admin: 06/07/22 12:07 Dose: 1 tab Levothyroxine Sodium (Levothyroxine Sodium 200 Mcg Tablet) 200 mcg PO BEDTIME [facility] Last Admin: 06/06/22 23:43 Dose: Not Given Loperamide HCl (Loperamide Hcl 2 Mg Capsule) 2 mg PO Q4H PRN PRN Reason: Diarrhea Metoprolol Tartrate (Metoprolol Tartrate 100 Mg Tablet) 100 mg PO BID [facility]; Protocol Last Admin: 06/07/22 09:29 Dose: 100 mg Ondansetron HCl (Ondansetron Hcl 4 Mg/2 Ml Vial) 4 mg IVPUSH Q8H PRN PRN Reason: Nausea and Vomiting Oxycodone HCl (Oxycodone Hcl Immed Release 5 Mg Tablet) 5 mg PO BEDTIME [facility] Last Admin: 06/06/22 19:39 Dose: 5 mg Pharmacy Consult (Consult Rx Perform Med Rec) 1 each MISCELLANE ONCE PRN PRN Reason: Consult order Sodium Chloride (0.9 % Sodium Chloride Flush 3 Ml Syringe) 3 ml IVFLUSH QSHIFT [facility] Last Admin: 06/07/22 07:27 Dose: Not Given Sodium Zirconium Cyclosilicate (Sodium Zirconium Cyclosilicate 10 Gm Powd.Pack) 10 gm PO Q2D [facility] Last Admin: 06/06/22 18:43 Dose: Not Given Home Medications Medication Instructions Recorded Confirmed Last Taken Type amitriptyline 25 mg tablet 1 tab PO BEDTIME 02/24/22 06/06/22 Unknown History amlodipine 10 mg tablet 1 tab PO DAILY 02/24/22 06/06/22 Unknown History apixaban 2.5 mg tablet (Eliquis) 1 tab PO BID 02/24/22 06/06/22 Unknown History aspirin 81 mg tablet,delayed 81 mg PO DAILY 02/24/22 06/06/22 Unknown History release atorvastatin 80 mg tablet 1 tab PO DAILY 02/24/22 06/06/22 Unknown History jipewsoyhw-rxobvuwbkyayz-bmypuawp 1 cap PO Q8H PRN Migraine Headache 02/24/22 06/06/22 Unknown History 50 mg-300 mg-40 mg capsule (Fioricet) calcium carbonate 600 mg calcium 600 mg PO BID 02/24/22 06/06/22 Unknown History (1,500 mg) tablet (Calcium) escitalopram oxalate 10 mg tablet 1 tab PO DAILY 02/24/22 06/06/22 Unknown History furosemide 40 mg tablet 1 tab PO DAILY@1400 02/24/22 06/06/22 Unknown History insulin aspart U-100 100 unit/mL See Rx Instructions .Route .COMPLEX 02/24/22 06/06/22 Unknown History subcutaneous solution (Novolog U-100 Insulin aspart) insulin degludec 100 unit/mL (3 10 unit subcut BEDTIME 02/24/22 06/06/22 Unknown History mL) subcutaneous pen (Tresiba FlexTouch U-100 insulin) lactase 3,000 unit tablet (Lactaid) 9,000 unit PO TIDWM 02/24/22 06/06/22 Unknown History levothyroxine 200 mcg tablet 1 tab PO BEDTIME 02/24/22 06/06/22 Unknown History metoprolol tartrate 100 mg tablet 1 tab PO BID 02/24/22 06/06/22 Unknown History ondansetron HCl 4 mg tablet 1 tab PO Q8H PRN Nausea 02/24/22 06/06/22 Unknown History oxycodone 5 mg tablet 1 tab PO BEDTIME 02/24/22 06/06/22 Unknown History oxycodone 5 mg tablet 2 tab PO Q6H PRN Pain 02/24/22 06/06/22 Unknown History pantoprazole 40 mg tablet,delayed 1 tab PO BID@0630,1630 02/24/22 06/06/22 Unknown History release polyvinyl alcohol 1.4 % eye drops 1 drp ophthalmic (eye) BID 02/24/22 06/06/22 Unknown History (Artificial Tears (polyvinyl alcohol)) acetaminophen 325 mg tablet 650 mg PO Q8H PRN Pain 04/10/22 06/06/22 Unknown History (Tylenol) baclofen 5 mg tablet 5 mg PO BEDTIME 04/10/22 06/06/22 Unknown History docusate sodium 100 mg tablet 100 mg PO Q24H PRN Constipation 04/10/22 06/06/22 Unknown History hydralazine 25 mg tablet 75 mg PO TID 04/10/22 06/06/22 Unknown History sodium zirconium cyclosilicate 10 10 g PO Q2D 05/06/22 06/06/22 Unknown History gram oral powder packet (Lokelma) bisacodyl 10 mg rectal suppository 10 mg [place] DAILY PRN Constipation 06/06/22 06/06/22 Unknown History hydrocortisone 1 % topical cream 1 appl topical BID PRN Hemorrhoids 06/06/22 06/06/22 Unknown History (Preparation H Hydrocortisone) loperamide 2 mg tablet 2 mg PO Q4H PRN Diarrhea 06/06/22 06/06/22 Unknown History losartan 25 mg tablet 75 mg PO DAILY 06/06/22 06/06/22 Unknown History Physical Exam Vital Signs: Last Vital Signs Temp 97.2 F 06/07/22 12:00 Pulse 75 06/07/22 12:00 Resp 18 06/07/22 12:00 BP 168/67 H 06/07/22 12:00 Pulse Ox 93 06/07/22 12:00 O2 Del Method 06/07/22 12:00 BMI result Body Mass Index 36.1 Const Other: Constitutional : interactive, mildly anxious, morbidly obese Neck : Normal inspection, Supple Cardiovascular : RRR, no JVP, no lower extremity edema Respiratory : fair bilateral air entry,? no crackles, wheezes or rhonchi Gastrointestinal:? soft, lax, Normal bowel sounds, Non tender Musculoskeletal, left BKA Skin : Warm, Dry, Neurological : Alert with stimulation, oriented to self and place Results Lab Results Result Diagrams: 06/07/22 10:55 06/07/22 10:55 Lab results: Chemistry 06/06/22 06/06/22 06/07/22 09:29 18:06 10:55 Sodium 137 139 139 Potassium 6.1 H* D 5.7 H 4.7 Carbon Dioxide 19 L 16 L 16 L BUN 73 H D 76 H 75 H Creatinine 3.91 H 4.01 H* 3.68 H Calcium 8.1 L D 8.1 L 7.7 L Hematology 06/06/22 06/07/22 09:29 10:55 WBC 8.3 10.4 Hgb 8.2 L 7.6 L Plt Count 174 179 Urinalysis 06/06/22 Unknown Urine Color Yellow Urine Appearance Cloudy Urine pH 6.0 Ur Specific [place] 1.010 Urine Protein 300 (3+) H Urine Glucose (UA) 250 H Urine Ketones Negative Urine Blood Trace H Urine Nitrite Positive H Ur Leukocyte Esterase Large (3+) H Urine RBC 6-10 H Urine WBC >50 H Ur Squamous Epith Cells 6-10 Hyaline Casts 3-5 Urine Studies 06/06/22 Unknown Urine Osmolality 350 L Assessment and Plan (1) Acute hyperkalemia: Status: Acute (2) Urinary tract infection: Status: Acute (3) Toxic metabolic encephalopathy: Status: Acute (4) Acute worsening of stage 4 chronic kidney disease: Status: Acute (5) Insulin dependent type 2 diabetes mellitus: Status: Acute Plan Ms. Zari Rg is a 71-year-old female with past medical history of CKD stage IV (BL ~ 2.4 - 2.5 mg/dL), T2DM, GERD, hypothyroidism, left BKA who was sent to ED from SNF. She was found to have urosepsis, PEG on CKD and Hyperkalemia. Of note, she has a history of hyperkalemia on RAAS blockade. 1- PEG on CKD stage 4 ,acute hyperkalemia No obstruction noted on CT scan U/A with hyaline casts likely some component of hemodynamic pre-renal azotemia Plan: - monitor for urinary retention - IVF ordered - Please keep off all JEROD/ARB from now on. She has proven that she cannot tolerate these meds Jaleel Barraza MD [facility] Procedures Date of Service Date of Service: 06/07/22
[2022-06-07] MEDS: 0.9 % Sodium Chloride 1,000 ML 80 ML IVCONT (15:47)
[2022-06-07] MEDS: cefEPime HCl 0.5 GM in 0.9 % Sodium Chloride 50 ML IV (18:22)
[2022-06-07] MEDS: 0.9 % Sodium Chloride Flush 3 ML SYRINGE IVFLUSH (21:13)
[2022-06-07] MEDS: Baclofen 10 MG TABLET 5 MG PO (21:14)
[2022-06-07] MEDS: Butalb/Acetamin/Caff 50/325/40 TABLET 1 TAB PO (21:14)
[2022-06-07] MEDS: oxyCODONE HCl Immed Release 5 MG TABLET PO (21:16)
[2022-06-07] MEDS: Levothyroxine Sodium 200 MCG TABLET PO (21:17)
[2022-06-07] MEDS: Amitriptyline HCl 25 MG TABLET PO (21:18)
[2022-06-08] MEDS: 0.9 % Sodium Chloride 1,000 ML 80 ML IVCONT (03:16)
[2022-06-08 03:42] VITALS: BP 169/71; PULSE 65; RESP 16; TEMP 36.2; O2SAT 96
[2022-06-08] MEDS: Butalb/Acetamin/Caff 50/325/40 TABLET 1 TAB PO ×2 (05:10→14:23)
[2022-06-08 06:19] LABS: Hematocrit 22.3 % (37.0-47.0); Hemoglobin 7.2 g/dl (12.0-16.0); Mean Corpuscular HGB Conc 32.3 g/dl (31.0-35.0); Mean Corpuscular Hemoglobin 30.5 pg (27.0-33.0); Mean Corpuscular Volume 94.5 fL (80.0-98.0); Mean Platelet Volume 11.1 fL (9.4-12.3); Platelet Count 159 X10*3/uL (160-400); Red Blood Count 2.36 X10*6/uL (4.20-5.50); Red Cell Distribution Width 13.2 % (11.0-16.0); White Blood Count 8.6 X10*3/uL (4.8-10.8)
[2022-06-08 06:43] LABS: Anion Gap 16 (12-20); Blood Urea Nitrogen 71 mg/dL (9-16); Calcium 7.7 mg/dL (8.4-10.2); Carbon Dioxide 19 mmol/L (22-29); Chloride 106 mmol/L (96-108); Creatinine Clr Calc Pharmacy 17.4; Estimated Glomerular Filt Rate 14; Glucose Random 162 mg/dL (60-115); Sodium 137 mmol/L (135-145)
[2022-06-08] MEDS: Insulin Lispro 100 UNIT/ML 3 ML VIAL SUBCUT ×4 (07:59→21:37)
[2022-06-08 08:00] VITALS: BP 178/74; PULSE 68; RESP 15; TEMP 36.5; O2SAT 97
[2022-06-08] MEDS: hydrALAZINE HCl 25 MG TABLET 75 MG PO ×3 (08:00→21:35)
[2022-06-08] MEDS: Lactase TABLET 1 TAB PO ×3 (08:00→18:00)
[2022-06-08] MEDS: Atorvastatin Calcium 80 MG TABLET PO (08:01)
[2022-06-08] MEDS: Aspirin Enteric Coated 81 MG TABLET.DR PO (08:01)
[2022-06-08] MEDS: Escitalopram Oxalate 10 MG TABLET PO (08:01)
[2022-06-08] MEDS: Metoprolol Tartrate 100 MG TABLET PO ×2 (08:01→21:35)
[2022-06-08] MEDS: amLODIPine Besylate 10 MG TABLET PO (08:01)
[2022-06-08] MEDS: hydroCHLOROthiazide 25 MG TABLET PO (08:01)
[2022-06-08] MEDS: Apixaban 2.5 MG TABLET PO ×2 (08:01→21:35)
--- NOTE | 2022-06-08 11:14 | HO.PM.IMPN ---
Subjective Subjective Date of Service: 06/08/22 Interval History: the patient was seen and evaluated this morning Laying in bed, more alert and interactive than yesterday Denies any fever, chills or shortness of breath No reported other overnight events. Systemic review: No fever, chills or weakness No chest pain, palpitation No shortness of breath or coughing No abdominal pain, nausea or vomiting No urinary symptoms No any rash or wounds Complaining of pain in her right ankle Physical Exam Vital Signs: Vital Signs: Last Vital Signs Temp 97.7 F 06/08/22 08:00 Pulse 68 06/08/22 08:00 Resp 15 06/08/22 08:00 BP 178/74 H 06/08/22 08:00 Pulse Ox 97 06/08/22 08:00 O2 Del Method 06/08/22 08:00 BMI result Body Mass Index 36.1 Const: Other: Constitutional : interactive, more interactive, morbidly obese Neck : Normal inspection, Supple Cardiovascular : RRR, no JVP, no lower extremity edema Respiratory : fair bilateral air entry,? no crackles, wheezes or rhonchi Gastrointestinal:? soft, lax, Normal bowel sounds, Non tender Musculoskeletal, left BKA Skin : Warm, Dry, Neurological : Alert, oriented to self and place Objective Data Active Medications Acetaminophen (Acetaminophen 325 Mg Tablet) 650 mg PO Q6H PRN PRN Reason: Pain, Mild (Pain Scale 1-3) Acetaminophen/Butalbital/Caffeine (Butalb/Acetamin/Caff 50/325/40 Tablet) 1 tab PO Q8H PRN PRN Reason: Migraine Headache Last Admin: 06/08/22 05:10 Dose: 1 tab Documented By: CHRIS Amitriptyline HCl (Amitriptyline Hcl 25 Mg Tablet) 25 mg PO BEDTIME [facility] Last Admin: 06/07/22 21:18 Dose: 25 mg Documented By: CHRIS Amlodipine Besylate (Amlodipine Besylate 10 Mg Tablet) 10 mg PO DAILY [facility]; Protocol Last Admin: 06/08/22 08:01 Dose: 10 mg Documented By: WILLEM Apixaban (Apixaban 2.5 Mg Tablet) 2.5 mg PO BID [facility] Last Admin: 06/08/22 08:01 Dose: 2.5 mg Documented By: BRITEMA Artificial Tears (Artificial Tears 15 Ml Drops) 1 drop EYE-BOTH BID [facility] Last Admin: 06/08/22 08:00 Dose: Not Given Documented By: COTEMA Non-Admin Reason: Patient Refused Aspirin (Aspirin Enteric Coated 81 Mg Tablet.) 81 mg PO DAILY [facility] Last Admin: 06/08/22 08:01 Dose: 81 mg Documented By: COTEMA Atorvastatin Calcium (Atorvastatin Calcium 80 Mg Tablet) 80 mg PO DAILY [facility] Last Admin: 06/08/22 08:01 Dose: 80 mg Documented By: COTEMA Baclofen (Baclofen 10 Mg Tablet) 5 mg PO BEDTIME [facility] Last Admin: 06/07/22 21:14 Dose: 5 mg Documented By: CHRIS Bisacodyl (Bisacodyl 10 Mg Supp.Rect) 10 mg SC DAILY PRN PRN Reason: Constipation Calcium Carbonate (Calcium Carbonate 500 Mg Tablet) 500 mg PO BID [facility] Last Admin: 06/08/22 08:02 Dose: 500 mg Documented By: COTEMA Docusate Sodium (Docusate Sodium 100 Mg Capsule) 100 mg PO Q24H PRN PRN Reason: Constipation Escitalopram Oxalate (Escitalopram Oxalate 10 Mg Tablet) 10 mg PO DAILY [facility] Last Admin: 06/08/22 08:01 Dose: 10 mg Documented By: COTEMA Hydralazine HCl (Hydralazine Hcl 25 Mg Tablet) 75 mg PO TID [facility]; Protocol Last Admin: 06/08/22 08:00 Dose: 75 mg Documented By: COTEMA Hydrochlorothiazide (Hydrochlorothiazide 25 Mg Tablet) 25 mg PO DAILY [facility]; Protocol Last Admin: 06/08/22 08:01 Dose: 25 mg Documented By: COTEMA Cefepime HCl 0.5 gm/ Sodium (Chloride) 50 mls @ 100 mls/hr IV Q24H [facility] Last Infusion: 06/07/22 19:24 Dose: 0 mls/hr Documented By: CHRIS Sodium Chloride (Ns) 1,000 mls @ 80 mls/hr IVCONT .[id number] [facility] Last Admin: 06/08/22 03:16 Dose: 80 mls/hr Documented By: CHRIS Insulin Human Lispro (Insulin Lispro 100 Unit/Ml 3 Ml Vial) 0 unit SUBCUT QIDACHS [facility]; Protocol Last Admin: 06/08/22 07:59 Dose: 2 unit Documented By: WILLEM Lactase (Lactase Tablet) 1 tab PO TIDWM [facility] Last Admin: 06/08/22 08:00 Dose: 1 tab Documented By: WILLEM Levothyroxine Sodium (Levothyroxine Sodium 200 Mcg Tablet) 200 mcg PO BEDTIME [facility] Last Admin: 06/07/22 21:17 Dose: 200 mcg Documented By: CHRIS Loperamide HCl (Loperamide Hcl 2 Mg Capsule) 2 mg PO Q4H PRN PRN Reason: Diarrhea Metoprolol Tartrate (Metoprolol Tartrate 100 Mg Tablet) 100 mg PO BID [facility]; Protocol Last Admin: 06/08/22 08:01 Dose: 100 mg Documented By: WILLEM Ondansetron HCl (Ondansetron Hcl 4 Mg/2 Ml Vial) 4 mg IVPUSH Q8H PRN PRN Reason: Nausea and Vomiting Oxycodone HCl (Oxycodone Hcl Immed Release 5 Mg Tablet) 5 mg PO BEDTIME [facility] Last Admin: 06/07/22 21:16 Dose: 5 mg Documented By: CHRIS Pharmacy Consult (Consult Rx Perform Med Rec) 1 each MISCELLANE ONCE PRN PRN Reason: Consult order Sodium Chloride (0.9 % Sodium Chloride Flush 3 Ml Syringe) 3 ml IVFLUSH QSHIFT [facility] Last Admin: 06/08/22 07:59 Dose: Not Given Documented By: WILLEM Non-Admin Reason: IV Running Sodium Zirconium Cyclosilicate (Sodium Zirconium Cyclosilicate 10 Gm Powd.Pack) 10 gm PO Q2D [facility] Last Admin: 06/06/22 18:43 Dose: Not Given Documented By: LESLYE Non-Admin Reason: Patient Refused Tramadol HCl (Tramadol Hcl 50 Mg Tablet) 25 mg PO Q6H PRN PRN Reason: Pain, Severe (Pain Scale 7-10) Labs CBC & Chem 7: 06/08/22 05:47 06/08/22 05:47 Labs: Laboratory Results - last 24 hr 06/07/22 06/07/22 06/07/22 10:55 11:56 15:22 MCV MCH MCHC RDW Plt Count MPV Absolute Nucleated RBC Nucleated RBC % (auto) Anion Gap 19 Estim Creat Clear Calc 15.6 Estimated GFR 12 POC Glucose 160 H 138 H Random Glucose 194 H Calcium 7.7 L 06/07/22 06/08/22 06/08/22 19:33 05:47 05:47 MCV 94.5 MCH 30.5 MCHC 32.3 RDW 13.2 Plt Count 159 L MPV 11.1 Absolute Nucleated RBC 0.000 Nucleated RBC % (auto) 0.0 Anion Gap 16 Estim Creat Clear Calc 17.4 Estimated GFR 14 POC Glucose 158 H Random Glucose 162 H Calcium 7.7 L 06/08/22 07:41 MCV MCH MCHC RDW Plt Count MPV Absolute Nucleated RBC Nucleated RBC % (auto) Anion Gap Estim Creat Clear Calc Estimated GFR POC Glucose 153 H Random Glucose Calcium Microbiology Microbiology Results: Microbiology 06/06/22 Unknown Urine Culture - Final Urine clean catch - Urine camacho top Assessment and Plan (1) Acute kidney failure: Status: Acute (2) Acute hyperkalemia: Status: Acute (3) Urinary tract infection: Status: Acute (4) Toxic metabolic encephalopathy: Status: Acute Plan A 71 years old lady with PMH of CKD stage 4, CVA, diabetes, GERD, DVT on Eliquis among others who presents to the hospital with altered mentation. 1- PEG on CKD stage 4 ,acute hyperkalemia No obstruction noted on CT scan Improving Potassium back to normal Nephrology following Continue gentle hydration Monitor intake and output, follow BMP 2- toxic metabolic Encephalopathy 2/2 UTI Improving History of Pseudomonas in urine Continue with renally adjusted cefepime and DC on Levaquin Urine culture growing mixed bacteria 3- Choledocolithiasis CT abdomen and pelvis revealed calcified material within the gallbladder Evaluated previously by surgery, following up as outpatient with surgical team No LFT changes or pain reported, to monitor 4- involuntary movements, tremors Evaluated last admission with CT scan that showed decreased attenuation in central brain at the level of cerebral peduncles of uncertain etiology, but could be major account representative of infarct MRI done, incomplete study, no acute infarct seen but chronic lacunar infarcts noted Neurology last admission believed secondary to acute infection and electrolyte imbalance Will monitor and consider neurology re-evaluation if worsens 5- Insulin dependent type 2 diabetes- stable POC glucose SSI 6- Hypertension Hold lisinopril for Peg I Start amlodipine, metoprolol and hydralazine for now 7-Anemia of chronic disease secondary to CKD Stable 8- Morbid obesity BMI of 42 Advised weight reduction 9- ankle pain Use small dose of tramadol DVT prophylaxis Eliquis Code status: DNR/DNI Patient requires Overnight hospital stay for evaluation of encephalopathy, UTI and acute kidney injury to prevent possible decompensation in to sepsis. Quality Stroke Does the patient have a stroke diagnosis?: No VTE Prior VTE?: No VTE Risk Level:: Medical - moderate - high VTE Device Contraindication: Treatment Not Indicated VTE Drug Contraindication: N/A - Med Ordered
[2022-06-08 12:00] VITALS: BP 162/72; PULSE 60; RESP 18; TEMP 36.1; O2SAT 96
[2022-06-08] MEDS: traMADoL HCL 50 MG TABLET 25 MG PO ×2 (12:19→17:59)
[2022-06-08] MEDS: Acetaminophen 325 MG TABLET 650 MG PO ×2 (12:19→17:59)
[2022-06-08] MEDS: hydrALAZINE HCl 25 MG TABLET PO ×3 (12:20→21:43)
--- NOTE | 2022-06-08 12:56 | PM.PNNEP ---
Subjective Subjective Date of Service: 06/08/22 Interval history: tolerated IVF support Cr improved daily Physical Exam Vital Signs: Vital Signs: Last Vital Signs Temp 97.0 F 06/08/22 12:00 Pulse 60 06/08/22 12:00 Resp 18 06/08/22 12:00 BP 162/72 H 06/08/22 12:00 Pulse Ox 96 06/08/22 12:00 O2 Del Method 06/08/22 12:00 BMI result Body Mass Index 36.1 Const: Other: Constitutional : interactive, mildly anxious, morbidly obese Neck : Normal inspection, Supple Cardiovascular : RRR, no JVP, no lower extremity edema Respiratory : fair bilateral air entry,? no crackles, wheezes or rhonchi Gastrointestinal:? soft, lax, Normal bowel sounds, Non tender Musculoskeletal, left BKA Skin : Warm, Dry, Neurological : Alert with stimulation, oriented to self and place Objective Data Labs CBC & Chem 7: 06/08/22 05:47 06/08/22 05:47 Labs: Laboratory Results - last 24 hr 06/07/22 06/07/22 06/08/22 15:22 19:33 05:47 WBC 8.6 RBC 2.36 L Hgb 7.2 L Hct 22.3 L MCV 94.5 MCH 30.5 MCHC 32.3 RDW 13.2 Plt Count 159 L MPV 11.1 Absolute Nucleated RBC 0.000 Nucleated RBC % (auto) 0.0 Sodium Potassium Chloride Carbon Dioxide Anion Gap BUN Creatinine Estim Creat Clear Calc Estimated GFR POC Glucose 138 H 158 H Random Glucose Calcium 06/08/22 06/08/22 06/08/22 05:47 07:41 11:15 WBC RBC Hgb Hct MCV MCH MCHC RDW Plt Count MPV Absolute Nucleated RBC Nucleated RBC % (auto) Sodium 137 Potassium 4.0 Chloride 106 Carbon Dioxide 19 L Anion Gap 16 BUN 71 H Creatinine 3.29 H Estim Creat Clear Calc 17.4 Estimated GFR 14 POC Glucose 153 H 195 H Random Glucose 162 H Calcium 7.7 L Microbiology Microbiology Results: Microbiology 06/06/22 Unknown Urine clean catch - Urine camacho top Urine Culture - Final Procedures Date of Service Date of Service: 06/08/22 Assessment & Plan Assessment and plan (1) Acute hyperkalemia: Status: Acute (2) Urinary tract infection: Status: Acute (3) Toxic metabolic encephalopathy: Status: Acute (4) Acute worsening of stage 4 chronic kidney disease: Status: Acute (5) Insulin dependent type 2 diabetes mellitus: Status: Acute Plan Ms. Zari Rg is a 71-year-old female with past medical history of CKD stage IV (BL ~ 2.4 - 2.5 mg/dL), T2DM, GERD, hypothyroidism, left BKA who was sent to ED from SNF. She was found to have urosepsis, PEG on CKD and Hyperkalemia. Of note, she has a history of hyperkalemia on RAAS blockade. 1- PEG on CKD stage 4 ,acute hyperkalemia No obstruction noted on CT scan U/A with hyaline casts likely some component of hemodynamic pre-renal azotemia Plan: - monitor for urinary retention - ok to now D/C IVF support. - Please keep off all JEROD/ARB from now on. She has proven that she cannot tolerate these meds Jaleel Barraza MD RTANE Time Spent With Patient Time: Total time spent is greater than 50% in coordination of care (as documented) at patient's floor/unit and/or counseling patient: Progress Note: Quality Stroke Does the patient have a stroke diagnosis?: No
[2022-06-08 16:00] VITALS: BP 144/64; PULSE 65; RESP 17; TEMP 36.3; O2SAT 95
[2022-06-08] MEDS: 0.9 % Sodium Chloride Flush 3 ML SYRINGE IVFLUSH ×2 (17:31→21:49)
[2022-06-08] MEDS: cefEPime HCl 0.5 GM in 0.9 % Sodium Chloride 50 ML IV (18:23)
[2022-06-08 19:11] VITALS: BP 141/67; PULSE 63; RESP 16; TEMP 36.3; O2SAT 97
[2022-06-08] MEDS: Baclofen 10 MG TABLET 5 MG PO (21:33)
[2022-06-08] MEDS: Levothyroxine Sodium 200 MCG TABLET PO (21:34)
[2022-06-08] MEDS: oxyCODONE HCl Immed Release 5 MG TABLET PO (21:35)
[2022-06-08 23:37] VITALS: BP 141/66; PULSE 60; RESP 16; TEMP 36.7; O2SAT 95
[2022-06-09 05:46] LABS: Anion Gap 14 (12-20); Blood Urea Nitrogen 67 mg/dL (9-16); Calcium 7.3 mg/dL (8.4-10.2); Carbon Dioxide 19 mmol/L (22-29); Chloride 106 mmol/L (96-108); Creatinine Clr Calc Pharmacy 18.4; Estimated Glomerular Filt Rate 15; Glucose Random 137 mg/dL (60-115); Potassium 3.9 mmol/L (3.3-5.1); Sodium 135 mmol/L (135-145)
[2022-06-09 06:45] VITALS: BP 150/68; PULSE 62; RESP 18; TEMP 36.6; O2SAT 97
[2022-06-09 07:05] LABS: Glucose, Whole Blood 132 mg/dL (60-115)
[2022-06-09] MEDS: Metoprolol Tartrate 100 MG TABLET PO (08:05)
[2022-06-09] MEDS: hydrALAZINE HCl 25 MG TABLET 75 MG PO (08:05)
[2022-06-09] MEDS: amLODIPine Besylate 10 MG TABLET PO (08:05)
[2022-06-09] MEDS: Escitalopram Oxalate 10 MG TABLET PO (08:06)
[2022-06-09] MEDS: Atorvastatin Calcium 80 MG TABLET PO (08:06)
[2022-06-09] MEDS: Aspirin Enteric Coated 81 MG TABLET.DR PO (08:06)
[2022-06-09] MEDS: hydroCHLOROthiazide 25 MG TABLET PO (08:06)
[2022-06-09] MEDS: Lactase TABLET 1 TAB PO ×2 (08:06→11:42)
[2022-06-09] MEDS: Apixaban 2.5 MG TABLET PO (08:06)
[2022-06-09] MEDS: hydrALAZINE HCl 25 MG TABLET PO (08:06)
[2022-06-09] MEDS: 0.9 % Sodium Chloride Flush 3 ML SYRINGE IVFLUSH (08:19)
[2022-06-09 08:35] LABS: Hematocrit 23.1 % (37.0-47.0); Hemoglobin 7.6 g/dl (12.0-16.0); Mean Corpuscular HGB Conc 32.9 g/dl (31.0-35.0); Mean Corpuscular Hemoglobin 30.6 pg (27.0-33.0); Mean Corpuscular Volume 93.1 fL (80.0-98.0); Mean Platelet Volume 10.9 fL (9.4-12.3); Platelet Count 167 X10*3/uL (160-400); Red Blood Count 2.48 X10*6/uL (4.20-5.50); Red Cell Distribution Width 13.2 % (11.0-16.0); White Blood Count 8.5 X10*3/uL (4.8-10.8)
[2022-06-09 08:38] LABS: Alanine Aminotransferase 26 U/L (0-31); Albumin Level 2.4 g/dL (3.5-5.0); Alkaline Phosphatase 141 U/L (39-117); Aspartate Amino Transferase 36 U/L (5-31); Bilirubin Direct < 0.2 mg/dL (0.0-0.5); Bilirubin Total 0.2 mg/dL (0.0-1.0); Total Protein 5.6 g/dL (6.5-8.0)
--- NOTE | 2022-06-09 09:18 | MHC.CM.PN ---
pt dcd for 1 today back to paramjit yeager
--- NOTE | 2022-06-09 09:28 | MHC.CM.PN ---
pts brother notified of dc
--- NOTE | 2022-06-09 10:42 | P.DS_ITS ---
DS: Providers Provider Date of Service: 06/09/22 Date of admission: 06/06/22 17:06 Primary care physician: Annette Joya MD Consults: 06/06/22 17:33 Consult to Nephrology Routine Consulting Provider: Jaleel Barraza Reason for consultation: PEG on CKD 4 DS: Diagnosis Discharge Diagnosis (1) Acute hyperkalemia: Status: Acute (2) Urinary tract infection: Status: Acute (3) Toxic metabolic encephalopathy: Status: Acute (4) Acute worsening of stage 4 chronic kidney disease: Status: Acute (5) Insulin dependent type 2 diabetes mellitus: Status: Acute DS: Summary Hospital Course Hospital Course: Admission note HPI A 71 years old lady with PMH of CKD stage 4, CVA, diabetes, GERD, DVT on Eliquis among others who presents to the hospital with altered mentation.? The patient was brought by SNF staff with altered mentation.? Patient unable to provide any history given encephalopathy.? History taken mainly from the emergency provider.? Reported that detention staff noted that she has been acting differently, more aggressive and altered mentation, not eating well.? No reported fever, chills, nausea, vomiting, change in bowel habit or urinary symptoms.? In the emergency the patient was found to have urinary tract infection with worsening kidney function and elevated potassium level.? Images were negative for any acute findings. Admitted for further evaluation and treatment at this point. Hospital course The patient was admitted for evaluation of toxic metabolic encephalopathy secondary to acute urine infection and acute on chronic kidney injury stage IV. Treated with IV fluid, IV antibiotic of cefepime as CT scan showed no evidence of obstruction. Urine and blood cultures remain negative as urine culture grew mixed bacteria. Followed by Nephrology has kidney function started to improve back to baseline. The patient had abnormal movement and tremor at time of presentation which completely recover during the hospital stay and upon previous evaluation believed to be secondary to encephalopathy and electrolyte imbalance. Hyperkalemia corrected back to normal. Losartan was discontinued with her medication list with increment of hydralazine to 100 mg t.i.d. per Nephrology recommendations to prevent further hyperkalemia. Discontinue losartan Increase hydralazine to 100 mg b.i.d. Continue Levaquin as prescribed to finish total of 14 days of antibiotics. Monitor blood pressure for further adjustments of home medications To follow-up with Nephrology as outpatient Time Spent with Patient Time attestation: Total time spent providing and/or coordinating discharge services: Discharge coordination time: Greater than 30 minutes Quality: Safe Use of Opioids Does Pt have an Active Cancer Diagnosis on the Problem List?: No Quality: Stroke Does the patient have a stroke diagnosis?: No Physical Exam Vital Signs: Vital Signs: Last Vital Signs Temp 98 F 06/09/22 06:45 Pulse 62 06/09/22 06:45 Resp 18 06/09/22 06:45 BP 150/68 H 06/09/22 06:45 Pulse Ox 97 06/09/22 06:45 O2 Del Method 06/09/22 06:45 BMI result Body Mass Index 36.1 Const: Other: Constitutional : Alert, more interactive, morbidly obese Neck : Normal inspection, Supple Cardiovascular : RRR, no JVP, no lower extremity edema Respiratory : fair bilateral air entry,? no crackles, wheezes or rhonchi Gastrointestinal:? soft, lax, Normal bowel sounds, Non tender Musculoskeletal, left BKA Skin : Warm, Dry, Neurological : Alert, oriented to self and place, cooperative DS: Data Data Completed and Pending Completed studies during hospitalization [Text1]: Procedures Extirpation of Matter from Common Bile Duct, Via Natural or Artificial Opening Endoscopic (04/10/22) Labs on day of discharge: Laboratory Results - last 24 hr 06/08/22 06/08/22 06/08/22 11:15 16:17 19:46 WBC RBC Hgb Hct MCV MCH MCHC RDW Plt Count MPV Absolute Nucleated RBC Nucleated RBC % (auto) Sodium Potassium Chloride Carbon Dioxide Anion Gap BUN Creatinine Estim Creat Clear Calc Estimated GFR POC Glucose 195 H 225 H 250 H Random Glucose Calcium Total Bilirubin Direct Bilirubin AST ALT Alkaline Phosphatase Total Protein Albumin 06/09/22 06/09/22 06/09/22 05:13 06:45 08:08 WBC 8.5 RBC 2.48 L Hgb 7.6 L Hct 23.1 L MCV 93.1 MCH 30.6 MCHC 32.9 RDW 13.2 Plt Count 167 MPV 10.9 Absolute Nucleated RBC 0.000 Nucleated RBC % (auto) 0.0 Sodium 135 Potassium 3.9 Chloride 106 Carbon Dioxide 19 L Anion Gap 14 BUN 67 H Creatinine 3.12 H Estim Creat Clear Calc 18.4 Estimated GFR 15 POC Glucose 132 H Random Glucose 137 H Calcium 7.3 L Total Bilirubin 0.2 Direct Bilirubin < 0.2 AST 36 H ALT 26 Alkaline Phosphatase 141 H D Total Protein 5.6 L D Albumin 2.[address] scan - abdomen: Radiologist's impression: ITS Impressions Chest X-Ray 06/06/22 10:08 FINDINGS/IMPRESSION: The study is limited by portable technique, low lung volumes, and patient body habitus. No focal infiltrate, effusion, or pneumothorax is seen. The right hemidiaphragm is mildly elevated. The cardiac silhouette is poorly evaluated. The aorta is atherosclerotic. There are degenerative changes of the spine. Abdomen/Pelvis CT 06/06/22 10:47 IMPRESSION: Probable small gallstones. Normal-size gallbladder. Question gallbladder wall thickening. No intrahepatic biliary duct dilatation. Upper normal-size common bile duct. No common bile duct stone appreciated by CT. Constipation. Stable bilateral adrenal lesions. Severe atherosclerotic disease. Bilateral lateral abdominal wall subcutaneous edema Fleischner guidelines were followed. Cervical Spine CT 06/06/22 10:47 IMPRESSION: No acute intracranial process seen. There is no acute fracture, dislocation or subluxation of cervical spine. There are degenerative disc changes and posterior spondylosis as described above. Head CT 06/06/22 10:47 IMPRESSION: No acute intracranial process seen. There is no acute fracture, dislocation or subluxation of cervical spine. There are degenerative disc changes and posterior spondylosis as described above. Discharge Plan Discharge Patient Disposition: Xfer LTC Discharge Diagnosis: Acute on chronic kidney injury Urinary tract infection Toxic metabolic encephalopathy Referrals: paramjit villavicencio [Other] - 1 Week Annette Joya MD [Primary Care Provider] - 1 Week Discharge Medications: New levofloxacin 250 mg tablet 250 mg PO Q48H Qty: 7 0RF Continued furosemide 40 mg tablet 1 tab PO DAILY@1400 Hold Instructions: Resume on 03/10/22. hold until seen by nephrology atorvastatin 80 mg tablet 1 tab PO DAILY metoprolol tartrate 100 mg tablet 1 tab PO BID ondansetron HCl 4 mg tablet 1 tab PO Q8H PRN (Reason: Nausea) amitriptyline 25 mg tablet 1 tab PO BEDTIME amlodipine 10 mg tablet 1 tab PO DAILY Rx Instructions: HOLD SBP <100 insulin aspart U-100 [Novolog U-100 Insulin aspart] 100 unit/mL solution See Rx Instructions .ROUTE .COMPLEX Rx Instructions: INJECT TID WM PER SLIDING SCALE: 150-199: 9U 200-249:12 U 250-299: 15U 300-349:18U 350-399:21U CALL MD/ALARM MECHANISM ADJUSTER >400 pantoprazole 40 mg tablet,delayed release (DR/EC) 1 tab PO BID@0630,1630 levothyroxine 200 mcg tablet 1 tab PO BEDTIME oxycodone 5 mg tablet 2 tab PO Q6H PRN (Reason: Pain) Rx Instructions: MUST BE 4 HOURS APART FROM SCHEDULED DOSE escitalopram oxalate 10 mg tablet 1 tab PO DAILY [id number] [Fioricet] 50-300-40 mg capsule 1 cap PO Q8H PRN (Reason: Migraine Headache) Eliquis 2.5 mg tablet 1 tab PO BID insulin degludec [Tresiba FlexTouch U-100] 100 unit/mL (3 mL) insulin pen 10 unit subcut BEDTIME polyvinyl alcohol [Artificial Tears (polyvin alc)] 1.4 % Drops 1 drp OPHTHALMIC (EYE) BID aspirin 81 mg Tablet,Delayed Release (Dr/Ec) 81 mg PO DAILY calcium carbonate [Calcium 600] 600 mg calcium (1,500 mg) Tablet 600 mg PO BID lactase [Lactaid] 3,000 unit Tablet 9,000 unit PO TIDWM Rx Instructions: administer with meals and/or snacks oxycodone 5 mg tablet 1 tab PO BEDTIME hydrochlorothiazide 25 mg Tablet 25 mg PO DAILY Qty: 30 0RF baclofen 5 mg Tablet 5 mg PO BEDTIME acetaminophen [Tylenol] 325 mg Tablet 650 mg PO Q8H PRN (Reason: Pain) docusate sodium 100 mg Tablet 100 mg PO Q24H PRN (Reason: Constipation) loperamide 2 mg Tablet 2 mg PO Q4H PRN (Reason: Diarrhea) Rx Instructions: administer after each loose stool until symptoms controlled; do not exceed 8 mg per 24 hrs bisacodyl 10 mg Suppository 10 mg WA DAILY PRN (Reason: Constipation) hydrocortisone [Preparation H Hydrocortisone] 1 % Cream 1 appl TOPICAL BID PRN (Reason: Hemorrhoids) Lokelma 10 gram powder in packet 10 g PO Q2D Changed hydralazine 25 mg tablet 100 mg PO TID Qty: 360 0RF Protocol: Hold for SBP< HOLD for SBP < : 90 Discontinued losartan 25 mg Tablet 75 mg PO DAILY Discharge Orders: Discharge Order (Routine); Ordered 06/09/22 Ordered By: Za Quarles Diet: Advance to usual diet Activity on Discharge: As tolerated Stand Alone Forms: Patient Portal Discharge page Care Plan Goals: Read below Health Concerns: Read below Plan of Treatment: Read below Assessment: You were admitted to the hospital for evaluation of altered mentation secondary to urine infection. Treated with IV antibiotics with good response. Urine culture grew mixed bacteria. Your kidney function noted to be worse than baseline recovered with IV hydration as you were followed by nephrology team. Discontinue losartan Increase hydralazine to 100 mg b.i.d. Continue Levaquin as prescribed to finish total of 14 days of antibiotics. Monitor blood pressure for further adjustments of home medications To follow-up with Nephrology as outpatient
[2022-06-09 10:44] LABS: COVID-19 Test Negative (Negative)
[2022-06-09 11:27] LABS: Glucose, Whole Blood 165 mg/dL (60-115)
[2022-06-09 11:40] VITALS: BP 150/72; PULSE 88; RESP 20; TEMP 36.6
[2022-06-09] MEDS: levoFLOXacin 500 MG TABLET PO (11:42)
[2022-06-09] MEDS: Insulin Lispro 100 UNIT/ML 3 ML VIAL SUBCUT (11:42)
--- NOTE | 2022-06-09 11:50 | PM.PNNEP ---
Subjective Subjective Date of Service: 06/09/22 Interval history: GFR stable patient without complaints Physical Exam Vital Signs: Vital Signs: Last Vital Signs Temp 98 F 06/09/22 11:40 Pulse 88 06/09/22 11:40 Resp 20 06/09/22 11:40 BP 150/72 H 06/09/22 11:40 Pulse Ox 97 06/09/22 06:45 O2 Del Method 06/09/22 06:45 BMI result Body Mass Index 36.1 Const: Other: Constitutional : interactive, mildly anxious, morbidly obese Neck : Normal inspection, Supple Cardiovascular : RRR, no JVP, no lower extremity edema Respiratory : fair bilateral air entry,? no crackles, wheezes or rhonchi Gastrointestinal:? soft, lax, Normal bowel sounds, Non tender Musculoskeletal, left BKA Skin : Warm, Dry, Neurological : Alert with stimulation, oriented to self and place Objective Data Labs CBC & Chem 7: 06/09/22 08:08 06/09/22 05:13 Labs: Laboratory Results - last 24 hr 06/08/22 06/08/22 06/09/22 16:17 19:46 05:13 WBC RBC Hgb Hct MCV MCH MCHC RDW Plt Count MPV Absolute Nucleated RBC Nucleated RBC % (auto) Sodium 135 Potassium 3.9 Chloride 106 Carbon Dioxide 19 L Anion Gap 14 BUN 67 H Creatinine 3.12 H Estim Creat Clear Calc 18.4 Estimated GFR 15 POC Glucose 225 H 250 H Random Glucose 137 H Calcium 7.3 L Total Bilirubin 0.2 Direct Bilirubin < 0.2 AST 36 H ALT 26 Alkaline Phosphatase 141 H D Total Protein 5.6 L D Albumin 2.4 L D COVID-19 (LUCIO) COVID-19 Clin Com 06/09/22 06/09/22 06/09/22 06:45 08:08 10:00 WBC 8.5 RBC 2.48 L Hgb 7.6 L Hct 23.1 L MCV 93.1 MCH 30.6 MCHC 32.9 RDW 13.2 Plt Count 167 MPV 10.9 Absolute Nucleated RBC 0.000 Nucleated RBC % (auto) 0.0 Sodium Potassium Chloride Carbon Dioxide Anion Gap BUN Creatinine Estim Creat Clear Calc Estimated GFR POC Glucose 132 H Random Glucose Calcium Total Bilirubin Direct Bilirubin AST ALT Alkaline Phosphatase Total Protein Albumin COVID-19 (LUCIO) Negative COVID-19 Clin Com See Note 06/09/22 11:21 WBC RBC Hgb Hct MCV MCH MCHC RDW Plt Count MPV Absolute Nucleated RBC Nucleated RBC % (auto) Sodium Potassium Chloride Carbon Dioxide Anion Gap BUN Creatinine Estim Creat Clear Calc Estimated GFR POC Glucose 165 H Random Glucose Calcium Total Bilirubin Direct Bilirubin AST ALT Alkaline Phosphatase Total Protein Albumin COVID-19 (LUCIO) COVID-19 Clin Com Microbiology Microbiology Results: Microbiology 06/06/22 Unknown Urine clean catch - Urine camacho top Urine Culture - Final Procedures Date of Service Date of Service: 06/09/22 Assessment & Plan Assessment and plan (1) Acute hyperkalemia: Status: Acute (2) Urinary tract infection: Status: Acute (3) Toxic metabolic encephalopathy: Status: Acute (4) Acute worsening of stage 4 chronic kidney disease: Status: Acute (5) Insulin dependent type 2 diabetes mellitus: Status: Acute Plan Ms. Zari Rg is a 71-year-old female with past medical history of CKD stage IV (BL ~ 2.4 - 2.5 mg/dL), T2DM, GERD, hypothyroidism, left BKA who was sent to ED from SNF. She was found to have urosepsis, PEG on CKD and Hyperkalemia. Of note, she has a history of hyperkalemia on RAAS blockade. 1- PEG on CKD stage 4 ,acute hyperkalemia - IMPROVED No obstruction noted on CT scan U/A with hyaline casts likely some component of hemodynamic pre-renal azotemia Plan: - monitor for urinary retention - Renal panel daily - no need for further IVF support. - Please keep off all JEROD/ARB from now on. She has proven that she cannot tolerate these meds Jaleel Barraza MD RTANE Time Spent With Patient Time: Total time spent is greater than 50% in coordination of care (as documented) at patient's floor/unit and/or counseling patient: Progress Note: Quality Stroke Does the patient have a stroke diagnosis?: No
== END 2022-06-09 13:22 | DRG 689 ==
LOC: HO.ED 08:50 → HO.EDOVER 17:37 → HO.S3 06-07 10:57
PROVIDERS: Physician Assistant Medical; Admitting Provider Student in an Organized Health Care Education/Training Program; Emergency Provider Emergency Medicine Emergency Medical Services; PCP Internal Medicine; Visit Provider Student in an Organized Health Care Education/Training Program
DX: N39.0 Urinary tract infection, site not specified (principal); G92.8 Other toxic encephalopathy; N17.9 Acute kidney failure, unspecified; N18.4 Chronic kidney disease, stage 4 (severe); Z68.41 Body mass index [BMI] 40.0-44.9, adult; I12.9 Hypertensive chronic kidney disease with stage 1 through stage 4 chronic kidney disease, or unspecified chronic kidney disease; E11.22 Type 2 diabetes mellitus with diabetic chronic kidney disease; E03.9 Hypothyroidism, unspecified; E66.01 Morbid (severe) obesity due to excess calories; R25.1 Tremor, unspecified; K80.50 Calculus of bile duct without cholangitis or cholecystitis without obstruction; D63.1 Anemia in chronic kidney disease; E87.5 Hyperkalemia; Z66 Do not resuscitate; Z20.822 Contact with and (suspected) exposure to COVID-19; Z89.512 Acquired absence of left leg below knee; Z91.040 Latex allergy status; Z86.718 Personal history of other venous thrombosis and embolism; Z86.73 Personal history of transient ischemic attack (TIA), and cerebral infarction without residual deficits; Z88.1 Allergy status to other antibiotic agents; Z88.5 Allergy status to narcotic agent; Z88.8 Allergy status to other drugs, medicaments and biological substances; Z79.4 Long term (current) use of insulin; Z79.01 Long term (current) use of anticoagulants; Z79.890 Hormone replacement therapy; Z79.899 Other long term (current) drug therapy
CPT/HCPCS: 36415; 70450; 71045; 72125; 74176; 80048; 80053; 80076; 81001; 82947; 83735; 83930; 83935; 84484; 85025; 85027; 87086; 87635; 93005; 99285; J0692; J1170; J2405; J2543

== ENCOUNTER 2022-07-13 08:36 | Emergency (ER) | payer MEDICARE, MEDICAID, SELFPAY ==
--- NOTE | 2022-07-13 | ECG_ITS ---
Test Reason : AMS Blood Pressure : / mmHG Vent. Rate : 093 BPM Atrial Rate : 093 BPM P-R Int : 176 ms QRS Dur : 106 ms QT Int : 386 ms P-R-T Axes : 059 -55 021 degrees QTc Int : 479 ms Normal sinus rhythm Left anterior fascicular block Left ventricular hypertrophy ( R in aVL , [place] product , [place] ) Intra-ventricular conduction delay Abnormal ECG When compared with ECG of 06-JUN-2022 09:07, change in septal leads Referred By: Generic ED Physician Electronically Signed By:NICOLE VANEGAS MD
--- NOTE | ~2022-07-13 | CT_ITS ---
EXAMINATION: CT HEAD WITHOUT IV CONTRAST INDICATION: Mental status change. COMPARISON: Head CT 06/06/2022 TECHNIQUE: Multidetector CT acquisitions of the head was obtained without IV contrast. This CT examination was performed using dose optimization techniques as appropriate, variously including the following: *Automated exposure control *Adjustment of mA and/or kV according to patient size (this includes techniques or standardized protocols for targeted exams where dose is matched to indication/reason for exam; i.e. extremities or head) *Use of iterative reconstruction technique FINDINGS: Stable appearing moderate chronic microangiopathy. Atherosclerotic calcification throughout the intracranial arterial vasculature. There is no intracranial hemorrhage, hydrocephalus, extra-axial surface collection, midline shift, or other herniation pattern. Sharpe to white matter differentiation is diffusely maintained without evidence of an evolved acute territorial infarct. The basilar cisterns are preserved. No significant soft tissue abnormality. No acute osseous abnormality. The paranasal sinuses and the mastoid air cells are well aerated. CT/CT head/brain wo IV con IMPRESSION: No acute intracranial findings. Stable appearing moderate chronic microangiopathy. Atherosclerotic calcification throughout the intracranial arterial vasculature.
--- NOTE | ~2022-07-13 | XR_ITS ---
EXAMINATION: XR CHEST CLINICAL INFORMATION: Mental status change COMPARISON: June 06, 2022 TECHNIQUE: AP portable view of the chest was obtained. FINDINGS: No significant abnormality is noted involving the heart, lungs, mediastinum, bony thorax or soft tissues. Patient has had previous neck surgery. XR/XR chest 1V IMPRESSION: No acute disease.
[2022-07-13 08:46] VITALS: BP 167/80; BP 194/85; PULSE 96; PULSE 98; RESP 15; TEMP 37.3; O2SAT 96; BMI 38.4
--- NOTE | 2022-07-13 09:04 | ED.GENADULT ---
HPI - General Adult General Chief complaint: Altered Mental Status Stated complaint: ams Time Seen by Provider: 07/13/22 08:58 Source: patient, EMS, RN notes reviewed and old records reviewed Mode of arrival: EMS Limitations: no limitations History of Present Illness HPI narrative: 71-year-old female came in for evaluation of change mental status from half-way. Patient is bed ridden due to left BKA, sent to the emergency department for evaluation of chronic diffuse abdominal pain due to constipation and change mental status, patient is known to have recurrent UTI. Patient in the emergency department is awake and alert and able to provide meaningful history has no complain no chest pain, no abdominal pain, no headache, no SOB. Related Data Home Medications Medication Instructions Recorded Confirmed amitriptyline 25 mg tablet 1 tab PO BEDTIME 02/24/22 06/06/22 amlodipine 10 mg tablet 1 tab PO DAILY 02/24/22 06/06/22 apixaban 2.5 mg tablet (Eliquis) 1 tab PO BID 02/24/22 06/06/22 aspirin 81 mg tablet,delayed 81 mg PO DAILY 02/24/22 06/06/22 release atorvastatin 80 mg tablet 1 tab PO DAILY 02/24/22 06/06/22 rdbwhbqcem-ommaklydojivz-xtqadqkb 1 cap PO Q8H PRN Migraine Headache 02/24/22 06/06/22 50 mg-300 mg-40 mg capsule (Fioricet) calcium carbonate 600 mg calcium 600 mg PO BID 02/24/22 06/06/22 (1,500 mg) tablet (Calcium) escitalopram oxalate 10 mg tablet 1 tab PO DAILY 02/24/22 06/06/22 furosemide 40 mg tablet 1 tab PO DAILY@1400 02/24/22 06/06/22 insulin aspart U-100 100 unit/mL See Rx Instructions .Route .COMPLEX 02/24/22 06/06/22 subcutaneous solution (Novolog U-100 Insulin aspart) insulin degludec 100 unit/mL (3 10 unit subcut BEDTIME 02/24/22 06/06/22 mL) subcutaneous pen (Tresiba FlexTouch U-100 insulin) lactase 3,000 unit tablet (Lactaid) 9,000 unit PO TIDWM 02/24/22 06/06/22 levothyroxine 200 mcg tablet 1 tab PO BEDTIME 02/24/22 06/06/22 metoprolol tartrate 100 mg tablet 1 tab PO BID 02/24/22 06/06/22 ondansetron HCl 4 mg tablet 1 tab PO Q8H PRN Nausea 02/24/22 06/06/22 oxycodone 5 mg tablet 1 tab PO BEDTIME 02/24/22 06/06/22 oxycodone 5 mg tablet 2 tab PO Q6H PRN Pain 02/24/22 06/06/22 pantoprazole 40 mg tablet,delayed 1 tab PO BID@0630,1630 02/24/22 06/06/22 release polyvinyl alcohol 1.4 % eye drops 1 drp ophthalmic (eye) BID 02/24/22 06/06/22 (Artificial Tears (polyvinyl alcohol)) acetaminophen 325 mg tablet 650 mg PO Q8H PRN Pain 04/10/22 06/06/22 (Tylenol) baclofen 5 mg tablet 5 mg PO BEDTIME 04/10/22 06/06/22 docusate sodium 100 mg tablet 100 mg PO Q24H PRN Constipation 04/10/22 06/06/22 sodium zirconium cyclosilicate 10 10 g PO Q2D 05/06/22 06/06/22 gram oral powder packet (Lokelma) bisacodyl 10 mg rectal suppository 10 mg VT DAILY PRN Constipation 06/06/22 06/06/22 hydrocortisone 1 % topical cream 1 appl topical BID PRN Hemorrhoids 06/06/22 06/06/22 (Preparation H Hydrocortisone) loperamide 2 mg tablet 2 mg PO Q4H PRN Diarrhea 06/06/22 06/06/22 Previous Rx's Medication Instructions Recorded hydrochlorothiazide 25 mg tablet 25 mg PO DAILY #30 tabs 03/01/22 hydralazine 25 mg tablet 100 mg PO TID #360 tabs 06/09/22 levofloxacin 250 mg tablet 250 mg PO Q48H #7 tabs 06/09/22 cefuroxime axetil 500 mg tablet 500 mg PO BID #20 tabs 07/13/22 Allergies Allergy/AdvReac Type Severity Reaction Status Date / Time codeine [CODEINE] Allergy Unknown UNKNOWN Verified 04/10/22 09:48 morphine [MORPHINE] Allergy Unknown UNKNOWN, Verified 04/10/22 09:48 anaphylaxis adhesive tape Allergy Unknown Verified 04/10/22 09:48 clarithromycin Allergy Unknown Verified 04/10/22 09:48 clonidine [From Catapres] Allergy Unknown Verified 04/10/22 09:48 lactose Allergy Unknown Verified 04/10/22 09:48 latex Allergy Unknown Verified 04/10/22 09:48 Review of Systems Review of Systems: All other systems are reviewed and are negative Constitutional: Reports as per HPI and Reports no additional constitutional complaints Eyes: Reports as per HPI and Reports no additional eye complaints Reports system reviewed and no additional complaints, except as documented Cardiovascular: Reports as per HPI and Reports no additional cardiovascular complaints Respiratory: Reports as per HPI and Reports no additional respiratory complaints Gastrointestinal: Reports as per HPI and Reports no additional gastrointestinal complaints Genitourinary: Reports no additional female genitourinary complaints Musculoskeletal: Reports no additional musculoskeletal complaints Skin/Breast: Reports system reviewed and no additional complaints, except as docu Psychiatric: Reports no additional psychiatric complaints Endocrine: Reports no additional endocrine complaints Hematologic/Lymphatic: Reports no additional hematologic/lymphatic complaints Allergic/Immunologic: Reports no additional allergic/immunologic complaints Reports system reviewed and no additional complaints, except as documented and Reports Abnormal speech present FOR[facility]LY [facility] Past Medical History Medical History Acute kidney failure Acute respiratory failure with hypoxia Anemia in CKD (chronic kidney disease) Atherosclerosis Basal cell carcinoma of right upper arm Below-knee amputation of left lower extremity Cerebral microvascular disease Chronic kidney disease CVA (cerebrovascular accident) Diabetes Diabetic retinopathy Dysphagia Failure to thrive in adult GERD (gastroesophageal reflux disease) History of venous thromboembolism Hypothyroidism Insulin dependent type 2 diabetes mellitus PVD (peripheral vascular disease) Squamous cell carcinoma of left upper extremity TIA (transient ischemic attack) Uncontrolled hypertension Surgical History History of thyroidectomy S/P below knee amputation Social History Social History Household Members: Unknown / Unable to assess Housing: Assisted Living Facility Do you presently have visiting nurse or other home services: No Unable to assess alcohol history related to: Unable to respond Alcohol intake: former Patient Tobacco Use Status: Never used Tobacco Smoked in Last 30 Days: No Advance Directives: Yes Advance Directives on File: Yes Advance Directives Date on File: 02/25/22 service: No Current occupational status: disabled Physical Exam ED Vital Signs: Vital Signs - 24 hr 07/13/22 08:46 07/13/22 10:16 07/13/22 14:55 Temperature 99.2 F 97.7 F Pulse Rate 98 92 93 Respiratory Rate 15 18 12 Blood Pressure 194/85 H 162/80 H 182/80 H Pulse Oximetry 96 97 99 Oxygen Delivery Method Room Air Room Air Room Air BMI result Body Mass Index 38.4 Vital signs have been reviewed as appeared to be correct. Blood pressure . Heart rate normal. Respiration rate normal. Temperature normal. Oxygen saturation normal. Appearance: Alert. Oriented X 2 not to time. No acute distress. Head: Normal external exam. Normocephalic. Atraumatic. No Diaz signs noted. No raccoon eyes noted Eyes: PERRLA. EOMI. Conjunctiva and sclera normal. Eyelids normal. ENT: TM's Normal. Pharynx normal. Uvula midline. Moist mucous membranes. No trismus noted. No drooling noted. No muffled voice noted. Neck: Normal inspection. Neck supple. FROM. No adenopathy. Thyroid Normal. No meningeal signs. No neck mass noted. CVS: Normal heart rate and rhythm. Heart sound normal. No murmurs noted. Pulses normal throughout. Respiratory: No respiratory distress. Painless inspiration. Breath sounds normal. No wheezes/rales/rhonchi noted. Chest nontender. No accessory muscle usage noted or decreased air movement noted. Abdomen: Soft and nontender. Bowel sounds normal in all 4 quadrants. No distention noted. No organomegaly noted. No visible injury noted. Back: No CVA tenderness. Full range of motion noted. Skin: Skin warm and dry. Normal skin color. Normal skin turgor. No rashes/lesions/lacerations noted. Extremities: Status post left BKA Neuro: Oriented X 2 not to time. Cranial nerve exam: II-XII are grossly intact No motor deficit. No sensory deficit. Reflexes normal. Course Course Course Narrative: 71-year-old female came in from half-way for evaluation of tremor and slight change mental status, patient found to have UTI with no sepsis. Labs/CT/x-ray unremarkable otherwise for acute pathology. Will discharge back to the half-way on cefuroxime. Medications Administered Discontinued Medications Generic Name Dose Route Start Last Admin Trade Name Freq PRN Reason Stop Dose Admin Cefuroxime Axetil 500 mg 07/13/22 11:40 07/13/22 12:13 Cefuroxime Axetil 500 Mg Tablet PO 07/13/22 11:41 500 mg ONCE ONE Administration Medical Decision Making Lab Data Lab results reviewed: Yes I reviewed the patient's lab results. Result diagrams: 07/13/22 10:07 07/13/22 10:07 Labs: Lab Results 07/13/22 07/13/22 07/13/22 Range/Units 09:20 10:06 10:06 WBC (4.8-10.8) X10*3/uL RBC (4.20-5.50) X10*6/uL Hgb (12.0-16.0) g/dl Hct (37.0-47.0) % MCV (80.0-98.0) fL MCH (27.0-33.0) pg MCHC (31.0-35.0) g/dl RDW (11.0-16.0) % Plt Count (160-400) X10*3/uL MPV (9.4-12.3) fL Immature Gran % (Auto) (0.0-0.4) % Neut % (Auto) (45-73) % Lymph % (Auto) (20-40) % [place] % (Auto) (2-11) % Eos % (Auto) (0-4) % Baso % (Auto) (0-2) % Lymph # (Auto) (1.2-4.9) X10*3/uL [place] # (Auto) (0.1-1.2) X10*3/uL Eos # (Auto) (0.0-0.4) X10*3/uL Baso # (Auto) (0.0-0.2) X10*3/uL Abs Immat Gran (auto) (0.00-0.03) X10*3/uL Absolute Neuts (auto) (2.0-8.3) x10*3/uL Absolute Nucleated RBC (0.0-0.012) X10*3/uL Nucleated RBC % (auto) (0.0-0.2) /100WBC PT (10.0-13.1) SEC INR (0.9-1.1) Sodium (135-145) mmol/L Potassium (3.3-5.1) mmol/L Chloride (96-108) mmol/L Carbon Dioxide (22-29) mmol/L Anion Gap (12-20) BUN (9-16) mg/dL Creatinine (0.5-1.4) mg/dL Estim Creat Clear Calc Estimated GFR Random Glucose (60-115) mg/dL Lactic Acid 0.9 (0.5-2.0) mmol/L Calcium (8.4-10.2) mg/dL Total Bilirubin (0.0-1.0) mg/dL AST (5-31) U/L ALT (0-31) U/L Alkaline Phosphatase (39-117) U/L Ammonia 20 (13-55) umol/L B-Natriuretic Peptide (<100) pg/mL Total Protein (6.5-8.0) g/dL Albumin (3.5-5.0) g/dL Urine Color Yellow Urine Appearance Cloudy Urine pH 7.5 (5.0-9.0) Ur Specific [place] 1.010 (1.005-1.025) Urine Protein 300 (3+) H (Neg-Trace) mg/dL Urine Glucose (UA) Negative (Negative) mg/dL Urine Ketones Trace (Negative) mg/dL Urine Blood Negative (Negative) Urine Nitrite Negative (Negative) Ur Leukocyte Esterase Moderate (2+) H (Negative) Urine RBC 0-2 (0-2) /HPF Urine WBC >50 H (0-5) /HPF Ur Squamous Epith Cells 3-5 (0-2) /HPF Urine Bacteria 2+ (None Seen) Hyaline Casts 0-2 (0-2) /LPF 07/13/22 07/13/22 07/13/22 Range/Units 10:07 10:07 10:07 WBC 6.2 (4.8-10.8) X10*3/uL RBC 2.90 L (4.20-5.50) X10*6/uL Hgb 8.9 L (12.0-16.0) g/dl Hct 27.9 L D (37.0-47.0) % MCV 96.2 (80.0-98.0) fL MCH 30.7 (27.0-33.0) pg MCHC 31.9 (31.0-35.0) g/dl RDW 14.5 (11.0-16.0) % Plt Count 201 (160-400) X10*3/uL MPV 10.0 (9.4-12.3) fL Immature Gran % (Auto) 0.2 (0.0-0.4) % Neut % (Auto) 66.1 (45-73) % Lymph % (Auto) 25.8 (20-40) % [place] % (Auto) 5.3 (2-11) % Eos % (Auto) 1.8 (0-4) % Baso % (Auto) 0.8 (0-2) % Lymph # (Auto) 1.6 (1.2-4.9) X10*3/uL [place] # (Auto) 0.3 (0.1-1.2) X10*3/uL Eos # (Auto) 0.1 (0.0-0.4) X10*3/uL Baso # (Auto) 0.1 (0.0-0.2) X10*3/uL Abs Immat Gran (auto) 0.01 (0.00-0.03) X10*3/uL Absolute Neuts (auto) 4.1 (2.0-8.3) x10*3/uL Absolute Nucleated RBC 0.000 (0.0-0.012) X10*3/uL Nucleated RBC % (auto) 0.0 (0.0-0.2) /100WBC PT 14.7 H (10.0-13.1) SEC INR 1.3 H (0.9-1.1) Sodium 140 (135-145) mmol/L Potassium 5.4 H D (3.3-5.1) mmol/L Chloride 107 (96-108) mmol/L Carbon Dioxide 21 L (22-29) mmol/L Anion Gap 17 (12-20) BUN 37 H (9-16) mg/dL Creatinine 2.93 H (0.5-1.4) mg/dL Estim Creat Clear Calc 19.5 Estimated GFR 16 Random Glucose 139 H (60-115) mg/dL Lactic Acid (0.5-2.0) mmol/L Calcium 8.1 L D (8.4-10.2) mg/dL Total Bilirubin 0.4 (0.0-1.0) mg/dL AST 54 H (5-31) U/L ALT 42 H (0-31) U/L Alkaline Phosphatase 259 H D (39-117) U/L Ammonia (13-55) umol/L B-Natriuretic Peptide (<100) pg/mL Total Protein 7.2 D (6.5-8.0) g/dL Albumin 2.9 L D (3.5-5.0) g/dL Urine Color Urine Appearance Urine pH (5.0-9.0) Ur Specific [place] (1.005-1.025) Urine Protein (Neg-Trace) mg/dL Urine Glucose (UA) (Negative) mg/dL Urine Ketones (Negative) mg/dL Urine Blood (Negative) Urine Nitrite (Negative) Ur Leukocyte Esterase (Negative) Urine RBC (0-2) /HPF Urine WBC (0-5) /HPF Ur Squamous Epith Cells (0-2) /HPF Urine Bacteria (None Seen) Hyaline Casts (0-2) /LPF 07/13/22 Range/Units 10:08 WBC (4.8-10.8) X10*3/uL RBC (4.20-5.50) X10*6/uL Hgb (12.0-16.0) g/dl Hct (37.0-47.0) % MCV (80.0-98.0) fL MCH (27.0-33.0) pg MCHC (31.0-35.0) g/dl RDW (11.0-16.0) % Plt Count (160-400) X10*3/uL MPV (9.4-12.3) fL Immature Gran % (Auto) (0.0-0.4) % Neut % (Auto) (45-73) % Lymph % (Auto) (20-40) % [place] % (Auto) (2-11) % Eos % (Auto) (0-4) % Baso % (Auto) (0-2) % Lymph # (Auto) (1.2-4.9) X10*3/uL [place] # (Auto) (0.1-1.2) X10*3/uL Eos # (Auto) (0.0-0.4) X10*3/uL Baso # (Auto) (0.0-0.2) X10*3/uL Abs Immat Gran (auto) (0.00-0.03) X10*3/uL Absolute Neuts (auto) (2.0-8.3) x10*3/uL Absolute Nucleated RBC (0.0-0.012) X10*3/uL Nucleated RBC % (auto) (0.0-0.2) /100WBC PT (10.0-13.1) SEC INR (0.9-1.1) Sodium (135-145) mmol/L Potassium (3.3-5.1) mmol/L Chloride (96-108) mmol/L Carbon Dioxide (22-29) mmol/L Anion Gap (12-20) BUN (9-16) mg/dL Creatinine (0.5-1.4) mg/dL Estim Creat Clear Calc Estimated GFR Random Glucose (60-115) mg/dL Lactic Acid (0.5-2.0) mmol/L Calcium (8.4-10.2) mg/dL Total Bilirubin (0.0-1.0) mg/dL AST (5-31) U/L ALT (0-31) U/L Alkaline Phosphatase (39-117) U/L Ammonia (13-55) umol/L B-Natriuretic Peptide 165 H (<100) pg/mL Total Protein (6.5-8.0) g/dL Albumin (3.5-5.0) g/dL Urine Color Urine Appearance Urine pH (5.0-9.0) Ur Specific [place] (1.005-1.025) Urine Protein (Neg-Trace) mg/dL Urine Glucose (UA) (Negative) mg/dL Urine Ketones (Negative) mg/dL Urine Blood (Negative) Urine Nitrite (Negative) Ur Leukocyte Esterase (Negative) Urine RBC (0-2) /HPF Urine WBC (0-5) /HPF Ur Squamous Epith Cells (0-2) /HPF Urine Bacteria (None Seen) Hyaline Casts (0-2) /LPF Imaging Data CT scan - head: Attestation: I personally reviewed and interpreted this imaging study as follows: Radiologist's impression: No acute pathology. ECG Data Attestation: I personally reviewed and interpreted this ECG as follows: Interpretation: Normal sinus rhythm 93 beats per minute, LVH, no ST-T changes. Discharge Plan Discharge Clinical Impression: Urinary tract infection Patient Disposition: er [facility] Instructions: Urinary Tract Infection in Women (ED) Prescriptions: New cefuroxime axetil 500 mg tablet 500 mg PO BID Qty: 20 0RF No Action furosemide 40 mg tablet 1 tab PO DAILY@1400 Hold Instructions: Resume on 03/10/22. hold until seen by nephrology atorvastatin 80 mg tablet 1 tab PO DAILY metoprolol tartrate 100 mg tablet 1 tab PO BID ondansetron HCl 4 mg tablet 1 tab PO Q8H PRN (Reason: Nausea) amitriptyline 25 mg tablet 1 tab PO BEDTIME amlodipine 10 mg tablet 1 tab PO DAILY Rx Instructions: HOLD SBP <100 insulin aspart U-100 [Novolog U-100 Insulin aspart] 100 unit/mL solution See Rx Instructions .ROUTE .COMPLEX Rx Instructions: INJECT TID WM PER SLIDING SCALE: 150-199: 9U 200-249:12 U 250-299: 15U 300-349:18U 350-399:21U CALL MD/PATIENT SAFETY ATTENDANT >400 pantoprazole 40 mg tablet,delayed release (DR/EC) 1 tab PO BID@0630,1630 levothyroxine 200 mcg tablet 1 tab PO BEDTIME oxycodone 5 mg tablet 2 tab PO Q6H PRN (Reason: Pain) Rx Instructions: MUST BE 4 HOURS APART FROM SCHEDULED DOSE escitalopram oxalate 10 mg tablet 1 tab PO DAILY ntqlzbrixp-cmlqowlefxhfm-dkoo [Fioricet] 50-300-40 mg capsule 1 cap PO Q8H PRN (Reason: Migraine Headache) Eliquis 2.5 mg tablet 1 tab PO BID insulin degludec [Tresiba FlexTouch U-100] 100 unit/mL (3 mL) insulin pen 10 unit subcut BEDTIME polyvinyl alcohol [Artificial Tears (polyvin alc)] 1.4 % Drops 1 drp OPHTHALMIC (EYE) BID aspirin 81 mg Tablet,Delayed Release (Dr/Ec) 81 mg PO DAILY calcium carbonate [Calcium 600] 600 mg calcium (1,500 mg) Tablet 600 mg PO BID lactase [Lactaid] 3,000 unit Tablet 9,000 unit PO TIDWM Rx Instructions: administer with meals and/or snacks oxycodone 5 mg tablet 1 tab PO BEDTIME hydrochlorothiazide 25 mg Tablet 25 mg PO DAILY Qty: 30 0RF baclofen 5 mg Tablet 5 mg PO BEDTIME acetaminophen [Tylenol] 325 mg Tablet 650 mg PO Q8H PRN (Reason: Pain) docusate sodium 100 mg Tablet 100 mg PO Q24H PRN (Reason: Constipation) loperamide 2 mg Tablet 2 mg PO Q4H PRN (Reason: Diarrhea) Rx Instructions: administer after each loose stool until symptoms controlled; do not exceed 8 mg per 24 hrs bisacodyl 10 mg Suppository 10 mg VT DAILY PRN (Reason: Constipation) hydrocortisone [Preparation H Hydrocortisone] 1 % Cream 1 appl TOPICAL BID PRN (Reason: Hemorrhoids) levofloxacin 250 mg tablet 250 mg PO Q48H Qty: 7 0RF hydralazine 25 mg tablet 100 mg PO TID Qty: 360 0RF Protocol: Hold for SBP< HOLD for SBP < : 90 Lokelma 10 gram powder in packet 10 g PO Q2D Referrals: Annette Joya MD [Primary Care Provider] -
--- OUTSIDE RECORDS SUMMARY | 2022-07-13 09:15 | XMS_ITS | Continuity of Care Document ---
:1950 Author Organization [facility] Address [address] [place] [id number]- Care Team Providers Name Role Phone Elder Bailey MIJARES Primary Care Physician [phone] [place] [facility] [place]22 - 06/29/[address] [id number] Encounter Diagnosis Acute constipation (Final) - 06/23/22 PEG (acute kidney injury) (Final) - 06/23/22 Acute on chronic anemia (Final) - 06/23/22 Discharge Disposition: A-Transfer SNF Attending Physician: Naima Gonzalez MD Admitting Physician: Andrew Jimenez MD Referring Physician: Not on Staff, Referring MD Allergies, Adverse Reactions, Alerts Substance Reaction Severity Status codeine unknown Active Catapres unknown Active Lactose DIARRHEA Active clarithromycin unknown Active morphine sob Active Biaxin unknown Active Latex rash Active Tape unknown Active Immunizations Given and Recorded Vaccine Date Status Refusal Reason tetanus/diphtheria/pertussis, acel(Tdap) 07/28/17 Given tetanus/diphtheria/pertussis, acel(Tdap) 10/20/11 Given Diphth-Tetanus Toxoids Adsorbed(oldterm) 03/12/05 Given Not Given Vaccine Date Status Refusal Reason influenza virus vaccine, inactivated 06/26/22 Not Given Patient Refuses influenza virus vaccine, inactivated 05/29/17 Not Given Patient Refuses pneumococcal 23-valent vaccine 05/29/17 Not Given P atient Refuses Medications acetaminophen 325 mg oral tablet [...] II opioid drug. Start Date: 10/01/20 Status: Orderedaspirin 81 mg oral delayed release tablet 81 mg, By Mouth, Daily, Refills 0, Maintenance, 06/29/22 12:13:00 EDT, Partial fill upon patient request if the prescription is for a schedule II opioid drug. Start Date: 06/29/22 Status: Orderedatorvastatin 40 mg oral tablet 1 tablet = 40 mg, By Mouth, Daily, # 30 tablet, 5 Refills, Maintenance, 09/05/15 15:15:00, Tablet, 1tablet By Mouth Daily Start Date: 09/05/15 Status: Orderedbaclofen 5 mg oral tablet 1 tablet = 5 mg, By Mouth, Daily at bedtime, # 270 tablet, 0 Refills, Maintenance, 06/24/22 2:26:00 EDT, Tablet, Partial fill upon patient request if the prescription is for a schedule II opioid drug. Start Date: 06/24/22 Status: Ordereddocusate sodium 100 mg oral capsule 100 mg, 1, capsule, By Mouth, Daily at bedtime, PRN, Maintenance, as needed for constipation, 09/27/20 20:57:00 EST, Partial fill upon patient request if the prescription is for a schedule II opioid drug. Start Date: 09/27/20 Status: Orderedescitalopram 10 mg oral tablet 1 tablet = 10 mg, By Mouth, Daily, # 30 tablet, 5 Refills, Maintenance, 06/24/22 2:26:00 EDT, Tablet, Partial fill upon patient request if the prescription is for a schedule II opioid drug. Start Date: 06/24/22 Status: OrderedFioricet oral capsule 1 capsule, By [...] II opioid drug. Start Date: 09/27/20 Status: OrderedhydrALAZINE 100 mg oral tablet 1 tablet = 100 mg, By Mouth, 3 times a day, # 180 tablet, 0 Refills, Maintenance, 06/24/22 2:27:00 EDT, Tablet, Partial fill upon patient request if the prescription is for a schedule II opioid drug. Start Date: 06/24/22 Status: OrderedhydrALAZINE 25 mg oral tablet 100 mg, Tablet, By Mouth, 06/29/22 9:00:00 EDT Start Date: 06/29/22 Stop Date: 06/29/22 Status: Completedhydrochlorothiazide 25 mg oral tablet 25 mg, 1, tablet, By Mouth, Daily, # 30 tablet, Refills 0, Maintenance, 06/24/22 2:27:00 EDT, Partial fill upon patient request if the prescription is for a schedule II opioid drug. Start Date: 06/24/22 Status: Orderedinsulin degludec (concentrated) 200 units/mL subcutaneous solution = 10 units, Subcutaneous Injection, Daily, rotate injection sites, # 9 mL, 0 Refills, Maintenance, 06/29/22 12:11:00 EDT, Solution, Partial fill upon patient request if the prescription is for a schedule II opioid drug. Start Date: 06/29/22 Status: Orderedinsulin lispro 100 u/ml subcutaneous injection 2-10 units, Subcutaneous Injection, 3 times a day before meals, 0 Refills, Maintenance, 06/29/22 12:12:00 EDT, Injection, Partial fill upon patient request if the prescription is for a schedule II opioid drug. Start Date: 06/29/22 Status: OrderedLasix 40 mg oral tablet 40 mg, 1, tablet, By Mouth, Daily, # 90 tablet, Refills 0, Maintenance, 06/24/22 2:26:00 EDT, Partial fill upon patient request if the prescription is for a schedule II opioid drug. Start Date: 06/24/22 Status: Orderedlevothyroxine 0.1 mg oral tablet 1 [...] II opioid drug. Start Date: 09/27/20 Status: Orderedmetoprolol 100 mg oral tablet 100 mg, Tablet, By Mouth, 06/29/22 9:00:00 EDT Start Date: 06/29/22 Stop Date: 06/29/22 Status: Completedmetoprolol 100 mg oral tablet = 100 mg, By Mouth, 2 times a day, # 60 tablet, 5 Refills, Maintenance, 10/12/15 16:01:00, Tablet, 100 mg By Mouth 2 times a day,x30 days Start Date: 10/12/15 Stop Date: 02/09/16 Status: OrderedMilk of Magnesia 30 mL, By Mouth, Daily, PRN as needed for constipation, 0 Refills, Maintenance, 02/04/18 10:15:37 EDT Start Date: 02/04/18 Status: OrderedNorvasc 10 mg oral tablet 10 mg, Tablet, By Mouth, 06/29/22 9:00:00 EDT Start Date: 06/29/22 Stop Date: 06/29/22 Status: CompletedNorvasc 10 mg oral tablet 10 mg, By Mouth, Daily, # 30 Doses, Refills 0, Tot. Refills 0, Maintenance, 04/05/17 10:58:11, [facility] Electronically, [id number], [facility] Start Date: 04/05/17 Stop Date: 05/05/17 Status: OrderedNystatin Powder 1 applicator, Topically, 2 times a day, 0 Refills, Maintenance, Powder Start Date: 06/29/22 Status: Orderedomeprazole 20 mg oral enteric coated capsule 2 capsule = 40 mg, By Mouth, Daily, # 30 capsule, 11 Refills, Maintenance, 08/17/15 16:57:00 EST, [facility] Start Date: 08/17/15 Status: OrderedoxyCODONE 5 mg oral tablet 2.5 mg, 0.5, tablet, By Mouth, Every 6 hours, PRN, for 3 days, # 7 tablet, Refills 0, Tot. Refills 0, Acute 07/02/22 14:08:00 EDT, Pain , Moderate, 06/29/22 14:08:00 EDT, Print Requisition, Partial fill upon patient request if the prescription is for... 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 Bronchial asthma Confirmed Active h/o Cellulitis Confirmed Active Chronic kidney Confirmed Active disease CVA - Cerebrovascular Confirmed Active accident Diabetes mellitus, Confirmed Active insulin dependent GERD - Confirmed Active Gastro-esophageal reflux disease Hyperlipidemia Confirmed Active Hypertension Confirmed Active 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 Motion sickness Confirmed Active Obese class II Confirmed Active Obesity Confirmed Active PVD (peripheral Confirmed Active vascular disease) s/p left BKA Results Orders for Microbiology Reports Name Date Blood Culture 06/24/22 Blood Culture #2 06/24/22 Anaerobic Culture (Culture Anaerobic) 06/24/22 Sterile Body Fluid Culture W/ Gram Smear (Culture Ster ile Body Fluid w/ Gram 06/24/22 Smear) Microbiology Reports TEST:Blood Culture STATUS:Unauthenticated BODY SITE: SOURCE:Blood COLLECTED DATE/TIME:06/24/22 11:41 PMBlood Culture SPECIMEN DESCRIPTION : BLOOD RIGHT SPECIAL REQUESTS : NONE CULTURE : NO GROWTH 4 DAYS REPORT STATUS : PRELIMINARY REPORT TEST:Blood Culture, Second Order STATUS:Unauthenticated BODY SITE: SOURCE:Blood COLLECTED DATE/TIME:06/24/22 11:41 PMBlood Culture, Second Order SPECIMEN DESCRIPTION : BLOOD LEFT SPECIAL REQUESTS : NONE CULTURE : NO GROWTH 4 DAYS REPORT STATUS : PRELIMINARY REPORT TEST:Anaerobic Culture STATUS:Unauthenticated BODY SITE: SOURCE:BODY F COLLECTED DATE/TIME:06/24/22 4:25 PMAnaerobic Culture SPECIMEN DESCRIPTION : BODY FLUID KNEE RT SPECIAL REQUESTS : NONE CULTURE : NO ANAEROBES ISOLATED SO FAR. REPORT STATUS : PRELIMINARY REPORT TEST:Sterile Fluid Culture STATUS:Auth (Verified) BODY SITE: SOURCE:JOINT COLLECTED DATE/TIME:06/24/22 4:25 PMSterile Fluid Culture SPECIMEN DESCRIPTION : JOINT FLUID SPECIAL REQUESTS : CRITICAL VALUE CALLED AND VERIFIED BY READBACK FOR: GSMR GRAM POSITIVE COCCIC TO D3B EN [id number] ON 06/24/2022 AT 2125 BY TECH 901 GRAM STAIN : 1+ WHITE BLOOD CELLS 1+ GRAM POSITIVE COCCI CULTURE : NO GROWTH 2 DAYS REPORT STATUS : FINAL 06/27/2022adiology Reports Exam Date Time Procedure Performing Provider Status 06/24/22 3:05 AM Knee 1 or 2 Views Right Marti , Linda; Auth (Verified) Notes:(Knee 1 or 2 Views Right) Reason For Exam: PainRESULT: Knee 1 or 2 Views Right Knee 1 or 2 Views Right, 2 views Reason: Pain; Clinical Question(s): Fracture COMPARISON: None. FINDINGS: Evaluation limited by patient positioning. Osseous structures appear diffusely demineralized. No definite fracture. There is a small quadriceps enthesophyte at the superior pole of the patella with a moderate suprapatellar effusion. Vascular calcification is severe. IMPRESSION: 1. Moderate suprapatellar effusion. 2. Demineralized osseous structures without definite fracture. WSN: [id number] Ordering Physician: Brent Medeiros Dictated By: Fantasma Peters MD Dictated Date/Time: 06/24/22 8:43 am Reviewed By: Fantasma Peters MD Signed By: Fantasma Peters MD Signed Date/Time: 06/24/22 8:43 am Transcribed By: JAYLEN Transcribed Date/Time: 06/24/22 8:42 am Exam Date Time Procedure Performing Provider Status 06/24/22 3:05 AM Chest 2 Views Frontal and Lat Marti , Linda; Auth (Verified) Notes:(Chest 2 Views Frontal and Lat) Reason For Exam: altered mental status;Other:RESULT: Chest 2 Views Frontal and Lat Chest 2 Views Frontal and Lat Reason: Other:; altered mental status; Clinical Question(s): Pneumonia COMPARISON: 03/22/2019 FINDINGS: LINES AND TUBES: None. LUNGS AND PLEURA: Diaphragms are held relatively high in position, right more so than left, resulting in relative crowding of markings particularly towards the right base but the lungs are grossly clear as seen on frontal view, the lateral view extremely limited. No pleural effusion. No pneumothorax. HEART, MEDIASTINUM AND CASTRO: Heart size within normal limits. There is heavy atherosclerosis of the aorta. Normal mediastinal and hilar contour. BONES AND SOFT TISSUES: No acute abnormality. IMPRESSION: Low lung volumes. No evidence for acute cardiopulmonary pathology. WSN: [id number] Ordering Physician: Brent Medeiros Dictated By: Silver Jernigan MD Dictated Date/Time: 06/24/22 8:42 am Reviewed By: Silver Jernigan MD Signed By: Silver Jernigan MD Signed Date/Time: 06/24/22 8:42 am Transcribed By: JAYLEN Transcribed Date/Time: 06/24/22 8:39 am Vital Signs Most recent to oldest 1 2 3 [Reference Range]: Height 160 cm 160 cm 160 cm (06/29/22 8:08 AM) (06/29/22 5:43 AM) (06/28/22 9:07 PM) Weight 92.2 kg (06/23/22 7:50 PM) Oxygen Saturation [94-100 96 % 100 % 96 % %] (06/29/22 8:08 AM) (06/29/22 5:43 AM) (06/28/22 9:07 PM) Pulse Rate [55-90 bpm] 68 bpm 72 bpm 67 bpm (06/29/22 10:03 AM) (06/29/22 8:08 AM) (06/29/22 5:43 AM) Body Mass Index [18.5-24.99 36.02 kg/m2 kg/m2] *>HHI* (06/23/22 7:50 PM) Blood Pressure 162/52 mm Hg 162/52 mm Hg 162/52 mm Hg [90-138/55-84 mm Hg] *H* *H* *H* (06/29/22 10:03 AM) (06/29/22 9:57 AM) (06/29/22 9:57 AM) Respiratory Rate [16-30 20 br/min 16 br/min 18 br/mi n br/min] (06/29/22 8:08 AM) (06/29/22 5:43 AM) (06/28/22 10:05 PM) Temperature [96.8-100.4 97.8 DegF 98.0 DegF 97.7 Deg F DegF] (06/29/22 8:08 AM) (06/29/22 5:43 AM) (06/28/22 9:07 PM) Mode of Delivery (Oxygen) Room air Room air Room a ir (06/29/22 8:08 AM) (06/29/22 5:43 AM) (06/28/22 9:07 PM) Blood pressure sites Arm, left Arm, right Arm, right (06/29/22 8:08 AM) (06/29/22 5:43 AM) (06/28/22 9:07 PM) Temperature Route Oral Oral Oral (06/29/22 8:08 AM) (06/29/22 5:43 AM) (06/28/22 9:07 PM) Dry Weight 104.1 kg (06/23/22 7:50 PM) Social History Social History Type Response Smoking Status Former smoker, quit more suresh n 30 days ago; Type: Cigarettes; Total pack years: 1; entered on: 09/29/19 Sex Note BHSPowerscribe , CIS S: TRANSCRIBE Goodman MIJARES, Silver H: VERIFY Event Display: Result: Authored Date: [id number] Chest 2 Views Frontal and Lat Reason: Other:; altered mental status; Clinical Question(s): Pneumonia COMPARISON: 03/22/2019 FINDINGS: LINES AND TUBES: None. LUNGS AND PLEURA: Diaphragms are held relatively high in position, right more so than left, resulting in relative crowding of markings particularly towards the right base but the lungs are grossly clear as seen on frontal view, the lateral view extremely limited. No pleural effusion. No pneumothorax. HEART, MEDIASTINUM AND CASTRO: Heart size within normal limits. There is heavy atherosclerosis of the aorta. Normal mediastinal and hilar contour. BONES AND SOFT TISSUES: No acute abnormality. IMPRESSION: Low lung volumes. No evidence for acute cardiopulmonary pathology. WSN: [id number] Ordering Physician: Brent Medeiros Dictated By: Silver Jernigan MD Dictated Date/Time: 06/24/22 8:42 am Reviewed By: Silver Jernigan MD Signed By: Silver Jernigan MD Signed Date/Time: 06/24/22 8:42 am Transcribed By: JAYLEN Transcribed Date/Time: 06/24/22 8:39 am XR Knee - right 1 or 2 Views BHSPowerscribe , CIS S: TRANSCRIBE Fantasma Peters MD: VERIFY Event Display: Result: Authored Date: [id number] Knee 1 or 2 Views Right, 2 views Reason: Pain; Clinical Question(s): Fracture COMPARISON: None. FINDINGS: Evaluation limited by patient positioning. Osseous structures appear diffusely demineralized. No definite fracture. There is a small quadriceps enthesophyte at the superior pole of the patella with a moderate suprapatellar effusion. Vascular calcification is severe. IMPRESSION: 1. Moderate suprapatellar effusion. 2. Demineralized osseous structures without definite fracture. WSN: [id number] Ordering Physician: Brent Medeiros Dictated By: Fantasma Peters MD Dictated Date/Time: 06/24/22 8:43 am Reviewed By: Fantasma Peters MD Signed By: Fantasma Peters MD Signed Date/Time: 06/24/22 8:43 am Transcribed By: JAYLEN Transcribed Date/Time: 06/24/22 8:42 am Patient Care team information PersonnelName: Bailey Joya MD Address: Address: [address] [place], [place] [address] [facility] [address]
[2022-07-13 09:27] LABS: Appearance Urine Cloudy; Color Urine Yellow; Glucose Urine UA Negative (Negative); Leukocyte Esterase Urine Moderate (2+) (Negative); Nitrite Urine Negative (Negative); PH 7.5 (5.0-9.0); UMIC TRIGGER UACC YES; Urine Blood Negative (Negative); Urine Ketones Trace mg/dL (Negative); Urine Protein 300 (3+) mg/dL (Neg-Trace)
[2022-07-13 09:43] LABS: Bacteria Urine 2+ (None Seen); Hyaline Casts Urine 0-2 /LPF (0-2); RBC Urine 0-2 /HPF (0-2); UACC Culture Trigger YES; WBC Urine >50 /HPF (0-5)
--- NOTE | 2022-07-13 10:00 | PC.NURSE ---
patient a/ox3 pearrla . patient having intermittent bilateral upper arm twitching that patient says started this AM . heart rate regular at 78 beats per minute . lungs clear throughout , breathing even and unlabored . patient reports 10 out of 10 pain everywhere . Below the left knee amputee . right foot has pealing dry skin . abdomen soft . positive bowel sounds in all four quadrants in all four . Urine obtained and sent . Iv placed in left A . C . Labs and blood cultures obtained and sent . patient put on shelter monitor . patient sent to [facility] for images . patient aware of plan of care .
[2022-07-13 10:12] LABS: MANUAL DIFF FLAG NO
[2022-07-13 10:14] LABS: Basophils Absolute Auto 0.1 X10*3/uL (0.0-0.2); Basophils Percent Auto 0.8 % (0-2); Eosinophils Absolute Auto 0.1 X10*3/uL (0.0-0.4); Eosinophils Percent Auto 1.8 % (0-4); Hematocrit 27.9 % (37.0-47.0); Hemoglobin 8.9 g/dl (12.0-16.0); Imm Gran Abs Auto 0.01 X10*3/uL (0.00-0.03); Imm Gran Pct Auto 0.2 % (0.0-0.4); Lymphocytes Absolute Auto 1.6 X10*3/uL (1.2-4.9); Lymphocytes Percent Auto 25.8 % (20-40); Mean Corpuscular HGB Conc 31.9 g/dl (31.0-35.0); Mean Corpuscular Hemoglobin 30.7 pg (27.0-33.0); Mean Corpuscular Volume 96.2 fL (80.0-98.0); Monocytes Absolute Auto 0.3 X10*3/uL (0.1-1.2); Monocytes Percent Auto 5.3 % (2-11); Neutrophils Absolute Auto 4.1 x10*3/uL (2.0-8.3); Neutrophils Percent Auto 66.1 % (45-73); Platelet Count 201 X10*3/uL (160-400); Red Cell Distribution Width 14.5 % (11.0-16.0); White Blood Count 6.2 X10*3/uL (4.8-10.8)
[2022-07-13 10:16] VITALS: BP 162/80; PULSE 92; RESP 18; TEMP 36.5; O2SAT 97
[2022-07-13 10:20] LABS: INTERNATIONAL NORM RATIO 1.3 (0.9-1.1); Prothrombin Time 14.7 SEC (10.0-13.1)
[2022-07-13 10:23] LABS: Ammonia 20 umol/L (13-55)
[2022-07-13 10:27] LABS: Lactic Acid 0.9 mmol/L (0.5-2.0)
[2022-07-13 10:37] LABS: B Type Natriuretic Peptide 165 pg/mL (<100)
[2022-07-13 10:43] LABS: Alanine Aminotransferase 42 U/L (0-31); Albumin Level 2.9 g/dL (3.5-5.0); Alkaline Phosphatase 259 U/L (39-117); Anion Gap 17 (12-20); Aspartate Amino Transferase 54 U/L (5-31); Bilirubin Total 0.4 mg/dL (0.0-1.0); Blood Urea Nitrogen 37 mg/dL (9-16); Calcium 8.1 mg/dL (8.4-10.2); Carbon Dioxide 21 mmol/L (22-29); Chloride 107 mmol/L (96-108); Creatinine Clr Calc Pharmacy 19.5; Estimated Glomerular Filt Rate 16; Glucose Random 139 mg/dL (60-115); Potassium 5.4 mmol/L (3.3-5.1); Sodium 140 mmol/L (135-145); Total Protein 7.2 g/dL (6.5-8.0)
--- NOTE | 2022-07-13 11:51 | PC.NURSE ---
Rn at [facility] contacted to discuss patients baseline , at baseline patients a/ox4 , has chronic pain all over has had X-rays done to exams done to determine patients conditions . patient also has a history of being sent to ED for twitches and tremors . I updated the RN on the care that we have provided so far for the patient and we will update on her status once we have further information .
[2022-07-13 14:55] VITALS: BP 182/80; PULSE 93; RESP 12; O2SAT 99
[2022-07-13 15:44] VITALS: BP 192/80; PULSE 89; RESP 12; TEMP 36.6; O2SAT 99
[2022-07-13] MEDS: hydroCHLOROthiazide 25 MG TABLET PO (17:54)
[2022-07-13] MEDS: Furosemide 40 MG TABLET PO (17:54)
--- NOTE | 2022-07-13 18:22 | PC.NURSE ---
pt is going back to [facility] at [facility]
--- NOTE | 2022-07-13 18:29 | PC.NURSE ---
Obtained order for home medication for hypertension for patient , administered patients furosemide 40mg and hydrochlorothiazide 25 mg . [facility] . patient aware of plan of care .
--- NOTE | 2022-07-13 19:19 | PC.NURSE ---
Report given to nurse at [facility] . [facility] to transport patient back . patient aware of plan of care .
== END 2022-07-13 19:21 | disposition skilled nursing facility (03) ==
PROVIDERS: Emergency Provider Emergency Medicine; PCP Internal Medicine
DX: N39.0 Urinary tract infection, site not specified (principal); R41.82 Altered mental status, unspecified; R06.02 Shortness of breath; Z79.899 Other long term (current) drug therapy
CPT/HCPCS: 36415; 51702; 70450; 71045; 80053; 81001; 82140; 83605; 83880; 85025; 85610; 87040; 87086; 87088; 87186; 93005; 99285

== ENCOUNTER 2022-07-26 13:14 | Inpatient (IN) | payer MEDICARE, MEDICAID, SELFPAY ==
--- NOTE | ~2022-07-26 | XR_ITS ---
EXAMINATION: XR CHEST CLINICAL INFORMATION: Altered mental status. COMPARISON: None TECHNIQUE: Frontal view of the chest was obtained. FINDINGS: The lungs are well-expanded and clear of acute process. The heart size and pulmonary vascularity is normal. No gross bony deformity seen. XR/XR chest 1V IMPRESSION: Unremarkable chest chest exam.
[2022-07-26 13:25] VITALS: BP 148/54; BP 157/63; PULSE 69; PULSE 72; RESP 16; TEMP 36.6; O2SAT 95; O2SAT 99; BMI 40.8
--- NOTE | 2022-07-26 13:50 | ED.GENADULT ---
HPI - General Adult General Chief complaint: Altered Mental Status Stated complaint: AMS,LETHARGY,REFUSING DIALYSIS Time Seen by Provider: 07/26/22 13:15 Source: patient, EMS and old records reviewed Mode of arrival: EMS Limitations: no limitations History of Present Illness HPI narrative: 71-year-old female with past medical history of diabetes, peripheral vascular disease, BKA. Patient was sent from group home for mental status change, lethargic, concern of electrolyte disturbance especially patient with chronic renal disease and patient is refusing dialysis, patient is a poor historian decline any symptoms at that point. Related Data Home Medications Medication Instructions Recorded Confirmed amitriptyline 25 mg tablet 1 tab PO BEDTIME 02/24/22 06/06/22 amlodipine 10 mg tablet 1 tab PO DAILY 02/24/22 06/06/22 apixaban 2.5 mg tablet (Eliquis) 1 tab PO BID 02/24/22 06/06/22 aspirin 81 mg tablet,delayed 81 mg PO DAILY 02/24/22 06/06/22 release atorvastatin 80 mg tablet 1 tab PO DAILY 02/24/22 06/06/22 fshexzfjde-triivepeugcko-vxxtniiu 1 cap PO Q8H PRN Migraine Headache 02/24/22 06/06/22 50 mg-300 mg-40 mg capsule (Fioricet) calcium carbonate 600 mg calcium 600 mg PO BID 02/24/22 06/06/22 (1,500 mg) tablet (Calcium) escitalopram oxalate 10 mg tablet 1 tab PO DAILY 02/24/22 06/06/22 furosemide 40 mg tablet 1 tab PO DAILY@1400 02/24/22 06/06/22 insulin aspart U-100 100 unit/mL See Rx Instructions .Route .COMPLEX 02/24/22 06/06/22 subcutaneous solution (Novolog U-100 Insulin aspart) insulin degludec 100 unit/mL (3 10 unit subcut BEDTIME 02/24/22 06/06/22 mL) subcutaneous pen (Tresiba FlexTouch U-100 insulin) lactase 3,000 unit tablet (Lactaid) 9,000 unit PO TIDWM 02/24/22 06/06/22 levothyroxine 200 mcg tablet 1 tab PO BEDTIME 02/24/22 06/06/22 metoprolol tartrate 100 mg tablet 1 tab PO BID 02/24/22 06/06/22 ondansetron HCl 4 mg tablet 1 tab PO Q8H PRN Nausea 02/24/22 06/06/22 oxycodone 5 mg tablet 1 tab PO BEDTIME 02/24/22 06/06/22 oxycodone 5 mg tablet 2 tab PO Q6H PRN Pain 02/24/22 06/06/22 pantoprazole 40 mg tablet,delayed 1 tab PO BID@0630,1630 02/24/22 06/06/22 release polyvinyl alcohol 1.4 % eye drops 1 drp ophthalmic (eye) BID 02/24/22 06/06/22 (Artificial Tears (polyvinyl alcohol)) acetaminophen 325 mg tablet 650 mg PO Q8H PRN Pain 04/10/22 06/06/22 (Tylenol) baclofen 5 mg tablet 5 mg PO BEDTIME 04/10/22 06/06/22 docusate sodium 100 mg tablet 100 mg PO Q24H PRN Constipation 04/10/22 06/06/22 sodium zirconium cyclosilicate 10 10 g PO Q2D 05/06/22 06/06/22 gram oral powder packet (Lokelri) bisacodyl 10 mg rectal suppository 10 mg SD DAILY PRN Constipation 06/06/22 06/06/22 hydrocortisone 1 % topical cream 1 appl topical BID PRN Hemorrhoids 06/06/22 06/06/22 (Preparation H Hydrocortisone) loperamide 2 mg tablet 2 mg PO Q4H PRN Diarrhea 06/06/22 06/06/22 Previous Rx's Medication Instructions Recorded hydrochlorothiazide 25 mg tablet 25 mg PO DAILY #30 tabs 03/01/22 hydralazine 25 mg tablet 100 mg PO TID #360 tabs 06/09/22 levofloxacin 250 mg tablet 250 mg PO Q48H #7 tabs 06/09/22 cefuroxime axetil 500 mg tablet 500 mg PO BID #20 tabs 07/13/22 Allergies Allergy/AdvReac Type Severity Reaction Status Date / Time codeine [CODEINE] Allergy Unknown UNKNOWN Verified 04/10/22 09:48 morphine [MORPHINE] Allergy Unknown UNKNOWN, Verified 04/10/22 09:48 anaphylaxis adhesive tape Allergy Unknown Verified 04/10/22 09:48 clarithromycin Allergy Unknown Verified 04/10/22 09:48 clonidine [From Catapres] Allergy Unknown Verified 04/10/22 09:48 lactose Allergy Unknown Verified 04/10/22 09:48 latex Allergy Unknown Verified 04/10/22 09:48 Review of Systems Review of Systems: All other systems are reviewed and are negative Constitutional: Reports as per HPI and Reports no additional constitutional complaints Eyes: Reports as per HPI and Reports no additional eye complaints Reports system reviewed and no additional complaints, except as documented Cardiovascular: Reports as per HPI and Reports no additional cardiovascular complaints Respiratory: Reports as per HPI and Reports no additional respiratory complaints Gastrointestinal: Reports as per HPI and Reports no additional gastrointestinal complaints Genitourinary: Reports no additional female genitourinary complaints Musculoskeletal: Reports no additional musculoskeletal complaints Skin/Breast: Reports system reviewed and no additional complaints, except as docu Psychiatric: Reports no additional psychiatric complaints Endocrine: Reports no additional endocrine complaints Hematologic/Lymphatic: Reports no additional hematologic/lymphatic complaints Allergic/Immunologic: Reports no additional allergic/immunologic complaints Reports system reviewed and no additional complaints, except as documented and Reports Abnormal speech present [facility] Past Medical History Medical History Acute kidney failure Acute respiratory failure with hypoxia Anemia in CKD (chronic kidney disease) Atherosclerosis Basal cell carcinoma of right upper arm Below-knee amputation of left lower extremity Cerebral microvascular disease Chronic kidney disease CVA (cerebrovascular accident) Diabetes Diabetic retinopathy Dysphagia Failure to thrive in adult GERD (gastroesophageal reflux disease) History of venous thromboembolism Hypothyroidism Insulin dependent type 2 diabetes mellitus PVD (peripheral vascular disease) Squamous cell carcinoma of left upper extremity TIA (transient ischemic attack) Uncontrolled hypertension Surgical History History of thyroidectomy S/P below knee amputation Social History Social History Household Members: Unknown / Unable to assess Housing: Assisted Living Facility Do you presently have visiting nurse or other home services: No Unable to assess alcohol history related to: Unable to respond Alcohol intake: former Patient Tobacco Use Status: Never used Tobacco Advance Directives: Yes Advance Directives on File: Yes Advance Directives Date on File: 06/10/22 service: No Current occupational status: disabled Physical Exam ED Vital Signs: Vital Signs - 24 hr 07/26/22 13:25 07/26/22 14:25 Temperature 98 F Pulse Rate 69 68 Respiratory Rate 16 16 Blood Pressure 148/54 H Pulse Oximetry 95 96 Oxygen Delivery Method Room Air Room Air BMI result Body Mass Index 40.8 Vital signs have been reviewed as appeared to be correct. Blood pressure normal. Heart rate normal. Respiration rate normal. Temperature normal. Oxygen saturation normal. Appearance: Alert. No acute distress. Head: Normal external exam. Normocephalic. Atraumatic. No Diaz signs noted. No raccoon eyes noted Eyes: PERRLA. EOMI. Conjunctiva and sclera normal. Eyelids normal. ENT: TM's Normal. Pharynx normal. Uvula midline. Moist mucous membranes. No trismus noted. No drooling noted. No muffled voice noted. Neck: Normal inspection. Neck supple. FROM. No adenopathy. Thyroid Normal. No meningeal signs. No neck mass noted. CVS: Normal heart rate and rhythm. Heart sound normal. No murmurs noted. Pulses normal throughout. Respiratory: No respiratory distress. Painless inspiration. Breath sounds normal. No wheezes/rales/rhonchi noted. Chest nontender. No accessory muscle usage noted or decreased air movement noted. Abdomen: Soft and nontender. Bowel sounds normal in all 4 quadrants. No distention noted. No organomegaly noted. No visible injury noted. Back: No CVA tenderness. Full range of motion noted. Skin: Skin warm and dry. Normal skin color. Normal skin turgor. No rashes/lesions/lacerations noted. Extremities: No lower extremity edema. Extremities exhibit normal range of motion. Extremities nontender. Neuro: Oriented. Cranial nerve exam: II-XII are grossly intact No motor deficit. No sensory deficit. Reflexes normal. Course Course Course Narrative: Mental status change, UTI will start the patient on ceftriaxone, patient has acute on chronic renal failure was in a electrolytes abnormality will admit the patient to follow-up with PCP. Medical Decision Making Lab Data Lab results reviewed: Yes I reviewed the patient's lab results. Result diagrams: 07/26/22 13:56 07/26/22 13:57 Labs: Lab Results 07/26/22 07/26/22 07/26/22 Range/Units 13:56 13:56 13:57 WBC 7.0 (4.8-10.8) X10*3/uL RBC 2.73 L (4.20-5.50) X10*6/uL Hgb 8.6 L (12.0-16.0) g/dl Hct 25.8 L (37.0-47.0) % MCV 94.5 (80.0-98.0) fL MCH 31.5 (27.0-33.0) pg MCHC 33.3 (31.0-35.0) g/dl RDW 14.6 (11.0-16.0) % Plt Count 181 (160-400) X10*3/uL MPV 9.8 (9.4-12.3) fL Immature Gran % (Auto) 0.6 H (0.0-0.4) % Neut % (Auto) 71.4 (45-73) % Lymph % (Auto) 21.7 (20-40) % Isabella % (Auto) 4.6 (2-11) % Eos % (Auto) 1.1 (0-4) % Baso % (Auto) 0.6 (0-2) % Lymph # (Auto) 1.5 (1.2-4.9) X10*3/uL Isabella # (Auto) 0.3 (0.1-1.2) X10*3/uL Eos # (Auto) 0.1 (0.0-0.4) X10*3/uL Baso # (Auto) 0.0 (0.0-0.2) X10*3/uL Abs Immat Gran (auto) 0.04 H (0.00-0.03) X10*3/uL Absolute Neuts (auto) 5.0 (2.0-8.3) x10*3/uL Absolute Nucleated RBC 0.000 (0.0-0.012) X10*3/uL Nucleated RBC % (auto) 0.0 (0.0-0.2) /100WBC Sodium 139 (135-145) mmol/L Potassium 4.6 (3.3-5.1) mmol/L Chloride 107 (96-108) mmol/L Carbon Dioxide 19 L (22-29) mmol/L Anion Gap 18 (12-20) BUN 74 H D (9-16) mg/dL Creatinine 4.13 H* (0.5-1.4) mg/dL Estim Creat Clear Calc 12.2 Estimated GFR 11 Random Glucose 89 (60-115) mg/dL Calcium 7.9 L (8.4-10.2) mg/dL Total Bilirubin 0.3 (0.0-1.0) mg/dL Direct Bilirubin 0.2 (0.0-0.5) mg/dL AST 22 D (5-31) U/L ALT 28 (0-31) U/L Alkaline Phosphatase 156 H D (39-117) U/L Total Protein 6.5 (6.5-8.0) g/dL Albumin 2.8 L (3.5-5.0) g/dL Lipase 14 (8-78) U/L Urine Color Urine Appearance Urine pH (5.0-9.0) Ur Specific [place] (1.005-1.025) Urine Protein (Neg-Trace) mg/dL Urine Glucose (UA) (Negative) mg/dL Urine Ketones (Negative) mg/dL Urine Blood (Negative) Urine Nitrite (Negative) Ur Leukocyte Esterase (Negative) Urine RBC (0-2) /HPF Urine WBC (0-5) /HPF Ur Squamous Epith Cells (0-2) /HPF Urine Bacteria (None Seen) Hyaline Casts (0-2) /LPF COVID-19 (LUCIO) Negative (Negative) COVID-19 Clin Com See Note 07/26/22 Range/Units 14:26 WBC (4.8-10.8) X10*3/uL RBC (4.20-5.50) X10*6/uL Hgb (12.0-16.0) g/dl Hct (37.0-47.0) % MCV (80.0-98.0) fL MCH (27.0-33.0) pg MCHC (31.0-35.0) g/dl RDW (11.0-16.0) % Plt Count (160-400) X10*3/uL MPV (9.4-12.3) fL Immature Gran % (Auto) (0.0-0.4) % Neut % (Auto) (45-73) % Lymph % (Auto) (20-40) % Isabella % (Auto) (2-11) % Eos % (Auto) (0-4) % Baso % (Auto) (0-2) % Lymph # (Auto) (1.2-4.9) X10*3/uL Isabella # (Auto) (0.1-1.2) X10*3/uL Eos # (Auto) (0.0-0.4) X10*3/uL Baso # (Auto) (0.0-0.2) X10*3/uL Abs Immat Gran (auto) (0.00-0.03) X10*3/uL Absolute Neuts (auto) (2.0-8.3) x10*3/uL Absolute Nucleated RBC (0.0-0.012) X10*3/uL Nucleated RBC % (auto) (0.0-0.2) /100WBC Sodium (135-145) mmol/L Potassium (3.3-5.1) mmol/L Chloride (96-108) mmol/L Carbon Dioxide (22-29) mmol/L Anion Gap (12-20) BUN (9-16) mg/dL Creatinine (0.5-1.4) mg/dL Estim Creat Clear Calc Estimated GFR Random Glucose (60-115) mg/dL Calcium (8.4-10.2) mg/dL Total Bilirubin (0.0-1.0) mg/dL Direct Bilirubin (0.0-0.5) mg/dL AST (5-31) U/L ALT (0-31) U/L Alkaline Phosphatase (39-117) U/L Total Protein (6.5-8.0) g/dL Albumin (3.5-5.0) g/dL Lipase (8-78) U/L Urine Color Other A Urine Appearance Cloudy Urine pH 6.0 (5.0-9.0) Ur Specific [place] 1.025 (1.005-1.025) Urine Protein 300 (3+) H (Neg-Trace) mg/dL Urine Glucose (UA) Negative (Negative) mg/dL Urine Ketones Trace (Negative) mg/dL Urine Blood Large (3+) H (Negative) Urine Nitrite Positive H (Negative) Ur Leukocyte Esterase Large (3+) H (Negative) Urine RBC 6-10 H (0-2) /HPF Urine WBC >50 (0-5) /HPF Ur Squamous Epith Cells >20 (0-2) /HPF Urine Bacteria 4+ (None Seen) Hyaline Casts 0-2 (0-2) /LPF COVID-19 (LUCIO) (Negative) COVID-19 Clin Com Imaging Data Chest x-ray: Attestation: I personally reviewed and interpreted this imaging study as follows: Radiologist's impression: No acute pathology. Discharge Plan Discharge Clinical Impression: UTI (urinary tract infection), Acute on chronic kidney failure Patient Disposition: Admitted As Inpatient Prescriptions: No Action furosemide 40 mg tablet 1 tab PO DAILY@1400 Hold Instructions: Resume on 03/10/22. 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 pantoprazole 40 mg tablet,delayed release (DR/EC) 1 tab PO BID@0630,1630 levothyroxine 200 mcg tablet 1 tab PO BEDTIME oxycodone 5 mg tablet 2 tab PO Q6H PRN (Reason: Pain) Rx Instructions: MUST BE 4 HOURS APART FROM SCHEDULED DOSE escitalopram oxalate 10 mg tablet 1 tab PO DAILY [id number]-yyafndxogfxig-qqnq [Fioricet] 50-300-40 mg capsule 1 cap PO Q8H PRN (Reason: Migraine Headache) Eliquis 2.5 mg tablet 1 tab PO BID insulin degludec [Tresiba FlexTouch U-100] 100 unit/mL (3 mL) insulin pen 10 unit subcut BEDTIME polyvinyl alcohol [Artificial Tears (polyvin alc)] 1.4 % Drops 1 drp OPHTHALMIC (EYE) BID aspirin 81 mg Tablet,Delayed Release (Dr/Ec) 81 mg PO DAILY calcium carbonate [Calcium 600] 600 mg calcium (1,500 mg) Tablet 600 mg PO BID lactase [Lactaid] 3,000 unit Tablet 9,000 unit PO TIDWM Rx Instructions: administer with meals and/or snacks oxycodone 5 mg tablet 1 tab PO BEDTIME hydrochlorothiazide 25 mg Tablet 25 mg PO DAILY Qty: 30 0RF baclofen 5 mg Tablet 5 mg PO BEDTIME acetaminophen [Tylenol] 325 mg Tablet 650 mg PO Q8H PRN (Reason: Pain) docusate sodium 100 mg Tablet 100 mg PO Q24H PRN (Reason: Constipation) loperamide 2 mg Tablet 2 mg PO Q4H PRN (Reason: Diarrhea) Rx Instructions: administer after each loose stool until symptoms controlled; do not exceed 8 mg per 24 hrs bisacodyl 10 mg Suppository 10 mg SD DAILY PRN (Reason: Constipation) hydrocortisone [Preparation H Hydrocortisone] 1 % Cream 1 appl TOPICAL BID PRN (Reason: Hemorrhoids) levofloxacin 250 mg tablet 250 mg PO Q48H Qty: 7 0RF hydralazine 25 mg tablet 100 mg PO TID Qty: 360 0RF Protocol: Hold for SBP< HOLD for SBP < : 90 cefuroxime axetil 500 mg tablet 500 mg PO BID Qty: 20 0RF Lokelma 10 gram powder in packet 10 g PO Q2D
[2022-07-26 14:00] LABS: MANUAL DIFF FLAG NO
[2022-07-26 14:02] LABS: Basophils Percent Auto 0.6 % (0-2); Eosinophils Absolute Auto 0.1 X10*3/uL (0.0-0.4); Eosinophils Percent Auto 1.1 % (0-4); Hematocrit 25.8 % (37.0-47.0); Hemoglobin 8.6 g/dl (12.0-16.0); Imm Gran Abs Auto 0.04 X10*3/uL (0.00-0.03); Imm Gran Pct Auto 0.6 % (0.0-0.4); Lymphocytes Absolute Auto 1.5 X10*3/uL (1.2-4.9); Lymphocytes Percent Auto 21.7 % (20-40); Mean Corpuscular HGB Conc 33.3 g/dl (31.0-35.0); Mean Corpuscular Hemoglobin 31.5 pg (27.0-33.0); Mean Corpuscular Volume 94.5 fL (80.0-98.0); Mean Platelet Volume 9.8 fL (9.4-12.3); Monocytes Absolute Auto 0.3 X10*3/uL (0.1-1.2); Monocytes Percent Auto 4.6 % (2-11); Neutrophils Percent Auto 71.4 % (45-73); Platelet Count 181 X10*3/uL (160-400); Red Blood Count 2.73 X10*6/uL (4.20-5.50); Red Cell Distribution Width 14.6 % (11.0-16.0)
[2022-07-26 14:19] LABS: COVID-19 Test Negative (Negative); IDNOW Serial# 16C4AD1C
[2022-07-26 14:25] VITALS: PULSE 68; RESP 16; O2SAT 96
[2022-07-26 14:36] LABS: Appearance Urine Cloudy; Color Urine Other; Glucose Urine UA Negative (Negative); Leukocyte Esterase Urine Large (3+) (Negative); Nitrite Urine Positive (Negative); Specific Gravity - Urine 1.025 (1.005-1.025); UMIC TRIGGER UACC YES; Urine Blood Large (3+) (Negative); Urine Ketones Trace mg/dL (Negative); Urine Protein 300 (3+) mg/dL (Neg-Trace)
[2022-07-26 14:37] LABS: Alanine Aminotransferase 28 U/L (0-31); Albumin Level 2.8 g/dL (3.5-5.0); Alkaline Phosphatase 156 U/L (39-117); Anion Gap 18 (12-20); Aspartate Amino Transferase 22 U/L (5-31); Bilirubin Direct 0.2 mg/dL (0.0-0.5); Bilirubin Total 0.3 mg/dL (0.0-1.0); Blood Urea Nitrogen 74 mg/dL (9-16); Calcium 7.9 mg/dL (8.4-10.2); Carbon Dioxide 19 mmol/L (22-29); Chloride 107 mmol/L (96-108); Creatinine Clr Calc Pharmacy 12.2; Estimated Glomerular Filt Rate 11; Glucose Random 89 mg/dL (60-115); Lipase 14 U/L (8-78); Potassium 4.6 mmol/L (3.3-5.1); Sodium 139 mmol/L (135-145); Total Protein 6.5 g/dL (6.5-8.0)
[2022-07-26 14:43] LABS: Bacteria Urine 4+ (None Seen); Hyaline Casts Urine 0-2 /LPF (0-2); Squamous Epithelial Cell Urine >20 /HPF (0-2); UACC Culture Trigger YES; WBC Urine >50 /HPF (0-5)
--- NOTE | 2022-07-26 15:13 | ECG_ITS ---
Test Reason : ALTERED MENTAL STATUS Blood Pressure : / mmHG Vent. Rate : 071 BPM Atrial Rate : 071 BPM P-R Int : 188 ms QRS Dur : 116 ms QT Int : 444 ms P-R-T Axes : 021 -48 005 degrees QTc Int : 482 ms Normal sinus rhythm Left anterior fascicular block Left ventricular hypertrophy with QRS widening ( R in aVL , Farhat product , Romhilt-[place] ) RSR' or QR pattern in V1 suggests right ventricular conduction delay Abnormal ECG When compared with ECG of 13-JUL-2022 09:15, Heart rate has decreased No significant changes seen Referred By: Aman Fisher Electronically Signed By:NICOLE VANEGAS MD
--- NOTE | 2022-07-26 15:17 | P.HPHOSP_ITS ---
History of Present Illness Date of Service: 07/26/22 Chief Complaint: confusion 71 years old lady with PMH of CKD stage 4, CVA, diabetes, GERD, DVT on Eliquis among others who presents to the hospital with altered mentation. She is alert oriented to marvin and place but not offering details. She was reportedy experi encing tremors, altered mentation and BP o 254/115. She has advanced kidney disease and has declined dialysis in the past. UA is noted for UTI. 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 Chronic kidney disease CVA (cerebrovascular accident) Diabetes Diabetic retinopathy Dysphagia Failure to thrive in adult GERD (gastroesophageal reflux disease) History of venous thromboembolism Hypothyroidism Insulin dependent type 2 diabetes mellitus PVD (peripheral vascular disease) Squamous cell carcinoma of left upper extremity TIA (transient ischemic attack) Uncontrolled hypertension Surgical History History of thyroidectomy S/P below knee amputation Social History Household Members: Unknown / Unable to assess Housing: Assisted Living Facility Do you presently have visiting nurse or other home services: No Unable to assess alcohol history related to: Unable to respond Alcohol intake: never Patient Tobacco Use Status: Never used Tobacco Smoked in Last 30 Days: No Use of substances other than those prescribed or required for medical reasons: No Advance Directives: Yes Advance Directives on File: Yes Advance Directives Date on File: 06/10/22 service: No Current occupational status: disabled Meds Allergies Allergy/AdvReac Type Severity Reaction Status Date / Time codeine [CODEINE] Allergy Unknown UNKNOWN Verified 04/10/22 09:48 morphine [MORPHINE] Allergy Unknown UNKNOWN, Verified 04/10/22 09:48 anaphylaxis adhesive tape Allergy Unknown Verified 04/10/22 09:48 clarithromycin Allergy Unknown Verified 04/10/22 09:48 clonidine [From Catapres] Allergy Unknown Verified 04/10/22 09:48 lactose Allergy Unknown Verified 04/10/22 09:48 latex Allergy Unknown Verified 04/10/22 09:48 Active Medications: Current Medications Ceftriaxone Sodium 1 gm/ (Sodium Chloride) 50 mls @ 100 mls/hr IV ONCE ONE Stop: 07/26/22 15:36 Pharmacy Consult (Consult Rx Perform Med Rec) 1 each MISCELLANE ONCE PRN PRN Reason: Consult order Pharmacy Consult (Consult Rx Perform Med Rec) 1 each MISCELLANE ONCE PRN PRN Reason: Consult order Home Medications Medication Instructions Recorded Confirmed Last Taken Type amitriptyline 25 mg tablet 1 tab PO BEDTIME 02/24/22 07/26/22 Unknown History aspirin 81 mg tablet,delayed 81 mg PO DAILY 02/24/22 07/26/22 Unknown History release atorvastatin 80 mg tablet 1 tab PO DAILY 02/24/22 07/26/22 Unknown History escitalopram oxalate 10 mg tablet 1 tab PO DAILY 02/24/22 07/26/22 Unknown History furosemide 40 mg tablet 1 tab PO DAILY@1400 02/24/22 07/26/22 Unknown History insulin aspart U-100 100 unit/mL 0 sliding scale dose subcut QIDACHS 02/24/22 07/26/22 Unknown History subcutaneous solution (Novolog U-100 Insulin aspart) insulin degludec 100 unit/mL (3 10 unit subcut BEDTIME 02/24/22 07/26/22 Unknown History mL) subcutaneous pen (Tresiba FlexTouch U-100 insulin) metoprolol tartrate 100 mg tablet 1 tab PO BID 02/24/22 07/26/22 Unknown History ondansetron HCl 4 mg tablet 1 tab PO Q8H PRN Nausea 02/24/22 07/26/22 Unknown History oxycodone 5 mg tablet 5 mg PO Q8H PRN Pain 02/24/22 07/26/22 Unknown History pantoprazole 40 mg tablet,delayed 1 tab PO BID@0630,1630 02/24/22 07/26/22 Unknown History release acetaminophen 325 mg tablet 650 mg PO Q8H PRN Pain 04/10/22 07/26/22 Unknown History (Tylenol) baclofen 5 mg tablet 5 mg PO BEDTIME 04/10/22 07/26/22 Unknown History docusate sodium 100 mg tablet 100 mg PO Q24H PRN Constipation 04/10/22 07/26/22 Unknown History hydrocortisone 1 % topical cream 1 appl topical BID PRN Hemorrhoids 06/06/22 07/26/22 Unknown History (Preparation H Hydrocortisone) loperamide 2 mg tablet 2 mg PO Q4H PRN Diarrhea 06/06/22 07/26/22 Unknown History Culturelle 1 cap PO BID 07/26/22 07/26/22 Unknown History amlodipine 5 mg tablet 5 mg PO DAILY 07/26/22 07/26/22 Unknown History apixaban 2.5 mg tablet (Eliquis) 2.5 mg PO BID 07/26/22 07/26/22 Unknown History ascorbic acid (vitamin C) 500 mg 500 mg PO BID 07/26/22 07/26/22 Unknown History tablet butalbital 50 mg-acetaminophen 300 1 cap PO Q8H PRN Migraine Headache 07/26/22 07/26/22 Unknown History mg-caffeine 40 mg-codeine 30 mg cap (Fioricet with Codeine) cholecalciferol (vitamin D3) 25 25 mcg PO DAILY 07/26/22 07/26/22 Unknown History mcg (1,000 unit) tablet cranberry extract 425 mg capsule 850 mg PO DAILY 07/26/22 07/26/22 Unknown History levothyroxine 100 mcg tablet 300 mcg PO DAILY 07/26/22 07/26/22 Unknown History polyethylene glycol 3350 17 17 g PO DAILY PRN Constipation 07/26/22 07/26/22 Unknown History gram/dose oral powder (Miralax) propylene glycol 1 %-glycerin 0.3 1 drp ophthalmic (eye) BID 07/26/22 07/26/22 Unknown History % eye drops (Artificial Tears (glycerin-peg)) Physical Exam Vital Signs and Narrative: Vital Signs: Last Vital Signs Temp 98 F 07/26/22 13:25 Pulse 68 07/26/22 14:25 Resp 16 07/26/22 14:25 BP 148/54 H 07/26/22 13:25 Pulse Ox 96 07/26/22 14:25 O2 Del Method 07/26/22 14:25 BMI result Body Mass Index 40.8 Const: Other: Constitutional: Alert, in no distress, overweight. Mental Status: Oriented to person, place Eyes: Pupils are equal, round and reactive to light. Ear, Nose and Throat: Oropharynx clear, mucous membranes moist. Ears and nose without eformities. Trachea midline. Respiratory: Clear to auscultation. No wheezing, rales or rhonchi. Cardiovascular: S1 S2 regular. No murmurs, rubs or gallops. Gastrointestinal: Abdomen soft, non-tender, non-distended. Normal bowel sounds.? Neurologic: Cranial nerves II-XII grossly intact. No focal neurological deficits. Moves all extremities spontaneously.? Skin: No rashes or lesions.? Musculoskeletal: No cyanosis or clubbing. left BKA Psychiatric: Normal mood and affect? Results Labs CBC and Chem 7: 07/26/22 13:56 07/27/22 08:33 Labs: Laboratory Results - last 24 hr 07/26/22 07/26/22 07/26/22 13:56 13:56 13:57 MCV 94.5 MCH 31.5 MCHC 33.3 RDW 14.6 Plt Count 181 MPV 9.8 Immature Gran % (Auto) 0.6 H Neut % (Auto) 71.4 Lymph % (Auto) 21.7 [place] % (Auto) 4.6 Eos % (Auto) 1.1 Baso % (Auto) 0.6 Lymph # (Auto) 1.5 [place] # (Auto) 0.3 Eos # (Auto) 0.1 Baso # (Auto) 0.0 Abs Immat Gran (auto) 0.04 H Absolute Neuts (auto) 5.0 Absolute Nucleated RBC 0.000 Nucleated RBC % (auto) 0.0 Anion Gap 18 Estim Creat Clear Calc 12.2 Estimated GFR 11 Random Glucose 89 Calcium 7.9 L Total Bilirubin 0.3 Direct Bilirubin 0.2 AST 22 D ALT 28 Alkaline Phosphatase 156 H D Total Protein 6.5 Albumin 2.8 L Lipase 14 Urine Color Urine Appearance Urine pH Ur Specific Diana Urine Protein Urine Glucose (UA) Urine Ketones Urine Blood Urine Nitrite Ur Leukocyte Esterase Urine RBC Urine WBC Ur Squamous Epith Cells Urine Bacteria Hyaline Casts COVID-19 (LUCIO) Negative COVID-19 Clin Com See Note 07/26/22 14:26 MCV MCH MCHC RDW Plt Count MPV Immature Gran % (Auto) Neut % (Auto) Lymph % (Auto) [place] % (Auto) Eos % (Auto) Baso % (Auto) Lymph # (Auto) [place] # (Auto) Eos # (Auto) Baso # (Auto) Abs Immat Gran (auto) Absolute Neuts (auto) Absolute Nucleated RBC Nucleated RBC % (auto) Anion Gap Estim Creat Clear Calc Estimated GFR Random Glucose Calcium Total Bilirubin Direct Bilirubin AST ALT Alkaline Phosphatase Total Protein Albumin Lipase Urine Color Other A Urine Appearance Cloudy Urine pH 6.0 Ur Specific Diana 1.025 Urine Protein 300 (3+) H Urine Glucose (UA) Negative Urine Ketones Trace Urine Blood Large (3+) H Urine Nitrite Positive H Ur Leukocyte Esterase Large (3+) H Urine RBC 6-10 H Urine WBC >50 Ur Squamous Epith Cells >20 Urine Bacteria 4+ Hyaline Casts 0-2 COVID-19 (LUCIO) COVID-19 Clin Com Assessment and Plan (1) UTI (urinary tract infection): Status: Acute (2) Acute on chronic kidney failure: Status: Acute (3) Toxic metabolic encephalopathy: Status: Acute (4) Acute hyperkalemia: Status: Resolved (5) Urinary tract infection: Status: Resolved (6) Toxic metabolic encephalopathy: Status: Resolved (7) Acute worsening of stage 4 chronic kidney disease: Status: Resolved (8) Insulin dependent type 2 diabetes mellitus: Status: Inactive Plan 71 female with multiple chronic medical issues here with left leg pain and hyperkalemia Left leg pain, no DVT--appearance of the limb is that of chronic arterial insuficiency and her pain is likely from claudication -Pain control and Vascular consult Acute toxic metabolic encephalopathy-likely from UTI UTI--Ceftriaxone PEG on CKD 4--Hydration and repeat in the morning Anemia of chronic disease--monitor Diabetes--Insulin Hypothyroidsim--levothyroxine, DVT prophylaxis; heparin admission to span? 2 midnights for treatment of encephalopathy, PEG on CKD Quality Stroke Does the patient have a stroke diagnosis?: No VTE Prior VTE?: No VTE Risk Level:: Medical - moderate - high VTE Device Contraindication: Treatment Not Tolerated VTE Drug Contraindication: N/A - Med Ordered
--- NOTE | 2022-07-26 15:55 | PHA.MEDREC ---
Pharmacy Consult ? Medication Reconciliation Pharmacy has completed the medication reconciliation. Patient came from [facility] with medication. La Nena Caro, JaysonD
[2022-07-26] MEDS: 0.9 % Sodium Chloride 1,000 ML 100 ML IVCONT (16:22)
[2022-07-26 17:05] VITALS: BP 134/59; PULSE 70; RESP 11; O2SAT 97
[2022-07-26] MEDS: Heparin Sodium,Porcine 5,000 UNIT/ML VIAL 5000 UNIT SUBCUT (17:07)
[2022-07-26] MEDS: cefTRIAXone sodium 1 GM in 0.9 % Sodium Chloride 50 ML IV (17:07)
--- NOTE | 2022-07-26 19:19 | PC.NURSE ---
Addendum entered by Jessica Walker 07/26/22 19:20: Reports right leg pain, 06/09. Pt incontinent of urine. Bed linen changed and pericare provided. Original Note: Assumed care for pt. Pt alert not oriented. [place] to verbal stimuli. Reports right leg pain
[2022-07-26 23:41] VITALS: BP 172/67; PULSE 73; RESP 13; TEMP 36.2
--- NOTE | 2022-07-26 23:44 | PC.NURSE ---
Pt soiled with urine. Pt given kimmie care and purewick system applied. Pt given warm blankets and call perez placed in reach
--- NOTE | 2022-07-26 23:59 | PC.NURSE ---
lab called and stated the lactic acid that was draw at 1617 was collected sent to the lab but the lab did not enter the spec as received. lab called and stated it needs to be recollected, dr olivares made aware and a recollect being done at this time.
[2022-07-27 00:27] LABS: Lactic Acid 0.6 mmol/L (0.5-2.0)
[2022-07-27] MEDS: 0.9 % Sodium Chloride 1,000 ML 100 ML IVCONT ×3 (01:45→23:22)
[2022-07-27] MEDS: Heparin Sodium,Porcine 5,000 UNIT/ML VIAL 5000 UNIT SUBCUT (04:23)
[2022-07-27 05:24] VITALS: BP 142/61; PULSE 82; RESP 13; TEMP 36.5; O2SAT 97
[2022-07-27 07:33] VITALS: BP 150/58; PULSE 85; RESP 14; TEMP 36.4; O2SAT 98
[2022-07-27 08:55] LABS: Blood Urea Nitrogen 72 mg/dL (9-16); Calcium 7.7 mg/dL (8.4-10.2); Creatinine Clr Calc Pharmacy 12.9; Estimated Glomerular Filt Rate 11; Glucose Random 188 mg/dL (60-115)
[2022-07-27 09:07] LABS: Anion Gap 21 (12-20); Carbon Dioxide 11 mmol/L (22-29); Chloride 109 mmol/L (96-108); Potassium 5.2 mmol/L (3.3-5.1); Sodium 136 mmol/L (135-145)
[2022-07-27] MEDS: Metoprolol Tartrate 100 MG TABLET PO ×2 (09:12→20:35)
[2022-07-27] MEDS: Aspirin Enteric Coated 81 MG TABLET.DR PO (09:12)
[2022-07-27] MEDS: Atorvastatin Calcium 80 MG TABLET PO (09:12)
[2022-07-27] MEDS: hydrALAZINE HCl 50 MG TABLET 100 MG PO ×3 (09:12→20:35)
[2022-07-27] MEDS: Ascorbic Acid 500 MG TABLET PO ×2 (09:12→20:35)
[2022-07-27] MEDS: Escitalopram Oxalate 10 MG TABLET PO (09:12)
[2022-07-27] MEDS: Cholecalciferol (Vitamin D3) 25 MCG TABLET PO (09:12)
[2022-07-27] MEDS: amLODIPine Besylate 5 MG TABLET PO (09:12)
--- NOTE | 2022-07-27 09:41 | P.PNIM_ITS ---
Subjective Subjective Date of Service: 07/27/22 Interval History: f/u on metabolic encephalopathy d/t uti and peg interval history: now lucid, no other coplaint Review of Systems Gen: no fever Resp: no sob, no cough CV: no chest, no MOYA, no leg edema GI: No n/v, no abd pain Neuro: No confusion Physical Exam Vital Signs: Vital Signs: Last Vital Signs Temp 97.5 F 07/27/22 07:33 Pulse 85 07/27/22 07:33 Resp 14 07/27/22 07:33 BP 150/58 H 07/27/22 07:33 Pulse Ox 98 07/27/22 07:33 O2 Del Method 07/27/22 07:33 BMI result Body Mass Index 40.8 Const: Other: General: AO X 3, no acute distress Resp: CTA bilateral CVS: S1,S2,RRR GI: +BS, NT, no distention Skin: No rash Neuro: motor grossly intact Psych: appropriate affect Objective Data Active Medications Acetaminophen (Acetaminophen 325 Mg Tablet) 650 mg PO Q6H PRN PRN Reason: Pain, Mild (Pain Scale 1-3) Acetaminophen/Butalbital/Caffeine (Butalb/Acetamin/Caff 50/325/40 Tablet) 1 tab PO Q8H PRN PRN Reason: Migraine Headache Amitriptyline HCl (Amitriptyline Hcl 25 Mg Tablet) 25 mg PO BEDTIME [facility] Amlodipine Besylate (Amlodipine Besylate 5 Mg Tablet) 5 mg PO DAILY [facility]; Protocol Last Admin: 07/27/22 09:12 Dose: 5 mg Documented By: DEMIAN Apixaban (Apixaban 2.5 Mg Tablet) 2.5 mg PO BID [facility] Artificial Tears (Artificial Tears 15 Ml Drops) 1 drop EYE-BOTH BID [facility] Last Admin: 07/27/22 09:13 Dose: Not Given Documented By: DEMIAN Non-Admin Reason: Med Not Available Ascorbic Acid (Ascorbic Acid 500 Mg Tablet) 500 mg PO BID [facility] Last Admin: 07/27/22 09:12 Dose: 500 mg Documented By: DEMIAN Aspirin (Aspirin Enteric Coated 81 Mg Tablet.) 81 mg PO DAILY [facility] Last Admin: 07/27/22 09:12 Dose: 81 mg Documented By: DEMIAN Atorvastatin Calcium (Atorvastatin Calcium 80 Mg Tablet) 80 mg PO DAILY [facility] Last Admin: 07/27/22 09:12 Dose: 80 mg Documented By: DEMIAN Baclofen (Baclofen 10 Mg Tablet) 5 mg PO BEDTIME [facility] Docusate Sodium (Docusate Sodium 100 Mg Capsule) 100 mg PO Q24H PRN PRN Reason: Constipation Escitalopram Oxalate (Escitalopram Oxalate 10 Mg Tablet) 10 mg PO DAILY [facility] Last Admin: 07/27/22 09:12 Dose: 10 mg Documented By: DEMIAN Hydralazine HCl (Hydralazine Hcl 50 Mg Tablet) 100 mg PO TID [facility]; Protocol Last Admin: 07/27/22 09:12 Dose: 100 mg Documented By: DEMIAN Hydrocortisone (Hydrocortisone 1 % Cream 28.35 Gm Tube) 1 appl TOPICAL BID PRN; Protocol PRN Reason: Hemorrhoids Sodium Chloride (Ns) 1,000 mls @ 100 mls/hr IVCONT .Q10H [facility] Last Admin: 07/27/22 01:45 Dose: 100 mls/hr Documented By: DIVYA Ceftriaxone Sodium 1 gm/ (Sodium Chloride) 50 mls @ 100 mls/hr IV Q24H [facility] Insulin Glargine (Insulin Glargine,Hum.Rec.Anlog 100 Unit/Ml 10 Ml Vial) 7 unit SUBCUT BEDTIME [facility] Levothyroxine Sodium (Levothyroxine Sodium 150 Mcg Tablet) 300 mcg PO DAILY@0600 [facility] Loperamide HCl (Loperamide Hcl 2 Mg Capsule) 2 mg PO Q4H PRN PRN Reason: Diarrhea Metoprolol Tartrate (Metoprolol Tartrate 100 Mg Tablet) 100 mg PO BID [facility]; Protocol Last Admin: 07/27/22 09:12 Dose: 100 mg Documented By: DEMIAN Omeprazole (Omeprazole 20 Mg Capsule.) 20 mg PO BID@0630,1630 [facility] Ondansetron HCl (Ondansetron Hcl 4 Mg/2 Ml Vial) 4 mg IVPUSH Q8H PRN PRN Reason: Nausea and Vomiting Pharmacy Consult (Consult Rx Perform Med Rec) 1 each MISCELLANE ONCE PRN PRN Reason: Consult order Polyethylene Glycol (Polyethylene Glycol 3350 17 Gm Powd.Pack) 17 gm PO DAILY PRN PRN Reason: Constipation Senna (Sennosides 8.6 Mg Tablet) 17.2 mg PO BEDTIME PRN PRN Reason: Constipation Sodium Chloride (0.9 % Sodium Chloride Flush 3 Ml Syringe) 3 ml IVFLUSH QSHIFT [facility] Last Admin: 07/27/22 06:46 Dose: Not Given Documented By: DEMIAN Non-Admin Reason: Med Not Available Vitamin D (Cholecalciferol (Vitamin D3) 25 Mcg Tablet) 25 mcg PO DAILY [facility] Last Admin: 07/27/22 09:12 Dose: 25 mcg Documented By: DEMIAN Labs CBC & Chem 7: 07/26/22 13:56 07/27/22 08:33 Labs: Laboratory Results - last 24 hr 07/26/22 07/26/22 07/26/22 13:56 13:56 13:57 MCV 94.5 MCH 31.5 MCHC 33.3 RDW 14.6 Plt Count 181 MPV 9.8 Immature Gran % (Auto) 0.6 H Neut % (Auto) 71.4 Lymph % (Auto) 21.7 [place] % (Auto) 4.6 Eos % (Auto) 1.1 Baso % (Auto) 0.6 Lymph # (Auto) 1.5 [place] # (Auto) 0.3 Eos # (Auto) 0.1 Baso # (Auto) 0.0 Abs Immat Gran (auto) 0.04 H Absolute Neuts (auto) 5.0 Absolute Nucleated RBC 0.000 Nucleated RBC % (auto) 0.0 Anion Gap 18 Estim Creat Clear Calc 12.2 Estimated GFR 11 Random Glucose 89 Lactic Acid Calcium 7.9 L Total Bilirubin 0.3 Direct Bilirubin 0.2 AST 22 D ALT 28 Alkaline Phosphatase 156 H D Total Protein 6.5 Albumin 2.8 L Lipase 14 Urine Color Urine Appearance Urine pH Ur Specific Elsie Urine Protein Urine Glucose (UA) Urine Ketones Urine Blood Urine Nitrite Ur Leukocyte Esterase Urine RBC Urine WBC Ur Squamous Epith Cells Urine Bacteria Hyaline Casts COVID-19 (LUCIO) Negative COVID-19 Clin Com See Note 07/26/22 07/27/22 07/27/22 14:26 00:09 08:33 MCV MCH MCHC RDW Plt Count MPV Immature Gran % (Auto) Neut % (Auto) Lymph % (Auto) [place] % (Auto) Eos % (Auto) Baso % (Auto) Lymph # (Auto) [place] # (Auto) Eos # (Auto) Baso # (Auto) Abs Immat Gran (auto) Absolute Neuts (auto) Absolute Nucleated RBC Nucleated RBC % (auto) Anion Gap 21 H Estim Creat Clear Calc 12.9 Estimated GFR 11 Random Glucose 188 H Lactic Acid 0.6 Calcium 7.7 L Total Bilirubin Direct Bilirubin AST ALT Alkaline Phosphatase Total Protein Albumin Lipase Urine Color Other A Urine Appearance Cloudy Urine pH 6.0 Ur Specific Elsie 1.025 Urine Protein 300 (3+) H Urine Glucose (UA) Negative Urine Ketones Trace Urine Blood Large (3+) H Urine Nitrite Positive H Ur Leukocyte Esterase Large (3+) H Urine RBC 6-10 H Urine WBC >50 Ur Squamous Epith Cells >20 Urine Bacteria 4+ Hyaline Casts 0-2 COVID-19 (LUCIO) COVID-19 Clin Com Microbiology Microbiology Results: Microbiology 07/26/22 14:44 Urine Culture - Preliminary Urine Catheterized - Straight Catheter Culture in progress. Assessment and Plan (1) Toxic metabolic encephalopathy: Status: Acute (2) UTI (urinary tract infection): Status: Acute Plan 71 female with multiple chronic medical issues here with left leg pain and hyperkalemia Left leg pain, no DVT--appearance of the limb is that of chronic arterial insuficiency and her pain is likely from claudication -Pain control and Vascular consult Acute toxic metabolic encephalopathy-likely from UTI, now lucid UTI--Ceftriaxone D2, change to PO Ceftin tomorrow, culture pending PEG on CKD 4--improving with hydration Anemia of chronic disease--monitor Diabetes--Insulin Hypothyroidsim--levothyroxine, DVT prophylaxis; heparin need for inaptient: managment of encephalopathy d/t uti, PEG ? 2 midnights for treatment of encephalopathy, PEG on CKD Quality Stroke Does the patient have a stroke diagnosis?: No VTE Prior VTE?: No VTE Risk Level:: Medical - moderate - high VTE Device Contraindication: Treatment Not Tolerated VTE Drug Contraindication: N/A - Med Ordered
[2022-07-27 13:52] VITALS: BP 143/54; PULSE 71; RESP 15; TEMP 36.6; O2SAT 96
--- NOTE | 2022-07-27 15:34 | MHC.CM.PN ---
Addendum entered by Sraah Johnson 07/27/22 16:14: CM CALLED PTS BROTHER/HCP, JIN [phone] AND REVIEWED PTS MEDICARE RIGHTS HE ASKS THAT THE PTS RIGHTS BE LEFT BEDSIDE HE CONFIRMS THE DC PLAN IS TO RETURN TO [facility] ALSO CONFIRMS PT IS BED BOUND AND COVID VAX X 3 Original Note: PT FROM [facility] SHE WILL RETURN WHEN DCD
[2022-07-27] MEDS: cefTRIAXone sodium 1 GM in 0.9 % Sodium Chloride 50 ML IV (16:12)
[2022-07-27] MEDS: Omeprazole 20 MG CAPSULE.DR PO (16:12)
[2022-07-27 18:14] VITALS: BP 175/72; PULSE 71; RESP 15; TEMP 36.4; O2SAT 99
[2022-07-27 18:23] LABS: Glucose, Whole Blood 224 mg/dL (60-115)
[2022-07-27] MEDS: 0.9 % Sodium Chloride Flush 3 ML SYRINGE IVFLUSH (20:34)
[2022-07-27] MEDS: Acetaminophen 325 MG TABLET 650 MG PO (20:35)
[2022-07-27] MEDS: Amitriptyline HCl 25 MG TABLET PO (20:35)
[2022-07-27] MEDS: Apixaban 2.5 MG TABLET PO (20:35)
[2022-07-27] MEDS: Insulin Lispro 100 UNIT/ML 3 ML VIAL SUBCUT (20:37)
[2022-07-27] MEDS: Insulin Glargine,Hum.rec.anlog 100 UNIT/ML 10 ML VIAL 7 UNIT SUBCUT (20:37)
[2022-07-27] MEDS: Baclofen 10 MG TABLET 5 MG PO (20:38)
[2022-07-27 23:46] VITALS: BP 179/79; PULSE 66; RESP 18; TEMP 36.4; O2SAT 98
[2022-07-28 00:39] VITALS: BP 172/69
[2022-07-28] MEDS: 0.9 % Sodium Chloride 1,000 ML 100 ML IVCONT ×2 (03:55→14:51)
[2022-07-28 04:16] VITALS: BP 170/60; PULSE 68; RESP 18; TEMP 36.6; O2SAT 98
[2022-07-28] MEDS: Levothyroxine Sodium 150 MCG TABLET 300 MCG PO (06:03)
[2022-07-28] MEDS: Omeprazole 20 MG CAPSULE.DR PO ×2 (06:03→17:07)
[2022-07-28 07:32] LABS: Blood Urea Nitrogen 64 mg/dL (9-16); Calcium 7.7 mg/dL (8.4-10.2); Creatinine Clr Calc Pharmacy 14.9; Estimated Glomerular Filt Rate 14; Glucose Random 152 mg/dL (60-115)
[2022-07-28 07:40] VITALS: BP 171/74; PULSE 72; RESP 18; TEMP 36.6; O2SAT 98
[2022-07-28 07:45] LABS: Anion Gap 14 (12-20); Carbon Dioxide 18 mmol/L (22-29); Chloride 110 mmol/L (96-108); Potassium 3.9 mmol/L (3.3-5.1); Sodium 138 mmol/L (135-145)
[2022-07-28 07:48] LABS: Glucose, Whole Blood 159 mg/dL (60-115)
[2022-07-28] MEDS: Insulin Lispro 100 UNIT/ML 3 ML VIAL SUBCUT ×4 (08:50→20:43)
[2022-07-28] MEDS: hydrALAZINE HCl 50 MG TABLET 100 MG PO ×3 (08:50→20:43)
[2022-07-28] MEDS: Aspirin Enteric Coated 81 MG TABLET.DR PO (08:51)
[2022-07-28] MEDS: Escitalopram Oxalate 10 MG TABLET PO (08:51)
[2022-07-28] MEDS: Metoprolol Tartrate 100 MG TABLET PO ×2 (08:51→20:42)
[2022-07-28] MEDS: Atorvastatin Calcium 80 MG TABLET PO (08:51)
[2022-07-28] MEDS: Cholecalciferol (Vitamin D3) 25 MCG TABLET PO (08:51)
[2022-07-28] MEDS: Apixaban 2.5 MG TABLET PO ×2 (08:51→20:43)
[2022-07-28] MEDS: amLODIPine Besylate 5 MG TABLET PO (08:51)
[2022-07-28] MEDS: Ascorbic Acid 500 MG TABLET PO ×2 (08:51→20:43)
[2022-07-28] MEDS: Acetaminophen 325 MG TABLET 650 MG PO ×2 (08:57→17:07)
[2022-07-28] MEDS: Butalb/Acetamin/Caff 50/325/40 TABLET 1 TAB PO ×2 (08:58→23:27)
[2022-07-28 11:16] VITALS: BP 149/68; PULSE 62; RESP 18; TEMP 36.2; O2SAT 97
[2022-07-28 11:23] LABS: Glucose, Whole Blood 187 mg/dL (60-115)
[2022-07-28 13:33] VITALS: BMI 40.8
[2022-07-28 15:39] VITALS: BP 159/58; PULSE 76; RESP 18; TEMP 36.5; O2SAT 97
[2022-07-28 15:44] LABS: Glucose, Whole Blood 231 mg/dL (60-115)
[2022-07-28] MEDS: cefTRIAXone sodium 1 GM in 0.9 % Sodium Chloride 50 ML IV (17:08)
[2022-07-28 19:51] LABS: Glucose, Whole Blood 200 mg/dL (60-115)
[2022-07-28 20:00] VITALS: BP 165/71; PULSE 76; RESP 17; TEMP 36.2; O2SAT 96
[2022-07-28] MEDS: Baclofen 10 MG TABLET 5 MG PO (20:41)
[2022-07-28] MEDS: 0.9 % Sodium Chloride Flush 3 ML SYRINGE IVFLUSH (20:43)
[2022-07-28] MEDS: Amitriptyline HCl 25 MG TABLET PO (20:43)
[2022-07-28] MEDS: Insulin Glargine,Hum.rec.anlog 100 UNIT/ML 10 ML VIAL 7 UNIT SUBCUT (20:44)
[2022-07-28] MEDS: Artificial Tears 15 ML DROPS 1 DROP EYE-BOTH (23:27)
[2022-07-29] VITALS: BP 134/64; PULSE 69; RESP 17; TEMP 36.4; O2SAT 97
[2022-07-29 04:00] VITALS: BP 130/65; PULSE 75; RESP 17; TEMP 36.6; O2SAT 97
[2022-07-29] MEDS: Levothyroxine Sodium 150 MCG TABLET 300 MCG PO (05:42)
[2022-07-29] MEDS: Omeprazole 20 MG CAPSULE.DR PO ×2 (05:43→15:29)
[2022-07-29 07:16] VITALS: BP 179/81; PULSE 74; RESP 18; TEMP 36.6; O2SAT 100
[2022-07-29 07:43] LABS: Glucose, Whole Blood 125 mg/dL (60-115)
--- NOTE | 2022-07-29 07:50 | P.PNIM_ITS ---
Subjective Subjective Date of Service: 07/30/22 Interval History: f/u on metabolic encephalopathy d/t uti and peg interval history: continues to be lucid, no new issues Review of Systems Gen: no fever Resp: no sob, no cough CV: no chest, no MOYA, no leg edema GI: No n/v, no abd pain Neuro: No confusion Physical Exam Vital Signs: Vital Signs: Last Vital Signs Temp 97.8 F 07/29/22 07:16 Pulse 74 07/29/22 07:16 Resp 18 07/29/22 07:16 BP 179/81 H 07/29/22 07:16 Pulse Ox 100 07/29/22 07:16 O2 Del Method 07/29/22 07:16 BMI result Body Mass Index 40.8 Const: Other: General: AO X 3, no acute distress Resp: CTA bilateral CVS: S1,S2,RRR GI: +BS, NT, no distention Skin: No rash Neuro: motor grossly intact Psych: appropriate affect Objective Data Active Medications Acetaminophen (Acetaminophen 325 Mg Tablet) 650 mg PO Q6H PRN PRN Reason: Pain, Mild (Pain Scale 1-3) Last Admin: 07/28/22 17:07 Dose: 650 mg Documented By: WILLEM Acetaminophen/Butalbital/Caffeine (Butalb/Acetamin/Caff 50/325/40 Tablet) 1 tab PO Q8H PRN PRN Reason: Migraine Headache Last Admin: 07/28/22 23:27 Dose: 1 tab Documented By: BON Amitriptyline HCl (Amitriptyline Hcl 25 Mg Tablet) 25 mg PO BEDTIME [facility] Last Admin: 07/28/22 20:43 Dose: 25 mg Documented By: BON Amlodipine Besylate (Amlodipine Besylate 5 Mg Tablet) 5 mg PO DAILY [facility]; Protocol Last Admin: 07/28/22 08:51 Dose: 5 mg Documented By: WILLEM Apixaban (Apixaban 2.5 Mg Tablet) 2.5 mg PO BID [facility] Last Admin: 07/28/22 20:43 Dose: 2.5 mg Documented By: BON Artificial Tears (Artificial Tears 15 Ml Drops) 1 drop EYE-BOTH BID [facility] Last Admin: 07/28/22 23:27 Dose: 1 drop Documented By: BON Ascorbic Acid (Ascorbic Acid 500 Mg Tablet) 500 mg PO BID [facility] Last Admin: 07/28/22 20:43 Dose: 500 mg Documented By: BON Aspirin (Aspirin Enteric Coated 81 Mg Tablet.Dr) 81 mg PO DAILY [facility] Last Admin: 07/28/22 08:51 Dose: 81 mg Documented By: WILLEM Atorvastatin Calcium (Atorvastatin Calcium 80 Mg Tablet) 80 mg PO DAILY [facility] Last Admin: 07/28/22 08:51 Dose: 80 mg Documented By: WILLEM Baclofen (Baclofen 10 Mg Tablet) 5 mg PO BEDTIME [facility] Last Admin: 07/28/22 20:41 Dose: 5 mg Documented By: BON Comments: Docusate Sodium (Docusate Sodium 100 Mg Capsule) 100 mg PO Q24H PRN PRN Reason: Constipation Escitalopram Oxalate (Escitalopram Oxalate 10 Mg Tablet) 10 mg PO DAILY [facility] Last Admin: 07/28/22 08:51 Dose: 10 mg Documented By: WILLEM Hydralazine HCl (Hydralazine Hcl 50 Mg Tablet) 100 mg PO TID [facility]; Protocol Last Admin: 07/28/22 20:43 Dose: 100 mg Documented By: BON Hydrocortisone (Hydrocortisone 1 % Cream 28.35 Gm Tube) 1 appl TOPICAL BID PRN; Protocol PRN Reason: Hemorrhoids Ceftriaxone Sodium 1 gm/ (Sodium Chloride) 50 mls @ 100 mls/hr IV Q24H [facility] Last Infusion: 07/28/22 17:45 Dose: 0 mls/hr Documented By: WILLEM Insulin Glargine (Insulin Glargine,Hum.Rec.Anlog 100 Unit/Ml 10 Ml Vial) 7 unit SUBCUT BEDTIME [facility] Last Admin: 07/28/22 20:44 Dose: 7 unit Documented By: BON Insulin Human Lispro (Insulin Lispro 100 Unit/Ml 3 Ml Vial) 0 unit SUBCUT QIDACHS [facility]; Protocol Last Admin: 07/28/22 20:43 Dose: 4 unit Documented By: BON Levothyroxine Sodium (Levothyroxine Sodium 150 Mcg Tablet) 300 mcg PO DAILY@0600 [facility] Last Admin: 07/29/22 05:42 Dose: 300 mcg Documented By: BON Loperamide HCl (Loperamide Hcl 2 Mg Capsule) 2 mg PO Q4H PRN PRN Reason: Diarrhea Metoprolol Tartrate (Metoprolol Tartrate 100 Mg Tablet) 100 mg PO BID [facility]; Protocol Last Admin: 07/28/22 20:42 Dose: 100 mg Documented By: BON Omeprazole (Omeprazole 20 Mg Capsule.) 20 mg PO BID@0630,1630 [facility] Last Admin: 07/29/22 05:43 Dose: 20 mg Documented By: BON Ondansetron HCl (Ondansetron Hcl 4 Mg/2 Ml Vial) 4 mg IVPUSH Q8H PRN PRN Reason: Nausea and Vomiting Pharmacy Consult (Consult Rx Perform Med Rec) 1 each MISCELLANE ONCE PRN PRN Reason: Consult order Polyethylene Glycol (Polyethylene Glycol 3350 17 Gm Powd.Pack) 17 gm PO DAILY PRN PRN Reason: Constipation Senna (Sennosides 8.6 Mg Tablet) 17.2 mg PO BEDTIME PRN PRN Reason: Constipation Sodium Chloride (0.9 % Sodium Chloride Flush 3 Ml Syringe) 3 ml IVFLUSH QSHIFT [facility] Last Admin: 07/28/22 20:43 Dose: 3 ml Documented By: BON Vitamin D (Cholecalciferol (Vitamin D3) 25 Mcg Tablet) 25 mcg PO DAILY [facility] Last Admin: 07/28/22 08:51 Dose: 25 mcg Documented By: WILLEM Labs CBC & Chem 7: 07/26/22 13:56 07/28/22 06:54 Labs: Laboratory Results - last 24 hr 07/28/22 07/28/22 07/28/22 11:15 15:26 19:41 POC Glucose 187 H 231 H 200 H 07/29/22 07:18 POC Glucose 125 H Microbiology Microbiology Results: Microbiology 07/26/22 14:44 Urine Culture - Preliminary Urine Catheterized - Straight Catheter Klebsiella pneumoniae Enterobacter cloacae complex 07/26/22 16:43 Blood Culture - Preliminary Blood - Venous No growth after 48 hours. 07/26/22 16:41 Blood Culture - Preliminary Blood - Venous No growth after 48 hours. Assessment and Plan (1) Toxic metabolic encephalopathy: Status: Acute (2) UTI (urinary tract infection): Status: Acute Plan 71 female with multiple chronic medical issues here with left leg pain and hyperkalemia Left leg pain, no DVT--appearance of the limb is that of chronic arterial insuficiency and her pain is likely from claudication -Pain control and Vascular consult Acute toxic metabolic encephalopathy-likely from UTI, now lucid Urine culture showing UTI--Ceftriaxone D3, Urine Culture Preliminary 07/29/22-32 Organism 1 Klebsiella pneumoniae Quant > 100,000 cfu/mL Organism 2 Enterobacter cloacae complex Quant > 100,000 cfu/mL Ent yimi cp M.I.C. RX --------- --- Ertapenem <=0.12 S Gentamicin <=1 S Levofloxacin >=8 R Nitrofurantoin 128 R Trimethoprim/Sulfamethoxazole >=320 R Enteroccus has been identied in the past before and likely colonization Ceftiraxone should cover Klebsiela and change to Ceftin at discharge. Will discuss with ID PEG on CKD 4--improved to baseline Anemia of chronic disease--monitor Diabetes--Insulin Hypothyroidsim--levothyroxine, DVT prophylaxis; heparin need for inaptient: managment of encephalopathy d/t uti, PEG ? 2 midnights for treatment of encephalopathy, PEG on CKD Likely dischrge today Quality Stroke Does the patient have a stroke diagnosis?: No VTE Prior VTE?: No VTE Risk Level:: Medical - moderate - high VTE Device Contraindication: Treatment Not Tolerated VTE Drug Contraindication: N/A - Med Ordered
[2022-07-29] MEDS: Apixaban 2.5 MG TABLET PO ×2 (08:40→21:21)
[2022-07-29] MEDS: Metoprolol Tartrate 100 MG TABLET PO ×2 (08:40→21:22)
[2022-07-29] MEDS: Butalb/Acetamin/Caff 50/325/40 TABLET 1 TAB PO (08:40)
[2022-07-29] MEDS: Cholecalciferol (Vitamin D3) 25 MCG TABLET PO (08:40)
[2022-07-29] MEDS: amLODIPine Besylate 5 MG TABLET PO (08:40)
[2022-07-29] MEDS: Ascorbic Acid 500 MG TABLET PO ×2 (08:40→21:22)
[2022-07-29] MEDS: Escitalopram Oxalate 10 MG TABLET PO (08:40)
[2022-07-29] MEDS: Aspirin Enteric Coated 81 MG TABLET.DR PO (08:40)
[2022-07-29] MEDS: Atorvastatin Calcium 80 MG TABLET PO (08:40)
[2022-07-29] MEDS: hydrALAZINE HCl 50 MG TABLET 100 MG PO ×3 (08:40→21:22)
[2022-07-29] MEDS: 0.9 % Sodium Chloride Flush 3 ML SYRINGE IVFLUSH ×3 (08:40→21:32)
--- NOTE | 2022-07-29 09:34 | P.CDIC_ITS ---
CDI Concurrent Query Documentation Clarification: PHYSICIAN'S DOCUMENTATION REQUEST Date of Query: 07/29/22 0934 Patient Name: Zari Rg Admit Date: 07/26/22 Dear Doctor, A review of the medical record indicates additional documentation may be needed. Please review below and update the documentation accordingly. Clinical Indicators: Risk Factors/Clinical Indicators/Treatments Clinical Nutrition notes 07/28 - Extreme obesity class III Adjusted BMI to 43.1 4' 10 in height If possible, please provide an associated diagnosis related to the abnormal BMI, such as: For a BMI >= 40: * Overweight * Obesity * Due to excess calories * Drug induced * Due to other cause * Severe or Morbid Obesity * With alveolar hypoventilation * Without alveolar hypoventilation Use of terms such as suspected, likely, concern for, or probable (associated w ith a specific diagnosis that is being evaluated, monitored, or treated as if it exists) are acceptable and can be coded in the inpatient setting, when documented at the time of discharge. Thank you, Shanique eBe [facility], CDIS Extension: [phone] Please use your independent medical judgment in providing your response. THIS QUERY IS PART OF THE PERMANENT MEDICAL RECORD Provider Response: Morbid Obesity Other Diagnosis: morbidid obesity
--- NOTE | 2022-07-29 09:34 | MHC.CDI.CONC ---
CDI Concurrent Query Documentation Clarification: PHYSICIAN'S DOCUMENTATION REQUEST Date of Query: 07/29/22 0934 Patient Name: Zari Rg Admit Date: 07/26/22 Dear Doctor, A review of the medical record indicates additional documentation may be needed. Please review below and update the documentation accordingly. Clinical Indicators: Risk Factors/Clinical Indicators/Treatments Clinical Nutrition notes 07/28 - Extreme obesity class III Adjusted BMI to 43.1 4' 10 in height If possible, please provide an associated diagnosis related to the abnormal BMI, such as: For a BMI >= 40: Overweight Obesity Due to excess calories Drug induced Due to other cause Severe or Morbid Obesity With alveolar hypoventilation Without alveolar hypoventilation Use of terms such as suspected, likely, concern for, or probable (associated with a specific diagnosis that is being evaluated, monitored, or treated as if it exists) are acceptable and can be coded in the inpatient setting, when documented at the time of discharge. Thank you, Shanique Bee [facility], CDIS Extension: [phone] Please use your independent medical judgment in providing your response. THIS QUERY IS PART OF THE PERMANENT MEDICAL RECORD Provider Response: Morbid Obesity Other Diagnosis: morbidid obesity
[2022-07-29 11:09] VITALS: BP 167/73; PULSE 68; RESP 18; TEMP 36.1; O2SAT 98
[2022-07-29 11:22] LABS: Glucose, Whole Blood 228 mg/dL (60-115)
[2022-07-29] MEDS: Insulin Lispro 100 UNIT/ML 3 ML VIAL SUBCUT (11:30)
--- NOTE | 2022-07-29 13:49 | W.PM.IDCN ---
History of Present Illness Data of Consult Service Date: 07/29/22 Requesting physician: Guillermo Sierra Primary Care Provider: Bailey Joya MD HPI Reason for consult: encephalopathy probable UTI She presents with confusion acutely. She has Klebsiella urine with sensitivity to Ertapenem and Gentamicin. She is not able to provide much history. 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 GERD (gastroesophageal reflux disease) History of venous thromboembolism Hypothyroidism Insulin dependent type 2 diabetes mellitus PVD (peripheral vascular disease) Squamous cell carcinoma of left upper extremity TIA (transient ischemic attack) Uncontrolled hypertension Family History Family history: reviewed and not pertinent Surgical History Surgical History History of thyroidectomy S/P below knee amputation Social History Social History Household Members: Other Housing: Assisted Living Facility Do you presently have visiting nurse or other home services: Yes Unable to assess alcohol history related to: Unable to respond Alcohol intake: never Patient Tobacco Use Status: Former Tobacco user Advance Directives Date on File: 06/10/22 service: No Current occupational status: disabled Meds Allergies Allergy/AdvReac Type Severity Reaction Status Date / Time codeine [CODEINE] Allergy Unknown UNKNOWN Verified 04/10/22 09:48 morphine [MORPHINE] Allergy Unknown UNKNOWN, Verified 04/10/22 09:48 anaphylaxis adhesive tape Allergy Unknown Verified 04/10/22 09:48 clarithromycin Allergy Unknown Verified 04/10/22 09:48 clonidine [From Catapres] Allergy Unknown Verified 04/10/22 09:48 lactose Allergy Unknown Verified 04/10/22 09:48 latex Allergy Unknown Verified 04/10/22 09:48 Active Medications: Current Medications Acetaminophen (Acetaminophen 325 Mg Tablet) 650 mg PO Q6H PRN PRN Reason: Pain, Mild (Pain Scale 1-3) Last Admin: 07/28/22 17:07 Dose: 650 mg Acetaminophen/Butalbital/Caffeine (Butalb/Acetamin/Caff 50/325/40 Tablet) 1 tab PO Q8H PRN PRN Reason: Migraine Headache Last Admin: 07/29/22 08:40 Dose: 1 tab Amitriptyline HCl (Amitriptyline Hcl 25 Mg Tablet) 25 mg PO BEDTIME [facility] Last Admin: 07/28/22 20:43 Dose: 25 mg Amlodipine Besylate (Amlodipine Besylate 5 Mg Tablet) 5 mg PO DAILY [facility]; Protocol Last Admin: 07/29/22 08:40 Dose: 5 mg Apixaban (Apixaban 2.5 Mg Tablet) 2.5 mg PO BID [facility] Last Admin: 07/29/22 08:40 Dose: 2.5 mg Artificial Tears (Artificial Tears 15 Ml Drops) 1 drop EYE-BOTH BID [facility] Last Admin: 07/29/22 07:58 Dose: Not Given Ascorbic Acid (Ascorbic Acid 500 Mg Tablet) 500 mg PO BID [facility] Last Admin: 07/29/22 08:40 Dose: 500 mg Aspirin (Aspirin Enteric Coated 81 Mg Tablet.Dr) 81 mg PO DAILY [facility] Last Admin: 07/29/22 08:40 Dose: 81 mg Atorvastatin Calcium (Atorvastatin Calcium 80 Mg Tablet) 80 mg PO DAILY [facility] Last Admin: 07/29/22 08:40 Dose: 80 mg Baclofen (Baclofen 10 Mg Tablet) 5 mg PO BEDTIME [facility] Last Admin: 07/28/22 20:41 Dose: 5 mg Docusate Sodium (Docusate Sodium 100 Mg Capsule) 100 mg PO Q24H PRN PRN Reason: Constipation Escitalopram Oxalate (Escitalopram Oxalate 10 Mg Tablet) 10 mg PO DAILY [facility] Last Admin: 07/29/22 08:40 Dose: 10 mg Hydralazine HCl (Hydralazine Hcl 50 Mg Tablet) 100 mg PO TID [facility]; Protocol Last Admin: 07/29/22 08:40 Dose: 100 mg Hydrocortisone (Hydrocortisone 1 % Cream 28.35 Gm Tube) 1 appl TOPICAL BID PRN; Protocol PRN Reason: Hemorrhoids Ceftriaxone Sodium 1 gm/ (Sodium Chloride) 50 mls @ 100 mls/hr IV Q24H [facility] Last Infusion: 07/28/22 17:45 Dose: Infused Insulin Glargine (Insulin Glargine,Hum.Rec.Anlog 100 Unit/Ml 10 Ml Vial) 7 unit SUBCUT BEDTIME [facility] Last Admin: 07/28/22 20:44 Dose: 7 unit Insulin Human Lispro (Insulin Lispro 100 Unit/Ml 3 Ml Vial) 0 unit SUBCUT QIDACHS [facility]; Protocol Last Admin: 07/29/22 11:30 Dose: 4 unit Levothyroxine Sodium (Levothyroxine Sodium 150 Mcg Tablet) 300 mcg PO DAILY@0600 [facility] Last Admin: 07/29/22 05:42 Dose: 300 mcg Loperamide HCl (Loperamide Hcl 2 Mg Capsule) 2 mg PO Q4H PRN PRN Reason: Diarrhea Metoprolol Tartrate (Metoprolol Tartrate 100 Mg Tablet) 100 mg PO BID [facility]; Protocol Last Admin: 07/29/22 08:40 Dose: 100 mg Omeprazole (Omeprazole 20 Mg Capsule.Dr) 20 mg PO BID@0630,1630 [facility] Last Admin: 07/29/22 05:43 Dose: 20 mg Ondansetron HCl (Ondansetron Hcl 4 Mg/2 Ml Vial) 4 mg IVPUSH Q8H PRN PRN Reason: Nausea and Vomiting Pharmacy Consult (Consult Rx Perform Med Rec) 1 each MISCELLANE ONCE PRN PRN Reason: Consult order Polyethylene Glycol (Polyethylene Glycol 3350 17 Gm Powd.Pack) 17 gm PO DAILY PRN PRN Reason: Constipation Senna (Sennosides 8.6 Mg Tablet) 17.2 mg PO BEDTIME PRN PRN Reason: Constipation Sodium Chloride (0.9 % Sodium Chloride Flush 3 Ml Syringe) 3 ml IVFLUSH QSHIFT [facility] Last Admin: 07/29/22 08:40 Dose: 3 ml Vitamin D (Cholecalciferol (Vitamin D3) 25 Mcg Tablet) 25 mcg PO DAILY [facility] Last Admin: 07/29/22 08:40 Dose: 25 mcg Home Medications Medication Instructions Recorded Confirmed Last Taken Type amitriptyline 25 mg tablet 1 tab PO BEDTIME 02/24/22 07/26/22 Unknown History aspirin 81 mg tablet,delayed 81 mg PO DAILY 02/24/22 07/26/22 Unknown History release atorvastatin 80 mg tablet 1 tab PO DAILY 02/24/22 07/26/22 Unknown History escitalopram oxalate 10 mg tablet 1 tab PO DAILY 02/24/22 07/26/22 Unknown History furosemide 40 mg tablet 1 tab PO DAILY@1400 02/24/22 07/26/22 Unknown History insulin aspart U-100 100 unit/mL 0 sliding scale dose subcut QIDACHS 02/24/22 07/26/22 Unknown History subcutaneous solution (Novolog U-100 Insulin aspart) insulin degludec 100 unit/mL (3 10 unit subcut BEDTIME 02/24/22 07/26/22 Unknown History mL) subcutaneous pen (Tresiba FlexTouch U-100 insulin) metoprolol tartrate 100 mg tablet 1 tab PO BID 02/24/22 07/26/22 Unknown History ondansetron HCl 4 mg tablet 1 tab PO Q8H PRN Nausea 02/24/22 07/26/22 Unknown History oxycodone 5 mg tablet 5 mg PO Q8H PRN Pain 02/24/22 07/26/22 Unknown History pantoprazole 40 mg tablet,delayed 1 tab PO BID@0630,1630 02/24/22 07/26/22 Unknown History release acetaminophen 325 mg tablet 650 mg PO Q8H PRN Pain 04/10/22 07/26/22 Unknown History (Tylenol) baclofen 5 mg tablet 5 mg PO BEDTIME 04/10/22 07/26/22 Unknown History docusate sodium 100 mg tablet 100 mg PO Q24H PRN Constipation 04/10/22 07/26/22 Unknown History hydrocortisone 1 % topical cream 1 appl topical BID PRN Hemorrhoids 06/06/22 07/26/22 Unknown History (Preparation H Hydrocortisone) loperamide 2 mg tablet 2 mg PO Q4H PRN Diarrhea 06/06/22 07/26/22 Unknown History Culturelle 1 cap PO BID 07/26/22 07/26/22 Unknown History amlodipine 5 mg tablet 5 mg PO DAILY 07/26/22 07/26/22 Unknown History apixaban 2.5 mg tablet (Eliquis) 2.5 mg PO BID 07/26/22 07/26/22 Unknown History ascorbic acid (vitamin C) 500 mg 500 mg PO BID 07/26/22 07/26/22 Unknown History tablet butalbital 50 mg-acetaminophen 300 1 cap PO Q8H PRN Migraine Headache 07/26/22 07/26/22 Unknown History mg-caffeine 40 mg-codeine 30 mg cap (Fioricet with Codeine) cholecalciferol (vitamin D3) 25 25 mcg PO DAILY 07/26/22 07/26/22 Unknown History mcg (1,000 unit) tablet cranberry extract 425 mg capsule 850 mg PO DAILY 07/26/22 07/26/22 Unknown History levothyroxine 100 mcg tablet 300 mcg PO DAILY 07/26/22 07/26/22 Unknown History polyethylene glycol 3350 17 17 g PO DAILY PRN Constipation 07/26/22 07/26/22 Unknown History gram/dose oral powder (Miralax) propylene glycol 1 %-glycerin 0.3 1 drp ophthalmic (eye) BID 07/26/22 07/26/22 Unknown History % eye drops (Artificial Tears (glycerin-peg)) Physical Exam Vital Signs: Vital Signs: Last Vital Signs Temp 96.9 F 07/29/22 11:09 Pulse 68 07/29/22 11:09 Resp 18 07/29/22 11:09 BP 167/73 H 07/29/22 11:09 Pulse Ox 98 07/29/22 11:09 O2 Del Method 07/29/22 11:09 BMI result Body Mass Index 40.8 Const: General: cooperative HEENT: Head: Yes normal to inspection Face and sinus: Yes normal facial exam Mouth: Normal oral and palatal mucosa present Teeth and gingiva: dentition normal Eyes: General: appearance normal, both eyes and all related structures Pupils: Equal, round and reactive pupils present Resp: Effort & Inspection: normal respiratory effort Cardio: Rate: regular rate Rhythm: regular rhythm GI: Palpation (GI): Soft to palpation and nontender : General: Yes no CVA tenderness Back/Spine/Pelvis: Back: no CVA tenderness Skin: General skin exam: no rashes or lesions noted Neuro: General: moves all extremities Cranial nerves: Yes Equal, round and reactive pupils present Extrem: Other: right venous stasis,left BKA Psych: Other: slow to answer, slightly encephalopathic Results Labs CBC & Chem 7: 07/26/22 13:56 07/28/22 06:54 Microbiology Microbiology Results: Microbiology 07/26/22 14:44 Urine Catheterized - Straight Catheter Urine Culture - Preliminary Klebsiella pneumoniae Enterobacter cloacae complex 07/26/22 16:43 Blood - Venous Blood Culture - Preliminary No growth after 48 hours. 07/26/22 16:41 Blood - Venous Blood Culture - Preliminary No growth after 48 hours. Assessment and Plan (1) Toxic metabolic encephalopathy: Status: Acute She has probable Klebsiella urine contributory to encephalopathy She has renal failure (2) UTI (urinary tract infection): Status: Acute Plan Seven days IV antibiotics, Merem or Ertapenem as Gentamicin may cause encephalopathy,myopathy.
[2022-07-29 15:21] VITALS: BP 182/58; PULSE 74; RESP 16; TEMP 36.2; O2SAT 97
[2022-07-29] MEDS: Acetaminophen 325 MG TABLET 650 MG PO ×2 (15:29→21:30)
[2022-07-29 16:07] LABS: Glucose, Whole Blood 136 mg/dL (60-115)
[2022-07-29 19:31] VITALS: BP 184/60; PULSE 74; RESP 16; TEMP 36.4; O2SAT 97
[2022-07-29 20:04] LABS: Glucose, Whole Blood 150 mg/dL (60-115)
[2022-07-29] MEDS: Baclofen 10 MG TABLET 5 MG PO (21:22)
[2022-07-29] MEDS: Amitriptyline HCl 25 MG TABLET PO (21:22)
[2022-07-29] MEDS: Insulin Glargine,Hum.rec.anlog 100 UNIT/ML 10 ML VIAL 7 UNIT SUBCUT (21:24)
[2022-07-29] MEDS: Artificial Tears 15 ML DROPS 1 DROP EYE-BOTH (21:28)
[2022-07-30] VITALS (7 sets, daily range): BP systolic 124–174; BP diastolic 54–72; PULSE 68–85; RESP 17–19; TEMP 35.9–36.8; O2SAT 95–99
[2022-07-30] MEDS: Omeprazole 20 MG CAPSULE.DR PO ×2 (06:32→17:06)
[2022-07-30] MEDS: Levothyroxine Sodium 150 MCG TABLET 300 MCG PO (06:32)
[2022-07-30 07:46] LABS: Glucose, Whole Blood 106 mg/dL (60-115)
[2022-07-30] MEDS: Atorvastatin Calcium 80 MG TABLET PO (08:14)
[2022-07-30] MEDS: Escitalopram Oxalate 10 MG TABLET PO (08:14)
[2022-07-30] MEDS: amLODIPine Besylate 5 MG TABLET PO (08:14)
[2022-07-30] MEDS: Ascorbic Acid 500 MG TABLET PO ×2 (08:14→21:35)
[2022-07-30] MEDS: Aspirin Enteric Coated 81 MG TABLET.DR PO (08:15)
[2022-07-30] MEDS: Metoprolol Tartrate 100 MG TABLET PO ×2 (08:15→21:35)
[2022-07-30] MEDS: hydrALAZINE HCl 50 MG TABLET 100 MG PO ×3 (08:15→21:35)
[2022-07-30] MEDS: 0.9 % Sodium Chloride Flush 3 ML SYRINGE IVFLUSH ×3 (08:15→21:36)
[2022-07-30] MEDS: Apixaban 2.5 MG TABLET PO (08:15)
[2022-07-30] MEDS: Cholecalciferol (Vitamin D3) 25 MCG TABLET PO (08:15)
[2022-07-30] MEDS: Artificial Tears 15 ML DROPS 1 DROP EYE-BOTH (08:16)
[2022-07-30 11:16] LABS: Glucose, Whole Blood 326 mg/dL (60-115)
[2022-07-30] MEDS: Insulin Lispro 100 UNIT/ML 3 ML VIAL SUBCUT ×3 (11:40→21:36)
--- NOTE | 2022-07-30 11:46 | P.PNIM_ITS ---
Subjective Subjective Date of Service: 07/30/22 Interval History: f/u on metabolic encephalopathy d/t uti and peg interval history: no new issues, started Review of Systems Gen: no fever Resp: no sob, no cough CV: no chest, no MOYA, no leg edema GI: No n/v, no abd pain Neuro: No confusion Physical Exam Vital Signs: Vital Signs: Last Vital Signs Temp 96.6 F L 07/30/22 10:56 Pulse 68 07/30/22 10:56 Resp 18 07/30/22 10:56 BP 124/54 L 07/30/22 10:56 Pulse Ox 99 07/30/22 10:56 O2 Del Method 07/30/22 10:56 BMI result Body Mass Index 40.8 Const: Other: General: AO X 3, no acute distress Resp: CTA bilateral CVS: S1,S2,RRR GI: +BS, NT, no distention Skin: No rash Neuro: motor grossly intact Psych: appropriate affect Objective Data Active Medications Acetaminophen (Acetaminophen 325 Mg Tablet) 650 mg PO Q6H PRN PRN Reason: Pain, Mild (Pain Scale 1-3) Last Admin: 07/29/22 21:30 Dose: 650 mg Documented By: WAI Acetaminophen/Butalbital/Caffeine (Butalb/Acetamin/Caff 50/325/40 Tablet) 1 tab PO Q8H PRN PRN Reason: Migraine Headache Last Admin: 07/29/22 08:40 Dose: 1 tab Documented By: WILLEM Amitriptyline HCl (Amitriptyline Hcl 25 Mg Tablet) 25 mg PO BEDTIME [facility] Last Admin: 07/29/22 21:22 Dose: 25 mg Documented By: WAI Amlodipine Besylate (Amlodipine Besylate 5 Mg Tablet) 5 mg PO DAILY [facility]; Protocol Last Admin: 07/30/22 08:14 Dose: 5 mg Documented By: SAUNDRA Apixaban (Apixaban 2.5 Mg Tablet) 2.5 mg PO BID [facility] Last Admin: 07/30/22 08:15 Dose: 2.5 mg Documented By: SAUNDRA Artificial Tears (Artificial Tears 15 Ml Drops) 1 drop EYE-BOTH BID [facility] Last Admin: 07/30/22 08:16 Dose: 1 drop Documented By: SAUNDRA Ascorbic Acid (Ascorbic Acid 500 Mg Tablet) 500 mg PO BID [facility] Last Admin: 07/30/22 08:14 Dose: 500 mg Documented By: SAUNDRA Aspirin (Aspirin Enteric Coated 81 Mg Tablet.Dr) 81 mg PO DAILY [facility] Last Admin: 07/30/22 08:15 Dose: 81 mg Documented By: SAUNDRA Atorvastatin Calcium (Atorvastatin Calcium 80 Mg Tablet) 80 mg PO DAILY [facility] Last Admin: 07/30/22 08:14 Dose: 80 mg Documented By: SAUNDRA Baclofen (Baclofen 10 Mg Tablet) 5 mg PO BEDTIME [facility] Last Admin: 07/29/22 21:22 Dose: 5 mg Documented By: WAI Docusate Sodium (Docusate Sodium 100 Mg Capsule) 100 mg PO Q24H PRN PRN Reason: Constipation Escitalopram Oxalate (Escitalopram Oxalate 10 Mg Tablet) 10 mg PO DAILY [facility] Last Admin: 07/30/22 08:14 Dose: 10 mg Documented By: SAUNDRA Hydralazine HCl (Hydralazine Hcl 50 Mg Tablet) 100 mg PO TID [facility]; Protocol Last Admin: 07/30/22 08:15 Dose: 100 mg Documented By: SAUNDRA Hydrocortisone (Hydrocortisone 1 % Cream 28.35 Gm Tube) 1 appl TOPICAL BID PRN; Protocol PRN Reason: Hemorrhoids Meropenem 500 mg/ Sodium (Chloride) 50 mls @ 100 mls/hr IV Q12H [facility] Last Infusion: 07/30/22 06:33 Dose: 0 mls/hr Documented By: WAI Insulin Glargine (Insulin Glargine,Hum.Rec.Anlog 100 Unit/Ml 10 Ml Vial) 7 unit SUBCUT BEDTIME [facility] Last Admin: 07/29/22 21:24 Dose: 7 unit Documented By: WAI Insulin Human Lispro (Insulin Lispro 100 Unit/Ml 3 Ml Vial) 0 unit SUBCUT QIDACHS [facility]; Protocol Last Admin: 07/30/22 11:40 Dose: 8 unit Documented By: SAUNDRA Levothyroxine Sodium (Levothyroxine Sodium 150 Mcg Tablet) 300 mcg PO DAILY@0600 [facility] Last Admin: 07/30/22 06:32 Dose: 300 mcg Documented By: WAI Loperamide HCl (Loperamide Hcl 2 Mg Capsule) 2 mg PO Q4H PRN PRN Reason: Diarrhea Metoprolol Tartrate (Metoprolol Tartrate 100 Mg Tablet) 100 mg PO BID [facility]; Protocol Last Admin: 07/30/22 08:15 Dose: 100 mg Documented By: SAUNDRA Omeprazole (Omeprazole 20 Mg Capsule.Dr) 20 mg PO BID@0630,1630 [facility] Last Admin: 07/30/22 06:32 Dose: 20 mg Documented By: WAI Ondansetron HCl (Ondansetron Hcl 4 Mg/2 Ml Vial) 4 mg IVPUSH Q8H PRN PRN Reason: Nausea and Vomiting Pharmacy Consult (Consult Rx Perform Med Rec) 1 each MISCELLANE ONCE PRN PRN Reason: Consult order Polyethylene Glycol (Polyethylene Glycol 3350 17 Gm Powd.Pack) 17 gm PO DAILY PRN PRN Reason: Constipation Senna (Sennosides 8.6 Mg Tablet) 17.2 mg PO BEDTIME PRN PRN Reason: Constipation Sodium Chloride (0.9 % Sodium Chloride Flush 3 Ml Syringe) 3 ml IVFLUSH QSHIFT [facility] Last Admin: 07/30/22 08:15 Dose: 3 ml Documented By: SAUNDRA Vitamin D (Cholecalciferol (Vitamin D3) 25 Mcg Tablet) 25 mcg PO DAILY [facility] Last Admin: 07/30/22 08:15 Dose: 25 mcg Documented By: SAUNDRA Labs CBC & Chem 7: 07/26/22 13:56 07/28/22 06:54 Labs: Laboratory Results - last 24 hr 07/29/22 07/29/22 07/30/22 15:28 19:40 07:28 POC Glucose 136 H 150 H 106 07/30/22 10:46 POC Glucose 326 H Microbiology Microbiology Results: Microbiology 07/26/22 14:44 Urine Culture - Final Urine Catheterized - Straight Catheter Klebsiella pneumoniae Enterobacter cloacae complex Assessment and Plan (1) Toxic metabolic encephalopathy: Status: Acute (2) UTI (urinary tract infection): Status: Acute (3) Acute on chronic kidney failure: Status: Acute Plan 71 female with multiple chronic medical issues here with left leg pain and hyperkalemia Left leg pain, no DVT--appearance of the limb is that of chronic arterial insuficiency and her pain is likely from claudication -Pain control and Vascular consult Acute toxic metabolic encephalopathy-likely from UTI, now lucid Urine culture showing UTI--Ceftriaxone D3, Urine Culture Preliminary 07/29/225562 Organism 1 Klebsiella pneumoniae Quant > 100,000 cfu/mL Organism 2 Enterobacter cloacae complex Quant > 100,000 cfu/mL Ent yimi cp [facility].I.[facility]. RX --------- --- Ertapenem <=0.12 S Gentamicin <=1 S Levofloxacin >=8 R Nitrofurantoin 128 R Trimethoprim/Sulfamethoxazole >=320 R ID recommends Ertapenem to cover both, nephrology doesn't want midline so pineda cath instead PEG on CKD 4--improved to baseline Anemia of chronic disease--monitor Diabetes--Insulin Hypothyroidsim--levothyroxine, DVT prophylaxis; heparin need for inaptient: managment of encephalopathy d/t uti, PEG ? 2 midnights for treatment of encephalopathy, PEG on CKD Likely dischrge today Quality Stroke Does the patient have a stroke diagnosis?: No VTE Prior VTE?: No VTE Risk Level:: Medical - moderate - high VTE Device Contraindication: Treatment Not Tolerated VTE Drug Contraindication: N/A - Med Ordered
[2022-07-30 15:39] LABS: Glucose, Whole Blood 186 mg/dL (60-115)
--- NOTE | 2022-07-30 16:29 | MHC.CM.PN ---
[facility] CANNOT TAKE PATIENT BACK WITHOUT A LINE FOR IV ABX. MIDLINE CANNOT BE PLACED UNTIL THURSDAY AND PATIENT WILL HAVE ONLY 3 DAYS LEFT AT THIS TIME
[2022-07-30 20:35] LABS: Glucose, Whole Blood 157 mg/dL (60-115)
[2022-07-30] MEDS: Amitriptyline HCl 25 MG TABLET PO (21:35)
[2022-07-30] MEDS: Insulin Glargine,Hum.rec.anlog 100 UNIT/ML 10 ML VIAL 7 UNIT SUBCUT (21:35)
[2022-07-30] MEDS: Baclofen 10 MG TABLET 5 MG PO (21:36)
[2022-07-31] VITALS: BP 159/57; PULSE 70; RESP 18; TEMP 35.5; O2SAT 96
[2022-07-31 04:00] VITALS: BP 163/85; PULSE 69; RESP 18; TEMP 36.4; O2SAT 99
[2022-07-31] MEDS: Levothyroxine Sodium 150 MCG TABLET 300 MCG PO (05:31)
[2022-07-31] MEDS: Omeprazole 20 MG CAPSULE.DR PO ×2 (05:31→15:51)
[2022-07-31 07:23] VITALS: BP 186/94; PULSE 72; RESP 16; TEMP 36.2; O2SAT 100
[2022-07-31 07:51] LABS: Glucose, Whole Blood 118 mg/dL (60-115)
[2022-07-31] MEDS: hydrALAZINE HCl 50 MG TABLET 100 MG PO ×3 (08:55→21:17)
[2022-07-31] MEDS: Metoprolol Tartrate 100 MG TABLET PO ×2 (08:55→21:14)
[2022-07-31] MEDS: Cholecalciferol (Vitamin D3) 25 MCG TABLET PO (08:55)
[2022-07-31] MEDS: Ascorbic Acid 500 MG TABLET PO ×2 (08:55→21:15)
[2022-07-31] MEDS: Atorvastatin Calcium 80 MG TABLET PO (08:55)
[2022-07-31] MEDS: Aspirin Enteric Coated 81 MG TABLET.DR PO (08:55)
[2022-07-31] MEDS: Escitalopram Oxalate 10 MG TABLET PO (08:55)
[2022-07-31] MEDS: amLODIPine Besylate 5 MG TABLET PO (08:55)
[2022-07-31] MEDS: 0.9 % Sodium Chloride Flush 3 ML SYRINGE IVFLUSH ×3 (08:56→21:47)
--- NOTE | 2022-07-31 09:04 | P.PNIM_ITS ---
Subjective Subjective Date of Service: 07/31/22 Interval History: f/u on metabolic encephalopathy d/t uti and peg interval history: no new issues, no fever or chills, no confusio Review of Systems Gen: no fever Resp: no sob, no cough CV: no chest, no MOYA, no leg edema GI: No n/v, no abd pain Neuro: No confusion Physical Exam Vital Signs: Vital Signs: Last Vital Signs Temp 97.1 F 07/31/22 07:23 Pulse 72 07/31/22 07:23 Resp 16 07/31/22 07:23 BP 186/94 H 07/31/22 07:23 Pulse Ox 100 07/31/22 07:23 O2 Del Method 07/31/22 07:23 BMI result Body Mass Index 40.8 Const: Other: General: AO X 3, no acute distress Resp: CTA bilateral CVS: S1,S2,RRR GI: +BS, NT, no distention Skin: No rash Neuro: motor grossly intact Psych: appropriate affect Objective Data Active Medications Acetaminophen (Acetaminophen 325 Mg Tablet) 650 mg PO Q6H PRN PRN Reason: Pain, Mild (Pain Scale 1-3) Last Admin: 07/29/22 21:30 Dose: 650 mg Documented By: WAI Acetaminophen/Butalbital/Caffeine (Butalb/Acetamin/Caff 50/325/40 Tablet) 1 tab PO Q8H PRN PRN Reason: Migraine Headache Last Admin: 07/29/22 08:40 Dose: 1 tab Documented By: WILLEM Amitriptyline HCl (Amitriptyline Hcl 25 Mg Tablet) 25 mg PO BEDTIME [facility] Last Admin: 07/30/22 21:35 Dose: 25 mg Documented By: WAI Amlodipine Besylate (Amlodipine Besylate 5 Mg Tablet) 5 mg PO DAILY [facility]; Protocol Last Admin: 07/31/22 08:55 Dose: 5 mg Documented By: MARGARETH Artificial Tears (Artificial Tears 15 Ml Drops) 1 drop EYE-BOTH BID [facility] Last Admin: 07/31/22 08:56 Dose: Not Given Documented By: MARGARETH Non-Admin Reason: Patient Refused Ascorbic Acid (Ascorbic Acid 500 Mg Tablet) 500 mg PO BID [facility] Last Admin: 07/31/22 08:55 Dose: 500 mg Documented By: MARGARETH Aspirin (Aspirin Enteric Coated 81 Mg Tablet.) 81 mg PO DAILY [facility] Last Admin: 07/31/22 08:55 Dose: 81 mg Documented By: MARGARETH Atorvastatin Calcium (Atorvastatin Calcium 80 Mg Tablet) 80 mg PO DAILY [facility] Last Admin: 07/31/22 08:55 Dose: 80 mg Documented By: MARGARETH Baclofen (Baclofen 10 Mg Tablet) 5 mg PO BEDTIME [facility] Last Admin: 07/30/22 21:36 Dose: 5 mg Documented By: WAI Docusate Sodium (Docusate Sodium 100 Mg Capsule) 100 mg PO Q24H PRN PRN Reason: Constipation Escitalopram Oxalate (Escitalopram Oxalate 10 Mg Tablet) 10 mg PO DAILY [facility] Last Admin: 07/31/22 08:55 Dose: 10 mg Documented By: MARGARETH Hydralazine HCl (Hydralazine Hcl 50 Mg Tablet) 100 mg PO TID [facility]; Protocol Last Admin: 07/31/22 08:55 Dose: 100 mg Documented By: MARGARETH Hydrocortisone (Hydrocortisone 1 % Cream 28.35 Gm Tube) 1 appl TOPICAL BID PRN; Protocol PRN Reason: Hemorrhoids Meropenem 500 mg/ Sodium (Chloride) 50 mls @ 100 mls/hr IV Q12H [facility] Last Infusion: 07/31/22 06:10 Dose: 0 mls/hr Documented By: WAI Insulin Glargine (Insulin Glargine,Hum.Rec.Anlog 100 Unit/Ml 10 Ml Vial) 7 unit SUBCUT BEDTIME [facility] Last Admin: 07/30/22 21:35 Dose: 7 unit Documented By: WAI Insulin Human Lispro (Insulin Lispro 100 Unit/Ml 3 Ml Vial) 0 unit SUBCUT QIDACHS [facility]; Protocol Last Admin: 07/31/22 08:13 Dose: Not Given Documented By: MARGARETH Non-Admin Reason: No Insulin Coverage Levothyroxine Sodium (Levothyroxine Sodium 150 Mcg Tablet) 300 mcg PO DAILY@0600 [facility] Last Admin: 07/31/22 05:31 Dose: 300 mcg Documented By: WAI Loperamide HCl (Loperamide Hcl 2 Mg Capsule) 2 mg PO Q4H PRN PRN Reason: Diarrhea Metoprolol Tartrate (Metoprolol Tartrate 100 Mg Tablet) 100 mg PO BID [facility]; Protocol Last Admin: 07/31/22 08:55 Dose: 100 mg Documented By: MARGARETH Omeprazole (Omeprazole 20 Mg Capsule.Dr) 20 mg PO BID@0630,1630 [facility] Last Admin: 07/31/22 05:31 Dose: 20 mg Documented By: WAI Ondansetron HCl (Ondansetron Hcl 4 Mg/2 Ml Vial) 4 mg IVPUSH Q8H PRN PRN Reason: Nausea and Vomiting Pharmacy Consult (Consult Rx Perform Med Rec) 1 each MISCELLANE ONCE PRN PRN Reason: Consult order Polyethylene Glycol (Polyethylene Glycol 3350 17 Gm Powd.Pack) 17 gm PO DAILY PRN PRN Reason: Constipation Senna (Sennosides 8.6 Mg Tablet) 17.2 mg PO BEDTIME PRN PRN Reason: Constipation Sodium Chloride (0.9 % Sodium Chloride Flush 3 Ml Syringe) 3 ml IVFLUSH QSHIFT [facility] Last Admin: 07/31/22 08:56 Dose: 3 ml Documented By: MARGARETH Vitamin D (Cholecalciferol (Vitamin D3) 25 Mcg Tablet) 25 mcg PO DAILY [facility] Last Admin: 07/31/22 08:55 Dose: 25 mcg Documented By: MARGARETH Labs CBC & Chem 7: 07/26/22 13:56 07/28/22 06:54 Labs: Laboratory Results - last 24 hr 07/30/22 07/30/22 07/30/22 10:46 15:28 20:27 POC Glucose 326 H 186 H 157 H 07/31/22 07:27 POC Glucose 118 H Microbiology Microbiology Results: Microbiology 07/26/22 14:44 Urine Culture - Final Urine Catheterized - Straight Catheter Klebsiella pneumoniae Enterobacter cloacae complex Assessment and Plan (1) Toxic metabolic encephalopathy: Status: Acute (2) UTI (urinary tract infection): Status: Acute (3) Acute on chronic kidney failure: Status: Acute Plan 71 female with multiple chronic medical issues here with left leg pain and hyperkalemia Left leg pain, no DVT--appearance of the limb is that of chronic arterial insuficiency and her pain is likely from claudication -Pain control and Vascular consult Acute toxic metabolic encephalopathy-likely from UTI, now lucid Urine culture showing UTI--Ceftriaxone D3, Urine Culture Preliminary 07/29/22-738 Organism 1 Klebsiella pneumoniae Quant > 100,000 cfu/mL Organism 2 Enterobacter cloacae complex Quant > 100,000 cfu/mL Ent yimi cp M.I.C. RX --------- --- Ertapenem <=0.12 S Gentamicin <=1 S Levofloxacin >=8 R Nitrofurantoin 128 R Trimethoprim/Sulfamethoxazole >=320 R ID recommends Ertapenem to cover both, D3/7, nephrology wants the patient to get pineda not PICC, IR can't do it until Thursday. SNF won't do peripheral for few days PEG on CKD 4--improved to baseline Anemia of chronic disease--monitor Diabetes--Insulin Hypothyroidsim--levothyroxine, DVT prophylaxis; heparin need for inaptient: managment of encephalopathy d/t uti, PEG ? 2 midnights for treatment of encephalopathy, PEG on CKD Likely dischrge today Quality Stroke Does the patient have a stroke diagnosis?: No VTE Prior VTE?: No VTE Risk Level:: Medical - moderate - high VTE Device Contraindication: Treatment Not Tolerated VTE Drug Contraindication: N/A - Med Ordered
[2022-07-31 11:14] VITALS: BP 189/79; PULSE 67; RESP 16; TEMP 36.3; O2SAT 97
[2022-07-31 11:34] LABS: Glucose, Whole Blood 178 mg/dL (60-115)
[2022-07-31] MEDS: Insulin Lispro 100 UNIT/ML 3 ML VIAL SUBCUT ×2 (11:48→21:12)
[2022-07-31 15:19] VITALS: BP 155/62; PULSE 68; RESP 17; TEMP 36.2; O2SAT 97
[2022-07-31 16:23] LABS: Glucose, Whole Blood 138 mg/dL (60-115)
[2022-07-31 19:20] VITALS: BP 170/66; PULSE 76; RESP 18; TEMP 36.4; O2SAT 96
[2022-07-31 19:40] LABS: Glucose, Whole Blood 176 mg/dL (60-115)
[2022-07-31] MEDS: Insulin Glargine,Hum.rec.anlog 100 UNIT/ML 10 ML VIAL 7 UNIT SUBCUT (21:13)
[2022-07-31] MEDS: Baclofen 10 MG TABLET 5 MG PO (21:15)
[2022-07-31] MEDS: Amitriptyline HCl 25 MG TABLET PO (21:15)
[2022-07-31] MEDS: Artificial Tears 15 ML DROPS 1 DROP EYE-BOTH (21:44)
[2022-08-01] VITALS: BP 146/62; PULSE 69; RESP 17; TEMP 36.8; O2SAT 99
[2022-08-01 03:31] VITALS: BP 140/70; PULSE 68; RESP 16; TEMP 36.8; O2SAT 98
[2022-08-01] MEDS: Omeprazole 20 MG CAPSULE.DR PO ×2 (05:09→15:27)
[2022-08-01] MEDS: Levothyroxine Sodium 150 MCG TABLET 300 MCG PO (05:09)
[2022-08-01 07:45] LABS: Glucose, Whole Blood 96 mg/dL (60-115)
[2022-08-01 08:00] VITALS: BP 160/59; PULSE 74; RESP 19; TEMP 36.6; O2SAT 94
--- NOTE | 2022-08-01 08:48 | HO.PM.IMPN ---
Subjective Subjective Date of Service: 08/01/22 Interval History: f/u on metabolic encephalopathy d/t uti and peg interval history: no new issues, no fever or chills, no confusion Review of Systems Gen: no fever Resp: no sob, no cough CV: no chest, no MOYA, no leg edema GI: No n/v, no abd pain Neuro: No confusion Physical Exam Vital Signs: Vital Signs: Last Vital Signs Temp 97.9 F 08/01/22 08:00 Pulse 74 08/01/22 08:00 Resp 19 08/01/22 08:00 BP 160/59 H 08/01/22 08:00 Pulse Ox 94 08/01/22 08:00 O2 Del Method 08/01/22 08:00 BMI result Body Mass Index 40.8 Const: Other: General: AO X 3, no acute distress Resp: CTA bilateral CVS: S1,S2,RRR GI: +BS, NT, no distention Skin: No rash Neuro: motor grossly intact Psych: appropriate affect Objective Data Active Medications Acetaminophen (Acetaminophen 325 Mg Tablet) 650 mg PO Q6H PRN PRN Reason: Pain, Mild (Pain Scale 1-3) Last Admin: 07/29/22 21:30 Dose: 650 mg Documented By: WAI Acetaminophen/Butalbital/Caffeine (Butalb/Acetamin/Caff 50/325/40 Tablet) 1 tab PO Q8H PRN PRN Reason: Migraine Headache Last Admin: 07/29/22 08:40 Dose: 1 tab Documented By: WILLEM Amitriptyline HCl (Amitriptyline Hcl 25 Mg Tablet) 25 mg PO BEDTIME [facility] Last Admin: 07/31/22 21:15 Dose: 25 mg Documented By: ALIYA Amlodipine Besylate (Amlodipine Besylate 5 Mg Tablet) 5 mg PO DAILY [facility]; Protocol Last Admin: 07/31/22 08:55 Dose: 5 mg Documented By: LYSZ Artificial Tears (Artificial Tears 15 Ml Drops) 1 drop EYE-BOTH BID [facility] Last Admin: 07/31/22 21:44 Dose: 1 drop Documented By: ALIYA Ascorbic Acid (Ascorbic Acid 500 Mg Tablet) 500 mg PO BID [facility] Last Admin: 07/31/22 21:15 Dose: 500 mg Documented By: ALIYA Aspirin (Aspirin Enteric Coated 81 Mg Tablet.) 81 mg PO DAILY [facility] Last Admin: 07/31/22 08:55 Dose: 81 mg Documented By: MARGARETH Atorvastatin Calcium (Atorvastatin Calcium 80 Mg Tablet) 80 mg PO DAILY [facility] Last Admin: 07/31/22 08:55 Dose: 80 mg Documented By: MARGARETH Baclofen (Baclofen 10 Mg Tablet) 5 mg PO BEDTIME [facility] Last Admin: 07/31/22 21:15 Dose: 5 mg Documented By: ALIYA Docusate Sodium (Docusate Sodium 100 Mg Capsule) 100 mg PO Q24H PRN PRN Reason: Constipation Escitalopram Oxalate (Escitalopram Oxalate 10 Mg Tablet) 10 mg PO DAILY [facility] Last Admin: 07/31/22 08:55 Dose: 10 mg Documented By: MARGARETH Hydralazine HCl (Hydralazine Hcl 50 Mg Tablet) 100 mg PO TID [facility]; Protocol Last Admin: 07/31/22 21:17 Dose: 100 mg Documented By: ALIYA Hydrocortisone (Hydrocortisone 1 % Cream 28.35 Gm Tube) 1 appl TOPICAL BID PRN; Protocol PRN Reason: Hemorrhoids Meropenem 500 mg/ Sodium (Chloride) 50 mls @ 100 mls/hr IV Q12H [facility] Last Infusion: 08/01/22 05:46 Dose: 0 mls/hr Documented By: ALIYA Insulin Glargine (Insulin Glargine,Hum.Rec.Anlog 100 Unit/Ml 10 Ml Vial) 7 unit SUBCUT BEDTIME [facility] Last Admin: 07/31/22 21:13 Dose: 7 unit Documented By: ALIYA Insulin Human Lispro (Insulin Lispro 100 Unit/Ml 3 Ml Vial) 0 unit SUBCUT QIDACHS [facility]; Protocol Last Admin: 08/01/22 08:27 Dose: Not Given Documented By: JANIE Non-Admin Reason: No Insulin Coverage Levothyroxine Sodium (Levothyroxine Sodium 150 Mcg Tablet) 300 mcg PO DAILY@0600 [facility] Last Admin: 08/01/22 05:09 Dose: 300 mcg Documented By: ALIYA Loperamide HCl (Loperamide Hcl 2 Mg Capsule) 2 mg PO Q4H PRN PRN Reason: Diarrhea Metoprolol Tartrate (Metoprolol Tartrate 100 Mg Tablet) 100 mg PO BID [facility]; Protocol Last Admin: 07/31/22 21:14 Dose: 100 mg Documented By: ALIYA Omeprazole (Omeprazole 20 Mg Capsule.Dr) 20 mg PO BID@0630,3360 [facility] Last Admin: 08/01/22 05:09 Dose: 20 mg Documented By: ALIYA Ondansetron HCl (Ondansetron Hcl 4 Mg/2 Ml Vial) 4 mg IVPUSH Q8H PRN PRN Reason: Nausea and Vomiting Pharmacy Consult (Consult Rx Perform Med Rec) 1 each MISCELLANE ONCE PRN PRN Reason: Consult order Polyethylene Glycol (Polyethylene Glycol 3350 17 Gm Powd.Pack) 17 gm PO DAILY PRN PRN Reason: Constipation Senna (Sennosides 8.6 Mg Tablet) 17.2 mg PO BEDTIME PRN PRN Reason: Constipation Sodium Chloride (0.9 % Sodium Chloride Flush 3 Ml Syringe) 3 ml IVFLUSH QSHIFT [facility] Last Admin: 07/31/22 21:47 Dose: 3 ml Documented By: ALIYA Vitamin D (Cholecalciferol (Vitamin D3) 25 Mcg Tablet) 25 mcg PO DAILY [facility] Last Admin: 07/31/22 08:55 Dose: 25 mcg Documented By: MARGARETH Labs CBC & Chem 7: 07/26/22 13:56 07/28/22 06:54 Labs: Laboratory Results - last 24 hr 07/31/22 07/31/22 07/31/22 11:16 15:25 19:22 POC Glucose 178 H 138 H 176 H 08/01/22 07:33 POC Glucose 96 Microbiology Microbiology Results: Microbiology 07/26/22 16:43 Blood Culture - Final Blood - Venous No growth after 5 days. 07/26/22 16:41 Blood Culture - Final Blood - Venous No growth after 5 days. Assessment and Plan (1) Toxic metabolic encephalopathy: Status: Acute (2) UTI (urinary tract infection): Status: Acute (3) Acute on chronic kidney failure: Status: Acute Plan 71 female with multiple chronic medical issues here with left leg pain and hyperkalemia Left leg pain, no DVT--appearance of the limb is that of chronic arterial insuficiency and her pain is likely from claudication -Pain control and Vascular consult Acute toxic metabolic encephalopathy-likely from UTI, now lucid Urine culture showing UTI--Ceftriaxone D3, Urine Culture Preliminary 07/29/2273 Organism 1 Klebsiella pneumoniae Quant > 100,000 cfu/mL Organism 2 Enterobacter cloacae complex Quant > 100,000 cfu/mL Ent yimi cp [facility].I.C. RX --------- --- Ertapenem <=0.12 S Gentamicin <=1 S Levofloxacin >=8 R Nitrofurantoin 128 R Trimethoprim/Sulfamethoxazole >=320 R ID recommends Ertapenem to cover both, D4/, nephrology wants the patient to get pineda not PICC, IR can't do it until Thursday. SNF won't do peripheral for few days.. She would only need a pineda cather for 3 more days or IV and I am not so sure that the benefit outweigh the risks vs given Abx here for 2 more days and ask ID if duration can be shortened to 5 days PEG on CKD 4--improved to baseline Anemia of chronic disease--monitor Diabetes--Insulin Hypothyroidsim--levothyroxine, DVT prophylaxis; heparin need for inaptient: managment of encephalopathy d/t uti, PEG ? 2 midnights for treatment of encephalopathy, PEG on CKD Likely dischrge today Quality Stroke Does the patient have a stroke diagnosis?: No VTE Prior VTE?: No VTE Risk Level:: Medical - moderate - high VTE Device Contraindication: Treatment Not Tolerated VTE Drug Contraindication: N/A - Med Ordered
--- NOTE | 2022-08-01 09:06 | PC.NURSE ---
patient made NPO at 0850, has already eaten breakfast
[2022-08-01] MEDS: Metoprolol Tartrate 100 MG TABLET PO ×2 (09:07→21:48)
[2022-08-01] MEDS: Atorvastatin Calcium 80 MG TABLET PO (09:07)
[2022-08-01] MEDS: Ascorbic Acid 500 MG TABLET PO ×2 (09:07→21:48)
[2022-08-01] MEDS: hydrALAZINE HCl 50 MG TABLET 100 MG PO ×3 (09:07→21:38)
[2022-08-01] MEDS: Aspirin Enteric Coated 81 MG TABLET.DR PO (09:07)
[2022-08-01] MEDS: Artificial Tears 15 ML DROPS 1 DROP EYE-BOTH ×2 (09:08→21:48)
[2022-08-01] MEDS: 0.9 % Sodium Chloride Flush 3 ML SYRINGE IVFLUSH ×2 (09:08→15:32)
[2022-08-01] MEDS: amLODIPine Besylate 5 MG TABLET PO (09:08)
[2022-08-01] MEDS: Cholecalciferol (Vitamin D3) 25 MCG TABLET PO (09:08)
[2022-08-01] MEDS: Escitalopram Oxalate 10 MG TABLET PO (09:08)
[2022-08-01 11:05] VITALS: BP 157/60; PULSE 65; RESP 19; TEMP 36.6; O2SAT 98
[2022-08-01 11:33] LABS: Glucose, Whole Blood 141 mg/dL (60-115)
--- NOTE | 2022-08-01 13:49 | MHC.CM.PN ---
PER MD ROUNDS, PLAN IS TO GIVE PT ANOTHER DOSE OF IV ABX TOMORROW AND THEN DISCHARGE BACK TO [facility] AT [facility] INFOR[facility] BLS TRANSPORT REQUIRED
[2022-08-01 15:03] VITALS: BP 123/58; PULSE 69; RESP 19; TEMP 36.6; O2SAT 98
--- NOTE | 2022-08-01 15:21 | PC.NURSE ---
Assumed care of patient at this time.
[2022-08-01 16:03] LABS: Glucose, Whole Blood 120 mg/dL (60-115)
[2022-08-01] MEDS: Acetaminophen 325 MG TABLET 650 MG PO (17:12)
[2022-08-01 19:20] VITALS: BP 142/66; PULSE 78; RESP 16; TEMP 36.8; O2SAT 96
[2022-08-01 19:55] LABS: Glucose, Whole Blood 266 mg/dL (60-115)
[2022-08-01] MEDS: Baclofen 10 MG TABLET 5 MG PO (21:37)
[2022-08-01] MEDS: Insulin Lispro 100 UNIT/ML 3 ML VIAL SUBCUT (21:38)
[2022-08-01] MEDS: Amitriptyline HCl 25 MG TABLET PO (21:38)
[2022-08-01] MEDS: Insulin Glargine,Hum.rec.anlog 100 UNIT/ML 10 ML VIAL 7 UNIT SUBCUT (21:39)
[2022-08-02 02:55] VITALS: BP 140/60; PULSE 69; RESP 17; TEMP 36.6; O2SAT 99
[2022-08-02] MEDS: Omeprazole 20 MG CAPSULE.DR PO ×2 (05:57→16:54)
[2022-08-02] MEDS: 0.9 % Sodium Chloride Flush 3 ML SYRINGE IVFLUSH ×3 (05:57→16:54)
[2022-08-02] MEDS: Levothyroxine Sodium 150 MCG TABLET 300 MCG PO (05:57)
[2022-08-02 07:15] VITALS: BP 172/70; PULSE 74; RESP 18; TEMP 36.6; O2SAT 90
[2022-08-02 07:54] LABS: Glucose, Whole Blood 132 mg/dL (60-115)
[2022-08-02] MEDS: Cholecalciferol (Vitamin D3) 25 MCG TABLET PO (09:51)
[2022-08-02] MEDS: Aspirin Enteric Coated 81 MG TABLET.DR PO (09:51)
[2022-08-02] MEDS: Escitalopram Oxalate 10 MG TABLET PO (09:51)
[2022-08-02] MEDS: hydrALAZINE HCl 50 MG TABLET 100 MG PO ×2 (09:51→14:39)
[2022-08-02] MEDS: Ascorbic Acid 500 MG TABLET PO (09:51)
[2022-08-02] MEDS: Atorvastatin Calcium 80 MG TABLET PO (09:51)
[2022-08-02] MEDS: Artificial Tears 15 ML DROPS 1 DROP EYE-BOTH (09:52)
[2022-08-02] MEDS: amLODIPine Besylate 5 MG TABLET PO (09:52)
[2022-08-02] MEDS: Metoprolol Tartrate 100 MG TABLET PO (09:52)
[2022-08-02 11:25] LABS: Glucose, Whole Blood 225 mg/dL (60-115)
[2022-08-02] MEDS: Insulin Lispro 100 UNIT/ML 3 ML VIAL SUBCUT (12:03)
[2022-08-02 13:09] VITALS: O2SAT 97
--- NOTE | 2022-08-02 15:01 | PM.DS ---
DS: Providers Provider Date of Service: 08/02/22 Date of admission: 07/26/22 15:50 Primary care physician: Bailey Joya MD DS: Diagnosis Discharge Diagnosis (1) Toxic metabolic encephalopathy: Status: Acute (2) UTI (urinary tract infection): Status: Acute DS: Summary Hospital Course Hospital Course: Chief Complaint: confusion 71 years old lady with PMH of CKD stage 4, CVA, diabetes, GERD, DVT on Eliquis among others who presents to the hospital with altered mentation. She is alert oriented to marvin and place but not offering details. She? was reportedy experiencing tremors, altered mentation and BP o 254/115. She has advanced kidney disease and has declined dialysis in the past.? UA is noted for UTI. 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 She was started on IV antibiotics with ceftriaxone, however culture showed Urine Culture? Preliminary ? Organism 1 ? Klebsiella pneumoniae ? Quant ? > 100,000 cfu/mL ?? ? Organism 2 ? Enterobacter cloacae complex ? Quant ? > 100,000 cfu/mL ? Ent yimi cp ? M.I.C.? ? RX ? --------- ---? Ertapenem? <=0.12 ? ? S ? Gentamicin ? <=1? S ? Levofloxacin ? >=8? R ? Nitrofurantoin ? 128? R ? Trimethoprim/Sulfamethoxazole? >=320? ? ? R ? ? She has prior history of enteroccus and probably colonization, Amanda was inititally treated with Ceftriaxone but once it became evident that patient was resistant to Rocephin Meropenem was added and initially was going to be treated for 7 days but has been abreviated to 5 days. She has no symptoms of UTI at this time, she is afebrile and no confusion Metabolic encephalopathy due to UTI resolved. PEG on CKD 4--improved to baseline Anemia of chronic disease--monitor Diabetes--Insulin Hypothyroidsim--levothyroxine, Time Spent with Patient Time attestation: Total time spent providing and/or coordinating discharge services: Discharge coordination time: Greater than 30 minutes Quality: Safe Use of Opioids Does Pt have an Active Cancer Diagnosis on the Problem List?: No Quality: Stroke Does the patient have a stroke diagnosis?: No Physical Exam Vital Signs: Vital Signs: Selected Entries 08/02/22 02:55 08/02/22 07:15 08/02/22 13:09 Temperature 97.9 F Pulse Rate 74 Respiratory Rate 18 Blood Pressure 140/60 H 172/70 H Pulse Oximetry 97 Oxygen Delivery Me thod Room Air Room Air DS: Data Data Completed and Pending Completed studies during hospitalization [Text1]: Procedures Extirpation of Matter from Common Bile Duct, Via Natural or Artificial Opening Endoscopic (04/10/22) Labs on day of discharge: Laboratory Results - last 24 hr 07/27/22 07/27/22 07/28/22 08:33 18:18 06:54 Sodium 136 138 Potassium 5.2 H 3.9 D Chloride 109 H 110 H Carbon Dioxide 11 L 18 L Anion Gap 21 H 14 BUN 72 H 64 H Creatinine 3.88 H 3.37 H Estim Creat Clear Calc 12.9 14.9 Estimated GFR 11 14 POC Glucose 224 H Random Glucose 188 H 152 H Calcium 7.7 L 7.7 L 07/28/22 07:39 Sodium Potassium Chloride Carbon Dioxide Anion Gap BUN Creatinine Estim Creat Clear Calc Estimated GFR POC Glucose 159 H Random Glucose Calcium Preliminary micro results at discharge 07/26/22 16:43 Blood Culture - Preliminary Blood - Venous No growth after 24 hours. 07/26/22 16:41 Blood Culture - Preliminary Blood - Venous No growth after 24 hours. 07/26/22 14:44 Urine Culture - Preliminary Urine Catheterized - Straight Catheter Culture in progress. Discharge Plan Discharge Anticipated Discharge Date/Time: 08/02/22 12:51 Patient Disposition: er SNF Discharge Diagnosis: Metabolic encephalopathy, UTI, Peg Referrals: [facility] [Outside] - 1 Week Bailey Joya MD [Primary Care Provider] - 1 Week Discharge Medications: Continued furosemide 40 mg tablet 1 tab PO DAILY@1400 Hold Instructions: Resume on 03/10/22. hold until seen by nephrology atorvastatin 80 mg tablet 1 tab PO DAILY metoprolol tartrate 100 mg tablet 1 tab PO BID ondansetron HCl 4 mg tablet 1 tab PO Q8H PRN (Reason: Nausea) amitriptyline 25 mg tablet 1 tab PO BEDTIME insulin aspart U-100 [Novolog U-100 Insulin aspart] 100 unit/mL solution 0 sliding scale dose subcut QIDACHS Protocol: Insulin Correction Scale Less than or equal to 110 ---- Give (units): 0 111 to 150 Give (units): 0 151 to 200 Give (units): 9 201 to 250 Give (units): 12 251 to 300 Give (units): 15 301 to 350 Give (units): 18 Greater than 350 Give (units): 21 Call if Blood Glucose > : 350 pantoprazole 40 mg tablet,delayed release (DR/EC) 1 tab PO BID@0630,1630 oxycodone 5 mg tablet 5 mg PO Q8H PRN (Reason: Pain) Rx Instructions: MUST BE 4 HOURS APART FROM SCHEDULED DOSE escitalopram oxalate 10 mg tablet 1 tab PO DAILY insulin degludec [Tresiba FlexTouch U-100] 100 unit/mL (3 mL) insulin pen 10 unit subcut BEDTIME aspirin 81 mg Tablet,Delayed Release (Dr/Ec) 81 mg PO DAILY hydrochlorothiazide 25 mg Tablet 25 mg PO DAILY Qty: 30 0RF cranberry extract 425 mg Capsule 850 mg PO DAILY Rx Instructions: administer with a meal amlodipine 5 mg Tablet 5 mg PO DAILY levothyroxine 100 mcg Tablet 300 mcg PO DAILY polyethylene glycol 3350 [Miralax] 17 gram/dose Powder 17 g PO DAILY PRN (Reason: Constipation) Artificial Tears(glycerin-peg) 1-0.3 % Drops 1 drp OPHTHALMIC (EYE) BID cholecalciferol (vitamin D3) 25 mcg (1,000 unit) Tablet 25 mcg PO DAILY Eliquis 2.5 mg Tablet 2.5 mg PO BID [id number] [Fioricet with Codeine] 50-231-95-30 mg Capsule 1 cap PO Q8H PRN (Reason: Migraine Headache) Culturelle 1 cap PO BID ascorbic acid (vitamin C) 500 mg Tablet 500 mg PO BID baclofen 5 mg Tablet 5 mg PO BEDTIME acetaminophen [Tylenol] 325 mg Tablet 650 mg PO Q8H PRN (Reason: Pain) docusate sodium 100 mg Tablet 100 mg PO Q24H PRN (Reason: Constipation) loperamide 2 mg Tablet 2 mg PO Q4H PRN (Reason: Diarrhea) Rx Instructions: administer after each loose stool until symptoms controlled; do not exceed 8 mg per 24 hrs hydrocortisone [Preparation H Hydrocortisone] 1 % Cream 1 appl TOPICAL BID PRN (Reason: Hemorrhoids) hydralazine 25 mg tablet 100 mg PO TID Qty: 360 0RF Protocol: Hold for SBP< HOLD for SBP < : 90 Discharge Orders: Discharge Order (Routine); Ordered 08/02/22 Ordered By: Guillermo Sierra Diet: Diabetic diet Activity on Discharge: As tolerated Stand Alone Forms: Patient Portal Discharge page Care Plan Goals: Full recovery from UTI Health Concerns: Recurrent UIT, CKD Plan of Treatment: contiue taking your usual medications and follow up wtih your Doctor in a week Assessment: as above
[2022-08-02 15:29] VITALS: BP 141/72; PULSE 65; RESP 19; TEMP 36.6; O2SAT 97
--- NOTE | 2022-08-02 15:32 | MHC.CM.PN ---
Addendum entered by Sarah Johnson 08/02/22 15:48: FOLLOW UP IMM WILL BE MAILED TO HCP Addendum entered by Sarah Johnson 08/02/22 15:47: CM ATTEMPTED TO CALL PTS BROTHER/HCP JIN FABIAN [phone] CALL WENT TO HOWEVER MAILBOX WAS NOT SET UP TO RECEIVE MESSAGES Original Note: PT IS CLEARED TO RETURN TO LTC TODAY CM SENT MULTIPLE MESSAGES TO [facility], HOWEVER DID NOT RECEIVE A RESPONSE CINDY CALLED [facility] OF AND SPOKE TO MARCEL RN SHE IS AWARE PT WILL RETURN AT 1700 HOURS TODAY PENDING A NEGATIVE COVID TEST RESULT PT WILL REQUIRE BLS TRANSPORT
[2022-08-02 15:51] LABS: Glucose, Whole Blood 138 mg/dL (60-115)
[2022-08-02 16:30] VITALS: RESP 20
[2022-08-02 17:48] LABS: COVID-19 Test Negative (Negative)
== END 2022-08-02 20:10 | disposition skilled nursing facility (03) | DRG 689 ==
LOC: HO.ED 15:14 → HO.EDOVER 15:54 → HO.S3 07-27 16:54
PROVIDERS: Admitting Provider Internal Medicine; Emergency Provider Emergency Medicine; PCP Internal Medicine; Visit Provider Internal Medicine
DX: N39.0 Urinary tract infection, site not specified (principal); G92.8 Other toxic encephalopathy; Z68.41 Body mass index [BMI] 40.0-44.9, adult; N17.9 Acute kidney failure, unspecified; N18.4 Chronic kidney disease, stage 4 (severe); E66.01 Morbid (severe) obesity due to excess calories; E87.5 Hyperkalemia; E11.51 Type 2 diabetes mellitus with diabetic peripheral angiopathy without gangrene; E11.22 Type 2 diabetes mellitus with diabetic chronic kidney disease; E03.9 Hypothyroidism, unspecified; D63.1 Anemia in chronic kidney disease; Z86.73 Personal history of transient ischemic attack (TIA), and cerebral infarction without residual deficits; Z20.822 Contact with and (suspected) exposure to COVID-19; Z91.15 Patient's noncompliance with renal dialysis; Z89.512 Acquired absence of left leg below knee; B96.1 Klebsiella pneumoniae [K. pneumoniae] as the cause of diseases classified elsewhere; Z91.040 Latex allergy status; Z88.1 Allergy status to other antibiotic agents; Z88.5 Allergy status to narcotic agent; Z79.4 Long term (current) use of insulin; Z79.01 Long term (current) use of anticoagulants; Z79.82 Long term (current) use of aspirin; Z79.890 Hormone replacement therapy; Z79.899 Other long term (current) drug therapy
CPT/HCPCS: 36415; 71045; 80048; 80076; 81001; 82947; 83605; 83690; 85025; 87040; 87086; 87088; 87186; 87635; 93005; 99285; J0696; J2185